=== PATIENT | female | born 1985 | race Caucasian/White ===

== ENCOUNTER 2020-03-15 07:11 | Outpatient (CLI) | payer BC, SELFPAY ==
--- NOTE | ~2020-03-15 | MM_ITS ---
EXAMINATION: MM screening camryn BI w ezio HISTORY: Screening TECHNIQUE: Craniocaudal and mediolateral oblique 3-D tomosynthesis images were obtained and synthetic 2-D images were generated. CAD analysis was submitted and interpreted. COMPARISON: No prior mammogram is available for comparison at this institution. BREAST PARENCHYMAL COMPOSITION: The breasts are heterogeneously dense, which may obscure small masses . FINDINGS: There is no evidence of suspicious mass, calcification, or architectural distortion to sugg est malignancy in either breast. There has been no suspicious interval change. IMPRESSION: 1. No mammographic evidence of malignancy. 2. Recommend routine screening mammography in one year. BI-RADS Category 1: Negative Reviewed, dictated and finalized at location A.
== END 2020-03-15 07:12 | disposition home or self-care (01) ==
PROVIDERS: PCP Family Medicine; Visit Provider Family Medicine
DX: Z12.31 Encounter for screening mammogram for malignant neoplasm of breast (principal)
CPT/HCPCS: 77063; 77067

== ENCOUNTER 2020-05-11 14:09 | Outpatient (CLI) | payer BC, SELFPAY ==
[2020-05-12 01:32] LABS: SARS-CoV-2 RNA PCR Positive
== END 2020-05-11 14:10 | disposition home or self-care (01) ==
LOC: CHSLAB 14:13
PROVIDERS: PCP Family Medicine; Visit Provider Family Medicine
DX: U07.1 COVID-19 (principal)
CPT/HCPCS: 87635; C9803; U0003

== ENCOUNTER 2021-10-19 07:12 | Outpatient (CLI) | payer BC, SELFPAY ==
[2021-10-19 07:43] LABS: Basophils Absolute Auto 0.02 K/mm3 (0.00-0.10); Basophils Percent Auto 0.4 % (0.0-1.0); Eosinophils Absolute Auto 0.08 K/mm3 (0.02-0.50); Eosinophils Percent Auto 1.5 % (1.0-6.0); Hematocrit 40.1 % (35.0-49.0); Hemoglobin 12.5 g/dL (12.0-15.0); Immature Granulocyte Absolute 0.01 K/mm3 (0.00-0.00); Immature Granulocyte Percent A 0.2 % (0.0-0.0); Lymphocytes Absolute Auto 1.97 K/mm3 (1.10-4.50); Lymphocytes Percent Auto 37.5 % (18.0-42.0); Mean Corpuscular HGB Conc 31.2 g/dL (32.0-36.0); Mean Corpuscular Hemoglobin 26.4 pg (27.0-31.0); Mean Corpuscular Volume 84.6 fL (78.0-102.0); Mean Platelet Volume 10.8 fl (9.2-11.8); Monocytes Absolute Auto 0.54 K/mm3 (0.10-0.90); Monocytes Percent Auto 10.3 % (2.0-11.0); Neutrophils Absolute Auto 2.6 K/mm3 (1.7-7.2); Neutrophils Percent Auto 50.1 % (50.0-70.0); Platelet Count Result 315 K/mm3 (150-420); Red Blood Count 4.74 M/mm3 (4.20-5.40); Red Cell Distribution Width 14.3 % (11.6-14.4); White Blood Count 5.3 K/mm3 (4.8-10.8)
[2021-10-19 07:56] LABS: Creatinine Urine 131.86 mg/dL (40-278); MALB Creatinine Ratio 9.8 mg/g (0-30); Microalbumin Urine Random < 13.0 mg/L
[2021-10-19 08:22] LABS: Alanine Aminotransferase 29 U/L (14-59); Albumin Level 3.8 g/dL (3.4-5.0); Alkaline Phosphatase 69 U/L (46-116); Anion Gap 7 mmol/L (8-16); Aspartate Amino Transferase 21 U/L (15-37); Bilirubin,Total 0.3 mg/dL (0.00-1.00); Blood Urea Nitrogen 18 mg/dL (7-18); Calcium 8.9 mg/dL (8.5-10.1); Carbon Dioxide 30 mmol/L (21-32); Chloride 106 mmol/L (98-108); Cholesterol 139 mg/dL (0-200); Estimated Glomerular Filt Rate > 60; Glucose 92 mg/dL (70-99); HDL Direct 67 mg/dL (40-60); LDL Cholesterol Calculated 66 mg/dL (<130); Osmolality Calculated 297 mOsm/kg (285-295); Potassium 3.9 mmol/L (3.5-5.1); Sodium 143 mmol/L (136-145); Thyroid Stimulating Hormone 2.14 uIU/mL (0.36-3.74); Total Protein 6.7 g/dL (6.4-8.2); Triglycerides 28 mg/dL (0-150)
== END 2021-10-19 07:13 | disposition home or self-care (01) ==
LOC: CHSLAB 07:15
PROVIDERS: PCP Family Medicine; Visit Provider Family Medicine
DX: E78.2 Mixed hyperlipidemia (principal); I10 Essential (primary) hypertension
CPT/HCPCS: 36415; 80053; 80061; 82043; 84443; 85025

== ENCOUNTER 2024-06-22 09:13 | Outpatient (CLI) | payer BC, SELFPAY ==
--- NOTE | ~2024-06-22 | XR_ITS ---
XR chest 2V Ordering provider: Joel Durán MD History: 39 years Female with . subacute cough X 3 months, Former smoker, 2020 - PFO . Comparison: None. FINDINGS: MEDIASTINUM: The cardiac silhouette is not enlarged. LUNGS: No infiltrates, effusions or pneumothorax. OTHER: No free air under the diaphragm. IMPRESSION: No acute cardiopulmonary pathology. Reviewed, dictated and finalized at location A. [employer]
--- OUTSIDE RECORDS SUMMARY | 2024-07-01 02:49 | XMS_ITS | Encounter Summary ---
Author Organization [facility] Address [address] [place] [address]. [place] [address] [place] [address] Care Team Providers Care Medical Lab Technician Name Role Phone Joel Durán MD Primary Care Provider [phone] Mary Bahena MD Unavailable Jaguar Castaneda MD Unavailable [phone] Reason for Visit * Reason Onset Date Comments Appointment Request 09/09/2021 Encounter Details Date Type Department Care Team (Late st Contact Info) Description 09/09/2021 Telephone [facility] ld [address] [place] [address] Billy Fernandez, NUT ROASTER HELPER [address] [facility] [address] [place] [address] Appointment Request Social History Tobacco Use Types Packs/Day Years Used Date Smoking Tobacco: Former Cigarettes 1 21 0 03/31/1999 - 03/31/2020 Smokeless Tobacco: Never Alcohol Use Standard Drinks/Week Comments Yes 0 (1 standard drink = 0.6 oz pur e alcohol) socially AUDIT-C Answer Date Recorded Q1: How often do you have a drink containing alc ohol? 2-4 times a month 04/30/2020 Average Number of Drinks Not on file 020 Frequency of Binge Drinking Not on file 04/06 Comments No Sex and Gender Information Value Date Recorded Sex Assigned at Not on file Legal Sex Female 5:28 PM CDT Gender Identity Female 11/19/2021 10:17 AM CDT Sexual Orientation Straight 11/19/2021 10 :17 AM CDT COVID-19 Exposure Response Date Recorded In the last 10 days, have yo u been in contact with someone who was confirmed or suspected to have Coronavirus/COVID-19? No / Unsure 09/09/2021 1:01 PM SADDLE CUTTER documented as of this encounter Functional Status * RETIRED Are you deaf or do you have serious difficulty hearing Answer Date of Assessment Author Status No 09/07/2020 11:09 AM SADDLE CUTTER Acti ve * RETIRED Are you blind or do you have serious difficulty seeing, even when wearing glasses? Answer Date of Assessment Author Status No 09/07/2020 11:09 AM SADDLE CUTTER Acti ve * Do you have serious difficulty walking or climbing stairs? Answer Date of Assessment Author Status No 09/07/2020 11:09 AM SADDLE CUTTER Sweetie Craven R N Active * Do you have difficulty dressing or bathing? Answer Date of Assessment Author Status No 09/07/2020 11:09 AM SADDLE CUTTER Sweetie Craven R N Active * Because of a physical, mental, or emotional condition, do you have difficulty doing errands alone such as visiting a doctor's office or shopping? Answer Date of Assessment Author Status No 09/07/2020 11:09 AM SADDLE CUTTER Sweetie Craven R N Active documented as of this encounter Mental Status * Because of a physical, mental, or emotional condition, do you have serious difficulty concentrating, remembering, or making decisions? Answer Entry Date Author Status No 09/07/2020 11:09 AM SADDLE CUTTER Sweetie Craven R N Active documented in this encounter Progress Notes * Carmencita Eubanks - 09/09/2021 2:36 PM CST FOLLOW UP APPT DATE/TIME: 09/10/22 @11am TESTING REQUESTED? Yes IF YES TESTING SCHEDULED: Echo LOCATION: [facility] DATE/TIME: 09/10/22 @10am TESTING LETTER WITH INSTRUCTIONS PROVIDED: Yes APPT CARD COMPLETED AND PROVIDED: Yes LE CUTTER documented in this encounter Plan of Treatment Upcoming Encounters Date Type Department Care Team (Late st Contact Info) Description 09/23/2024 9:00 AM CDT Appointment [facility] Non Invasive Cardiology - [facility] [address] [place] [address] Jaguar Castaneda MD [address] [place] [address] 09/23/2024 10:00 AM CDT [facility] [address] [place] [id number] Jaguar Castaneda MD [address] [place] [address] documented as of this encounter Goals Goal Patient Goal Type Associated Problems Recent Progress Patient-Stated? Author Safety - demonstrates understanding of home safety measures General Cassandra Graves RN documented as of this encounter Visit Diagnoses Not on filedocumented in this encounter Care Teams Medical Lab Technician Relationship Specialty Start Date End Date Joel Durán MD [address] [place] [address] PCP - General FAMILY PRACTICE 03/30/20 Mary Bahena MD [address] [place] [address] Vascular Neurology 04/18/20 09/09/22 Jaguar Castaneda MD [address] [place] [address] Consulting Physician INTERVENTIONAL CARDIOLOGY 04/18/20 documented as of this encounter
--- OUTSIDE RECORDS SUMMARY | 2024-07-01 02:49 | XMS_ITS | Encounter Summary ---
Author Organization [facility] Address [address] [place] [address]. [place] [address] [place] [address] Care Team Providers Care Station Engineer Main Line Name Role Phone Joel Durán MD Primary Care Provider [phone] Mary Bahena MD Unavailable Jaguar Castaneda MD Unavailable [phone] Billy Fernandez APRN Unavailable [phone] Encounter Details Date Type Department Care Team (Late st Contact Info) Description 03/06/2021 Zectert Message Enc [facility] [address] [place] [address] Jaguar Castaneda MD [address] [place] [address] RE: Question Social History Tobacco Use Types Packs/Day Years [...] Orientation Straight 11/19/2021 10 :17 AM CDT documented as of this encounter Functional Status * RETIRED Are you deaf or do you have serious difficulty hearing Answer Date of Assessment Author Status No 09/07/2020 11:09 AM PIPE LINE GAUGER Acti ve * RETIRED Are you blind or do you have serious difficulty seeing, even when wearing glasses? Answer Date of Assessment Author Status No 09/07/2020 11:09 AM PIPE LINE GAUGER Acti ve * Do you have serious difficulty walking or climbing stairs? Answer Date of Assessment Author Status No 09/07/2020 11:09 AM PIPE LINE GAUGER Sweetie Craven R N Active * Do you have difficulty dressing or bathing? Answer Date of Assessment Author Status No 09/07/2020 11:09 AM Sweetie Keating R N Active * Because of a physical, mental, or emotional condition, do you have difficulty doing errands alone such as visiting a doctor's office or shopping? Answer Date of Assessment Author Status No 09/07/2020 11:09 AM PIPE LINE GAUGER Sweetie Craven R N Active documented as of this encounter Mental Status * Because of a physical, mental, or emotional condition, do you have serious difficulty concentrating, remembering, or making decisions? Answer Entry Date Author Status No 09/07/2020 11:09 AM Sweetie Keating R N Active documented in this encounter Progress Notes * Tete Landis RN - 03/06/2021 10:16 AM CDT Stop Plavix and remain on ASA? Does she need 6 mo f/u with echo? documented in this encounter Plan of Treatment Upcoming Encounters Date Type Department Care Team (Late st Contact Info) Description 09/23/2024 9:00 AM CDT Appointment [facility] Non Invasive Cardiology [place] [address] [place] [address] Jaguar Castaneda MD [address] [place] [address] 09/23/2024 10:00 AM CDT Office Visit [facility] [address] [place] [address] Jaguar Castaneda MD [address] [place] [address] documented as of this encounter Goals Goal Patient Goal Type Associated Problems Recent Progress Patient-Stated? Author Safety - demonstrates understanding of home safety measures General Cassandra Graves, RN documented as of this encounter Visit Diagnoses Not on filedocumented in this encounter Care Teams Station Engineer Main Line Relationship Specialty Start Date End Date Joel Durán MD [address] [place], [place] [id number] PCP - General FAMILY PRACTICE 03/30/20 Mary Bahena MD [address] [place] [address] Vascular Neurology 04/18/20 09/09/22 Jaguar Castaneda MD [address] [place] [address] Consulting Physician INTERVENTIONAL CARDIOLOGY 04/18/20 Billy Fernandez APRN [address] [facility] [address] [address] Nurse Practitioner NURSE PRACTITIONER 09/10/22 documented as of this encounter
--- OUTSIDE RECORDS SUMMARY | 2024-07-01 02:49 | XMS_ITS | Encounter Summary ---
Author Organization [facility] Address [address] [place] [address]. [place], [place] [address] [place] [address] Care Team Providers Care Booster Operator Name Role Phone Joel Durán MD Primary Care Provider [phone] Jaguar Castaneda MD Unavailable [phone] Billy Fernandez APRN Unavailable [phone] Encounter Details Date Type Department Care Team (Latest Contact Info) Description 09/14/2023 Travel Social History Tobacco Use Types Packs/Day Years [...] Assessment Author Status No 09/07/2020 11:09 AM FRENCH TEACHER Acti ve * RETIRED Are you blind or do you have serious difficulty seeing, even when wearing glasses? Answer Date of Assessment Author Status No 09/07/2020 11:09 AM FRENCH TEACHER Acti ve * Do you have serious difficulty walking or climbing stairs? Answer Date of Assessment Author Status No 09/07/2020 11:09 AM Sweetie Keating R N Active * Do you have [...] AM Sweetie Keating R N Active documented as of this encounter Mental Status * Because of a physical, mental, or emotional condition, do you have serious difficulty concentrating, remembering, or making decisions? Answer Entry Date Author Status No 09/07/2020 11:09 AM Sweetie Keating R N Active documented in this encounter Plan of Treatment Upcoming Encounters Date Type Department Care Team (Late st Contact Info) Description 09/23/2024 9:00 AM CDT Appointment [facility] Non Invasive Cardiology - [facility] [address] [place] [address] Jaguar Castaneda MD [address] [place] [address] 09/23/2024 10:00 AM CDT [facility] [address] [place] [address] Jaguar Castaneda MD [address] [place] [address] documented as of this encounter Goals Goal Patient Goal Type Associated Problems Recent Progress Patient-Stated? Author Safety - demonstrates understanding of home safety measures General No Cassandra Montemayor RN documented as of this encounter Visit Diagnoses Not on filedocumented in this encounter Care Teams Booster Operator Relationship Specialty Start Date End Date Joel Durán MD [address] [place] [address] PCP - General FAMILY PRACTICE 03/30/20 Jaguar Castaneda MD [address] [place] [address] Consulting Physician INTERVENTIONAL CARDIOLOGY 04/18/20 Billy Fernandez APRN [address] [facility] [address] [address] Nurse Practitioner NURSE PRACTITIONER 09/10/22 documented as of this encounter
--- OUTSIDE RECORDS SUMMARY | 2024-07-01 02:49 | XMS_ITS | Encounter Summary ---
Author Organization [facility] Address [address] [place] [address]. [place], [place] [address] [place] [address] Care Team Providers Care Genetic Counsellor Name Role Phone Joel Colvin MD Primary Care Provider [phone] Jaguar Castaneda MD Unavailable [phone] Billy Fernandez APRN Unavailable [phone] Reason for Referral * Imaging (Routine) - Closed Specialty Diagnoses / Procedures Referred By Contac t Referred To Contact RADIOLOGY Diagnoses PFO (patent foramen ovale) ([facility]) Procedures USE ECHOCARDIOGRAM Billy Fernandez APRN [address] [facility] [address] [address] Phone: tel: fax: Referral ID Status Reason Start Date Expiration Date Visits Re quested Visits Authorized [id number] Closed 09/10/2022 10/11/2023 1 1 ECTION CARD CLERK Reason for Visit * Reason Comments Follow Up Cryptogenic TIA and PFO (s/p PFO Closure) Encounter Details Date Type Department Care Team (Late st Contact Info) Description 09/10/2022 11:00 AM COLLECTION CARD CLERK Office Visit [facility] [place] [id number] [place] [address] Billy Fernandez APRN [address] [facility] [address] [place] [address] Follow Up (Cryptogenic TIA and PFO (s/p PFO Closure)) Social History Tobacco Use Types Packs/Day Years [...] suspected to have Coronavirus/COVID-19? No / Unsure 09/10/2022 9:55 AM COLLECTION CARD CLERK documented as of this encounter Last Filed Vital Signs Vital Sign Reading Time Taken Comments Blood Pressure 120/82 09/10/2022 10:49 AM COLLECTION CARD CLERK Pulse 60 09/10/2022 10:49 AM COLLECTION CARD CLERK Temperature - - Respiratory Rate 18 09/10/2022 10:49 AM COLLECTION CARD CLERK Oxygen Saturation - - Inhaled Oxygen Concentration - - Weight 81.2 kg (179 lb) 09/10/2022 10:49 AM COLLECTION CARD CLERK Height 158.8 cm (5' 2.5 ) 09/10/2022 10:49 AM CS T Body Mass Index 32.22 09/10/2022 10:49 AM COLLECTION CARD CLERK documented in this encounter Functional Status * RETIRED Are you deaf or do you have serious difficulty hearing Answer Date of Assessment Author Status No 09/07/2020 11:09 AM COLLECTION CARD CLERK Acti ve * RETIRED Are you blind or do you have serious difficulty seeing, even when wearing glasses? Answer Date of Assessment Author Status No 09/07/2020 11:09 AM COLLECTION CARD CLERK Acti ve * Do you have serious difficulty walking or climbing stairs? Answer Date of Assessment Author Status No 09/07/2020 11:09 AM Sweetie Keating R N Active * Do you have difficulty dressing or bathing? Answer Date of Assessment Author Status No 09/07/2020 11:09 AM COLLECTION CARD CLERK Sweetie Craven R N Active * Because [...] documented in this encounter Progress Notes * Billy Fernandez APRN - 09/10/2022 11:00 AM CST From Billy Fernandez APRN, STUDENT SUPPORT ADVISOR-C, and collaborating physician Dr. Jaguar Castaneda MD, at [facility] Dear Dr. JOEL COLVIN MD: Your patient, Mateusz Hearn, was seen on 09/10/2022 at the [facility]. Reason for Visit: Follow Up (Cryptogenic TIA and PFO (s/p PFO Closure)) History of Present Illness: I saw Ms. Hearn in the outpatient cardiology clinic today for follow-up and reevaluation. As you know, she is a very pleasant 37-year-old year old woman with a history of cryptogenic TIA with a PFO (status post transcatheter PFO closure). She underwent an echocardiogram prior to her appointment today that was reviewed and appears to demonstrate normal left ventricular systolic function with a well seat PFO closure device noted. Ms. Hearn has been doing well since her last visit. She denies anginal type chest discomfort, palpitations, shortness of breath, dyspnea on exertion, orthopnea, paroxysmal nocturnal dyspnea, peripheral edema, claudication, pre- syncope, or syncope. She denies symptoms consistent with TIA or stroke. Recommendations and Plan: Patent Foramen Ovale s/p PFO Closure: The patient remains asymptomatic with stable echocardiogram findings from today. I recommend continuation of her baby aspirin for antiplatelet therapy indefinitely. She questioned whether or not she needed to remain on atorvastatin. I explained that as her PFO was felt to be the cause of her TIA, our office would be okay with her primary care provider decreasing her atorvastatin dose to 20mg and reevaluating her LDL about 3 months later. Her goal LDL is 100or less. I have arranged for Ms. Hearn to follow up in 1 year with an echocardiogram. If you or she feels that she needs to be seen sooner, we would be happy to do so. If you have any questions or concerns, please do not hesitate to call. Thank you for allowing us the privilege of participating in her care. Medications: Current Outpatient Medications: ??? aspirin 81 MG chewable tablet, Chew 81 mg by mouth daily., Disp: , Rfl: ??? atorvastatin 40 MG tablet, Take 1 tablet (40 mg total) by mouth nightly at bedtime., Disp: 90 tablet, Rfl: 2 ??? hydroCHLOROthiazide 25 MG tablet, Take 25 mg by mouth daily., Disp: , Rfl: No Known Allergies Past Medical History: Diagnosis Date ??? HTN (hypertension) Past Surgical History: Procedure Laterality Date ??? SECTION ??? XA ASD CLOSURE 09/06/2020 Social History Socioeconomic History ??? Marital status: Single Tobacco Use ??? Smoking status: Former Packs/day: 1.00 Years: 21.00 Pack years: 21.00 Types: Cigarettes Quit date: 03/31/2020 Years since quittin.4 ??? Smokeless tobacco: Never Vaping Use ??? Vaping Use: Never used Substance and Sexual Activity ??? Alcohol use: Yes Comment: socially ??? Drug use: Never ??? Sexual activity: Not Currently Family History Problem Relation Name Age of Onset ??? Hyperlipidemia Mother ??? Thyroid Disease Father ??? Hyperlipidemia Father ??? Diabetes Maternal Grandmother ??? Heart Disease Maternal Grandmother ??? Cancer Maternal Grandmother ??? Diabetes Paternal Grandmother ??? Heart Disease Paternal Grandmother ??? No Known Problems Sister ??? No Known Problems Brother ??? No Known Problems Maternal Aunt ??? No Known Problems Maternal Uncle ??? No Known Problems Paternal Aunt ??? No Known Problems Paternal Uncle ??? No Known Problems Maternal Grandfather ??? No Known Problems Paternal Grandfather Family Status Relation Name Status ??? Mother (Not Specified) ??? Father (Not Specified) ??? MGM (Not Specified) ??? PGM (Not Specified) ??? Sister (Not Specified) ??? Brother (Not Specified) ??? MAunt (Not Specified) ??? MUncle (Not Specified) ??? PAunt (Not Specified) ??? PUncle (Not Specified) ??? MGF (Not Specified) ??? PGF (Not Specified) Review of Systems Filed Vitals: 09/10/22 1049 BP: 120/82 Pulse: 60 Resp: 18 Weight: 81.2 kg (179 lb) Height: 5' 2.5 (1.588 m) Cardiac Physical Exam Diagnoses/Impression: 1. TIA (transient ischemic attack) 2. PFO (patent foramen ovale) USE ECHOCARDIOGRAM Referring Provider: No ref. provider found PCP: JOEL COLVIN MD ECTION CARD CLERK documented in this encounter Plan of Treatment Upcoming Encounters Date Type Department Care Team (Late st Contact Info) Description 09/23/2024 9:00 AM CDT Appointment [facility] Non Invasive Cardiology - [facility] [address] [place] [address] Jaguar Castaneda MD [address] [place] [address] 09/23/2024 10:00 AM CDT [facility] [address] [place] [phone] Jaguar Castaneda MD [address] [place] [address] documented as of this encounter Goals Goal Patient Goal Type Associated Problems Recent Progress Patient-Stated? Author Safety - demonstrates understanding of home safety measures General No Cassandra Montemayor RN documented as of this encounter Results * USE ECHOCARDIOGRAM (09/14/2023 1:41 PM CDT) Anatomical Region Laterality Modality Cardiac Echocardiogram 09/14/2023 12:5 3 PM CDT Narrative 09/14/2023 1:46 PM CDT ?Echocardiography Report Pat.Name: ??MATEUSZ HEARN ?? Pat.ID: ?[id number] ? St.Date: ?? 09/14/2023 ? Refer.MD: ??[id number], BILLY FERNANDEZ Exam Time: 12:53:00 PM ? Study Type:ECHO WITH CARDIAC DOPPLER COMP Height: ?160 cm ?Weight: ?90.7 kg ? BSA: ? 1.93 m2 ?Age: ??1985,38Y ? Sex: ? F ? HR: ?79 bpm ? Sonogrphr: Gary Lowe RDCS ?Pat. Stat.:Outpatient ? CPT - 4: ?07555 ? Reason for Study:Patent Foramen Ovale (PFO), s/p PFO closure Procedures: 2D, M-mode, Doppler, Color Flow ++++++++++++++++++++++++++++++++++++ SUMMARY: ++++++++++++++++++++++++++++++++++++ The left ventricular size is normal. The left ventricular systolic function is normal. The calculated ejection fraction is 61%. 25mm Amplatzer PFO occluder visualized in the interatrial septum and appears stable with no paraprosthetic flow by color. ++++++++++++++++++++++++++++++++++++ FINDINGS: ++++++++++++++++++++++++++++++++++++ LV: ? The left ventricular size is normal. The left ventricular ?systolic function is normal. The calculated ejection ?fraction is 61%. No concentric left ventricular hypertrophy. ?The septal E/e' is indeterminate at 8-15. The lateral E/e' ?is normal at <8. The average E/e' is normal at <8. Left ?ventricular diastolic function is normal. Left ventricular ?filling pressure is normal. WM: ? Wall motion appears normal in all segments. LVOT: ? The left ventricular outflow tract size is normal. RV: ? The right ventricular size is normal. Right ventricular ?systolic function is normal. Right ventricular systolic ?pressure is 20 mmHg. TAPSE = 22mm (<16 mm indicates systolic ?RV dysfunction). LA: ? The left atrial volume is mildly increased (34- 41ml/M2). RA: ? Right atrial size is normal. IAS: ?25mm Amplatzer PFO occluder visualized in the interatrial ?septum and appears stable with no paraprosthetic flow by ?color. JUDIT: ? Pericardial effusion is noted. Prominent pericardial fat pad ?visualized. AO: ? Aortic root is not dilated. PA: ? Estimated right atrial pressure of 3 mmHg. SVn: ?Inferior vena cava is normal. Inferior vena cava shows >50% ?collapse with respiration consistent with normal right ?atrial pressure. AV: ? The aortic valve is trileaflet. No evidence of aortic valve ?stenosis. No evidence of aortic valve regurgitation. ?Dimensionless index of 0.7. MV: ? Trace mitral regurgitation. No evidence of mitral stenosis. ?Mildly calcified anterior and posterior mitral annulus. The ?mean gradient across the mitral valve is 1mmHg at a heart ?rate of 56bpm. PV: ? The pulmonic valve is normal There is trace pulmonic ?regurgitation TV: ? The tricuspid valve appears structurally normal. There is ?trace tricuspid regurgitation. ++++++++++++++++++++++++++++++++++++ MEASUREMENTS: ++++++++++++++++++++++++++++++++++++ ?DOPPLER LVOT ?? LVOTpkPG ? 2 mmHg ?LVOTmnPG ? 1 mmHg LVOTpkVel ? 78.1 cm/s (70-110) LVOT SV ? 63 ml ?? LVOT TVI ?18.2 cm ?LVOT CO ? 66.7 ml/s AV Forward Flow AV TVI ?26.6 cm ?AV pkPG ?5 mmHg AV pkVel ? 111 cm/s (100-170) Area (TVI) ?2.37 cm2 ??(3-5)* AV mnVel ?78.9 cm/s ?Area (Roderick) ?2.43 cm2 ??(3-5)* AV mnPG ?3 mmHg ? MV Forward Flow MV DeTm ?225 msec ?MV pkPG ?3 mmHg MVA P1/2t ? 3.19 cm2 ??(4-6)* ?? MV E/A ? 1.5 ? MV P1/2t ?69 msec (30-60)+* MV pkE ?74 cm/s (60-130) MV mnPG ?1 mmHg ?MV pkA ?49.4 cm/s TV Regurg Flow TV pkPG ? 17 mmHg ?TV pkVel ? 206 cm/s (30- 70)* Lat E' ?? Lat e ? 12.3 cm/s ? Lat E/E' ?? Lat E/e ?6 ? Med E' ?? Med e ? 6.63 cm/s ? Med E/E' ?? Med E/e ? 11.2 ? AV DI ?? Value ?0.7 ? SANTIAGO (VTI) Index ?? Value ? 1.23 ? LV Mass 2D ?? Value ?153 g ? LV Mass Index 2D ?? Value ? 79.3 g/m2 ?2D Left Ventricle ?? LVIDd ?4.9 cm ?? (3.6-5.2) LV EF(Bi-Plane) ?61 % ?(55-75) LVIDs ?3.5 cm ?? (2.3-3.9) LVPW ?? LVPWd ?0.9 cm ? Ventricular Septum ?? IVSd ? 0.9 cm ? Aorta ?? Ao Rtd ? 3.5 cm ?? (zsc 2.1)* Ao Asc ? 3.5 cm ?? (zsc 3.6)* LVOT ?? LVOT ? 2.1 cm ? Ratios ?? IVS LA Biplane LAVol I BP ?35.8 ml/m2 ? <Electronic Signature> 09/14/2023 01:46 PM Jaguar Castaneda M.D. Procedure Note Jaguar Castaneda MD - 09/14/2023 Echocardiography Report Pat.Name: MATEUSZ HEARN Pat.ID: [id number] St.Date: 09/14/2023 Refer.: [id number], BILLY FERNANDEZ Exam Time: 12:53:00 PM Study Type:ECHO WITH CARDIAC DOPPLER COMP Height: 160 cm Weight: 90.7 kg BSA: 1.93 m2 Age: 10 1985,38Y Sex: F HR: 79 bpm Sonogrphr: Gary Lowe [facility] Pat. Stat.:Outpatient CPT - 4: 13337 Reason for Study:Patent Foramen Ovale (PFO), s/p PFO closure Procedures: 2D, M-mode, Doppler, Color Flow ++++++++++++++++++++++++++++++++++++ SUMMARY: ++++++++++++++++++++++++++++++++++++ The left ventricular size is normal. The left ventricular systolic function is normal. The calculated ejection fraction is 61%. 25mm Amplatzer PFO occluder visualized in the interatrial septum and appears stable with no paraprosthetic flow by color. ++++++++++++++++++++++++++++++++++++ FINDINGS: ++++++++++++++++++++++++++++++++++++ LV: The left ventricular size is normal. The left ventricular systolic function is normal. The calculated ejection fraction is 61%. No concentric left ventricular hypertrophy. The septal E/e' is indeterminate at 8-15. The lateral E/e' is normal at <8. The average E/e' is normal at <8. Left ventricular diastolic function is normal. Left ventricular filling pressure is normal. WM: Wall motion appears normal in all segments. LVOT: The left ventricular outflow tract size is normal. RV: The right ventricular size is normal. Right ventricular systolic function is normal. Right ventricular systolic pressure is 20 mmHg. TAPSE = 22mm (<16 mm indicates systolic RV dysfunction). LA: The left atrial volume is mildly increased (34- 41ml/M2). RA: Right atrial size is normal. IAS: 25mm Amplatzer PFO occluder visualized in the interatrial septum and appears stable with no paraprosthetic flow by color. JUDIT: Pericardial effusion is noted. Prominent pericardial fat pad visualized. AO: Aortic root is not dilated. PA: Estimated right atrial pressure of 3 mmHg. SVn: Inferior vena cava is normal. Inferior vena cava shows >50% collapse with respiration consistent with normal right atrial pressure. AV: The aortic valve is trileaflet. No evidence of aortic valve stenosis. No evidence of aortic valve regurgitation. Dimensionless index of 0.7. MV: Trace mitral regurgitation. No evidence of mitral stenosis. Mildly calcified anterior and posterior mitral annulus. The mean gradient across the mitral valve is 1mmHg at a heart rate of 56bpm. PV: The pulmonic valve is normal There is trace pulmonic regurgitation TV: The tricuspid valve appears structurally normal. There is trace tricuspid regurgitation. ++++++++++++++++++++++++++++++++++++ MEASUREMENTS: ++++++++++++++++++++++++++++++++++++ DOPPLER LVOT LVOTpkPG 2 mmHg LVOTmnPG 1 mmHg LVOTpkVel 78.1 cm/s (70-110) LVOT SV 63 ml LVOT TVI 18.2 cm LVOT CO 66.7 ml/s AV Forward Flow AV TVI 26.6 cm AV pkPG 5 mmHg AV pkVel 111 cm/s (100-170) Area (TVI) 2.37 cm2 (3-5)* AV mnVel 78.9 cm/s Area (Roderick) 2.43 cm2 (3-5)* AV mnPG 3 mmHg MV Forward Flow MV DeTm 225 msec MV pkPG 3 mmHg MVA P1/2t 3.19 cm2 (4-6)* MV E/A 1.5 MV P1/2t 69 msec (30-60)+* MV pkE 74 cm/s (60-130) MV mnPG 1 mmHg MV pkA 49.4 cm/s TV Regurg Flow TV pkPG 17 mmHg TV pkVel 206 cm/s (30-70)* Lat E' Lat e 12.3 cm/s Lat E/E' Lat E/e 6 Med E' Med e 6.63 cm/s Med E/E' Med E/e 11.2 AV DI Value 0.7 SANTIAGO (VTI) Index Value 1.23 LV Mass 2D Value 153 g LV Mass Index 2D Value 79.3 g/m2 2D Left Ventricle LVIDd 4.9 cm (3.6-5.2) LV EF(Bi-Plane) 61 % (55-75) LVIDs 3.5 cm (2.3-3.9) LVPW LVPWd 0.9 cm Ventricular Septum IVSd 0.9 cm Aorta Ao Rtd 3.5 cm (zsc 2.1)* Ao Asc 3.5 cm (zsc 3.6)* LVOT LVOT 2.1 cm Ratios IVS LA Biplane LAVol I BP 35.8 ml/m2 <Electronic Signature> 09/14/2023 01:46 PM Jaguar Castaneda M.D. Billy Fernandez INDUST[employer]AL [employer]EN SYSTEMS DESIGNER ECHO Final R esult documented in this encounter Visit Diagnoses Diagnosis TIA (transient ischemic attack)- Primary Unspecified transient cerebral ischemia PFO (patent foramen ovale) (HHS/HCC) Ostium secundum type atrial septal defect PFO (patent foramen ovale) (HHS/HCC) Ostium secundum type atrial septal defect documented in this encounter Care Teams Genetic Counsellor Relationship Specialty Start Date End Date Joel Colvin MD [address] [place] [address] PCP - General FAMILY PRACTICE 03/30/20 Jaguar Castaneda MD [address] [place] [id number] Consulting Physician INTERVENTIONAL CARDIOLOGY 04/18/20 Billy Fernandez APRN 9 [facility] [address] [address] Nurse Practitioner NURSE PRACTITIONER 09/10/22 documented as of this encounter
--- OUTSIDE RECORDS SUMMARY | 2024-07-01 02:49 | XMS_ITS | Encounter Summary ---
Author Organization [facility] Address [address] [place] [address]. [place] [address] [place] [address] Care Team Providers Care Salad Maker Name Role Phone Joel Durán MD Primary Care Provider [phone] Mary Bahena MD Unavailable Jaguar Castaneda MD Unavailable [phone] Reason for Visit * Reason Onset Date Comments [facility] Study 09/09/2021 Encounter Details Date Type Department Care Team (Late st Contact Info) Description 09/09/2021 [facility] Documentation [facility] el[facility] [address] [place] [address] Jaguar Castaneda MD [address] [place], [place] [id number] [facility] Study Social History Tobacco Use Types Packs/Day Years [...] Coronavirus/COVID-19? No / Unsure 09/09/2021 1:01 PM WAREHOUSE DISTRIBUTION SPECIALIST documented as of this encounter Functional Status * RETIRED Are you deaf or do you have serious difficulty hearing Answer Date of Assessment Author Status No 09/07/2020 11:09 AM WAREHOUSE DISTRIBUTION SPECIALIST Acti ve * RETIRED Are you blind or do you have serious difficulty seeing, even when wearing glasses? Answer Date of Assessment Author Status No 09/07/2020 11:09 AM WAREHOUSE DISTRIBUTION SPECIALIST Acti ve * Do you have serious difficulty walking or climbing stairs? Answer Date of Assessment Author Status No 09/07/2020 11:09 AM WAREHOUSE DISTRIBUTION SPECIALIST Sweetie Craven, R N Active * Do you have difficulty dressing or bathing? Answer Date of Assessment Author Status No 09/07/2020 11:09 AM WAREHOUSE DISTRIBUTION SPECIALIST Sweetie Craven, R N Active * Because of a physical, mental, or emotional condition, do you have difficulty doing errands alone such as visiting a doctor's office or shopping? Answer Date of Assessment Author Status No 09/07/2020 11:09 AM WAREHOUSE DISTRIBUTION SPECIALIST Sweetie Craven, R N Active documented as of this encounter Mental Status * Because of a physical, mental, or emotional condition, do you have serious difficulty concentrating, remembering, or making decisions? Answer Entry Date Author Status No 09/07/2020 11:09 AM WAREHOUSE DISTRIBUTION SPECIALIST Sweetie Craven, R N Active documented in this encounter Progress Notes * Qing Zia - 09/09/2021 1:48 PM CST The Inclusion and Exclusion were reviewed and this subject meets eligibility to enroll in the EKO Low EF Study. The Informed Consent was reviewed in its entirety, on (09.09.2021) and the subject was given ample time to consider participation in the trial. The subject agrees to participate in the EKO Low EF Study during device use and agrees to all study related tests and procedures. The Informed Consent was obtained, signed, and dated by the subject, prior to performing any study-related procedures. A copy of the Informed Consent was given to the patient for their records and the original Informed Consent will be kept in the subject???s research file. The study subject also agrees to call the coordinator if they have any further questions or decides to withdraw from the trial. At this time, all questions have been answered and contact information provided to the study subject. Thank you. HOUSE DISTRIBUTION SPECIALIST documented in this encounter Plan of Treatment Upcoming Encounters Date Type Department Care Team (Late st Contact Info) Description 09/23/2024 9:00 AM CDT Appointment [facility] Non Invasive Cardiology - [facility] [address] [place] [address] Jaguar Castaneda MD [address] [place] [address] 09/23/2024 10:00 AM CDT [facility] [address] [place] [address] Jaguar Castaneda MD [address] [place] [address] documented as of this encounter Goals Goal Patient Goal Type Associated Problems Recent Progress Patient-Stated? Author Safety - demonstrates understanding of home safety measures General Cassandra Graves RN documented as of this encounter Visit Diagnoses Not on filedocumented in this encounter Care Teams Salad Maker Relationship Specialty Start Date End Date Joel Durán MD [address] [place] [address] PCP - General FAMILY PRACTICE 03/30/20 Mary Bahena MD [address] [place] [address] Vascular Neurology 04/18/20 09/09/22 Jaguar Castaneda MD [address] [place] [address] Consulting Physician INTERVENTIONAL CARDIOLOGY 04/18/20 documented as of this encounter
--- OUTSIDE RECORDS SUMMARY | 2024-07-01 02:49 | XMS_ITS | Encounter Summary ---
Author Organization [facility] Address [address] [place] [address]. [place], [place] [address] [place] [address] Care Team Providers Care Bending Machine Operator Name Role Phone Joel Durán MD Primary Care Provider [phone] Jaguar Castaneda MD Unavailable [phone] Billy Fernandez JUNIOR AUTOMATION ENGINEER Unavailable [phone] Reason for Referral * Imaging (Routine) - Closed Specialty Diagnoses / Procedures Referred By Contac t Referred To Contact RADIOLOGY Diagnoses PFO (patent foramen ovale) ([facility]) Procedures USE ECHOCARDIOGRAM Billy Fernandez JUNIOR AUTOMATION ENGINEER [address] [facility] [address] [place] [address] Phone: tel: fax: Referral ID Status Reason Start Date Expiration Date Visits Re quested Visits Authorized [id number] Closed 09/10/2022 10/11/2023 1 1 Reason for Visit * Imaging (Routine) - Closed Specialty Diagnoses / Procedures Referred By Contac t Referred To Contact RADIOLOGY Diagnoses PFO (patent foramen ovale) ([facility]) Procedures USE ECHOCARDIOGRAM Billy Fernandez, JUNIOR AUTOMATION ENGINEER [address] [facility] [address] [place] [address] Phone: tel: fax: Referral ID Status Reason Start Date Expiration Date Visits Re quested Visits Authorized [id number] Closed 09/10/2022 10/11/2023 1 1 Encounter Details Date Type Department Care Team (Latest Contact Info) Description 09/14/2023 12:39 PM CDT - 09/14/2023 11:59 PM CDT Hospital Encounter [facility] Non Invasive Cardiology - [address] [address] Billy Fernandez, JUNIOR AUTOMATION ENGINEER [address] [facility] [address] [place] [address] Discharge Disposition: Home or Self Care (Routine Discharge) Social History Tobacco Use Types Packs/Day Years [...] Assessment Author Status No 09/07/2020 11:09 AM DINKEY SKINNER Acti ve * RETIRED Are you blind or do you have serious difficulty seeing, even when wearing glasses? Answer Date of Assessment Author Status No 09/07/2020 11:09 AM DINKEY SKINNER Acti ve * Do you have serious [...] R N Active documented in this encounter Medications at Time of Discharge aspirin 81 MG chewable tablet Chew 81 mg by mouth daily. atorvastatin 40 MG tablet Take 1 tablet (40 mg total) by mouth nightly at bedtime. 90 tablet 2 04/01/2020 hydroCHLOROthiazi de 25 MG tablet Take 25 mg by mouth daily. 03/07/2020 documented as of this encounter Plan of Treatment Upcoming Encounters Date Type Department Care Team (Late st Contact Info) Description 09/23/2024 9:00 AM CDT Appointment [facility] Non Invasive Cardiology [facility] [address] [place] [address] Jaguar Castaneda MD [address] [place] [address] 09/23/2024 10:00 AM CDT Office Visit [facility] [address] [place] [address] Jaguar Castaneda MD [address] [place] [address] documented as of this encounter Goals Goal Patient Goal Type Associated Problems Recent Progress Patient-Stated? Author Safety - demonstrates understanding of home safety measures General No Cassandra Montemayor RN documented as of this encounter Procedures Procedure Name Priority Date/Time Associated Diagnosis Comments USE ECHOCARDIOGRAM Routine 09/14/2023 1: 41 PM CDT PFO (patent foramen ovale) ([facility]) documented in this encounter Results * USE ECHOCARDIOGRAM (09/14/2023 1:41 PM CDT) Anatomical Region Laterality Modality Cardiac Echocardiogram 09/14/2023 12:5 3 PM CDT Narrative 09/14/2023 1:46 PM CDT ?Echocardiography Report Pat.Name: ??YANELY HEARN ?? Pat.ID: ?[id number] ? St.Date: ?? 09/14/2023 ? Refer.MD: ??[id number], BILLY FERNANDEZ Exam Time: 12:53:00 PM ? Study Type:ECHO WITH CARDIAC DOPPLER COMP Height: ?160 cm ?Weight: ?90.7 kg ? BSA: ? 1.93 m2 ?Age: ??1985,38Y ? Sex: ? F ? HR: ?79 bpm ? Sonogrphr: Gary Lowe RDCS ?Pat. Stat.:Outpatient ? CPT - 4: ?71151 ? Reason for Study:Patent Foramen Ovale (PFO), [...] Castaneda MD - 09/14/2023 Echocardiography Report Pat.Name: YANELY HEARN Pat.ID: [id number] St.Date: 09/14/2023 Refer.: [id number], BILLY FERNANDEZ Exam Time: 12:53:00 PM Study Type:ECHO WITH CARDIAC DOPPLER COMP Height: 160 cm Weight: 90.7 kg BSA: 1.93 m2 Age: 9 1985,38Y Sex: F HR: 79 bpm Sonogrphr: Gary Lowe [facility] Pat. Stat.:Outpatient CPT - 4: 05001 Reason for Study:Patent Foramen Ovale (PFO), s/p [...] 01:46 PM Jaguar Castaneda M.D. Billy Fernandez JUNIOR AUTOMATION ENGINEER ECHO Final R esult documented in this encounter Visit Diagnoses Diagnosis PFO (patent foramen ovale) ([facility]) Ostium secundum type atrial septal defect documented in this encounter Care Teams Bending Machine Operator Relationship Specialty Start Date End Date Joel Durán MD [address] [place] [address] PCP - General FAMILY PRACTICE 03/30/20 Jaguar Castaneda MD [address] [place] [address] Consulting Physician INTERVENTIONAL CARDIOLOGY 04/18/20 Billy Fernandez APRN [address] [id number] Nurse Practitioner NURSE PRACTITIONER 09/10/22 documented as of this encounter
--- OUTSIDE RECORDS SUMMARY | 2024-07-01 02:49 | XMS_ITS | Encounter Summary ---
Author Organization [facility] Address [address] [place] [address]. [place], [place] [address] [place] [address] Care Team Providers Care Edi Consultant Name Role Phone Joel Durán MD Primary Care Provider [phone] Mary Bahena MD Unavailable Jaguar Castaneda MD Unavailable [phone] Billy Fernandez APRN Unavailable [phone] Encounter Details Date Type Department Care Team (Late st Contact Info) Description 09/10/2020 Hospital Follow-up Call [facility] [address] [place] [address] Sanjuanita Barnes, RN Social History Tobacco Use Types Packs/Day Years [...] Exposure Response Date Recorded In the last month, have you been in contact with someone who was confirmed or suspected to have Coronavirus / COVID-19? No / Unsure 09/06/2020 8:12 AM HIGH SCALER documented as of this encounter Functional Status * RETIRED Are you deaf or do you have serious difficulty hearing Answer Date of Assessment Author Status No 09/07/2020 11:09 AM HIGH SCALER Acti ve * RETIRED Are you blind or do you have serious difficulty seeing, even when wearing glasses? Answer Date of Assessment Author Status No 09/07/2020 11:09 AM HIGH SCALER Acti ve * Do you have serious difficulty walking or climbing stairs? Answer Date of Assessment Author Status No 09/07/2020 11:09 AM HIGH SCALER Sweetie Craven R N Active * Do you have difficulty dressing or bathing? Answer Date of Assessment Author Status No 09/07/2020 11:09 AM HIGH SCALER Sweetie Craven R N Active * Because of a physical, mental, or emotional condition, do you have difficulty doing errands alone such as visiting a doctor's office or shopping? Answer Date of Assessment Author Status No 09/07/2020 11:09 AM HIGH SCALER Sweetie Craven R N Active documented as of this encounter Mental Status * Because of a physical, mental, or emotional condition, do you have serious difficulty concentrating, remembering, or making decisions? Answer Entry Date Author Status No 09/07/2020 11:09 AM HIGH SCALER Sweetie Craven R N Active documented in this encounter Plan of Treatment Upcoming Encounters Date Type Department Care Team (Late st Contact Info) Description 09/23/2024 9:00 AM CDT Appointment [facility] Non Invasive Cardiology - [facility] [address] [place] [address] Jaguar Castaneda MD [address] [place] [address] 09/23/2024 10:00 AM CDT Office Visit [facility] [address] [place] [id number] Jaguar Castaneda MD [address] [place] [address] documented as of this encounter Goals Goal Patient Goal Type Associated Problems Recent Progress Patient-Stated? Author Safety - demonstrates understanding of home safety measures General Cassandra Graves, RN documented as of this encounter Visit Diagnoses Not on filedocumented in this encounter Care Teams Edi Consultant Relationship Specialty Start Date End Date Joel Durán MD [address] [place] [address] PCP - General FAMILY PRACTICE 03/30/20 Mary Bahena MD [address] [place] [address] Vascular Neurology 04/18/20 09/09/22 Jaguar Castaneda MD [address] [place] [address] Consulting Physician INTERVENTIONAL CARDIOLOGY 04/18/20 Billy Fernandez APRN [address] [address] Nurse Practitioner NURSE PRACTITIONER 09/10/22 documented as of this encounter
--- OUTSIDE RECORDS SUMMARY | 2024-07-01 02:49 | XMS_ITS | Encounter Summary ---
Author Organization [facility] Address [address] [place] [address]. [place] [address] [place] [address] Care Team Providers Care Sheet Catcher Name Role Phone Joel Durán MD Primary Care Provider [phone] Jaguar Castaneda MD Unavailable [phone] Billy Fernandez APRN Unavailable [phone] Encounter Details Date Type Department Care Team (Late st Contact Info) Description 09/10/2022 Orders Only [facility] [address] [place] [address] Jaguar Castaneda MD [address] [place] [address] Social History Tobacco Use Types Packs/Day Years [...] Coronavirus/COVID-19? No / Unsure 09/10/2022 9:55 AM CONCRETE MIXING PLANT SUPERINTENDENT documented as of this encounter Functional Status * RETIRED Are you deaf or do you have serious difficulty hearing Answer Date of Assessment Author Status No 09/07/2020 11:09 AM CONCRETE MIXING PLANT SUPERINTENDENT Acti ve * RETIRED Are you blind or do you have serious difficulty seeing, even when wearing glasses? Answer Date of Assessment Author Status No 09/07/2020 11:09 AM CONCRETE MIXING PLANT SUPERINTENDENT Acti ve * Do you have serious difficulty walking or climbing stairs? Answer Date of Assessment Author Status No 09/07/2020 11:09 AM CONCRETE MIXING PLANT SUPERINTENDENT Sweetie Craven R N Active * Do you have difficulty dressing or bathing? Answer Date of Assessment Author Status No 09/07/2020 11:09 AM CONCRETE MIXING PLANT SUPERINTENDENT Sweetie Craven R N Active * Because of a physical, mental, or emotional condition, do you have difficulty doing errands alone such as visiting a doctor's office or shopping? Answer Date of Assessment Author Status No 09/07/2020 11:09 AM CONCRETE MIXING PLANT SUPERINTENDENT Sweetie Craven R N Active documented as [...] Info) Description 09/23/2024 9:00 AM CDT Appointment [facility] Non Invasive Cardiology - [facility] [address] [place], [place] [address] Jaguar Castaneda MD [address] [place], [place] [address] 09/23/2024 10:00 AM CDT Office Visit [facility] [address] [place] [address] Jaguar Castaneda MD [address] [place] [address] Scheduled Orders Name Type Priority Associated Diagnoses Orde r Schedule ELECTROCARDIOGRAM EKG-NonRad Routine Primary hypertension Expected: 09/11/2023 (Approximate), Expires: 03/13/2024 documented as of this encounter Goals Goal Patient Goal Type Associated Problems Recent Progress Patient-Stated? Author Safety - demonstrates understanding of home safety measures General Cassandra Graves, RN documented as of this encounter Visit Diagnoses Diagnosis Primary hypertension- Primary Unspecified essential hypertension documented in this encounter Care Teams Sheet Catcher Relationship Specialty Start Date End Date Joel Durán MD [address] [place] [address] PCP - General FAMILY PRACTICE 03/30/20 Jaguar Castaneda MD [address] [place] [address] Consulting Physician INTERVENTIONAL CARDIOLOGY 04/18/20 Billy Fernandez APRN [address] [address] Nurse Practitioner NURSE PRACTITIONER 09/10/22 documented as of this encounter
--- OUTSIDE RECORDS SUMMARY | 2024-07-01 02:49 | XMS_ITS | Encounter Summary ---
Author Organization [facility] Address [address] [place] [address]. [place], [place] [address] [place] [address] Care Team Providers Care Research Food Technologist Name Role Phone Joel Durán MD Primary Care Provider [phone] Mary Bahena MD Unavailable Jaguar Castaneda MD Unavailable [phone] Encounter Details Date Type Department Care Team (Late st Contact Info) Description 09/08/2020 Patient Self-Triage [facility] [address] [place] [address] [facility] Social History Tobacco Use Types Packs/Day Years [...] COVID-19? No / Unsure 09/06/2020 8:12 AM RECYCLE WORKER documented as of this encounter Functional Status * RETIRED Are you deaf or do you have serious difficulty hearing Answer Date of Assessment Author Status No 09/07/2020 11:09 AM RECYCLE WORKER Acti ve * RETIRED Are you blind or do you have serious difficulty seeing, even when wearing glasses? Answer Date of Assessment Author Status No 09/07/2020 11:09 AM RECYCLE WORKER Acti ve * Do you have serious difficulty walking or climbing stairs? Answer Date of Assessment Author Status No 09/07/2020 11:09 AM RECYCLE WORKER Sweetie Craven R N Active * Do you have difficulty dressing or bathing? Answer Date of Assessment Author Status No 09/07/2020 11:09 AM RECYCLE WORKER Sweetie Craven R N Active * Because of a physical, mental, or emotional condition, do you have difficulty doing errands alone such as visiting a doctor's office or shopping? Answer Date of Assessment Author Status No 09/07/2020 11:09 AM RECYCLE WORKER Sweetie Craven R N Active documented as [...] Info) Description 09/23/2024 9:00 AM CDT Appointment [facility] Non Invasive Cardiology - [facility] [address] [place] [address] Jaguar Castaneda MD [address] [place], [place] [address] 09/23/2024 10:00 AM CDT Office Visit [facility] [address] [place] [address] Jaguar Castaneda MD [address] [place] [address] documented as of this encounter Goals Goal Patient Goal Type Associated Problems Recent Progress Patient-Stated? Author Safety - demonstrates understanding of home safety measures General Cassandra Graves RN documented as of this encounter Visit Diagnoses Not on filedocumented in this encounter Care Teams Research Food Technologist Relationship Specialty Start Date End Date Joel Durán MD [address] [place], [place] [address] PCP - General FAMILY PRACTICE 03/30/20 Mary Bahena MD [address] [place] [address] Vascular Neurology 04/18/20 09/09/22 Jaguar Castaneda MD [address] [place] [address] Consulting Physician INTERVENTIONAL CARDIOLOGY 04/18/20 documented as of this encounter
--- OUTSIDE RECORDS SUMMARY | 2024-07-01 02:49 | XMS_ITS | Encounter Summary ---
Author Organization [facility] Address [address] [place] [address]. [place] [address] [place] [address] Care Team Providers Care Cleaning Specialist Name Role Phone Joel Durán MD Primary Care Provider [phone] Mary Bahena MD Unavailable Jaguar Castaneda MD Unavailable [phone] Billy Fernandez APRN Unavailable [phone] Encounter Details Date Type Department Care Team (Late st Contact Info) Description 05/13/2021 MemSQLt Message Enc [facility] eld [address] [place] [address] Jaguar Castaneda MD [address] [place] [address] RE: Other Social History Tobacco Use Types Packs/Day Years [...] Assessment Author Status No 09/07/2020 11:09 AM LEGAL INSTRUCTOR Acti ve * RETIRED Are you blind or do you have serious difficulty seeing, even when wearing glasses? Answer Date of Assessment Author Status No 09/07/2020 11:09 AM LEGAL INSTRUCTOR Acti ve * Do you have serious difficulty walking or climbing stairs? Answer Date of Assessment Author Status No 09/07/2020 11:09 AM LEGAL INSTRUCTOR Sweetie Craven R N Active * Do you have difficulty dressing or bathing? Answer Date of Assessment Author Status No 09/07/2020 11:09 AM Sweetie Keating R N Active * Because of a physical, mental, or emotional condition, do you have difficulty doing errands alone such as visiting a doctor's office or shopping? Answer Date of Assessment Author Status No 09/07/2020 11:09 AM LEGAL INSTRUCTOR Sweetie Craven R N Active documented as [...] Info) Description 09/23/2024 9:00 AM CDT Appointment [facility] Non Invasive Cardiology - [facility] [address] [place] [address] Jaguar Castaneda MD [address] [place] [address] 09/23/2024 10:00 AM CDT [facility] [address] [place] [address] Jaguar Castaneda MD [address] [place] [address] documented as of this encounter Goals Goal Patient Goal Type Associated Problems Recent Progress Patient-Stated? Author Safety - demonstrates understanding of home safety measures General Cassandra Graves RN documented as of this encounter Visit Diagnoses Not on filedocumented in this encounter Care Teams Cleaning Specialist Relationship Specialty Start Date End Date Joel Durán MD [address] [place] [address] PCP - General FAMILY PRACTICE 03/30/20 Mary Bahena MD [address] [place] [address] Vascular Neurology 04/18/20 09/09/22 Jaguar Castaneda MD [address] [place] [address] Consulting Physician INTERVENTIONAL CARDIOLOGY 04/18/20 Billy Fernandez APRN [address] [place] [address] Nurse Practitioner NURSE PRACTITIONER 09/10/22 documented as of this encounter
--- OUTSIDE RECORDS SUMMARY | 2024-07-01 02:49 | XMS_ITS | Encounter Summary ---
Author Organization [facility] Address [address] [place] [address]. [place] [address] [place] [address] Care Team Providers Care Vegetable Cutter Name Role Phone Joel Durán MD Primary Care Provider [phone] Mary Bahena MD Unavailable Jaguar Castaneda MD Unavailable [phone] Reason for Referral * (Routine) - Closed Specialty Diagnoses / Procedures Referred By Contac t Referred To Contact Diagnoses PFO (patent foramen ovale) ([facility]) Palpitation Procedures CLINIC - OUTPATIENT EVENT RECORDER (ECG) UP TO 30 DAYS COMPLETE (Holter) Jaguar Castaneda MD [address] [place] [address] Phone: tel: fax: Referral ID Status Reason Start Date Expiration Date Visits Re quested Visits Authorized [id number] Closed 09/27/2020 10/28/2021 1 1 Reason for Visit * Reason Onset Date Comments Concerns 09/26/2020 Other 10/02/2020 30 Day BG Shippe d to Patient Encounter Details Date Type Department Care Team ([facility] Contact Info) Description 09/26/2020 Telephone [facility] [place] [address] [place] [address] Jaguar Castaneda MD [address] [place] [address] Concerns; Other (30 Day BG Shipped to Patient) Social History Tobacco Use Types Packs/Day Years [...] COVID-19? No / Unsure 09/06/2020 8:12 AM BUSINESS SERVICES ADMINISTRATOR documented as of this encounter Functional Status * RETIRED Are you deaf or do you have serious difficulty hearing Answer Date of Assessment Author Status No 09/07/2020 11:09 AM BUSINESS SERVICES ADMINISTRATOR Acti ve * RETIRED Are you blind or do you have serious difficulty seeing, even when wearing glasses? Answer Date of Assessment Author Status No 09/07/2020 11:09 AM BUSINESS SERVICES ADMINISTRATOR Acti ve * Do you have serious difficulty walking or climbing stairs? Answer Date of Assessment Author Status No 09/07/2020 11:09 AM BUSINESS SERVICES ADMINISTRATOR Sweetie Craven R N Active * Do you have difficulty dressing or bathing? Answer Date of Assessment Author Status No 09/07/2020 11:09 AM BUSINESS SERVICES ADMINISTRATOR Sweetie Craven R N Active * Because of a physical, mental, or emotional condition, do you have difficulty doing errands alone such as visiting a doctor's office or shopping? Answer Date of Assessment Author Status No 09/07/2020 11:09 AM BUSINESS SERVICES ADMINISTRATOR Sweetie Craven R N Active documented as of this encounter Mental Status * Because of a physical, mental, or emotional condition, do you have serious difficulty concentrating, remembering, or making decisions? Answer Entry Date Author Status No 09/07/2020 11:09 AM Sweetie Keating R N Active documented in this encounter Progress Notes * Josie Ponce - 10/02/2020 8:36 AM CDT 30 Day BG Shipped to Patient [id number] Shipping [id number] Return * Glenn Sheikh RN - 09/27/2020 2:49 PM CDT We will get 30 day event recorder and have it mailed, order in Please Call pt to set it up at work number listed below not the mobile phone between 8-3pm daily SALRN Anahi aware * Glenn Sheikh RN - 09/27/2020 2:49 PM CDTAddended by: GLENN SHEIKH on: 09/27/2020 02:49 PM Modules accepted: Orders * Jaguar Castaneda MD - 09/27/2020 1:45 PM CDT Body guardian * Glenn Sheikh RN - 09/27/2020 9:48 AM CDT Called pt, for the past week she has noticed in the evenings after work she can feel a weird feeling in chest, kind of like thudding or like and electrical/static feeling in middle of chest/palpitations that does up into throat, last Thursday night was the worst and then again on , she lives down by [facility] if we need a monitor or whatever she is willing to go get it here, I told Ronaldo wiould discuss with JAG and call her back later JMRMerissa * Glenn Sheikh RN - 09/26/2020 4:01 PM CDT Called pt at work number no answer, called pt back at cell number no answer, left VM that I was calling to find out her concerns, were here till 430 if she wants to call back, or all in am after 0800or if concerning symptoms and unable to reach us she should go to ER if she needs evaluated since we dont have what is going on with her. Left our phone number and information on her message CANELO * Sonam Crabtree - 09/26/2020 3:55 PM CDT VM DATE/TIME: 09/26/2020 CALLER: Patient PT NAME/: Yanely Helm - 1985 #: [phone] PROVIDER/NEW PT: Leonel REASON FOR CALL: Needs to talk to nurse re: concern she would like to discuss with them. ENCOUNTER NOTE SENT TO: Leonel Nurse documented in this encounter Plan of Treatment Upcoming Encounters Date Type Department Care Team (Late st Contact Info) Description 09/23/2024 9:00 AM CDT Appointment [facility] Non Invasive [facility]iology - [facility] [address] [place] [address] Jaguar Castaneda MD [address] [place] [address] 09/23/2024 10:00 AM CDT Office Visit [facility] [address] [place] [id number] Jaguar Castaneda MD [address] [place] [address] documented as of this encounter Goals Goal Patient Goal Type Associated Problems Recent Progress Patient-Stated? Author Safety - demonstrates understanding of home safety measures General No Cassandra Montemayor RN documented as of this encounter Procedures Procedure Name Priority Date/Time Associated Diagnosis Comments EVENT RECORDER (ECG) UP TO 30 DAYS COMPLETE Routine 11/20/2020 10:58 AM CDT PFO (patent foramen ovale) (HHS/HCC) Palpitation documented in this encounter Results * CLINIC - OUTPATIENT EVENT RECORDER (ECG) UP TO 30 DAYS COMPLETE (Holter) (11/20/2020 10:58 AM CDT) 11/20/2020 10:5 8 AM CDT Narrative ESCRIPTION - 11/20/2020 12:58 PM CDT DATES OF TESTING: ??10/04/20 through 11/06/20 INDICATION: ??Palpitations. ?? FINDINGS: ?? 1. The baseline rhythm was sinus rhythm, rate range 44-148 beats per minute with an average heart rate of 69 beats per minute. ?? 2. Patient had 15 episodes of patient request associated with normal sinus rhythm. ??The patient had other symptoms labeled as other with normal sinus rhythm. ??There was infrequent PAC and PVC, less than 1 percent atrial arrhythmia load and ventricular arrhythmia load. Dictated by: ??Brant Del Valle M.D. D: ??11/20/2020 10:58 AM #[id number] T: ??11/20/2020 12:43 PM /MM Jaguar Castaneda MD CV VASCULAR ORDERABLES Fi nal Result ESCRIPTION documented in this encounter Visit Diagnoses Diagnosis PFO (patent foramen ovale) (HHS/HCC)- Primary Ostium secundum type atrial septal defect Palpitation Palpitations documented in this encounter Care Teams Vegetable Cutter Relationship Specialty Start Date End Date Joel Durán MD [address] [place] [address] PCP - General FAMILY PRACTICE 03/30/20 Mary Bahena MD [address] [place] [address] Vascular Neurology 04/18/20 09/09/22 Jaguar Castaneda MD [address] [place] [address] Consulting Physician INTERVENTIONAL CARDIOLOGY 04/18/20 documented as of this encounter
--- OUTSIDE RECORDS SUMMARY | 2024-07-01 02:49 | XMS_ITS | Encounter Summary ---
Author Organization [facility] Address [address] [place] [address]. [place], [place] [address] [place] [address] Care Team Providers Care Review Specialist Name Role Phone Joel Durán MD Primary Care Provider [phone] Jaguar Castaneda MD Unavailable [phone] Billy Fernandez APRN Unavailable [phone] Encounter Details Date Type Department Care Team (Latest Contact Info) Description 09/10/2022 Travel Social History Tobacco Use Types Packs/Day [...] Coronavirus/COVID-19? No / Unsure 09/10/2022 9:55 AM DYE RANGE OPERATOR documented as of this encounter Functional Status * RETIRED Are you deaf or do you have serious difficulty hearing Answer Date of Assessment Author Status No 09/07/2020 11:09 AM DYE RANGE OPERATOR Acti ve * RETIRED Are you blind or do you have serious difficulty seeing, even when wearing glasses? Answer Date of Assessment Author Status No 09/07/2020 11:09 AM DYE RANGE OPERATOR Acti ve * Do you have serious difficulty walking or climbing stairs? Answer Date of Assessment Author Status No 09/07/2020 11:09 AM DYE RANGE OPERATOR Sweetie Craven R N Active * Do you have difficulty dressing or bathing? Answer Date of Assessment Author Status No 09/07/2020 11:09 AM DYE RANGE OPERATOR Sweetie Craven R N Active * Because of a physical, mental, or emotional condition, do you have difficulty doing errands alone such as visiting a doctor's office or shopping? Answer Date of Assessment Author Status No 09/07/2020 11:09 AM DYE RANGE OPERATOR Sweetie Craven R N Active documented as [...] Info) Description 09/23/2024 9:00 AM CDT Appointment [facility] Non Invasive Cardiology - [facility] [address] [place] [address] Jaguar Castaneda MD [address] [place] [address] 09/23/2024 10:00 AM CDT [facility] [address] [place] [address] Jaguar Castaneda MD [address] [place] [address] documented as of this encounter Goals Goal Patient Goal Type Associated Problems Recent Progress Patient-Stated? Author Safety - demonstrates understanding of home safety measures General No Cassandra Montemayor, RN documented as of this encounter Visit Diagnoses Not on filedocumented in this encounter Care Teams Review Specialist Relationship Specialty Start Date End Date Joel Durán MD [address] [place], [place] [id number] PCP - General FAMILY PRACTICE 03/30/20 Jaguar Castaneda MD [address] [place], [place] [address] Consulting Physician INTERVENTIONAL CARDIOLOGY 04/18/20 Billy Fernandez APRN [facility] [address] [address] Nurse Practitioner NURSE PRACTITIONER 09/10/22 documented as of this encounter
--- OUTSIDE RECORDS SUMMARY | 2024-07-01 02:49 | XMS_ITS | Encounter Summary ---
Author Organization [facility] Address [address] [place] [address]. [place] [address] [place] [address] Care Team Providers Care Instructional Technology Director Name Role Phone Joel Durán MD Primary Care Provider [phone] Mary Bahena MD Unavailable Jaguar Castaneda MD Unavailable [phone] Reason for Visit * Reason Comments Follow Up Encounter Details Date Type Department Care Team (Late st Contact Info) Description 08/27/2021 1:00 PM FINANCE MGR Office Visit [address] [place] [address] Haven Coburn MD [address] [place] [phone] Follow Up Social History Tobacco Use Types Packs/Day Years [...] Recorded In the last 10 days, have opal eduardo been in contact with someone who was confirmed or suspected to have Coronavirus/COVID-19? No / Unsure 09/09/2021 1:01 PM FINANCE MGR documented as of this encounter Last Filed Vital Signs Vital Sign Reading Time Taken Comments Blood Pressure 137/68 08/27/2021 1:04 PM FINANCE MGR Pulse 93 08/27/2021 1:04 PM FINANCE MGR Temperature 36.2 ??C (97.2 ??F) 08/27/2021 1:04 PM CS T Respiratory Rate 18 08/27/2021 1:04 PM FINANCE MGR Oxygen Saturation 100% 08/27/2021 1:04 PM FINANCE MGR Inhaled Oxygen Concentration - - Weight 74.5 kg (164 lb 3.9 oz) 08/27/2021 1:04 P M FINANCE MGR Height - - Body Mass Index 29.1 09/06/2020 8:13 AM FINANCE MGR documented in this encounter Functional Status * RETIRED Are you deaf or do you have serious difficulty hearing Answer Date of Assessment Author Status No 09/07/2020 11:09 AM FINANCE MGR Acti ve * RETIRED Are you blind or do you have serious difficulty seeing, even when wearing glasses? Answer Date of Assessment Author Status No 09/07/2020 11:09 AM FINANCE MGR Acti ve * Do you have serious difficulty walking or climbing stairs? Answer Date of Assessment Author Status No 09/07/2020 11:09 AM FINANCE MGR Sweetie Craven R N Active * Do you have difficulty dressing or bathing? Answer Date of Assessment Author Status No 09/07/2020 11:09 AM FINANCE MGR Sweetie Craven R N Active * Because of a physical, mental, or emotional condition, do you have difficulty doing errands alone such as visiting a doctor's office or shopping? Answer Date of Assessment Author Status No 09/07/2020 11:09 AM FINANCE MGR Sweetie Craven R N Active documented as of this encounter Mental Status * Because of a physical, mental, or emotional condition, do you have serious difficulty concentrating, remembering, or making decisions? Answer Entry Date Author Status No 09/07/2020 11:09 AM FINANCE MGR Sweetie Craven R N Active documented in this encounter Progress Notes * Haven Coburn MD - 08/27/2021 1:00 PM CST Hematology/Oncology Note Identifying Data Yanely Helm is a 36-year-old female Reason for Visit: Follow Up History of Present Illness: Ms Helm is a 36-year-old female with history of HTN [on HCTZ for 7 years], was diagnosed with cryptogenic TIA in 04/2020. She was referred to hematology clinic to discuss mildly elevated homocystine levels at 35 to see if this was contributing to her increased hypercoagulability. MRI brain with no acute infarcts. ECHO showed moderate PFO. Hypercoagulable work-up was negative includingfactor V Leiden, prothrombin gene mutation. Normal levels of protein C activity, protein S activity, AT III activity. Lupus anticoagulant, ACLA antibody IgG/IgM, beta-2 glycoprotein IgG/IgM negative.Neurology had recommended dual antiplatelet therapy with Plavix for lifetime given her young age. Today she returns for an annual visit. She underwent PFO closure in September 2020. She had discontinued Plavix 6 months later and has remained on aspirin 81 mg. 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 Denied any headaches, vision changes. No new lumps or masses. She has lost about 20 pounds but has made changes in her lifestyle and eating habits. Denied any blood in stool or blood in urine. Menstrual cycles regular. Denied any chest pain, shortness of breath or abdominal discomfort. ROS General: No symptoms Respiratory: No symptoms Cardiac: No Symptoms Gastrointestinal: No symptoms Urinary: : No Symptoms Musculoskeletal: No symptoms Neurologic: No symptoms Hematologic/Lymphatic: No symptoms Psych: No symptoms Pertinent History: Past Medical History: Diagnosis Date ??? HTN (hypertension) Pertinent family history includes Cancer in her maternal grandmother. Social History Socioeconomic History ??? Marital status: Single Spouse name: Not on file ??? Number of children: Not on file ??? Years of education: Not on file ??? Highest education level: Not on file Occupational History ??? Not on file Tobacco Use ??? Smoking status: Former Smoker Packs/day: 1.00 Years: 21.00 Pack years: 21.00 Quit date: 03/31/2020 Years since quittin.4 ??? Smokeless tobacco: Never Used Vaping Use ??? Vaping Use: Never used Substance and Sexual Activity ??? Alcohol use: Yes Comment: socially ??? Drug use: Never ??? Sexual activity: Not Currently Other Topics Concern ??? Not on file Social History Narrative ??? Not on file Social Determinants of Health Financial Resource Strain: Not on file Food Insecurity: Not on file Transportation Needs: Not on file Physical Activity: Not on file Stress: Not on file Social Connections: Not on file Intimate Partner Violence: Not on file Past Surgical History: Procedure Laterality Date ??? SECTION ??? XA ASD CLOSURE 09/06/2020 Current Outpatient Medications Medication Sig Dispense Refill ??? aspirin 81 MG chewable tablet Chew 81 mg by mouth daily. ??? atorvastatin 40 MG tablet Take 1 tablet (40 mg total) by mouth nightly at bedtime. 90 tablet 2 ??? hydroCHLOROthiazide 25 MG tablet Take 25 mg by mouth daily. No current facility-administered medications for this visit. No Known Allergies Patient Active Problem List Diagnosis ??? TIA (transient ischemic attack) ??? HTN (hypertension) ??? PFO (patent foramen ovale) ??? Pituitary adenoma (CMS/HCC) Vitals Height: 5' 2.5 (1.588 m) , Weight: 74.4 kg (164 lb) , BSA (Calculated - sq m): 1.81 sq meters , BP: 120/80 , Temp: 97.2 ??F (36.2 ??C) , Pulse: 65 , Resp: 20 Physical Exam Constitutional General appearance: No acute distress, well appearing and well nourished. Head and Face Head and face: Normal. Eyes Conjunctiva and lids: No erythema, swelling or discharge. Ears, Nose, Mouth, and Throat Oropharynx: Normal with no erythema, edema, exudate or lesions. Neck Neck:Supple, No enlarged lymph nodes or masses felt Pulmonary Respiratory effort: No increased work of breathing or signs of respiratory distress. Auscultation of lungs: Clear to auscultation. Cardiovascular Auscultation of heart: Normal rate and rhythm, normal S1 and S2, no murmurs. Abdomen Abdomen: Non-tender, no masses. Lymphatic Palpation of lymph nodes in neck: No lymphadenopathy. Musculoskeletal Gait and station: Normal. Neurological Orientation to person, place and time: Normal. Psychiatric Mood and affect: Normal. ?? Laboratory CBC: WBC Date Value Ref Range Status 09/07/2020 5.9 4.0 - 10.8 x10'3/uL Final HGB Date Value Ref Range Status 09/07/2020 9.8 (L) 12.0 - 16.0 G/DL Final HCT Date Value Ref Range Status 09/07/2020 30.3 (L) 36.0 - 47.0 % Final PLT Date Value Ref Range Status 09/07/2020 285 150 - 350 x10'3/uL Final CMP: CREATININE S/P/B Date Value Ref Range Status 09/07/2020 0.64 0.55 - 1.02 MG/DL Final BILIRUBIN TOTAL S/P/B Date Value Ref Range Status 03/31/2020 0.3 0.2 - 1.0 MG/DL Final Assessment and Plan 1. Cryptogenic TIA: Likely secondary to moderate PFO s/p closure in 09/2020. Currently only on aspirin 81 mg daily. 2. Mildly elevated homocystine levels. No further work-up needed. Continue with lifestyle modifications, quit smoking. 3. History of prominent pituitary gland hyperplasia on last MRI brain. Patient was informed about it. She has not yet followed with the MRI pituitary protocol. She remains clinically asymptomatic. I requested her to kindly follow-up with PCP. Since she has remained clinically stable with no other major symptoms, I will see her on an as-needed basis. Thank you for the kind consultation. We will be available for questions or concerns. Patient comfortable with the plan. No follow-up appointment was made today. ?? Time Spent: Approximately 15 minutes was spent in direct patient consultation and the majority of that time (>50%) was spent on counseling and coordination of care. Haven Coburn MD CC: PCP: Brant Durán MD NCE MGR documented in this encounter Plan of Treatment Upcoming Encounters Date Type Department Care Team (Late st Contact Info) Description 09/23/2024 9:00 AM CDT Appointment [facility] Non Invasive Cardiology [place] [address] [place] [address] Jaguar Castaneda MD [address] [place], [place] [address] 09/23/2024 10:00 AM CDT Office Visit [facility] [address] [place] [phone] Jgauar Castaneda MD [address] [place] [address] documented as of this encounter Goals Goal Patient Goal Type Associated Problems Recent Progress Patient-Stated? Author Safety - demonstrates understanding of home safety measures General Cassandra Graves RN documented as of this encounter Visit Diagnoses Diagnosis High plasma homocystine- Primary documented in this encounter Care Teams Instructional Technology Director Relationship Specialty Start Date End Date Joel Durán MD [address] [place] [address] PCP - General FAMILY PRACTICE 03/30/20 Mary Bahena MD [address] [place] [address] Vascular Neurology 04/18/20 09/09/22 Jaguar Castaneda MD [address] [place] [address] Consulting Physician INTERVENTIONAL CARDIOLOGY 04/18/20 documented as of this encounter
--- OUTSIDE RECORDS SUMMARY | 2024-07-01 02:49 | XMS_ITS | Encounter Summary ---
Author Organization [facility] Address [address] [place] [address]. [place], [place] [id number] [place] [address] Care Team Providers Care Poultry Hatchery Laborer Name Role Phone Joel Durán MD Primary Care Provider [phone] Jaguar Castaneda MD Unavailable [phone] Billy Fernandez APRN Unavailable [phone] Encounter Details Date Type Department Care Team (Late st Contact Info) Description 09/19/2022 [employer] [facility] Patient Accounts [address] [place] [address] [facility] Provider Monthly Payment Plan Social History Tobacco Use Types Packs/Day Years [...] Coronavirus/COVID-19? No / Unsure 09/10/2022 9:55 AM PHYSICAL TESTING SUPERVISOR documented as of this encounter Functional Status * RETIRED Are you deaf or do you have serious difficulty hearing Answer Date of Assessment Author Status No 09/07/2020 11:09 AM PHYSICAL TESTING SUPERVISOR Acti ve * RETIRED Are you blind or do you have serious difficulty seeing, even when wearing glasses? Answer Date of Assessment Author Status No 09/07/2020 11:09 AM PHYSICAL TESTING SUPERVISOR Acti ve * Do you have serious difficulty walking or climbing stairs? Answer Date of Assessment Author Status No 09/07/2020 11:09 AM PHYSICAL TESTING SUPERVISOR Sweetie Craven R N Active * Do you have difficulty dressing or bathing? Answer Date of Assessment Author Status No 09/07/2020 11:09 AM PHYSICAL TESTING SUPERVISOR Sweetie Craven R N Active * Because of a physical, mental, or emotional condition, do you have difficulty doing errands alone such as visiting a doctor's office or shopping? Answer Date of Assessment Author Status No 09/07/2020 11:09 AM PHYSICAL TESTING SUPERVISOR Sweetie Craven R N Active documented as of this encounter Mental Status * Because of a physical, mental, or emotional condition, do you have serious difficulty concentrating, remembering, or making decisions? Answer Entry Date Author Status No 09/07/2020 11:09 AM PHYSICAL TESTING SUPERVISOR Sweetie Craven R N Active documented in this encounter Plan of Treatment Upcoming Encounters Date Type Department Care Team (Late st Contact Info) Description 09/23/2024 9:00 AM CDT Appointment [facility] Non Invasive [facility]iology [facility] [address] [place] [address] Jaguar Csataneda MD [address] [place] [address] 09/23/2024 10:00 AM CDT [facility] [address] [place] [address] Jaguar Castaneda MD [address] [place] [address] documented as of this encounter Goals Goal Patient Goal Type Associated Problems Recent Progress Patient-Stated? Author Safety - demonstrates understanding of home safety measures Cassandra Swift RN documented as of this encounter Visit Diagnoses Not on filedocumented in this encounter Care Teams Poultry Hatchery Laborer Relationship Specialty Start Date End Date Joel Durán MD [address] [place], [place] [id number] PCP - General FAMILY PRACTICE 03/30/20 Jaguar Castaneda MD [address] [place] [address] Consulting Physician INTERVENTIONAL CARDIOLOGY 04/18/20 Billy Fernandez APRN [address] [place] [address] [address] Nurse Practitioner NURSE PRACTITIONER 09/10/22 documented as of this encounter
--- OUTSIDE RECORDS SUMMARY | 2024-07-01 02:49 | XMS_ITS | Encounter Summary ---
Author Organization [facility] Address [address] [place] [address]. [place], [place] [id number] [place] [address] Care Team Providers Care Field Liability Generalist Name Role Phone Joel Colvin MD Primary Care Provider [phone] Mary Bahena MD Unavailable Jaguar Castaneda MD Unavailable [phone] Reason for Referral * Imaging (Routine) - Closed Specialty Diagnoses / Procedures Referred By Alexi t Referred To Contact RADIOLOGY Diagnoses Benign neoplasm of pituitary gland ([facility]/HCC [facility]/HCC) Procedures MRI BRAIN WWO CON Joel Colvin MD [address] [place] [address] Phone: tel: fax: Referral ID Status Reason Start Date Expiration Date Visits Re quested Visits Authorized [id number] Closed 11/06/2021 12/07/2022 1 1 * Imaging (Routine) - Closed Specialty Diagnoses / Procedures Referred By Contmary t Referred To Contact RADIOLOGY Diagnoses Pain in right leg Procedures US LOW EXT NONVASC LTD RT Joel Colvin MD [address] [place] [address] Phone: tel: fax: Referral ID Status Reason Start Date Expiration Date Visits Re quested Visits Authorized [id number] Closed 11/06/2021 12/07/2022 1 1 Reason for Visit * Imaging (Routine) - Closed Specialty Diagnoses / Procedures Referred By Contac t Referred To Contact RADIOLOGY Diagnoses Pain in right leg Procedures US LOW EXT NONVASC LTD RT Joel Colvin MD [address] [place] [address] Phone: tel: fax: Referral ID Status Reason Start Date Expiration Date Visits Re quested Visits Authorized [id number] Closed 11/06/2021 12/07/2022 1 1 Encounter Details Date Type Department Care Team (Late st Contact Info) Description 11/20/2021 8:49 AM CDT - 11/20/2021 11:59 PM CDT Hospital Encounter [facility] Ultrasound [address] [place] [address] Joel Colvin MD [address] [place] [address] Discharge Disposition: Home or Self Care (Routine [...] suspected to have Coronavirus/COVID-19? 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 Author Safety - demonstrates understanding of home safety measures General No Cassandra Montemayor RN documented as of this encounter Procedures Procedure Name Priority Date/Time Associated Diagnosis Comments MRI BRAIN WWO CON Routine 12/10/2021 9:1 5 AM CDT Benign neoplasm of pituitary gland ([facility]/H[facility]/HCC) US LOW EXT NONVASC LTD RT Routine 11/20/2021 9:18 AM CDT Pain in right leg documented in this encounter Results * MRI BRAIN WWO CON (12/10/2021 9:15 AM CDT) Anatomical Region Laterality Modality Head Magnetic Resonan ce 12/16/2021 10:2 5 AM CDT Impressions 12/16/2021 10:55 AM CDT IMPRESSION: 1. ??No acute process. No evidence of intracranial mass or pathologic contrast enhancement. No acute major vessel infarct.. Specifically no pituitary adenoma identified. Finding on prior MRI was most likely due to benign hyperplasia. Pituitary stalk is midline. No suprasellar lesions. Optic chiasm is within normal limits. If indicated, follow-up with laboratory values. 2. ??Ventricular system is symmetric without evidence of midline shift or mass effect. Grossly normal flow voids within the intracranial portions of the vertebrobasilar system and internal carotid arteries in their proximal portions. 3. ??No gross abnormality within the brainstem or posterior fossa.Slightly low- lying cerebellar tonsils without ectopia.. 4. ??Similar punctate subcortical areas of increased signal on IR images within the region of both subinsular cortices.. May be an unusual perivascular spaces versus sequela of prior trauma. Other possibility would be unusual vasculitis. Small vessel ischemic change and demyelinating process are less likely considerations.. 5. ??.. Midline structures are within normal limits. Normal thickness to the corpus callosum. Ordered By: JOEL COLVIN Interpreted By: Ze Woodruff, 12/16/2021 10:25 AM Narrative 12/16/2021 10:55 AM CDT IMAGING STUDIES: MRI BRAIN WWO CON. MRI OF THE PITUITARY GLAND WITH AND WITHOUT CONTRAST... DATE: December 10, 2021 CLINICAL HISTORY: Benign neoplasm of pituitary gland (CMS/HCC) ?? . Prominent pituitary gland on outside MRI brain. COMPARISON: MRI of the brain of 03/31/2020. CONTRAST ??IV administration Procedure Note Ventura Woodruff MD - 12/16/2021 IMAGING STUDIES: MRI BRAIN WWO CON. MRI OF THE PITUITARY GLAND WITH ANDWITHOUT CONTRAST... DATE: December 10, 2021 CLINICAL HISTORY: Benign neoplasm of pituitary gland (CMS/HCC) .Prominent pituitary gland on outside MRI brain. COMPARISON: MRI of the brain of 03/31/2020. CONTRAST IV administration IMPRESSION: 1. No acute process. No evidence of intracranial mass or pathologiccontrast enhancement. No acute major vessel infarct.. Specifically nopituitary adenoma identified. Finding on prior MRI was most likely due tobenign hyperplasia. Pituitary stalk is midline. No suprasellar lesions.Optic chiasm is within normal limits. If indicated, follow-up withlaboratory values. 2. Ventricular system is symmetric without evidence of midline shift ormass effect. Grossly normal flow voids within the intracranial portions ofthe vertebrobasilar system and internal carotid arteries in their proximalportions. 3. No gross abnormality within the brainstem or posterior fossa.Slightlylow- lying cerebellar tonsils without ectopia.. 4. Similar punctate subcortical areas of increased signal on IR imageswithin the region of both subinsular cortices.. May be an unusualperivascular spaces versus sequela of prior trauma. Other possibilitywould be unusual vasculitis. Small vessel ischemic change anddemyelinating process are less likely considerations.. 5. .. Midline structures are within normal limits. Normal thickness tothe corpus callosum. Ordered By: JOEL COLVIN Interpreted By: Ze Woodruff, 12/16/2021 10:25 AM us Joel Colvin MD MRI Final Result * US LOW EXT NONVASC LTD RT (11/20/2021 9:18 AM CDT) Anatomical Region Laterality Modality Extremity Ultrasound 11/20/2021 10:5 3 AM CDT Impressions 11/20/2021 11:04 AM CDT IMPRESSION: 1. ??Directed ultrasound evaluation of the proximal medial right thigh performed site of patient's palpable lump. 2. ??No discrete corresponding sonographic abnormality illustrated. The visualized soft tissues have normal echotexture. No apparent mass lesion or fluid collection. 3. ??If further evaluation is clinically indicated, then MRI could be performed. Ordered By: JOEL COLVIN Interpreted By: Graciela Karimi, 11/20/2021 10:53 AM Narrative 11/20/2021 11:04 AM CDT EXAMINATION: US LOW EXT NONVASC LTD RT EXAM DATE/TIME: 11/20/2021 9:04 AM CLINICAL HISTORY: Small palpable lump proximal medial right thigh for many years. Tenderness with palpation. COMPARISON: No comparison. Procedure Note Severo Karimi MD - 11/20/2021 EXAMINATION: US LOW EXT NONVASC LTD RT EXAM DATE/TIME: 11/20/2021 9:04 AM CLINICAL HISTORY: Small palpable lump proximal medial right thigh for manyyears. Tenderness with palpation. COMPARISON: No comparison. IMPRESSION: 1. Directed ultrasound evaluation of the proximal medial right thighperformed site of patient's palpable lump. 2. No discrete corresponding sonographic abnormality illustrated. Thevisualized soft tissues have normal echotexture. No apparent mass lesionor fluid collection. 3. If further evaluation is clinically indicated, then MRI could beperformed. Ordered By: JOEL COLVIN Interpreted By: Graciela Karimi, 11/20/2021 10:53 AM us Joel Colvin MD ULTRASOUND Final Result documented in this encounter Visit Diagnoses Diagnosis Pain in right leg Benign neoplasm of pituitary gland (CMS/HCC [facility]/HCC) Benign neoplasm of pituitary gland and craniopharyngeal duct (pouch) documented in this encounter Care Teams Field Liability Generalist Relationship Specialty Start Date End Date Joel Colvin MD [address] [place] [address] PCP - General FAMILY PRACTICE 03/30/20 Mary Bahena MD [address] [place] [address] Vascular Neurology 04/18/20 09/09/22 Jaguar Castaneda MD [address] [place] [address] Consulting Physician INTERVENTIONAL CARDIOLOGY 04/18/20 documented as of this encounter
--- OUTSIDE RECORDS SUMMARY | 2024-07-01 02:49 | XMS_ITS | Encounter Summary ---
Author Organization [facility] Address [address] [place] [address]. [place], [place] [id number] [place] [address] Care Team Providers Care Sleeve Wheel Maker Name Role Phone Joel Durán MD Primary Care Provider [phone] Mary Bahena MD Unavailable Jaguar Castaneda MD Unavailable [phone] Encounter Details Date Type Department Care Team (Late st Contact Info) Description 10/03/2020 Patient Self-Triage [facility] DEPART[facility] [address] [place] [address] [facility] Provider Social History Tobacco Use Types Packs/Day [...] COVID-19? 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 Answer Date of Assessment Author Status No 09/07/2020 11:09 AM SUPERVISOR DEHYDROGENATION Acti ve * Do you have serious difficulty walking or climbing stairs? Answer Date of Assessment Author Status No 09/07/2020 11:09 AM SUPERVISOR DEHYDROGENATION Sweetie Craven R N Active * Do you have difficulty dressing or bathing? Answer Date of Assessment Author Status No 09/07/2020 11:09 AM SUPERVISOR DEHYDROGENATION Sweetie Craven R N Active * Because of a physical, mental, or emotional condition, do you have difficulty doing errands alone such as visiting a doctor's office or shopping? Answer Date of Assessment Author Status No 09/07/2020 11:09 AM SUPERVISOR DEHYDROGENATION Sweetie Craven R N Active documented as [...] Info) Description 09/23/2024 9:00 AM CDT Appointment [facility] Non Invasive Cardiology - [facility] [address] [place] [address] Jaguar Castaneda MD [address] [place], [place] [address] 09/23/2024 10:00 AM CDT Office Visit [facility] [address] [place] [address] Jaguar Castaneda MD [address] [place] [address] documented as of this encounter Goals Goal Patient Goal Type Associated Problems Recent Progress Patient-Stated? Author Safety - demonstrates understanding of home safety measures General Cassandra Graves RN documented as of this encounter Visit Diagnoses Not on filedocumented in this encounter Care Teams Sleeve Wheel Maker Relationship Specialty Start Date End Date Joel Durán MD [address] [place], [place] [id number] PCP - General FAMILY PRACTICE 03/30/20 Mary Bahena MD [address] [place] [address] Vascular Neurology 04/18/20 09/09/22 Jaguar Castaneda MD [address] [place] [address] Consulting Physician INTERVENTIONAL CARDIOLOGY 04/18/20 documented as of this encounter
--- OUTSIDE RECORDS SUMMARY | 2024-07-01 02:49 | XMS_ITS | Clinical Summary ---
Author Organization [facility] Address [address] [place] [address]. [place], [place] [address] [place] [address] Care Team Providers Care Eye Physician Name Role Phone Joel Durán MD Primary Care Provider [phone] Jaguar Castaneda MD Unavailable [phone] Billy Fernandez APRN Unavailable [phone] Allergies No known active allergies Medications hydroCHLOROthia zide 25 MG tablet Take 25 mg by mouth daily. 03/07/2020 Active atorvastatin 40 MG tablet Take 1 tablet (40 mg total) by mouth nightly at bedtime. 90 tablet 2 04/01/2020 Active aspirin 81 MG chewable tablet Chew 81 mg by mouth daily. Active Active Problems Problem Noted Date Diagnosed Date S/P patent foramen ovale closure 09/03/2023 Pituitary adenoma ([facility]HCC [facility]) 04/30/2020 PFO (patent foramen ovale) ([facility]) 04/17/2020 TIA (transient ischemic attack) 03/31/2020 History of TIA (transient ischemic attack) 03/30 HTN (hypertension) Family History Medical History Relation Comments No Known Problems Brother Hyperlipidemia Father Thyroid Disease Father No Known Problems Maternal Aunt No Known Problems Maternal Grandfather Cancer Maternal Grandmother Diabetes Maternal Grandmother Heart Disease Maternal Grandmother No Known Problems Maternal Uncle Hyperlipidemia Mother No Known Problems Paternal Aunt No Known Problems Paternal Grandfather Diabetes Paternal Grandmother Heart Disease Paternal Grandmother No Known Problems Paternal Uncle No Known Problems Sister Relation Status Comments Brother Father Maternal Aunt Maternal Grandfather Maternal Grandmother Maternal Uncle Mother Paternal Aunt Paternal Grandfather Paternal Grandmother Paternal Uncle Sister Social History Tobacco Use Types Packs/Day Years [...] Orientation Straight 11/19/2021 10 :17 AM CDT Last Filed Vital Signs Vital Sign Reading Time Taken Comments Blood Pressure 130/80 09/14/2023 1:33 PM CDT Pulse 68 09/14/2023 1:33 PM CDT Temperature 36.2 ??C (97.2 ??F) 08/27/2021 1:04 PM CS T Respiratory Rate 16 09/14/2023 1:33 PM CDT Oxygen Saturation 99% 09/14/2023 1:33 PM CDT Inhaled Oxygen Concentration - - Weight 91.3 kg (201 lb 3.2 oz) 09/14/2023 1:33 P M CDT Height 157.5 cm (5' 2 ) 09/14/2023 1:33 PM CDT Body Mass Index 36.8 09/14/2023 1:33 PM CDT Plan of Treatment Upcoming Encounters Date Type Department Care Team (Late st Contact Info) Description 09/23/2024 9:00 AM CDT Appointment [facility] Non Invasive Cardiology - [facility] [address] [place] [address] Jaguar Castaneda MD [address] [place] [address] 09/23/2024 10:00 AM CDT [facility] [address] [place] [address] Jaguar Castaneda MD [address] [place] [address] Health Maintenance Due Date Last Done Comments ASCVD Statin 1984 Cervical Cancer Screening Pa p Smear (Age 30 to 64) Every 3 Years 1984 Annual Physical 1987 Hepatitis C 2002 DTaP, Tdap and Td Vaccines ( 1 - Tdap) 2003 Hepatitis B Vaccines (1 of 3 - 19+ 3-dose series) 2003 Cervical Cancer Screening Pa p with HPV Testing (Age 30 to 64) Every 5 Years 2014 Cervical Cancer Screening with HPV 2014 ASCVD LDL 03/31/2021 03/31/2020 COVID-19 Vaccine (2 - 2023-2 5 season) 2024 11/23/2020 Influenza Adult (#1) 2024 Mammogram Screening 2024 HPV Vaccines Aged Out No longer eligi ble based on patient's age to complete this topic Meningococcal Vaccine Aged Out No tra john eligible based on patient's age to complete this topic Pneumococcal Vaccine: Pediat rics (0 to 5 Years) and At-Risk Patients (6 to 64 Years) Aged Out No longer eligi ble based on patient's age to complete this topic RSV Immunizations Under 20 Months Aged Out No longer eligible based on patient's age to complete this topic Goals Goal Patient Goal Type Associated Problems Recent Progress Patient-Stated? Author Safety - demonstrates understanding of home safety measures General No Cassandra Montemayor RN Medical Devices Implanted Type Area Executive Director Device Identifier Shelf Expiration Date Model / Serial / Lot [employer] Amplatzer Pfo Closure Device- Implanted:Qty: 1 on 09/06/2020 by Jaguar Castaneda MD Closure Device Heart [employer] 04/04/2025 [id number] / / [id number] Procedures Procedure Name Priority Date/Time Associated Diagnosis Comments LIPOPROTEIN, LDL CHOL, DIRECT Routine 03/31/2020 8:58 AM CDT from Last 3 Months or Most Recently Relevant to Health Maintenance Results * LIPOPROTEIN, LDL CHOL, DIRECT (03/31/2020 8:58 AM CDT) DIRECT LDL 124 MG/DL 03/31/2020 1:41 PM CDT [facility] Comment:[phone] NEAR OR ABOV E OPTIMAL 03/31/2020 8:58 AM CDT us Mary Bahena MD LABORATORY Final Result [facility] [address] [place] [address], [id number] from Last 3 Months or Most Recently Relevant to Health Maintenance Insurance [facility] Advance Directives * Full Code (Latest Code Status on File) Date Activated Date Inactivated Comments 09/06/2020 12:17 PM 09/07/2020 1:50 PM * Full Code Date Activated Date Inactivated Comments 03/31/2020 3:58 AM 04/01/2020 5:40 PM Care Teams Eye Physician Relationship Specialty Start Date End Date Joel Durán MD [address] [place] [address] PCP - General FAMILY PRACTICE 03/30/20 Jaguar Castaneda MD [address] [place] [address] Consulting Physician INTERVENTIONAL CARDIOLOGY 04/18/20 Billy Fernandez APRN [address] [place] [address] Nurse Practitioner NURSE PRACTITIONER 09/10/22
--- OUTSIDE RECORDS SUMMARY | 2024-07-01 02:49 | XMS_ITS | Encounter Summary ---
Author Organization [facility] Address [address] [place] [address]. [place] [address] [place] [address] Care Team Providers Care Leak Inspector Name Role Phone Joel Colvin MD Primary Care Provider [phone] Jaguar Castaneda MD Unavailable Billy Fernandez APRN Unavailable [phone] Reason for Referral * Imaging (Routine) - Pending Review Specialty Diagnoses / Procedures Referred By Contac t Referred To Contact RADIOLOGY Diagnoses PFO (patent foramen ovale) ([facility]) Primary hypertension History of TIA (transient ischemic attack) S/P patent foramen ovale closure Procedures USE ECHOCARDIOGRAM Jaguar Castaneda MD [address] [place] [address] Phone: tel: fax: Referral ID Status Reason Start Date Expiration Date V isits Requested Visits Authorized [id number] Pending Review 09/14/2023 09/13/2024 1 1 Reason for Visit * Reason Comments Follow Up Encounter Details Date Type Department Care Team ([facility] Contact Info) Description 09/14/2023 2:00 PM CDT Office Visit [facility] [address] [place] [address] Jaguar Castaneda MD [address] [place] [address] Follow Up Social History Tobacco Use Types [...] AM CDT documented as of this encounter Last Filed Vital Signs Vital Sign Reading Time Taken Comments Blood Pressure 130/80 09/14/2023 1:33 PM CDT Pulse 68 09/14/2023 1:33 PM CDT Temperature - - Respiratory Rate 16 09/14/2023 1:33 PM CDT Oxygen Saturation 99% 09/14/2023 1:33 PM CDT Inhaled Oxygen Concentration - - Weight 91.3 kg (201 lb 3.2 oz) 09/14/2023 1:33 P M CDT Height 157.5 cm (5' 2 ) 09/14/2023 1:33 PM CDT Body Mass Index 36.8 09/14/2023 1:33 PM CDT documented in this encounter Functional Status * RETIRED Are you deaf or do you have serious difficulty hearing Answer Date of Assessment Author Status No 09/07/2020 11:09 AM MARINE INSURANCE CLAIM EXAMINER Acti ve * RETIRED Are you blind or do you have serious difficulty seeing, even when wearing glasses? Answer Date of Assessment Author Status No 09/07/2020 11:09 AM MARINE INSURANCE CLAIM EXAMINER Acti ve * Do you have serious difficulty walking or climbing stairs? Answer Date of Assessment Author Status No 09/07/2020 11:09 AM MARINE INSURANCE CLAIM EXAMINER Sweetie Craven R N Active * Do you have difficulty dressing or bathing? Answer Date of Assessment Author Status No 09/07/2020 11:09 AM LANEY CravenSweetie R N Active * Because of a physical, mental, or emotional condition, do you have difficulty doing errands alone such as visiting a doctor's office or shopping? Answer Date of Assessment Author Status No 09/07/2020 11:09 AM LANEY CravenSweetie R N Active documented as of this encounter Mental Status * Because of a physical, mental, or emotional condition, do you have serious difficulty concentrating, remembering, or making decisions? Answer Entry Date Author Status No 09/07/2020 11:09 AM LANEY CravenSweetie R N Active documented in this encounter Patient Instructions * Patient Instructions* Lien Novoa RN - 09/14/2023 2:[address] Castaneda recommends a follow up in: 1 year with an echocardiogram You may see Billy Fernandez NP for your next appointment For any questions or concerns please call [phone] Thank you for allowing us to provide your care today. documented in this encounter Progress Notes * Jaguar Castaneda MD - 09/14/2023 2:00 PM CDT Reason for Visit: Follow Up History of Present Illness: 38-year-old female with a history of cryptogenic TIA and PFO (status post transcatheter closure) who presents follow-up reevaluation. Her echocardiogram today demonstrates closure of her PFO. The patient denies angina, dyspnea, orthopnea, PND, palpitation, near syncope, or syncope. Her EKG performed today demonstrates normal sinus rhythm. Recommendations and Plan: 1. Cryptogenic TIA and PFO. She is status post transcatheter closure. Her echocardiogram looks good. She is doing well. I recommend she continue aspirin 81 mg daily. I will repeat an echocardiogram within 1 years time. Follow-up in 1 year with an echocardiogram. Medications: Current Outpatient Medications: aspirin 81 MG chewable tablet, Chew 81 mg by mouth daily., Disp: , Rfl: atorvastatin 40 MG tablet, Take 1 tablet (40 mg total) by mouth nightly at bedtime., Disp: 90 tablet, Rfl: 2 hydroCHLOROthiazide 25 MG tablet, Take 25 mg by mouth daily., Disp: , Rfl: Review of patient's allergies indicates: No Known Allergies Past Medical History: Diagnosis Date HTN (hypertension) Past Surgical History: Procedure Laterality Date SECTION XA ASD CLOSURE 09/06/2020 Social History Tobacco Use Smoking status: Former Packs/day: 1.00 Years: 21.00 Additional pack years: 0.00 Total pack years: 21.00 Types: Cigarettes Quit date: 03/31/2020 Years since quittin.4 Smokeless tobacco: Never Vaping Use Vaping Use: Never used Substance Use Topics Alcohol use: Yes Comment: socially Drug use: Never Family History Problem Relation Name Age of Onset Hyperlipidemia Mother Thyroid Disease Father Hyperlipidemia Father Diabetes Maternal Grandmother Heart Disease Maternal Grandmother Cancer Maternal Grandmother Diabetes Paternal Grandmother Heart Disease Paternal Grandmother No Known Problems Sister No Known Problems Brother No Known Problems Maternal Aunt No Known Problems Maternal Uncle No Known Problems Paternal Aunt No Known Problems Paternal Uncle No Known Problems Maternal Grandfather No Known Problems Paternal Grandfather Family Status Relation Name Status Mother (Not Specified) Father (Not Specified) MGM (Not Specified) PGM (Not Specified) Sister (Not Specified) Brother (Not Specified) MAunt (Not Specified) MUncle (Not Specified) PAunt (Not Specified) PUncle (Not Specified) MGF (Not Specified) PGF (Not Specified) Review of Systems Constitutional: Negative for recent unintentional weight gain, recent unintentional weight loss andnew or significant fatigue. HENT: Negative for new or significant hearing loss. Eyes: Negative for blurred vision and double vision. Respiratory: Negative for cough, new or significant shortness of breath and snoring. Cardiovascular: See HPI. Gastrointestinal: Negative for blood in stool and melena. Genitourinary: Negative for dysuria. Musculoskeletal: Negative for myalgias and new or worsening joint stiffness/pain. Skin: Positive for rash. Neurological: Negative for tingling/numbness and focal weakness. Endo/Heme/Allergies: Negative for new or significant bruising/bleeding and polydipsia. Psychiatric/Behavioral: Negative for depression and new or significant memory loss. All other systems reviewed and are negative. Vitals: 09/14/23 1333 BP: 130/80 Patient Position: Sitting BP Location: Left arm Pulse: 68 Weight: 91.3 kg (201 lb 3.2 oz) Height: 1.575 m (5' 2 ) Body mass index is 36.8 kg/m??. Cardiac Exam Rate/Rhythm: Normal rate and regular rhythm. PMI: PMI is not displaced. Pulses: Normal pulses. Femoral pulses are 2+ on the right side and 2+ on the left side. Heart Sounds: Normal heart sounds. Normal S1 sounds. Normal S2 sounds. No gallop present. No S3. NoS4. Murmurs: Physical Exam Constitutional: No distress. Healthy Appearance. HENT: Oropharynx clear. Eyes: Pupils equal, round, and reactive to light. Conjunctivae normal. Neck: Neck supple. No JVD. Abdomen: Abdomen soft. Bowel sounds normal. No tenderness. No mass. No hepatomegaly. No splenomegaly. Abdominal aorta not palpably enlarged. No abdominal bruit present. Pulmonary: Effort normal. Breath sounds normal. Skin: No rash. No cyanosis. No clubbing. No xanthoma. Musculoskeletal: No kyphosis. Normal ROM. Neurological: Alert. Oriented x 3. Appropriate mood and affect. Normal motor skills. Normal gait. Comments: The documentation for the above exam was created using a template entered by ancillary staff however the physical exam was completed entirely by the provider responsible for this visit. Thephysical exam documentation was reviewed and modified by the provider to reflect his/her findings. Diagnoses/Impression: 1. PFO (patent foramen ovale) ([facility]) USE ECHOCARDIOGRAM 2. S/P patent foramen ovale closure USE ECHOCARDIOGRAM 3. Primary hypertension USE ECHOCARDIOGRAM 4. History of TIA (transient ischemic attack) USE ECHOCARDIOGRAM Referring Provider: No ref. provider found PCP: JOEL COLVIN MD documented in this encounter Plan of Treatment Upcoming Encounters Date Type Department Care Team (Late st Contact Info) Description 09/23/2024 9:00 AM CDT Appointment [facility] Non Invasive Cardiology - [facility] [address], [place] [address] Jaguar Castaneda MD [address], [place] [address] 09/23/2024 10:00 AM CDT Office Visit [facility] el [address] [place] [address] Jaguar Castaneda MD [address] [place] [address] Scheduled Orders Name Type Priority Associated Diagnoses Orde r Schedule USE ECHOCARDIOGRAM ECHO Routine PFO (patent foramen ovale) ([facility]/HCC) Primary hypertension History of TIA (transient ischemic attack) S/P patent foramen ovale closure Expected: 09/13/2024, Expires: 03/16/2025 documented as of this encounter Goals Goal Patient Goal Type Associated Problems Recent Progress Patient-Stated? Author Safety - demonstrates understanding of home safety measures Cassandra Swift RN documented as of this encounter Visit Diagnoses Diagnosis PFO (patent foramen ovale) ([facility])- Primary Ostium secundum type atrial septal defect S/P patent foramen ovale closure Other postprocedural status Primary hypertension Unspecified essential hypertension History of TIA (transient ischemic attack) Transient ischemic attack (TIA), and cerebral infarction without residual deficits documented in this encounter Care Teams Leak Inspector Relationship Specialty Start Date End Date Joel Colvin MD [address] [place] [address] PCP - General FAMILY PRACTICE 03/30/20 Jaguar Castaneda MD [address] [place] [address] Consulting Physician INTERVENTIONAL CARDIOLOGY 04/18/20 Billy Fernandez APRN [address] [facility] [address] [address] Nurse Practitioner NURSE PRACTITIONER 09/10/22 documented as of this encounter
--- OUTSIDE RECORDS SUMMARY | 2024-07-01 02:49 | XMS_ITS | Encounter Summary ---
Author Organization [facility] Address [address] [place] [address]. [place], [place] [address] [place] [address] Care Team Providers Care Patient Transporter Name Role Phone Joel Durán MD Primary Care Provider [phone] Mary Bahena MD Unavailable Jaguar Castaneda MD Unavailable [phone] Encounter Details Date Type Department Care Team (Latest Contact Info) Description 12/10/2021 Travel Social History Tobacco Use Types Packs/Day [...] suspected to have Coronavirus/COVID-19? No / Unsure 12/10/2021 8:01 AM CDT documented as of this encounter Functional Status * RETIRED Are you deaf or do you have serious difficulty hearing Answer Date of Assessment Author Status No 09/07/2020 11:09 AM INSTRUCTOR CREELER Acti ve * RETIRED Are you blind or do you have serious difficulty seeing, even when wearing glasses? Answer Date of Assessment Author Status No 09/07/2020 11:09 AM INSTRUCTOR CREELER Acti ve * Do you have serious difficulty walking or climbing stairs? Answer Date of Assessment Author Status No 09/07/2020 11:09 AM Sewetie Keating R N Active * Do you [...] Info) Description 09/23/2024 9:00 AM CDT Appointment [facility] Non Invasive Cardiology - [facility] [address] [place] [address] Jaguar Castaneda MD [address] [place] [address] 09/23/2024 10:00 AM CDT Office Visit [facility] [address] [place] [address] Jaguar Castaneda MD [address] [place] [address] documented as of this encounter Goals Goal Patient Goal Type Associated Problems Recent Progress Patient-Stated? Author Safety - demonstrates understanding of home safety measures General No Cassandra Montemayor RN documented as of this encounter Visit Diagnoses Not on filedocumented in this encounter Care Teams Patient Transporter Relationship Specialty Start Date End Date Joel Durán MD [address] [place] [address] PCP - General FAMILY PRACTICE 03/30/20 Mary Bahena MD [address] [place] [address] Vascular Neurology 04/18/20 09/09/22 Jaguar aCstaneda MD [address] [place] [address] Consulting Physician INTERVENTIONAL CARDIOLOGY 04/18/20 documented as of this encounter
--- OUTSIDE RECORDS SUMMARY | 2024-07-01 02:49 | XMS_ITS | Encounter Summary ---
Author Organization [facility] Address [address] [place] [address]. [place] [address] [place] [address] Care Team Providers Care Military Communications Specialist Name Role Phone Joel Durán MD Primary Care Provider [phone] Mary Bahena MD Unavailable Sara Ly MD Unavailable [phone] Reason for Referral * Imaging (Routine) - Closed Specialty Diagnoses / Procedures Referred By Contac t Referred To Contact RADIOLOGY Diagnoses PFO (patent foramen ovale) ([facility]) Procedures USE ECHOCARDIOGRAM Sara Ly MD [address] [place] [address] Phone: tel: fax: Referral ID Status Reason Start Date Expiration Date Visits Re quested Visits Authorized [id number] Closed 03/07/2021 04/08/2022 1 1 Encounter Details Date Type Department Care Team (Late st Contact Info) Description 03/07/2021 Orders Only [facility] [address] [place] [address] Sara Ly MD [address] [place] [address] Social History Tobacco Use Types [...] Assessment Author Status No 09/07/2020 11:09 AM MELTER OPERATOR Acti ve * RETIRED Are you blind or do you have serious difficulty seeing, even when wearing glasses? Answer Date of Assessment Author Status No 09/07/2020 11:09 AM MELTER OPERATOR Acti ve * Do you have serious difficulty walking or climbing stairs? Answer Date of Assessment Author Status No 09/07/2020 11:09 AM MELTER OPERATOR Sweetie Craven R N Active * [...] documented in this encounter Progress Notes * Ivan Landis RN - 03/07/2021 8:38 AM CDTAddended by: IVAN LANDIS on: 03/07/2021 08:38 AM Modules accepted: Orders documented in this encounter Plan of Treatment Upcoming Encounters Date Type Department Care Team (Late st Contact Info) Description 09/23/2024 9:[address] [facility] Non Invasive Cardiology - [facility] [address] [place] [address] Sara Ly MD [address] [place] [address] 09/23/2024 10:00 AM CDT Office Visit [facility] [address] [place] [id number] Sara Ly MD [address] [place], [place] [address] documented as of this encounter Goals Goal Patient Goal Type Associated Problems Recent Progress Patient-Stated? Author Safety - demonstrates understanding of home safety measures General No Cassandra Montemayor RN documented as of this encounter Results * USE ECHOCARDIOGRAM (09/09/2021 1:59 PM MELTER OPERATOR) Anatomical Region Laterality Modality Cardiac Echocardiogram 09/09/2021 1:09 PM MELTER OPERATOR Narrative 09/09/2021 2:17 PM MELTER OPERATOR ?Echocardiography Report Pat.Name: ??ROMRENETTA MATEUSZ N ?Pat.ID: ?[id number] ? St.Date: ?? 09/09/2021 ? Refer.MD: ??[id number], SARA LY Exam Time: 1:09:00 PM ? Study Type:ECHO WITH CARDIAC DOPPLER COMP Height: ?672in ? Weight: ?163.66lb ? BSA: ? 9.89 m2 ?Age: ??1985,36Y ? Sex: ? FEMALE ?BP: ?138/70 ? HR: ?74 bpm ? Sonogrphr: Brant Kingsley RDCS, RVT Pat. Stat.:Outpatient ?CPT - 4: ?[id number] ? Reason for Study:Patent Foramen Ovale (PFO) Procedures: 2D, M-mode, Doppler, Color Flow, The study quality is technically adequate. ++++++++++++++++++++++++++++++++++++ SUMMARY: ++++++++++++++++++++++++++++++++++++ The left ventricular size is normal. The left ventricular systolic function is normal. The calculated ejection fraction is 65%. Status post ASD closure device, which appears to be well seated. No evidence of pericardial effusion. The peak pulmonary artery systolic pressure is estimated to be approximately 27 mmHg. ++++++++++++++++++++++++++++++++++++ FINDINGS: ++++++++++++++++++++++++++++++++++++ LV: ? The left ventricular size is normal. The left ventricular ?systolic function is normal. The calculated ejection ?fraction is 65%. Left ventricular diastolic function is ?normal. RV: ? The right ventricular size is normal. Right ventricular ?systolic function is normal. LA: ? The left atrial volume is normal ( less than 34 ml/M2). RA: ? Right atrial size is normal. IAS: ?Status post ASD closure device, which appears to be well ?seated. JUDIT: ? No evidence of pericardial effusion. AO: ? Normal aortic root. PA: ? The peak pulmonary artery systolic pressure is estimated to ?be approximately 27 mmHg. Estimated right atrial pressure of ?3 mmHg. PVn: ?Pulmonary vein velocity is consistent with normal left ?atrial pressures. SVn: ?Inferior vena cava is normal. Inferior vena cava shows >50% ?collapse with respiration consistent with normal right ?atrial pressure. AV: ? The aortic valve is trileaflet. No evidence of aortic valve ?stenosis. No evidence of aortic valve regurgitation. MV: ? Structurally normal mitral valve. Trace mitral ?regurgitation. No evidence of mitral stenosis. PV: ? Structurally normal pulmonic valve. Trace pulmonic ?regurgitation. No evidence of pulmonic valve stenosis. TV: ? Structurally normal tricuspid valve. A trace of tricuspid ?regurgitation. No evidence of tricuspid valve stenosis. ++++++++++++++++++++++++++++++++++++ MEASUREMENTS: ++++++++++++++++++++++++++++++++++++ ?DOPPLER LVOT ?? LVOTpkPG ? 4 mmHg ?LVOTmnPG ? 2 mmHg LVOTpkVel ?103 cm/s (70-110) LVOT SV ? 89 ml ?? LVOT TVI ?23.3 cm ?LVOT CO ?112 ml/s AV Forward Flow AV TVI ?23 cm ?AV pkPG ?4 mmHg AV pkVel ? 101 cm/s (100-170) Area (TVI) ?3.85 cm2 ??(3-5) AV mnVel ?75.2 cm/s ?Area (Roderick) ?3.88 cm2 ??(3-5) AV mnPG ?3 mmHg ? MV Forward Flow MV DeTm ?106 ms ?MV E/A ? 0.9 ? MV mnPG ?3 mmHg ?MV pkE ?76.8 cm/s (60-130) MV pkPG ?6 mmHg ?MV pkA ?82.6 cm/s PV Forward Flow PV pkVel ?96.7 cm/s (60-90)* PV pkPG ?4 mmHg TV Regurg Flow TV pkPG ? 24 mmHg ?TV pkVel ? 247 cm/s (30- 70)* Lat E' ?? Lat e ? 14.7 cm/s ? Lat E/E' ?? Lat E/e ?5.2 ? Med E' ?? Med e ? 9.36 cm/s ? Med E/E' ?? Med E/e ?8.2 ? AV DI ?? Value ?1 ? LV Mass 2D ?? Value ?127 g ?2D Left Ventricle ?? LVIDd ? 4.71 cm ?? (3.6-5.2) LV EF(Bi-Plane) ?65 % ?(55-75) LVIDs ? 2.71 cm ?? (2.3-3.9) LVPW ?? LVPWd ? 0.82 cm ? Right Ventricle ?? RVIDd ? 2.28 cm ?? (2.6-4.3)* Ventricular Septum ?? IVSd ? 0.824 cm ? Left Atrium ?? LA a-p ? 3 cm ?? (2.8-3.4) Aorta ?? Ao Rtd ? 3.3 cm ? Ao Asc ? 3 cm ?? (2.1-3.4) LVOT ?? LVOT ? 2.2 cm ? Ratios ?? IVS Signed 09/09/2021 02:17 PM Sraa Ly M.D. Procedure Note Sara Ly MD - 09/09/2021 Echocardiography Report Pat.Name: MATEUSZ HEARN Pat.ID: [id number] .Date: 09/09/2021 Refer.: [id number], SARA LY Exam Time: 1:09:00 PM Study Type:ECHO WITH CARDIAC DOPPLER COMP Height: 672in Weight: 163.66lb BSA: 9.89 m2 Age: 10 1985,36Y Sex: FEMALE BP: 138/70 HR: 74 bpm Sonogrphr: Brant Kingsley RDCS, RVT Pat. Stat.:Outpatient CPT - 4: [id number] Reason for Study:Patent Foramen Ovale (PFO) Procedures: 2D, M-mode, Doppler, Color Flow, The study quality is technically adequate. ++++++++++++++++++++++++++++++++++++ SUMMARY: ++++++++++++++++++++++++++++++++++++ The left ventricular size is normal. The left ventricular systolic function is normal. The calculated ejection fraction is 65%. Status post ASD closure device, which appears to be well seated. No evidence of pericardial effusion. The peak pulmonary artery systolic pressure is estimated to be approximately 27 mmHg. ++++++++++++++++++++++++++++++++++++ FINDINGS: ++++++++++++++++++++++++++++++++++++ LV: The left ventricular size is normal. The left ventricular systolic function is normal. The calculated ejection fraction is 65%. Left ventricular diastolic function is normal. RV: The right ventricular size is normal. Right ventricular systolic function is normal. LA: The left atrial volume is normal ( less than 34 ml/M2). RA: Right atrial size is normal. IAS: Status post ASD closure device, which appears to be well seated. JUDIT: No evidence of pericardial effusion. AO: Normal aortic root. PA: The peak pulmonary artery systolic pressure is estimated to be approximately 27 mmHg. Estimated right atrial pressure of 3 mmHg. PVn: Pulmonary vein velocity is consistent with normal left atrial pressures. SVn: Inferior vena cava is normal. Inferior vena cava shows >50% collapse with respiration consistent with normal right atrial pressure. AV: The aortic valve is trileaflet. No evidence of aortic valve stenosis. No evidence of aortic valve regurgitation. MV: Structurally normal mitral valve. Trace mitral regurgitation. No evidence of mitral stenosis. PV: Structurally normal pulmonic valve. Trace pulmonic regurgitation. No evidence of pulmonic valve stenosis. TV: Structurally normal tricuspid valve. A trace of tricuspid regurgitation. No evidence of tricuspid valve stenosis. ++++++++++++++++++++++++++++++++++++ MEASUREMENTS: ++++++++++++++++++++++++++++++++++++ DOPPLER LVOT LVOTpkPG 4 mmHg LVOTmnPG 2 mmHg LVOTpkVel 103 cm/s (70-110) LVOT SV 89 ml LVOT TVI 23.3 cm LVOT CO 112 ml/s AV Forward Flow AV TVI 23 cm AV pkPG 4 mmHg AV pkVel 101 cm/s (100-170) Area (TVI) 3.85 cm2 (3-5) AV mnVel 75.2 cm/s Area (Roderick) 3.88 cm2 (3-5) AV mnPG 3 mmHg MV Forward Flow MV DeTm 106 ms MV E/A 0.9 MV mnPG 3 mmHg MV pkE 76.8 cm/s (60-130) MV pkPG 6 mmHg MV pkA 82.6 cm/s PV Forward Flow PV pkVel 96.7 cm/s (60-90)* PV pkPG 4 mmHg TV Regurg Flow TV pkPG 24 mmHg TV pkVel 247 cm/s (30-70)* Lat E' Lat e 14.7 cm/s Lat E/E' Lat E/e 5.2 Med E' Med e 9.36 cm/s Med E/E' Med E/e 8.2 AV DI Value 1 LV Mass 2D Value 127 g 2D Left Ventricle LVIDd 4.71 cm (3.6-5.2) LV EF(Bi-Plane) 65 % (55-75) LVIDs 2.71 cm (2.3-3.9) LVPW LVPWd 0.82 cm Right Ventricle RVIDd 2.28 cm (2.6-4.3)* Ventricular Septum IVSd 0.824 cm Left Atrium LA a-p 3 cm (2.8-3.4) Aorta Ao Rtd 3.3 cm Ao Asc 3 cm (2.1-3.4) LVOT LVOT 2.2 cm Ratios IVS Signed 09/09/2021 02:17 PM Sara Ly M.D. Sara Ly MD ECHO Final Res ult documented in this encounter Visit Diagnoses Diagnosis PFO (patent foramen ovale) ([facility])- Primary Ostium secundum type atrial septal defect PFO (patent foramen ovale) ([facility]) Ostium secundum type atrial septal defect documented in this encounter Care Teams Military Communications Specialist Relationship Specialty Start Date End Date Joel Durán MD [address] [place] [address] PCP - General FAMILY PRACTICE 03/30/20 Mary Bahena MD [address] [place] [address] Vascular Neurology 04/18/20 09/09/22 Sara Ly MD [address] [place] [address] Consulting Physician INTERVENTIONAL CARDIOLOGY 04/18/20 documented as of this encounter
--- OUTSIDE RECORDS SUMMARY | 2024-07-01 02:49 | XMS_ITS | Encounter Summary ---
Author Organization [facility] Address [address] [place] [address]. [place], [place] [address] [place] [address] Care Team Providers Care Software Engineer Web Services Name Role Phone Joel Durán MD Primary Care Provider [phone] Mary Bahena MD Unavailable Jaguar Castaneda MD Unavailable [phone] Reason for Visit * Imaging (Routine) - Closed Specialty Diagnoses / Procedures Referred By Contac t Referred To Contact RADIOLOGY Diagnoses Benign neoplasm of pituitary gland ([facility]) Procedures MRI BRAIN WWO CON Joel Durán MD [address] [place] [address] Phone: tel: fax: Referral ID Status Reason Start Date Expiration Date Visits Re quested Visits Authorized [id number] Closed 11/06/2021 12/07/2022 1 1 Encounter Details Date Type Department Care Team (Late st Contact Info) Description 12/10/2021 8:00 AM CDT - 12/10/2021 11:59 PM T [facility] En[facility] [address] [place] [address] Joel Durán MD [address] [place] [address] Discharge Disposition: Home or Self Care (Routine [...] Assessment Author Status No 09/07/2020 11:09 AM NETWORK CABLE INSTALLER Acti ve * RETIRED Are you blind or do you have serious difficulty seeing, even when wearing glasses? Answer Date of Assessment Author Status No 09/07/2020 11:09 AM NETWORK CABLE INSTALLER Acti ve * Do you have serious difficulty walking or climbing stairs? Answer Date of Assessment Author Status No 09/07/2020 11:09 AM NETWORK CABLE INSTALLER Sweetie Craven R N Active * Do [...] Appointment [facility] - [facility] [address] [place] [address] Jaguar Castaneda MD [address] [place] [address] 09/23/2024 10:00 AM CDT Office Visit [facility] [address] [place] [address] Jaguar Castaneda MD [address], [place] [address] documented as of this encounter Goals Goal Patient Goal Type Associated Problems Recent Progress Patient-Stated? Author Safety - demonstrates understanding of home safety measures General No Cassandra Montemayor RN documented as of this encounter Procedures Procedure Name Priority Date/Time Associated Diagnosis Comments MRI BRAIN WWO CON Routine 12/10/2021 9:1 5 AM CDT Benign neoplasm of pituitary gland ([facility]) documented in this encounter Visit Diagnoses Not on filedocumented in this encounter Administered Medications Inactive Administered Medications - up to 3 most recent administrations Medication Order MAR Action Action Date Dose Rate Site gadobenate dimeglumine (MULTIHANCE) 529 MG/ML injection 17 mL 17 mL, Intravenous, IMG once as needed, Contrast, 1 dose, Starting on Thu12/10/21 at 0835, Until Thu12/10/21 at 0915 Given 12/10/2021 9:15 AM CDT 17 mLs documented in this encounter Care Teams Software Engineer Web Services Relationship Specialty Start Date End Date Joel Durán MD [address] [place] [address] PCP - General FAMILY PRACTICE 03/30/20 Mary Bahena MD [address] [place] [address] Vascular Neurology 04/18/20 09/09/22 Jaguar Castaneda MD [address] [place] [address] Consulting Physician INTERVENTIONAL CARDIOLOGY 04/18/20 documented as of this encounter
--- OUTSIDE RECORDS SUMMARY | 2024-07-01 02:49 | XMS_ITS | Encounter Summary ---
Author Organization [facility] Address [address] [place] [address]. [place], [place] [address] [place] [address] Care Team Providers Care Pit Shovel Operator Name Role Phone Joel Durán MD Primary Care Provider [phone] Jaguar Castaneda MD Unavailable [phone] Billy Fernandez APRN Unavailable [phone] Reason for Referral * Imaging (Routine) - Closed Specialty Diagnoses / Procedures Referred By Contac faiza Referred To Contact RADIOLOGY Diagnoses PFO (patent foramen ovale) ([facility]HS/HCC) TIA (transient ischemic attack) Primary hypertension Essential hypertension Palpitation Procedures USE ECHOCARDIOGRAM Jaguar Castaneda MD [address] [place] [address] Phone: tel: fax: Referral ID Status Reason Start Date Expiration Date Visits Re quested Visits Authorized [id number] Closed 09/09/2021 10/10/2022 1 1 ROBBER Reason for Visit * Imaging (Routine) - Closed Specialty Diagnoses / Procedures Referred By Contmary kendall Referred To Contact RADIOLOGY Diagnoses PFO (patent foramen ovale) (HHS/HCC) TIA (transient ischemic attack) Primary hypertension Essential hypertension Palpitation Procedures USE ECHOCARDIOGRAM Jaguar Castaneda MD [address] [place] [address] Phone: tel: fax: Referral ID Status Reason Start Date Expiration Date Visits Re quested Visits Authorized [id number] Closed 09/09/2021 10/10/2022 1 1 Encounter Details Date Type Department Care Team (Latest Contact Info) Description 09/10/2022 9:55 AM BEE ROBBER - 09/10/2022 11:59 PM BEE ROBBER Hospital Encounter [facility] Non Invasive Cardiology - [facility] [address] [place] [address] Jaguar Castaneda MD [address] [place] [address] Discharge Disposition: Home or Self Care (Routine [...] Coronavirus/COVID-19? No / Unsure 09/10/2022 9:55 AM BEE ROBBER documented as of this encounter Functional Status * RETIRED Are you deaf or do you have serious difficulty hearing Answer Date of Assessment Author Status No 09/07/2020 11:09 AM BEE ROBBER Acti ve * RETIRED Are you blind or do you have serious difficulty seeing, even when wearing glasses? Answer Date of Assessment Author Status No 09/07/2020 11:09 AM BEE ROBBER Acti ve * Do you have serious [...] Description 09/23/2024 9:[address] [facility] Non Invasive Cardiology - [facility] [address] [place] [address] Jaguar Castaneda MD [address] [place] [address] 09/23/2024 10:00 AM CDT [facility] [address] [place] [address] Jaguar Castaneda MD [address] [place] [address] documented as of this encounter Goals Goal Patient Goal Type Associated Problems Recent Progress Patient-Stated? Author Safety - demonstrates understanding of home safety measures General Cassandra Graves, RN documented as of this encounter Procedures Procedure Name Priority Date/Time Associated Diagnosis Comments USE ECHOCARDIOGRAM Routine 09/10/2022 10 :42 AM BEE ROBBER PFO (patent foramen ovale) (HHS/HCC) TIA (transient ischemic attack) Primary hypertension Essential hypertension Palpitation documented in this encounter Results * USE ECHOCARDIOGRAM (09/10/2022 10:42 AM BEE ROBBER) Anatomical Region Laterality Modality Cardiac Echocardiogram 09/10/2022 10:2 0 AM BEE ROBBER Narrative 09/11/2022 4:33 PM BEE ROBBER ?Echocardiography Report Pat.Name: ??MATEUSZ HEARN ?? Pat.ID: ?[id number] ? St.Date: ?? 09/10/2022 ? Refer.MD: ??[id number] ALIYAH Solis ? EWDPROV ?EWDPROV Exam Time: 10:20:00 AM ? Study Type:ECHO WITH CARDIAC DOPPLER COMP Height: ?158 cm ?Weight: ?74 kg ? BSA: ? 1.76 m2 ?Age: ??1985,37Y ? Sex: ? F ? BP: ?113/67 ? HR: ?80 bpm ?Sonogrphr: More Guajardo, REKHA ? Pat. Stat.:Outpatient ?Room: ?CVD ? CPT - 4: ?11402 ? Reason for Study:S/P PFO closure ?? Procedures: 2D, M-mode, Doppler, Color Flow, Intraveneous saline contrast was used to help determine presence of intracardiac shunting. The study quality is technically adequate. ++++++++++++++++++++++++++++++++++++ SUMMARY: ++++++++++++++++++++++++++++++++++++ The left ventricular size is normal. The left ventricular systolic function is normal. The calculated ejection fraction is 55%. ++++++++++++++++++++++++++++++++++++ FINDINGS: ++++++++++++++++++++++++++++++++++++ LV: ? The left ventricular size is normal. The left ventricular ?systolic function is normal. The calculated ejection ?fraction is 55%. The septal E/e' is normal at < 8. The ?lateral E/e' is normal at <8. Left ventricular diastolic ?function is normal. WM: ? Wall motion appears normal in all segments. RV: ? The right ventricle size is normal. The right ventricular ?function is normal. IVS: ?Intraventricular septum is normal. LA: ? The left atrial volume is normal ( less than 34 ml/M2). RA: ? Right atrial size is normal. IAS: ?Status post ASD closure device, which appears to be well ?seated. No evidence of residual shunt. JUDIT: ? No evidence of pericardial effusion. AO: ? The proximal ascending aorta measures 3cm. PA: ? Unable to reliably quantitate pulmonary systolic pressure. PVn: ?Pulmonary veins are not assessable. SVn: ?Inferior vena cava shows >50% collapse with respiration ?consistent with normal right atrial pressure. AV: ? The aortic valve is trileaflet. No evidence of aortic valve ?stenosis. No evidence of aortic valve regurgitation. MV: ? Structurally normal mitral valve. No evidence of mitral ?regurgitation. No evidence of mitral stenosis. PV: ? The pulmonic valve is normal There is trace pulmonic ?regurgitation TV: ? The tricuspid valve appears structurally normal. There is ?trace tricuspid regurgitation. ++++++++++++++++++++++++++++++++++++ MEASUREMENTS: ++++++++++++++++++++++++++++++++++++ ?DOPPLER LVOT ?? LVOTpkPG ? 2 mmHg ?LVOTmnPG ? 2 mmHg LVOTpkVel ? 75.7 cm/s (70-110) LVOT SV ? 74 ml ?? LVOT TVI ?18.3 cm ? AV Forward Flow AV TVI ?24.5 cm ?AV pkPG ?5 mmHg AV pkVel ? 110 cm/s (100-170) Area (TVI) ?3.03 cm2 ??(3-5) AV mnVel ?86.8 cm/s ?Area (Roderick) ?2.79 cm2 ??(3-5)* AV mnPG ?3 mmHg ? MV Forward Flow MV DeTm ?214 msec ?MV E/A ? 1.3 ? MVA P1/2t ? 3.49 cm2 ??(4-6)* ?? MV pkE ?66 cm/s (60-130) MV P1/2t ?63 msec (30-60)+* MV pkA ?50.1 cm/s Lat E' ?? Lat e ? 11.7 cm/s ? Lat E/E' ?? Lat E/e ?5.6 ? Med E' ?? Med e ? 8.16 cm/s ? Med E/E' ?? Med E/e ?8.1 ? Aortic Valve ?? Aortic Valve Ar ??1.72 ?Aortic Valve Ve ??0.69 ? AV DI ?? Value ?0.7 ? SANTIAGO (VTI) Index ?? Value ? 1.72 ? LV Mass 2D ?? Value ?166 g ? LV Mass [id number] ?? Value ? 94.3 g/m2 ? Right Ventricle ?? Right Ventricle ??9.25 cm/s ?2D Left Ventricle ?? LVIDd ? 4.97 cm ?? (3.6-5.2) LV EF(Bi-Plane) ??55.4 % ?(55-75) LVIDs ? 3.56 cm ?? (2.3-3.9) LVPW ?? LVPWd ?0.889 cm ? Ventricular Septum ?? IVSd ? 0.988 cm ? Aorta ?? Ao Rtd ?3.35 cm ?? (zsc 2.2)* Ao Asc ? 3 cm ?? (zsc 2.4)* LVOT ?? LVOT ?2.27 cm ? Ratios ?? IVS LA Biplane LAVol I BP ?26.7 ml/m2 ? Right Ventricle ?? Right Ventricle ??2.51 cm ? Major Wixom ?4.65 cm ?MMODE TA ?? Tricuspid Annul ??2.44 cm ? <Electronic Signature> 09/11/2022 04:33 PM Jaguar Castaneda M.D. Procedure Note Jaguar Castaneda MD - 09/11/2022 Echocardiography Report Pat.Name: MATEUSZ HEARN Pat.ID: [id number] .Date: 09/10/2022 Refer.: [id number] ALIYAH Solis EWDPROV EWDPROV Exam Time: 10:20:00 AM Study Type:ECHO WITH CARDIAC DOPPLER COMP Height: 158 cm Weight: 74 kg BSA: 1.76 m2 Age: 10 1985,37Y Sex: F BP: 113/67 HR: 80 bpm Sonogrphr: More Guajardo RDCS Pat. Stat.:Outpatient Room: [facility] CPT - 4: 54268 Reason for Study:S/P PFO closure Procedures: 2D, M-mode, Doppler, Color Flow, Intraveneous saline contrast was used to help determine presence of intracardiac shunting. The study quality is technically adequate. ++++++++++++++++++++++++++++++++++++ SUMMARY: ++++++++++++++++++++++++++++++++++++ The left ventricular size is normal. The left ventricular systolic function is normal. The calculated ejection fraction is 55%. ++++++++++++++++++++++++++++++++++++ FINDINGS: ++++++++++++++++++++++++++++++++++++ LV: The left ventricular size is normal. The left ventricular systolic function is normal. The calculated ejection fraction is 55%. The septal E/e' is normal at < 8. The lateral E/e' is normal at <8. Left ventricular diastolic function is normal. WM: Wall motion appears normal in all segments. RV: The right ventricle size is normal. The right ventricular function is normal. IVS: Intraventricular septum is normal. LA: The left atrial volume is normal ( less than 34 ml/M2). RA: Right atrial size is normal. IAS: Status post ASD closure device, which appears to be well seated. No evidence of residual shunt. JUDIT: No evidence of pericardial effusion. AO: The proximal ascending aorta measures 3cm. PA: Unable to reliably quantitate pulmonary systolic pressure. PVn: Pulmonary veins are not assessable. SVn: Inferior vena cava shows >50% collapse with respiration consistent with normal right atrial pressure. AV: The aortic valve is trileaflet. No evidence of aortic valve stenosis. No evidence of aortic valve regurgitation. MV: Structurally normal mitral valve. No evidence of mitral regurgitation. No evidence of mitral stenosis. PV: The pulmonic valve is normal There is trace pulmonic regurgitation TV: The tricuspid valve appears structurally normal. There is trace tricuspid regurgitation. ++++++++++++++++++++++++++++++++++++ MEASUREMENTS: ++++++++++++++++++++++++++++++++++++ DOPPLER LVOT LVOTpkPG 2 mmHg LVOTmnPG 2 mmHg LVOTpkVel 75.7 cm/s (70-110) LVOT SV 74 ml LVOT TVI 18.3 cm AV Forward Flow AV TVI 24.5 cm AV pkPG 5 mmHg AV pkVel 110 cm/s (100-170) Area (TVI) 3.03 cm2 (3-5) AV mnVel 86.8 cm/s Area (Roderick) 2.79 cm2 (3-5)* AV mnPG 3 mmHg MV Forward Flow MV DeTm 214 msec MV E/A 1.3 MVA P1/2t 3.49 cm2 (4-6)* MV pkE 66 cm/s (60-130) MV P1/2t 63 msec (30-60)+* MV pkA 50.1 cm/s Lat E' Lat e 11.7 cm/s Lat E/E' Lat E/e 5.6 Med E' Med e 8.16 cm/s Med E/E' Med E/e 8.1 Aortic Valve Aortic Valve Ar 1.72 Aortic Valve Ve 0.69 AV DI Value 0.7 SANTIAGO (VTI) Index Value 1.72 LV Mass 2D Value 166 g LV Mass Owtoh9O Value 94.3 g/m2 Right Ventricle Right Ventricle 9.25 cm/s 2D Left Ventricle LVIDd 4.97 cm (3.6-5.2) LV EF(Bi-Plane) 55.4 % (55-75) LVIDs 3.56 cm (2.3-3.9) LVPW LVPWd 0.889 cm Ventricular Septum IVSd 0.988 cm Aorta Ao Rtd 3.35 cm (zsc 2.2)* Ao Asc 3 cm (zsc 2.4)* LVOT LVOT 2.27 cm Ratios IVS LA Biplane LAVol I BP 26.7 ml/m2 Right Ventricle Right Ventricle 2.51 cm Major Wixom 4.65 cm MMODE TA Tricuspid Annul 2.44 cm <Electronic Signature> 09/11/2022 04:33 PM Jaguar Castaneda M.D. Jaguar Castaneda MD ECHO Final Res ult documented in this encounter Visit Diagnoses Diagnosis PFO (patent foramen ovale) ([facility]) Ostium secundum type atrial septal defect TIA (transient ischemic attack) Unspecified transient cerebral ischemia Primary hypertension Unspecified essential hypertension Essential hypertension Unspecified essential hypertension Palpitation Palpitations documented in this encounter Care Teams Pit Shovel Operator Relationship Specialty Start Date End Date Joel Durán MD [address] [place] [address] PCP - General FAMILY PRACTICE 03/30/20 Jaguar Castaneda MD [address] [place] [address] Consulting Physician INTERVENTIONAL CARDIOLOGY 04/18/20 Billy Fernandez APRN [address] [place] [address] Nurse Practitioner NURSE PRACTITIONER 09/10/22 documented as of this encounter
--- OUTSIDE RECORDS SUMMARY | 2024-07-01 02:49 | XMS_ITS | Encounter Summary ---
Author Organization [facility] Address [address] [place] [address]. [place] [address] [place] [address] Care Team Providers Care Human Resources Mgr Name Role Phone Joel Durán MD Primary Care Provider [phone] Mary Bahena MD Unavailable Jaguar Castaneda MD Unavailable [phone] Reason for Visit * Reason Onset Date Comments Results 11/22/2020 Encounter Details Date Type Department Care Team ([facility] st Contact Info) Description 11/22/2020 Telephone [facility] [address] [place] [address] Jaguar Castaneda MD [address] [place] [address] Results Social History Tobacco Use Types Packs/Day Years [...] Assessment Author Status No 09/07/2020 11:09 AM SPACE STUDIES FACULTY MEMBER Acti ve * RETIRED Are you blind or do you have serious difficulty seeing, even when wearing glasses? Answer Date of Assessment Author Status No 09/07/2020 11:09 AM SPACE STUDIES FACULTY MEMBER Acti ve * Do you have serious difficulty walking or climbing stairs? Answer Date of Assessment Author Status No 09/07/2020 11:09 AM SPACE STUDIES FACULTY MEMBER Sweetie Craven R N Active * Do you have difficulty dressing or bathing? Answer Date of Assessment Author Status No 09/07/2020 11:09 AM Sweetie Keating R N Active * Because of a physical, mental, or emotional condition, do you have difficulty doing errands alone such as visiting a doctor's office or shopping? Answer Date of Assessment Author Status No 09/07/2020 11:09 AM SPACE STUDIES FACULTY MEMBER Sweetie Craven R N Active documented as of this encounter Mental Status * Because of a physical, mental, or emotional condition, do you have serious difficulty concentrating, remembering, or making decisions? Answer Entry Date Author Status No 09/07/2020 11:09 AM Sweetie Keating R N Active documented in this encounter Progress Notes * Yolanda Quinones RN - 11/22/2020 8:42 AM CDT LM on pt machine that her Monitor looks ok no dangerous arrhythmias note, pt to call back if any questions, copy to PCP SALRMerissa ----- Message from Jaguar Castaneda MD sent at 11/21/2020 5:40 PM CDT ----- Lhk event monitor ok documented in this encounter Plan of Treatment Upcoming Encounters Date Type Department Care Team (Late st Contact Info) Description 09/23/2024 9:00 AM CDT Appointment [facility] Non Invasive Cardiology - [facility] [address] [place] [address] Jaguar Castaneda MD [address] [place] [address] 09/23/2024 10:00 AM CDT [facility] [address] [place] [id number] Jaguar Castaneda MD [address] [place] [address] documented as of this encounter Goals Goal Patient Goal Type Associated Problems Recent Progress Patient-Stated? Author Safety - demonstrates understanding of home safety measures General Cassandra Graves RN documented as of this encounter Visit Diagnoses Not on filedocumented in this encounter Care Teams Human Resources Mgr Relationship Specialty Start Date End Date Joel Durán MD [address] [place], [place] [id number] PCP - General FAMILY PRACTICE 03/30/20 Mary Bahena MD [address] [place] [address] Vascular Neurology 04/18/20 09/09/22 Jaguar Castaneda MD [address] [place] [address] Consulting Physician INTERVENTIONAL CARDIOLOGY 04/18/20 documented as of this encounter
--- OUTSIDE RECORDS SUMMARY | 2024-07-01 02:49 | XMS_ITS | Encounter Summary ---
Author Organization [facility] Address [address] [place] [address]. [place] [address] [place] [address] Care Team Providers Care Financial Controller Name Role Phone Joel Durán MD Primary Care Provider [phone] Mary Bahena MD Unavailable Sara Ly MD Unavailable [phone] Encounter Details Date Type Department Care Team (Late st Contact Info) Description 08/26/2021 Orders Only [facility] [address] [place] [address] Sara Ly MD [address] [place] [address] Social History Tobacco Use Types [...] Assessment Author Status No 09/07/2020 11:09 AM ABLE BODIED SEAMAN Acti ve * RETIRED Are you blind or do you have serious difficulty seeing, even when wearing glasses? Answer Date of Assessment Author Status No 09/07/2020 11:09 AM ABLE BODIED SEAMAN Acti ve * Do you have serious [...] [facility] Non Invasive Cardiology - [facility] [address] [place] [address] Sara Ly MD [address] [place] [address] 09/23/2024 10:00 AM CDT Office Visit [facility] [address] [place] [address] Sara Ly MD [address] [place] [address] documented as of this encounter Goals Goal Patient Goal Type Associated Problems Recent Progress Patient-Stated? Author Safety - demonstrates understanding of home safety measures General No Cassandra Montemayor RN documented as of this encounter Results * ELECTROCARDIOGRAM (09/09/2021 1:54 PM ABLE BODIED SEAMAN) 09/09/2021 1:54 PM ABLE BODIED SEAMAN Narrative [facility] - 09/13/2021 4:58 PM ABLE BODIED SEAMAN ? [facility] ?[address], [place] ??[address] ? Test Date: ?2021-09-09 Pat Name: ? YANELY HEARN ?Department: ? Room: ? Gender: ? Female ? Manager Legal: ?? SS : ?1985 ? Requested By: SARA LY Order Number: [id number] ?Reading MD: ?? Sara Ly ? Measurements Intervals ?[place] ? Rate: ? 65 ? P: ?53 TN: ? 161 ?QRS: ?45 QRSD: ? 99 ? T: ?52 QT: ? 427 ? QTc: ?444 ? Interpretive Statements SINUS RHYTHM MINIMAL ST DEPRESSION BODIED SEAMAN Procedure Note Sara Ly MD - 09/13/2021 [facility], [address] [address] Test Date: 2021-09-09 Pat Name: YANELY HEARN Department: Room: Gender: Female Manager Legal: SS : 1985 Requested By: SARA LY Order Number: [id number] Ruth HILL: Sara Ly Measurements Intervals [place] Rate: 65 P: 53 TN: 161 QRS: 45 QRSD: 99 T: 52 QT: 427 QTc: 444 Interpretive Statements SINUS RHYTHM MINIMAL ST DEPRESSION BODIED SEAMAN us Sara Ly MD PROCEDURES-ORDERABLE NO C RENU Final Result [facility] documented in this encounter Visit Diagnoses Diagnosis PFO (patent foramen ovale) ([facility])- Primary Ostium secundum type atrial septal defect Essential hypertension Unspecified essential hypertension Palpitation Palpitations TIA (transient ischemic attack) Unspecified transient cerebral ischemia PFO (patent foramen ovale) ([facility])- Primary Ostium secundum type atrial septal defect TIA (transient ischemic attack) Unspecified transient cerebral ischemia Primary hypertension Unspecified essential hypertension Essential hypertension Unspecified essential hypertension Palpitation Palpitations documented in this encounter Care Teams Financial Controller Relationship Specialty Start Date End Date Joel Durán MD [address] [place] [address] PCP - General FAMILY PRACTICE 03/30/20 Mary Bahena MD [address] [place] [address] Vascular Neurology 04/18/20 09/09/22 Sara Ly MD [address] [place] [address] Consulting Physician INTERVENTIONAL CARDIOLOGY 04/18/20 documented as of this encounter
--- OUTSIDE RECORDS SUMMARY | 2024-07-01 02:49 | XMS_ITS | Encounter Summary ---
Author Organization [facility] Address [address] [place] [address]. [place], [place] [address] [place] [address] Care Team Providers Care Soot Blower Name Role Phone Joel Durán MD Primary Care Provider [phone] Mary Bahena MD Unavailable Sara Ly MD Unavailable [phone] Reason for Referral * Imaging (Routine) - Closed Specialty Diagnoses / Procedures Referred By Contac t Referred To Contact RADIOLOGY Diagnoses PFO (patent foramen ovale) ([facility]/HCC) Procedures USE ECHOCARDIOGRAM Sara Ly MD [address] [place] [address] Phone: tel: fax: Referral ID Status Reason Start Date Expiration Date Visits Re quested Visits Authorized [id number] Closed 03/07/2021 04/08/2022 1 1 ERVATION WORKER Reason for Visit * Imaging (Routine) - Closed Specialty Diagnoses / Procedures Referred By Contac t Referred To Contact RADIOLOGY Diagnoses PFO (patent foramen ovale) ([facility]/HCC) Procedures USE ECHOCARDIOGRAM Sara Ly MD [address] [place] [address] Phone: tel: fax: Referral ID Status Reason Start Date Expiration Date Visits Re quested Visits Authorized [id number] Closed 03/07/2021 04/08/2022 1 1 Encounter Details Date Type Department Care Team (Latest Contact Info) Description 09/09/2021 1:00 PM CONSERVATION WORKER - 09/09/2021 11:59 PM CONSERVATION WORKER Hospital Encounter [facility] Non Invasive Cardiology - [facility] [address] [place] [address] Sara Ly MD [address] [place] [address] Discharge Disposition: Home or Self Care (Routine [...] Coronavirus/COVID-19? No / Unsure 09/09/2021 1:01 PM CONSERVATION WORKER documented as of this encounter Functional Status * RETIRED Are you deaf or do you have serious difficulty hearing Answer Date of Assessment Author Status No 09/07/2020 11:09 AM CONSERVATION WORKER Acti ve * RETIRED Are you blind or do you have serious difficulty seeing, even when wearing glasses? Answer Date of Assessment Author Status No 09/07/2020 11:09 AM CONSERVATION WORKER Acti ve * Do you have serious difficulty walking or climbing stairs? Answer Date of Assessment Author Status No 09/07/2020 11:09 AM CONSERVATION WORKER Sweetie Craven R N Active * [...] Info) Description 09/23/2024 9:00 AM CDT Appointment [facility] Non Invasive Cardiology - [facility] [address] [place] [address] Sara Ly MD [address] [place] [address] 09/23/2024 10:00 AM CDT [facility] [address] [place] [address] Sara Ly MD [address] [place] [address] documented as of this encounter Goals Goal Patient Goal Type Associated Problems Recent Progress Patient-Stated? Author Safety - demonstrates understanding of home safety measures General No Cassandra Montemayor RN documented as of this encounter Procedures Procedure Name Priority Date/Time Associated Diagnosis Comments USE ECHOCARDIOGRAM Routine 09/09/2021 1: 59 PM CONSERVATION WORKER PFO (patent foramen ovale) ([facility]) documented in this encounter Results * USE ECHOCARDIOGRAM (09/09/2021 1:59 PM CONSERVATION WORKER) Anatomical Region Laterality Modality Cardiac Echocardiogram 09/09/2021 1:09 PM CONSERVATION WORKER Narrative 09/09/2021 2:17 PM CONSERVATION WORKER ?Echocardiography Report Pat.Name: ??YANELY HEARN ?Pat.ID: ?[id number] ? St.Date: ?? 09/09/2021 ? Refer.MD: ??[id number], SARA LY Exam Time: 1:09:00 PM ? Study Type:ECHO WITH CARDIAC DOPPLER COMP Height: ?672in ? Weight: ?163.66lb ? BSA: ? 9.89 m2 ?Age: ??1985,36Y ? Sex: ? FEMALE ?BP: ?138/70 ? HR: ?74 bpm ? Sonogrphr: Brant Kingsley RDCS, RVT Pat. Stat.:Outpatient ?CPT - 4: ?82063 ? Reason for Study:Patent Foramen Ovale (PFO) [...] Ratios ?? IVS Signed 09/09/2021 02:17 PM Sara Ly M.D. Procedure Note Sara Ly MD - 09/09/2021 Echocardiography Report Pat.Name: YANELY HEARN Pat.ID: [id number] .Date: 09/09/2021 Refer.MD: [id number], SARA LY Exam Time: 1:09:00 PM Study Type:ECHO WITH CARDIAC DOPPLER COMP Height: 672in Weight: 163.66lb BSA: 9.89 m2 Age: 10 1985,36Y Sex: FEMALE BP: 138/70 HR: 74 bpm Sonogrphr: Brant Kingsley RDCS, RVT Pat. Stat.:Outpatient CPT - 4: 57660 Reason for Study:Patent Foramen Ovale (PFO) Procedures: [...] Visit Diagnoses Diagnosis PFO (patent foramen ovale) ([facility]) Ostium secundum type atrial septal defect documented in this encounter Care Teams Soot Blower Relationship Specialty Start Date End Date Joel Durán MD [address] [place] [address] PCP - General FAMILY PRACTICE 03/30/20 Mary Bahena MD [address] [place] [address] Vascular Neurology 04/18/20 09/09/22 Sara Ly MD [address] [place] [address] Consulting Physician INTERVENTIONAL CARDIOLOGY 04/18/20 documented as of this encounter
--- OUTSIDE RECORDS SUMMARY | 2024-07-01 02:49 | XMS_ITS | Encounter Summary ---
Author Organization [facility] Address [address] [place] [address]. [place], [place] [address] [place] [address] Care Team Providers Care Handkerchief Maker Name Role Phone Joel Durán MD Primary Care Provider [phone] Mary Bahena MD Unavailable Jaguar Castaneda MD Unavailable [phone] Encounter Details Date Type Department Care Team (Latest Contact Info) Description 08/27/2021 Travel Social History Tobacco Use Types Packs/Day [...] suspected to have Coronavirus/COVID-19? No / Unsure 08/27/2021 12:54 PM WOOD PATTERNMAKER documented as of this encounter Functional Status * RETIRED Are you deaf or do you have serious difficulty hearing Answer Date of Assessment Author Status No 09/07/2020 11:09 AM WOOD PATTERNMAKER Acti ve * RETIRED Are you blind or do you have serious difficulty seeing, even when wearing glasses? Answer Date of Assessment Author Status No 09/07/2020 11:09 AM WOOD PATTERNMAKER Acti ve * Do you have serious difficulty walking or climbing stairs? Answer Date of Assessment Author Status No 09/07/2020 11:09 AM WOOD PATTERNMAKER Sweetie Craven R N Active * Do you have difficulty dressing or bathing? Answer Date of Assessment Author Status No 09/07/2020 11:09 AM WOOD PATTERNMAKER Sweetie Craven R N Active * Because of a physical, mental, or emotional condition, do you have difficulty doing errands alone such as visiting a doctor's office or shopping? Answer Date of Assessment Author Status No 09/07/2020 11:09 AM WOOD PATTERNMAKER Sweetie Craven R N Active documented as [...] Appointment [facility] Non Invasive Cardiology - [facility] [address] [place] [address] Jaguar Castaneda MD [address] [place] [address] 09/23/2024 10:00 AM CDT Office Visit [facility] [address] [place] [address] Jaguar Castaneda MD [address] [place] [address] documented as of this encounter Goals Goal Patient Goal Type Associated Problems Recent Progress Patient-Stated? Author Safety - demonstrates understanding of home safety measures General No Cassandra Montemayor RN documented as of this encounter Visit Diagnoses Not on filedocumented in this encounter Care Teams Handkerchief Maker Relationship Specialty Start Date End Date Joel Durán MD [address] [place] [address] PCP - General FAMILY PRACTICE 03/30/20 Mary Bahena MD [address] [place] [address] Vascular Neurology 04/18/20 09/09/22 Jaguar Castaneda MD [address] [place] [address] Consulting Physician INTERVENTIONAL CARDIOLOGY 04/18/20 documented as of this encounter
--- OUTSIDE RECORDS SUMMARY | 2024-07-01 02:49 | XMS_ITS | Encounter Summary ---
Author Organization [facility] Address [address] [place] [address]. [place] [address] [place] [address] Care Team Providers Care Teller Supervisor Name Role Phone Joel Colvin MD Primary Care Provider Mary Bahena MD Unavailable Sara Ly MD Unavailable [phone] Reason for Referral * Imaging (Routine) - Closed Specialty Diagnoses / Procedures Referred By Contac t Referred To Contact RADIOLOGY Diagnoses PFO (patent foramen ovale) ([facility]/HCC) TIA (transient ischemic attack) Primary hypertension Essential hypertension Palpitation Procedures USE ECHOCARDIOGRAM Sara Ly MD [address] [place] [address] Phone: tel: fax: Referral ID Status Reason Start Date Expiration Date Visits Re quested Visits Authorized [id number] Closed 09/09/2021 10/10/2022 1 1 HERMAL OPERATIONS ENGINEER Reason for Visit * Reason Comments Follow Up PFO and TIA Encounter Details Date Type Department Care Team (Late st Contact Info) Description 09/09/2021 2:00 PM GEOTHERMAL OPERATIONS ENGINEER Office Visit [facility] [address] [place] [address] Sara Ly MD [address] [place] [address] Follow Up (PFO and TIA ) Social History Tobacco Use Types Packs/Day Years [...] Coronavirus/COVID-19? No / Unsure 09/09/2021 1:01 PM GEOTHERMAL OPERATIONS ENGINEER documented as of this encounter Last Filed Vital Signs Vital Sign Reading Time Taken Comments Blood Pressure 120/80 09/09/2021 1:49 PM GEOTHERMAL OPERATIONS ENGINEER Pulse 65 09/09/2021 1:49 PM GEOTHERMAL OPERATIONS ENGINEER Temperature - - Respiratory Rate 20 09/09/2021 1:49 PM GEOTHERMAL OPERATIONS ENGINEER Oxygen Saturation - - Inhaled Oxygen Concentration - - Weight 74.4 kg (164 lb) 09/09/2021 1:49 PM GEOTHERMAL OPERATIONS ENGINEER Height 158.8 cm (5' 2.5 ) 09/09/2021 1:49 PM GEOTHERMAL OPERATIONS ENGINEER Body Mass Index 29.52 09/09/2021 1:49 PM GEOTHERMAL OPERATIONS ENGINEER documented in this encounter Functional Status * RETIRED Are you deaf or do you have serious difficulty hearing Answer Date of Assessment Author Status No 09/07/2020 11:09 AM GEOTHERMAL OPERATIONS ENGINEER Acti ve * RETIRED Are you blind or do you have serious difficulty seeing, even when wearing glasses? Answer Date of Assessment Author Status No 09/07/2020 11:09 AM GEOTHERMAL OPERATIONS ENGINEER Acti ve * Do you have serious [...] documented in this encounter Progress Notes * Sara Ly MD - 09/09/2021 2:00 PM CST Reason for Visit: Follow Up (PFO and TIA ) History of Present Illness: 36-year-old female with a history of cryptogenic TIA [...] with an echocardiogram. Medications: Current Outpatient Medications: ??? aspirin 81 [...] ??? XA ASD CLOSURE 09/06/2020 Social History Tobacco Use ??? Smoking status: Former Smoker Packs/day: 1.00 Years: 21.00 Pack years: 21.00 Quit date: 03/31/2020 Years since quittin.4 ??? Smokeless tobacco: Never Used Vaping Use ??? Vaping Use: Never used Substance Use Topics ??? Alcohol use: Yes Comment: socially ??? Drug use: Never Family History Problem Relation [...] ??? PGF (Not Specified) Review of Systems Constitutional: [...] and new or worsening joint stiffness/pain. Skin: Negative for rash. Neurological: Negative for tingling/numbness and focal weakness. Endo/Heme/Allergies: Negative for new or significant bruising/bleeding and polydipsia. Psychiatric/Behavioral: Negative for depression and new or significant memory loss. Vitals: 09/09/21 1349 BP: 120/80 Patient Position: Sitting BP Location: Left arm Pulse: 65 Weight: 74.4 kg (164 lb) Height: 5' 2.5 (1.588 m) Body mass index is 29.52 kg/m??. Cardiac Exam Rate/Rhythm: Normal rate and [...] findings. Diagnoses/Impression: 1. PFO (patent foramen ovale) 2. TIA (transient ischemic attack) 3. Primary hypertension 4. Essential hypertension 5. Palpitation Referring Provider: No ref. provider found PCP: JOEL COLVIN MD HERMAL OPERATIONS ENGINEER documented in this encounter Plan of Treatment Upcoming Encounters Date Type Department Care Team (Late st Contact Info) Description 09/23/2024 9:00 AM CDT Appointment [facility] Non Invasive Cardiology - [facility] [address] [place] [address] Sara Ly MD [address] [place] [address] 09/23/2024 10:00 AM CDT [facility] [address] [place] [address] Sara Ly MD [address] [place] [address] documented as of this encounter Goals Goal Patient Goal Type Associated Problems Recent Progress Patient-Stated? Author Safety - demonstrates understanding of home safety measures General No Cassandra Montemayor RN documented as of this encounter Procedures Procedure Name Priority Date/Time Associated Diagnosis Comments ELECTROCARDIOGRAM (NON MIDMARK ACQUIRED) Routine 09/09/2021 1:54 PM GEOTHERMAL OPERATIONS ENGINEER PFO (patent foramen ovale) ([facility]/HCC) Essential hypertension Palpitation TIA (transient ischemic attack) documented in this encounter Results * USE ECHOCARDIOGRAM (09/10/2022 10:42 AM GEOTHERMAL OPERATIONS ENGINEER) Anatomical Region Laterality Modality Cardiac Echocardiogram 09/10/2022 10:2 0 AM GEOTHERMAL OPERATIONS ENGINEER Narrative 09/11/2022 4:33 PM GEOTHERMAL OPERATIONS ENGINEER ?Echocardiography Report Pat.Name: ??MATEUSZ HEARN ?? Pat.ID: ?[id number] ? St.Date: ?? 09/10/2022 ? Refer.: ??[id number] LY SARA A ? EWDPROV ?EWDPROV Exam Time: 10:20:00 AM ? Study Type:ECHO WITH CARDIAC DOPPLER COMP Height: ?158 cm ?Weight: ?74 kg ? BSA: ? 1.76 m2 ?Age: ??1985,37Y ? Sex: ? F ? BP: ?113/67 ? HR: ?80 bpm ?Sonogrphr: More Guajardo RDCS ? Pat. Stat.:Outpatient ?Room: ?CVD ? CPT - 4: ?30305 ? Reason for Study:S/P PFO closure ?? [...] ?? Value ?166 g ? LV Mass [id number] ?? Value ? 94.3 g/m2 ? Right [...] ?? Right Ventricle ??2.51 cm ? Major [place] ?4.65 cm ?MMODE TA ?? Tricuspid Annul ??2.44 cm ? <Electronic Signature> 09/11/2022 04:33 PM Sara Ly M.D. Procedure Note Sara Ly MD - 09/11/2022 Echocardiography Report Pat.Name: NADIYA MATEUSZ HERNANDEZ Pat.ID: [id number] .Date: 09/10/2022 Refer.: [id number] ALIYAH Solis EWDPROV EWDPROV Exam Time: 10:20:00 AM Study Type:ECHO WITH CARDIAC DOPPLER COMP Height: 158 cm Weight: 74 kg BSA: 1.76 m2 Age: 10 1985,37Y Sex: F BP: 113/67 HR: 80 bpm Sonogrphr: More Guajardo RDCS Pat. Stat.:Outpatient Room: [facility] CPT - 4: 71484 Reason for Study:S/P PFO closure Procedures: 2D, [...] Mass 2D Value 166 g LV Mass [id number] Value 94.3 g/m2 Right Ventricle Right Ventricle [...] Right Ventricle Right Ventricle 2.51 cm Major [place] 4.65 cm MMODE TA Tricuspid Annul 2.44 cm <Electronic Signature> 09/11/2022 04:33 PM Sara Ly M.D. us Sara Ly MD ECHO Final Res ult * ELECTROCARDIOGRAM (09/09/2021 1:54 PM GEOTHERMAL OPERATIONS ENGINEER) 09/09/2021 1:54 PM GEOTHERMAL OPERATIONS ENGINEER Narrative [facility] - 09/13/2021 4:58 PM GEOTHERMAL OPERATIONS ENGINEER ? [facility] ?[address] [place], [place] ??[address] ? Test Date: ?2021-09-09 Pat Name: ? MATEUSZ HEARN ?Department: ? Room: ? Gender: ? Female ? 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 Requested By: SARA LY Order Number: [id number] ?Reading MD: ?? Sara Ly ? Measurements Intervals ?[place] ? Rate: ? 65 ? P: ?53 TN: ? 161 ?QRS: ?45 QRSD: ? 99 ? T: ?52 QT: ? 427 ? QTc: ?444 ? 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1985 Requested By: SARA LY Order Number: [id number] Reading MD: Sara Ly Measurements Intervals [place] Rate: 65 P: 53 TN: 161 QRS: 45 QRSD: 99 T: 52 QT: 427 QTc: 444 Interpretive Statements SINUS RHYTHM MINIMAL ST DEPRESSION HERMAL OPERATIONS ENGINEER us Sara Ly MD PROCEDURES-ORDERABLE NO C H[place] Final Result [facility] documented in this encounter Visit Diagnoses Diagnosis PFO (patent foramen ovale) ([facility])- Primary Ostium secundum type atrial septal defect TIA (transient ischemic attack) Unspecified transient cerebral ischemia Primary hypertension Unspecified essential hypertension Essential hypertension Unspecified essential hypertension Palpitation Palpitations PFO (patent foramen ovale) ([facility]) Ostium secundum type atrial septal defect TIA (transient ischemic attack) Unspecified transient cerebral ischemia Primary hypertension Unspecified essential hypertension Essential hypertension Unspecified essential hypertension Palpitation Palpitations documented in this encounter Care Teams Teller Supervisor Relationship Specialty Start Date End Date Joel Colvin MD [address] [place] [address] PCP - General FAMILY PRACTICE 03/30/20 Mary Bahena MD [address] [place] [address] Vascular Neurology 04/18/20 09/09/22 Sara Ly MD [address] [place] [address] Consulting Physician INTERVENTIONAL CARDIOLOGY 04/18/20 documented as of this encounter
--- OUTSIDE RECORDS SUMMARY | 2024-07-01 02:49 | XMS_ITS | Encounter Summary ---
Author Organization [facility] Address [address] [place] [address]. [place], [place] [address] [place] [address] Care Team Providers Care Inbound Sales Representative Name Role Phone Joel Durán MD Primary Care Provider [phone] Mary Bahena MD Unavailable Jaguar Castaneda MD Unavailable [phone] Encounter Details Date Type Department Care Team (Latest Contact Info) Description 11/19/2021 Travel Social History Tobacco Use Types Packs/Day [...] Assessment Author Status No 09/07/2020 11:09 AM TICKET WRITER Acti ve * RETIRED Are you blind or do you have serious difficulty seeing, even when wearing glasses? Answer Date of Assessment Author Status No 09/07/2020 11:09 AM TICKET WRITER Acti ve * Do you have serious [...] Info) Description 09/23/2024 9:00 AM CDT Appointment [facility] Non Invasive Cardiology - [facility] [address] [place] [address] Jaguar Castaneda MD [address] [place] [address] 09/23/2024 10:00 AM CDT [facility] [address] [place] [address] Jaguar Castaneda MD [address] [place] [address] documented as of this encounter Goals Goal Patient Goal Type Associated Problems Recent Progress Patient-Stated? Author Safety - demonstrates understanding of home safety measures General No Cassandra Montemayor RN documented as of this encounter Visit Diagnoses Not on filedocumented in this encounter Care Teams Inbound Sales Representative Relationship Specialty Start Date End Date Joel Durán MD [address] [place] [address] PCP - General FAMILY PRACTICE 03/30/20 Mary Bahena MD [address] [place] [address] Vascular Neurology 04/18/20 09/09/22 Jaguar Castaneda MD [address] [place] [address] Consulting Physician INTERVENTIONAL CARDIOLOGY 04/18/20 documented as of this encounter
--- OUTSIDE RECORDS SUMMARY | 2024-07-01 02:49 | XMS_ITS | Encounter Summary ---
Author Organization [facility] Address [address] [place] [address]. [place] [address] [place] [address] Care Team Providers Care Platform Operations Director Name Role Phone Joel Durán MD Primary Care Provider Mary Bahena MD Unavailable Jaguar Castaneda MD Unavailable [phone] Encounter Details Date Type Department Care Team (Late st Contact Info) Description 09/03/2022 Orders Only [facility] [address] [place] [address] Jaguar Castaneda MD [address] [place] [address] Social History Tobacco Use Types [...] Assessment Author Status No 09/07/2020 11:09 AM HEALTHCARE ADMINISTRATION INTERN Acti ve * RETIRED Are you blind or do you have serious difficulty seeing, even when wearing glasses? Answer Date of Assessment Author Status No 09/07/2020 11:09 AM HEALTHCARE ADMINISTRATION INTERN Acti ve * Do you have serious [...] Info) Description 09/23/2024 9:00 AM CDT Appointment [facility] Non Invasive Cardiology - [facility] [address] [place] [address] Jaguar Castaneda MD [address] [place] [address] 09/23/2024 10:00 AM CDT Office Visit [facility] [address] [place] [address] Jaguar Castaneda MD [address] [place] [address] Scheduled Orders Name Type Priority Associated Diagnoses Orde r Schedule ELECTROCARDIOGRAM (NON MIDMARK ACQUIRED) EKG-NonRad Routine PFO (patent foramen ovale) ([facility]) Expected: 09/10/2022, Expires: 10/06/2022 documented as of this encounter Goals Goal Patient Goal Type Associated Problems Recent Progress Patient-Stated? Author Safety - demonstrates understanding of home safety measures General Cassandra Graves RN documented as of this encounter Visit Diagnoses Diagnosis Essential hypertension- Primary Unspecified essential hypertension PFO (patent foramen ovale) ([facility]) Ostium secundum type atrial septal defect documented in this encounter Care Teams Platform Operations Director Relationship Specialty Start Date End Date Joel Durán MD [address] [place] [address] PCP - General FAMILY PRACTICE 03/30/20 Mary Bahena MD [address] [place] [address] Vascular Neurology 04/18/20 09/09/22 Jaguar Castaneda MD [address] [place] [address] Consulting Physician INTERVENTIONAL CARDIOLOGY 04/18/20 documented as of this encounter
--- OUTSIDE RECORDS SUMMARY | 2024-07-01 02:49 | XMS_ITS | Encounter Summary ---
Author Organization [facility] Address [address] [place] [address]. [place], [place] [address] [place] [address] Care Team Providers Care Guitar Repairer Name Role Phone Joel Durán MD Primary Care Provider [phone] Mary Bahena MD Unavailable Jaguar Castaneda MD Unavailable [phone] Encounter Details Date Type Department Care Team (Latest Contact Info) Description 09/09/2021 Travel Social History Tobacco Use Types Packs/Day [...] Coronavirus/COVID-19? No / Unsure 09/09/2021 1:01 PM APPLIQUE SEWER documented as of this encounter Functional Status * RETIRED Are you deaf or do you have serious difficulty hearing Answer Date of Assessment Author Status No 09/07/2020 11:09 AM APPLIQUE SEWER Acti ve * RETIRED Are you blind or do you have serious difficulty seeing, even when wearing glasses? Answer Date of Assessment Author Status No 09/07/2020 11:09 AM APPLIQUE SEWER Acti ve * Do you have serious difficulty walking or climbing stairs? Answer Date of Assessment Author Status No 09/07/2020 11:09 AM APPLIQUE SEWER Sweetie Craven R N Active * Do you have difficulty dressing or bathing? Answer Date of Assessment Author Status No 09/07/2020 11:09 AM APPLIQUE SEWER Sweetie Craven R N Active * Because of a physical, mental, or emotional condition, do you have difficulty doing errands alone such as visiting a doctor's office or shopping? Answer Date of Assessment Author Status No 09/07/2020 11:09 AM APPLIQUE SEWER Sweetie Craven R N Active documented as [...] Info) Description 09/23/2024 9:00 AM CDT Appointment [facility] Non Invasive Cardiology - [facility] [address] [place] [address] Jaguar Castaneda MD [address] [place] [address] 09/23/2024 10:00 AM CDT Office Visit [facility] [address] [place] [address] Jaguar Castaneda MD [address] [place] [address] documented as of this encounter Goals Goal Patient Goal Type Associated Problems Recent Progress Patient-Stated? Author Safety - demonstrates understanding of home safety measures General No Cassandra Montemayor RN documented as of this encounter Visit Diagnoses Not on filedocumented in this encounter Care Teams Guitar Repairer Relationship Specialty Start Date End Date Joel Durán MD [address] [place] [address] PCP - General FAMILY PRACTICE 03/30/20 Mary Bahena MD [address] [place] [address] Vascular Neurology 04/18/20 09/09/22 Jaguar Castaneda MD [address] [place] [address] Consulting Physician INTERVENTIONAL CARDIOLOGY 04/18/20 documented as of this encounter
--- OUTSIDE RECORDS SUMMARY | 2024-07-01 02:50 | XMS_ITS | Encounter Summary ---
Author Organization [facility] Address [address] [place] [address]. [place] [address] [place] [address] Care Team Providers Care Material Manager Name Role Phone Joel Durán MD Primary Care Provider [phone] Mary Bahena MD Unavailable Jaguar Castaneda MD Unavailable [phone] Encounter Details Date Type Department Care Team (Latest Contact Info) Description 08/07/2020 7:06 PM CERTIFIED WELLNESS PROGRAM COORDINATOR - 08/07/2020 11:59 PM [facility] Hospital Encounter [facility] [address] [place], [place] [address] Jaguar Castaneda MD [address], [place] [address] Discharge Disposition: Home or Self Care (Routine [...] have Coronavirus / COVID-19? No / Unsure 07/31/2020 10:19 AM CERTIFIED WELLNESS PROGRAM COORDINATOR documented as of this encounter Functional Status * RETIRED Are you deaf or do you have serious difficulty hearing Answer Date of Assessment Author Status No 03/31/2020 3:54 AM CDT Activ e * RETIRED Are you blind or do you have serious difficulty seeing, even when wearing glasses? Answer Date of Assessment Author Status No 03/31/2020 3:54 AM CDT Activ e * Do you have serious difficulty walking or climbing stairs? Answer Date of Assessment Author Status No 03/31/2020 3:54 AM VALENCIAT Marizol Waters RN Active * Do you have difficulty dressing or bathing? Answer Date of Assessment Author Status No 03/31/2020 3:54 AM CDT Marizol Waters RN Active * Because of a physical, mental, or emotional condition, do you have difficulty doing errands alone such as visiting a doctor's office or shopping? Answer Date of Assessment Author Status No 03/31/2020 3:54 AM VALENCIAT Marizol Waters RN Active documented as of this encounter Mental Status * Because of a physical, mental, or emotional condition, do you have serious difficulty concentrating, remembering, or making decisions? Answer Entry Date Author Status No 03/31/2020 3:54 AM Marizol Winslow RN Active documented in this encounter Medications at Time of Discharge atorvastatin 40 MG tablet Take 1 tablet (40 mg total) by mouth nightly at bedtime. 90 tablet 2 04/01/2020 hydroCHLOROthiazi de 25 MG tablet Take 25 mg by mouth daily. 03/07/2020 clopidogrel 75 MG tablet Take 1 tablet (75 mg total) by mouth daily. 90 tablet 2 04/02/2020 03/07/2021 documented as of this encounter Plan of Treatment Upcoming Encounters Date Type Department Care Team (Late st Contact Info) Description 09/23/2024 9:00 AM CDT Appointment [facility] Non Invasive Cardiology - [facility] [address] [place] [address] Jaguar Castaneda MD [address] [place] [address] 09/23/2024 10:00 AM CDT Office [facility] [address] [place] [id number] Jaguar Castaneda MD [address], [place] [address] documented as of this encounter Procedures Procedure Name Priority Date/Time Associated Diagnosis Comments CORONAVIRUS (COVID 19) RT PCR Routine 08/07/2020 4:36 PM CERTIFIED WELLNESS PROGRAM COORDINATOR documented in this encounter Results * CORONAVIRUS (COVID 19) JORDAN BED PLACEMENT (08/07/2020 4:36 PM CERTIFIED WELLNESS PROGRAM COORDINATOR) SPECIMEN SOURCE NASAL 7:07 PM CERTIFIED WELLNESS PROGRAM COORDINATOR [facility] CORONAVIRUS SARS COV 2 PCR (RESP) NEGATIVE NEGATIVE 08/07/2020 9:24 PM CERTIFIED WELLNESS PROGRAM COORDINATOR [facility] Comment: THE SARS-CoV-2 TEST HAS BEEN AUTHORIZED BY THE FDA UNDER AN EUA FOR USE BY AUTHORIZED LABORATORIES. FIRST TEST UNKNOWN 08/07/2020 7:07 PM CERTIFIED WELLNESS PROGRAM COORDINATOR [facility] EMPLOYED IN HEALTHCARE YES 08/07/2020 7:07 PM CERTIFIED WELLNESS PROGRAM COORDINATOR [facility] SYMPTOMATIC DEFINED BY CDC UNKNOWN 08/07/2020 7:07 PM CERTIFIED WELLNESS PROGRAM COORDINATOR [facility] HOSPITALIZATION STATUS NO 08/07/2020 7:07 PM CERTIFIED WELLNESS PROGRAM COORDINATOR [facility] PATIENT IN ICU UNKNOWN 08/07/2020 7:10 PM CERTIFIED WELLNESS PROGRAM COORDINATOR [facility] RESIDENT OF [facility] NO 08/07/2020 7:07 PM CERTIFIED WELLNESS PROGRAM COORDINATOR [facility] UNKNOWN 08/07/2020 7:07 PM CERTIFIED WELLNESS PROGRAM COORDINATOR [facility] NASAL STRUCTURE / Unknown 08/07/2020 4:36 PM CERTIFIED WELLNESS PROGRAM COORDINATOR Jaguar Castaneda MD MICROBIOLOGY - GENERAL OR DERABLES Final Result [facility] [address] [place] [address], documented in this encounter Visit Diagnoses Not on filedocumented in this encounter Additional Health Concerns Infection Onset Date Last Indicated Resolved Time COVID-19 Rule Out 08/07/2020 08/07/2020 08/07/2020 9:24 PM CERTIFIED WELLNESS PROGRAM COORDINATOR documented as of this encounter Care Teams Material Manager Relationship Specialty Start Date End Date Joel Durán MD [address] [place] [address] PCP - General FAMILY PRACTICE 03/30/20 Mary Bahena MD [address] [place] [address] Vascular Neurology 04/18/20 09/09/22 Jaguar Castaneda MD [address] [place] [address] Consulting Physician INTERVENTIONAL CARDIOLOGY 04/18/20 documented as of this encounter
--- OUTSIDE RECORDS SUMMARY | 2024-07-01 02:50 | XMS_ITS | Encounter Summary ---
Author Organization [facility] Address [address] [place] [address]. [place], [place] [id number] [place] [address] Care Team Providers Care Brass Burnisher Name Role Phone Joel Durán MD Primary Care Provider [phone] Mary Bahena MD Unavailable Jaguar Castaneda MD Unavailable [phone] Encounter Details Date Type Department Care Team (Latest Contact Info) Description 09/06/2020 Travel Social History Tobacco Use Types Packs/Day [...] COVID-19? No / Unsure 09/06/2020 8:12 AM SWITCHBOARD CLERK documented as of this encounter Functional Status [...] AM CDT Marizol Waters RN Active * Do you [...] 3:54 AM CDT Marizol Waters RN Active documented as of this encounter Mental Status * Because of a physical, mental, or emotional condition, do you have serious difficulty concentrating, remembering, or making decisions? Answer Entry Date Author Status No 03/31/2020 3:54 AM CDT Marizol Waters RN Active documented in this encounter Plan of Treatment Upcoming Encounters Date Type Department Care Team (Late st Contact Info) Description 09/23/2024 9:00 AM CDT Appointment [facility] Non Invasive Cardiology - [facility] [address] [place] [address] Jaguar Castaneda MD [address] [place] [address] 09/23/2024 10:00 AM CDT [facility] [address] [place] [phone] Jaguar Castaneda MD [address] [place] [address] documented as of this encounter Goals Goal Patient Goal Type Associated Problems Recent Progress Patient-Stated? Author Safety - demonstrates understanding of home safety measures General No Cassandra Montemayor, RN documented as of this encounter Visit Diagnoses Not on filedocumented in this encounter Care Teams Brass Burnisher Relationship Specialty Start Date End Date Joel Durán MD [address] [place] [address] PCP - General FAMILY PRACTICE 03/30/20 Mary Bahena MD [address] [place] [address] Vascular Neurology 04/18/20 09/09/22 Jaguar Casatneda MD [address] [place] [address] Consulting Physician INTERVENTIONAL CARDIOLOGY 04/18/20 documented as of this encounter
--- OUTSIDE RECORDS SUMMARY | 2024-07-01 02:50 | XMS_ITS | Encounter Summary ---
Author Organization [facility] Address [address] [place] [address]. [place], [place] [id number] [place] [address] Care Team Providers Care Assembler Metal Furniture Name Role Phone Joel Durán MD Primary Care Provider [phone] Mary Bahena MD Unavailable Jaguar Castaenda MD Unavailable [phone] Reason for Visit * Reason Onset Date Comments Appointment Reminder 08/08/2020 Encounter Details Date Type Department Care Team (Late st Contact Info) Description 08/08/2020 Telephone [facility] [address] [place] [address] Laurel Baez, RN Appointment Reminder Social History Tobacco Use Types Packs/Day Years [...] COVID-19? No / Unsure 07/31/2020 10:19 AM PRACTICAL NURSING TEACHER documented as of this encounter Functional Status [...] Waters RN Active documented in this encounter Progress Notes * Laurel Baez RN - 08/08/2020 11:31 AM CST Left voice message confirming [address] 08/09/20 5th floor PHI with 0830 arrival. Left call back number for any questions or concerns. TICAL NURSING TEACHER documented in this encounter Plan of Treatment Upcoming Encounters Date Type Department Care Team (Late st Contact Info) Description 09/23/2024 9:00 AM CDT Appointment [facility] Non Invasive Cardiology - [facility] [address] [place] [address] Jaguar Castaneda MD [address] [place] [address] 09/23/2024 10:00 AM CDT Office Visit [facility] [address] [place] [address] Jaguar Castaneda MD [address] [place], [place] [phone] documented as of this encounter Visit Diagnoses Not on filedocumented in this encounter Care Teams Assembler Metal Furniture Relationship Specialty Start Date End Date Joel Durán MD [address] [place] [address] PCP - General FAMILY PRACTICE 03/30/20 Mary Bahena MD [address] [place] [address] Vascular Neurology 04/18/20 09/09/22 Jaguar Castaneda MD [address] [place] [address] Consulting Physician INTERVENTIONAL CARDIOLOGY 04/18/20 documented as of this encounter
--- OUTSIDE RECORDS SUMMARY | 2024-07-01 02:50 | XMS_ITS | Encounter Summary ---
Author Organization [facility] Address [address] [place] [address]. [place] [address] [place] [address] Care Team Providers Care Logistics Administrator Name Role Phone Joel Durán MD Primary Care Provider Mary Bahena MD Unavailable Jaguar Castaneda MD Unavailable [phone] Encounter Details Date Type Department Care Team (Latest Contact Info) Description 09/03/2020 12:10 AM WATER ATTENDANT - 09/03/2020 11:23 AM [facility] Hospital Encounter [facility] [address] [place] [address] Jaguar Castaneda MD [address] [place], [place] [address] Discharge Disposition: Home or Self Care (Routine [...] have Coronavirus / COVID-19? No / Unsure 08/09/2020 8:19 AM WATER ATTENDANT documented as of this encounter Functional Status [...] Assessment Author Status No 03/31/2020 3:54 AM Marizol Winslow RN Active documented as of this encounter [...] Info) Description 09/23/2024 9:00 AM CDT Appointment [facility] Non Invasive Cardiology - [facility] [address] [place] [address] Jaguar Castaneda MD [address] [place] [address] 09/23/2024 10:00 AM CDT Office Visit [facility] [address] [place] [address] Jaguar Castaneda MD [address] [place] [address] documented as of this encounter Procedures Procedure Name Priority Date/Time Associated Diagnosis Comments CORONAVIRUS (COVID 19) Routine 09/03/2020 9:00 AM WATER ATTENDANT Pre-operative laboratory examination documented in this encounter Results * PRE-SURGICAL/PRE-PROCEDURE CORONAVIRUS (COVID 19) (09/03/2020 9:00 AM WATER ATTENDANT) CORONAVIRUS SARS COV 2 PCR (RESP) NOT DETECTED NOT DETECTED 09/04/2020 8:15 PM WATER ATTENDANT [facility] Comment: A Not Detected (negative) test result for this test means that SARS- CoV-2 RNA was not present in the specimen above the limit of detection. A negative result does not rule out the possibility of COVID-19 and should not be used as the sole basis for treatment or patient management decisions. ??If COVID-19 is still suspected, based on exposure history together with other clinical findings, re-testing should be considered in consultation with public health authorities. Laboratory test results should always be considered in the context of clinical observations and epidemiological data in making a final diagnosis and patient management decisions. Please review the Fact Sheets and FDA authorized labeling available for health care providers and patients using the following websites: https://www.[employer].com/home/Covid-19/HCP/QuestIVD/fact- sheet.html https://www.[employer].Howbuy/home/Covid-19/Patients/ Quest[employer]/fact-sheet.html This test has been authorized by the FDA under an Emergency Use Authorization (EUA) for use by authorized laboratories. Due to the current public health emergency, [facility] is receiving a high volume of samples from a wide variety of swabs and media for COVID-19 testing. In order to serve patients during this public health crisis, samples from appropriate clinical sources are being tested. Negative test results derived from specimens received in non-commercially manufactured viral collection and transport media, or in media and sample collection kits not yet authorized by FDA for COVID-19 testing should be cautiously evaluated and the patient potentially subjected to extra precautions such as additional clinical monitoring, including collection of an additional specimen. Methodology: ??Nucleic Acid Amplification Test (NAAT) includes RT-PCR or TMA Additional information about COVID-19 can be found at the [facility] website: www.[employer].Howbuy/Covid19. Test performed at [facility] [address] [place], [place] ??[address] Director: KIMBERLY FRANCES DO,MPH FIRST TEST UNKNOWN 09/03/2020 10:39 AM [facility] EMPLOYED IN HEALTHCARE YES 09/03/2020 10:39 AM [facility] SYMPTOMATIC DEFINED BY CDC UNKNOWN 09/03/2020 10:39 AM [facility] DATE OF SYMPTOM ONSET NOT GIVEN 09/03/2020 11:47 AM [facility] HOSPITALIZATION STATUS NO 09/03/2020 10:39 AM WATER ATTENDANT [facility] PATIENT IN ICU NO 09/03/2020 10:39 AM [facility] RESIDENT OF [facility] NO 09/03/2020 10:39 AM [facility] UNKNOWN 09/03/2020 10:39 AM [facility] PATIENT'S RACE WHITE OR 09/03/2020 10:39 AM [facility] ETHNICITY NONHISPANIC 09/03/2020 10:39 AM [facility] SOURCE (QST) NASOPHARYNGEAL SWAB 09/03/2020 10:39 AM WATER ATTENDANT [facility] NASOPHARYNGEAL SWAB / Unknown 09/03/2020 9:00 AM WATER ATTENDANT Jaguar Castaneda MD MICROBIOLOGY - GENERAL OR DERABLES Final Result [facility] [address] [place] [address], [id number] [facility] [id number] [place] [id number] [place] [address] documented in this encounter Visit Diagnoses Diagnosis Pre-operative laboratory examination Pre-procedural laboratory examination documented in this encounter Additional Health Concerns Infection Onset Date Last Indicated Resolved Time COVID-19 Rule Out 09/03/2020 09/03/2020 09/04/2020 8:15 PM WATER ATTENDANT documented as of this encounter Care Teams Logistics Administrator Relationship Specialty Start Date End Date Joel Durán MD [address] [place] [address] PCP - General FAMILY PRACTICE 03/30/20 Mary Bahena MD [address] [place] [address] Vascular Neurology 04/18/20 09/09/22 Jaguar Castaneda MD [address] [place] [address] Consulting Physician INTERVENTIONAL CARDIOLOGY 04/18/20 documented as of this encounter
--- OUTSIDE RECORDS SUMMARY | 2024-07-01 02:50 | XMS_ITS | Encounter Summary ---
Author Organization [facility] Address [address] [place] [address]. [place] [address] [place] [address] Care Team Providers Care Special Service Officer Name Role Phone Joel Durán MD Primary Care Provider [phone] Mary Bahena MD Unavailable Jaguar Castaneda MD Unavailable [phone] Encounter Details Date Type Department Care Team (Latest Contact Info) Description 09/03/2020 11:24 AM JUKEBOX COIN COLLECTOR - 09/03/2020 11:59 PM [facility] Hospital Encounter [facility] [address] [place] [address] Jaguar Castaneda MD [address] [place], [place] [address] Discharge Disposition: Home or Self Care (Routine [...] have Coronavirus / COVID-19? No / Unsure 09/03/2020 11:24 AM JUKEBOX COIN COLLECTOR documented as of this encounter Functional Status [...] Appointment [facility] Non Invasive Cardiology - [facility] [address] [place] [address] Jaguar Castaneda MD [address] [place] [address] 09/23/2024 10:00 AM CDT [facility] [address] [place] [phone] Jaguar Castaneda MD [address] [place], [place] [address] documented as of this encounter Procedures Procedure Name Priority Date/Time Associated Diagnosis Comments BASIC METABOLIC PANEL Routine 09/03/2020 11:39 AM JUKEBOX COIN COLLECTOR PFO (patent foramen ovale) (HHS/HCC) TIA (transient ischemic attack) Essential hypertension Pituitary adenoma (CMS/HCC HHS/HCC) CBC W/DIFF AUTOMATED Routine 09/03/2020 11:39 AM JUKEBOX COIN COLLECTOR PFO (patent foramen ovale) (HHS/HCC) TIA (transient ischemic attack) Essential hypertension Pituitary adenoma (CMS/HCC HHS/HCC) documented in this encounter Results * (ABNORMAL) BASIC METABOLIC PANEL (09/03/2020 11:39 AM JUKEBOX COIN COLLECTOR) SODIUM S/P/B 138 136 - 145 MMOL/L 09/03/2020 12:26 PM JUKEBOX COIN COLLECTOR [facility] POTASSIUM S/P/B 3.3(L) 3.5 - 5.1 MMOL/L 09/03/2020 12:26 PM JUKEBOX COIN COLLECTOR [facility] CHLORIDE S/P/B 106 98 - 107 MMOL/L 09/03/2020 12:26 PM [facility] CO2 25.6 21.0 - 32.0 MMOL/L 09/03/2020 12:26 PM [facility] GLUCOSE 85 74 - 106 MG/DL 09/03/2020 12:26 PM [facility] BUN 14 7 - 18 MG/DL 09/03/2020 12:26 PM [facility] CREATININE S/P/B 0.70 0.55 - 1.02 MG/DL 09/03/2020 12:26 PM [facility] CALCIUM S/P/B 9.0 8.5 - 10.1 MG/DL 09/03/2020 12:26 PM [facility] ANION GAP 6.4 5.0 - 15.0 MMOL/L 09/03/2020 12:26 PM [facility] Comment:REFERENCE RANGE NOT ESTABLISHED OSMOLALITY (CALC) 286 MOSM/KG 021 12:26 PM [facility] Comment:REFERENCE RANGE NOT ESTABLISHED EGFR NON-AFR. AMER. >90 >90 ML/MIN/1. 73 M2 09/03/2020 12:26 PM [facility] EGFR AFR. AMER. >90 >90 ML/MIN/1. 73 M2 09/03/2020 12:26 PM [facility] GFR NOTES GFR REFERENCE S: 09/03/2020 12:26 PM [facility] Comment: THE ESTIMATED GFR IS CALCULATED USING THE 2009 CKD-EPI EQUATION. THE FOLLOWING CATEGORIES FOR GRADING RENAL FUNCTION ARE RECOMMENDED BY THE INTERNATIONAL SOCIETY OF NEPHROLOGY (KDIGO 2012 CLINICAL PRACTICE GUIDELINE). G1,NORMAL OR HIGH: >89 ml/min/1.73 m2 G2,MILDLY DECREASED: 60-89 ml/min/1.73 m2 G3A,MILDLY TO MODERATELY DECREASED: 45-59 ml/min/1.73 m2 G3B,MODERATELY TO SEVERELY DECREASED: 30-44 ml/min/1.73 m2 G4,SEVERELY DECREASED: 15-29 ml/min/1.73 m2 G5,KIDNEY FAILURE: <15 ml/min/1.73 m2 09/03/2020 11:3 9 AM JUKEBOX COIN COLLECTOR us Jaguar Castaneda MD LABORATORY Final Res ult [facility] [address] [place] [address], [id number] * (ABNORMAL) CBC W/DIFF AUTOMATED (09/03/2020 11:39 AM JUKEBOX COIN COLLECTOR) WBC 5.1 4.0 - 10.8 x10'3/uL 09/03/2020 12:03 PM [facility] RBC 4.73 4.10 - 5.40 x10'6/uL 09/03/2020 12:03 PM [facility] HGB 11.9(L) 12.0 - 16.0 G/DL 09/03/2020 12:03 PM [facility] HCT 37.8 36.0 - 47.0 % 09/03/2020 12:03 PM [facility] MCV 79.9 78.0 - 100.0 FL 09/03/2020 12:03 PM [facility] MCH 25.2(L) 27.0 - 31.0 PG 09/03/2020 12:03 PM [facility] MCHC 31.5(L) 33.0 - 36.0 G/DL 09/03/2020 12:03 PM [facility] RDW 14.2 11.5 - 14.5 % 09/03/2020 12:03 PM [facility] PLT 372(H) 150 - 350 x10'3/uL 09/03/2020 12:03 PM [facility] MPV 10.5(H) 7.4 - 10.4 FL 09/03/2020 12:03 PM [facility] ABS. NEUTROPHILS TOTAL 2.74 1.60 - 8.30 x10'3/uL 09/03/2020 12:03 PM [facility] ABS. LYMPHOCYTES 1.71 0.80 - 4.70 x10'3/uL 09/03/2020 12:03 PM JUKEBOX COIN COLLECTOR [facility] ABS. MONOCYTES 0.59 0.00 - 1.50 x10'3/uL 09/03/2020 12:03 PM JUKEBOX COIN COLLECTOR [facility] ABS. EOSINOPHILS 0.02 0.00 - 0.40 x10'3/uL 09/03/2020 12:03 PM JUKEBOX COIN COLLECTOR [facility] ABS. BASOPHILS 0.02 0.00 - 0.20 x10'3/uL 09/03/2020 12:03 PM JUKEBOX COIN COLLECTOR [facility] ABS. IMMATURE GRANULOCYTES 0.01 0.00 - 0.03 x10'3/uL 09/03/2020 12:03 PM JUKEBOX COIN COLLECTOR [facility] ABS. NUCLEATED RBC'S 0.00 0.0 x10'3/uL 09/03/2020 12:03 PM JUKEBOX COIN COLLECTOR [facility] 09/03/2020 11:3 9 AM JUKEBOX COIN COLLECTOR us Jaguar Castaneda MD LABORATORY Final Res ult [facility] [address] [place] [address], [id number] documented in this encounter Visit Diagnoses Diagnosis PFO (patent foramen ovale) (HHS/HCC) Ostium secundum type atrial septal defect TIA (transient ischemic attack) Unspecified transient cerebral ischemia Essential hypertension Unspecified essential hypertension Pituitary adenoma (CMS/HCC HHS/HCC) Benign neoplasm of pituitary gland and craniopharyngeal duct (pouch) documented in this encounter Additional Health Concerns Infection Onset Date Last Indicated Resolved Time COVID-19 Rule Out 09/03/2020 09/03/2020 09/04/2020 8:15 PM JUKEBOX COIN COLLECTOR documented as of this encounter Care Teams Special Service Officer Relationship Specialty Start Date End Date Joel Durán MD [address] [place] [address] PCP - General FAMILY PRACTICE 03/30/20 Mary Bahena MD [address] [place] [address] Vascular Neurology 04/18/20 09/09/22 Jaguar Castaneda MD [address] [place] [address] Consulting Physician INTERVENTIONAL CARDIOLOGY 04/18/20 documented as of this encounter
--- OUTSIDE RECORDS SUMMARY | 2024-07-01 02:50 | XMS_ITS | Encounter Summary ---
Author Organization [facility] Address [address] [place] [address]. [place] [address] [place] [address] Care Team Providers Care Head Men'S Golf Coach Name Role Phone Joel Durán MD Primary Care Provider Mary Bahena MD Unavailable Jaguar Castaneda MD Unavailable Reason for Visit * Reason Onset Date Comments Results 08/13/2020 Encounter Details Date Type Department Care Team ([facility] st Contact Info) Description 08/13/2020 Telephone [facility] [address] [place] [address] Jagaur Castaneda MD [address] [place] [address] Results Social History Tobacco Use [...] COVID-19? No / Unsure 08/09/2020 8:19 AM HEATING AND VENTILATION ENGINEER documented as of this encounter Functional Status [...] Winslow RN Active documented in this encounter Progress Notes * Tete Landis RN - 08/21/2020 11:40 AM CST Orders changed to outpatient/ observation per [employer]. ING AND VENTILATION ENGINEER * Billy Fernandez APRN - 08/20/2020 11:35 AM CST Spoke with Dr. Montemayor. She says given patient's insurance ([employer]), the procedure must be submittedas an outpatient status (covering the first 48 hours of care). If, though, the patient ends up being in the hospital patient 48 hours, contact case planner to change status from outpatient to inpatient. ING AND VENTILATION ENGINEER * Yolanda Quinones RN - 08/17/2020 4:20 PM CST Tried to calll Dr Montemayor back, LM to call back today before 430 or we need to reschedule for next week john Cervantes since JAG Is OUT RN ING AND VENTILATION ENGINEER * Queenie Hernandes - 08/17/2020 1:[address] Zuniga calling Dr. Castaneda or Billy Fernandez NP for Peer to Peer. Please call Dr. Zuniga at [phone]. She will be available until 4:30 today 08/17/2020 ING AND VENTILATION ENGINEER * Chi Wilson LPN - 08/14/2020 12:41 PM CST Spoke with Yolanda Henry RN. Will continue as an inpatient request. Clinicals have been faxed to Clinical Services. 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 Kailey informed chart writer that since this is a transcatheter procedure, she recommends scheduling/billingthis as an outpatient procedure. She reports that if the procedure is billed as an inpatient, it has to bypass her and go to the clinical physician team. They will likely deny an overnight stay and then a peer to peer would need done. If it is billed for outpatient, no prior auth would be needed. Patient can still stay overnight forpost op monitoring. Will need to review this with Dr. Castaneda. Kailey sent a fax detailing what she told chart writer. She states she will need a response faxed back to [phone] by 08/16/2020. If the decision is made to pursue it as outpatient, she just needs a faxed cover sheet stating so. If inpatient coverage is pursued, she will need a fax stating this as well as clinical documentation faxed to the above number. ING AND VENTILATION ENGINEER * Yolanda Quinones RN - 08/14/2020 11:27 AM CST Called pt back, set for 09/06 She wants appt on 09/03 for labs and COVID and appt w JAG to further discuss set for 1200 09/03 letters to pt Getting authorization at [id number] for ASD closure JMRN ING AND VENTILATION ENGINEER * Stanislaw Blanco RN - 08/14/2020 8:33 AM CST Pt called back, would like Radha to call her at work today [phone] ING AND VENTILATION ENGINEER * Marianela Franz RN - 08/13/2020 3:31 PM CST Patient returned office call and below information given to patient. Patient would like to speak with office regarding PFO closure Please call her back at [phone]. ING AND VENTILATION ENGINEER * Tete Landis RN - 08/13/2020 11:37 AM CST LM for patient to call office to discuss MIKA results. I will let her know Dr. Castaneda recommends continuing with PFO closure, tentatively scheduled for Melinda 09/06/20 10:00, check in 8:00. ING AND VENTILATION ENGINEER documented in this encounter Plan of Treatment Upcoming Encounters Date Type Department Care Team (Late st Contact Info) Description 09/23/2024 9:00 AM CDT Appointment [facility] Non Invasive Cardiology - [facility] [address] [place] [address] Jaguar Castaneda MD [address] [place] [address] 09/23/2024 10:00 AM CDT [facility] [address] [place] [phone] Jaguar Castaneda MD [address], [place] [address] documented as of this encounter Visit Diagnoses Not on filedocumented in this encounter Care Teams Head Men'S Golf Coach Relationship Specialty Start Date End Date Joel Durán MD [address] [place] [address] PCP - General FAMILY PRACTICE 03/30/20 Mary Bahena MD [address] [place] [address] Vascular Neurology 04/18/20 09/09/22 Jaguar Castaneda MD [address] [place], [place] [address] Consulting Physician INTERVENTIONAL CARDIOLOGY 04/18/20 documented as of this encounter
--- OUTSIDE RECORDS SUMMARY | 2024-07-01 02:50 | XMS_ITS | Encounter Summary ---
Author Organization [facility] Address [address] [place] [address]. [place], [place] [id number] [place] [address] Care Team Providers Care Aluminum Boats Assembler Name Role Phone Joel Durán MD Primary Care Provider [phone] Mary Bahena MD Unavailable Jaguar Castaneda MD Unavailable [phone] Encounter Details Date Type Department Care Team (Latest Contact Info) Description 09/03/2020 Travel Social History Tobacco Use Types Packs/Day [...] COVID-19? No / Unsure 09/03/2020 11:24 AM AWNINGS MECHANIC documented as of this encounter Functional Status [...] Info) Description 09/23/2024 9:00 AM CDT Appointment [facility] Non Invasive Cardiology - [facility] [address] [place] [address] Jaguar Castaneda MD [address] [place] [address] 09/23/2024 10:00 AM CDT [facility] [address] [place] [id number] Jaguar Castaneda MD [address] [place] [address] documented as of this encounter Visit Diagnoses Not on filedocumented in this encounter Additional Health Concerns Infection Onset Date Last Indicated Resolved Time COVID-19 Rule Out 09/03/2020 09/03/2020 09/04/2020 8:15 PM AWNINGS MECHANIC documented as of this encounter Care Teams Aluminum Boats Assembler Relationship Specialty Start Date End Date Joel Durán MD [address] [place] [address] PCP - General FAMILY PRACTICE 03/30/20 Mary Bahena MD [address] [place] [address] Vascular Neurology 04/18/20 09/09/22 Jaguar Castaneda MD [address] [place] [address] Consulting Physician INTERVENTIONAL CARDIOLOGY 04/18/20 documented as of this encounter
--- OUTSIDE RECORDS SUMMARY | 2024-07-01 02:50 | XMS_ITS | Encounter Summary ---
Author Organization [facility] Address [address] [place] [address]. [place] [address] [place] [address] Care Team Providers Care Strategy Analyst Name Role Phone Joel Durán MD Primary Care Provider [phone] Mary Bahena MD Unavailable Jaguar Castaneda MD Unavailable [phone] Reason for Visit * Reason Comments Lab (SCAN) Encounter Details Date Type Department Care Team (Late st Contact Info) Description 08/07/2020 [facility] [address] [place] [address] Scanned, Documents Lab (SCAN) Social History Tobacco Use Types Packs/Day Years [...] COVID-19? No / Unsure 08/09/2020 8:19 AM METAL PAINTER documented as of this encounter Functional Status [...] Date Author Status No 03/31/2020 3:54 AM VALENCIAT Marizol Waters RN Active documented in this encounter Plan of Treatment Upcoming Encounters Date Type Department Care Team (Late st Contact Info) Description 09/23/2024 9:00 AM CDT Appointment [facility] Non Invasive Cardiology - [facility] [address] [place] [address] Jaguar Castaneda MD [address] [place] [address] 09/23/2024 10:00 AM CDT [facility] [address] [place] [address] Jaguar Castaneda MD [address] [place] [address] documented as of this encounter Procedures Procedure Name Priority Date/Time Associated Diagnosis Comments OUTSIDE LAB COVID-19 (SCAN ORDER) Routine 08/07/2020 documented in this encounter Results * OUTSIDE LAB COVID-19 (SCAN) (08/07/2020) 08/07/2020 us Documents Scanned SCANNING Final Result [facility] documented in this encounter Visit Diagnoses Not on filedocumented in this encounter Additional Health Concerns Infection Onset Date Last Indicated Resolved Time COVID-19 Rule Out 08/07/2020 08/07/2020 08/07/2020 9:24 PM METAL PAINTER documented as of this encounter Care Teams Strategy Analyst Relationship Specialty Start Date End Date Joel Durán MD [address] [place] [address] PCP - General FAMILY PRACTICE 03/30/20 Mary Bahena MD [address] [place] [address] Vascular Neurology 04/18/20 09/09/22 Jaguar Castaneda MD [address] [place] [address] Consulting Physician INTERVENTIONAL CARDIOLOGY 04/18/20 documented as of this encounter
--- OUTSIDE RECORDS SUMMARY | 2024-07-01 02:50 | XMS_ITS | Encounter Summary ---
Author Organization [facility] Address [address] [place] [address]. [place] [address] [place] [address] Care Team Providers Care Store Stock Help Name Role Phone Joel Durán MD Primary Care Provider [phone] Mary Bahena MD Unavailable Jaguar Castaneda MD Unavailable [phone] Encounter Details Date Type Department Care Team (Late st Contact Info) Description 08/14/2020 Prep for Procedure [facility] [employer] Technology Instructor [address] [place], [place] [address] Jaguar Castaneda MD [address] [place], [place] [address] Social History Tobacco Use Types Packs/Day Years [...] COVID-19? No / Unsure 08/09/2020 8:[address] AND BUILDING documented as of this encounter Functional Status [...] Info) Description 09/23/2024 9:00 AM CDT Appointment [facility] Non Invasive Cardiology - [facility] [address] [place], [place] [address] Jaguar Castaneda MD [address] [place], [place] [address] 09/23/2024 10:00 AM CDT Office Visit [facility] [address] [place] [address] Jaguar Castaneda MD [address] [place] [address] documented as of this encounter Visit Diagnoses Not on filedocumented in this encounter Care Teams Store Stock Help Relationship Specialty Start Date End Date Joel Durán MD [address] [place] [address] PCP - General FAMILY PRACTICE 03/30/20 Mary Bahena MD [address] [place] [address] Vascular Neurology 04/18/20 09/09/22 Jaguar Castaneda MD [address] [place] [address] Consulting Physician INTERVENTIONAL CARDIOLOGY 04/18/20 documented as of this encounter
--- OUTSIDE RECORDS SUMMARY | 2024-07-01 02:50 | XMS_ITS | Encounter Summary ---
Author Organization [facility] Address [address] [place] [address]. [place], [place] [address] [place] [id number] Care Team Providers Care Parcel Post Carrier Name Role Phone Joel Colvin MD Primary Care Provider [phone] Mary Bahena MD Unavailable Sara Castaneda MD Unavailable [phone] Reason for Referral * Imaging (Routine) - Closed Specialty Diagnoses / Procedures Referred By Alexi kendall Referred To Contact RADIOLOGY Procedures USE ECHO Limited ECHO Duran Kent MD [address] [place] [address] Phone: tel: fax: Referral ID Status Reason Start Date Expiration Date Visits Re quested Visits Authorized [id number] Closed 09/06/2020 10/07/2021 1 1 ID NATURAL GAS PLANT OPERATOR * Imaging (Routine) - Closed Specialty Diagnoses / Procedures Referred By Alexi kendall Referred To Contact RADIOLOGY Diagnoses PFO (patent foramen ovale) (HHS/HCC) TIA (transient ischemic attack) Essential hypertension Pituitary adenoma (CMS/HCC HHS/HCC) Procedures XA ASD CLOSURE Sara Castaneda MD [facility] [place] [address] Phone: tel: fax: Referral ID Status Reason Start Date Expiration Date Visits Re quested Visits Authorized [id number] Closed 08/14/2020 09/14/2021 1 1 ID NATURAL GAS PLANT OPERATOR Reason for Visit * Auth/Cert Specialty Diagnoses / Procedures Referred By Contac t Referred To Contact Diagnoses PFO (patent foramen ovale) (HHS/HCC) TIA (transient ischemic attack) Essential hypertension Pituitary adenoma (CMS/HCC HHS/HCC) PFO (patent foramen ovale) Procedures XA ASD CLOSURE Referral ID Status Reason Start Date Expiration Date Visits Re quested Visits Authorized [id number] 1 1 Encounter Details Date Type Department Care Team (Latest Contact Info) Description 09/06/2020 8:06 AM LIQUID NATURAL GAS PLANT OPERATOR - 09/07/2020 11:50 AM LIQUID NATURAL GAS PLANT OPERATOR Hospital Encounter [facility] [address] [place] [address] Sara Castaneda MD [address] [place], [place] [address] Discharge Disposition: Home or Self Care (Routine [...] COVID-19? No / Unsure 09/06/2020 8:12 AM LIQUID NATURAL GAS PLANT OPERATOR documented as of this encounter Last Filed Vital Signs Vital Sign Reading Time Taken Comments Blood Pressure 113/55 09/07/2020 3:44 AM LIQUID NATURAL GAS PLANT OPERATOR Pulse 77 09/07/2020 3:44 AM LIQUID NATURAL GAS PLANT OPERATOR Temperature 37 ??C (98.6 ??F) 09/07/2020 3:44 AM LIQUID NATURAL GAS PLANT OPERATOR Respiratory Rate 18 09/07/2020 3:44 AM LIQUID NATURAL GAS PLANT OPERATOR Oxygen Saturation 99% 09/07/2020 3:44 AM LIQUID NATURAL GAS PLANT OPERATOR Inhaled Oxygen Concentration - - Weight 76.6 kg (168 lb 14 oz) 09/07/2020 3:44 AM LIQUID NATURAL GAS PLANT OPERATOR Height 160 cm (5' 2.99 ) 09/06/2020 8:13 AM LIQUID NATURAL GAS PLANT OPERATOR Body Mass Index 29.92 09/06/2020 8:13 AM LIQUID NATURAL GAS PLANT OPERATOR documented in this encounter Functional Status * Question Answer Date of Assessment Author Status Do you have serious difficulty walking or climbing stairs? No 09/07/2020 11:09 AM Sweetie Keating RN Acti ve Do you have difficulty dressing or bathing? No 09/07/2020 11:09 AM Sweetie Keating RN Active Because of a physical, mental, or emotional condition, do you have difficulty doing errands alone such as visiting a doctor's office or shopping? No 09/07/2020 11:09 AM Uzma Keating RN Active * RETIRED Are you deaf or do you have serious difficulty hearing Answer Date of Assessment Author Status No 09/07/2020 11:09 AM LIQUID NATURAL GAS PLANT OPERATOR Acti ve * RETIRED Are you blind or do you have serious difficulty seeing, even when wearing glasses? Answer Date of Assessment Author Status No 09/07/2020 11:09 AM LIQUID NATURAL GAS PLANT OPERATOR Acti ve * Do you have [...] as of this encounter Mental Status * Question Answer Entry Date Author Status Because of a physical, mental, or emotional condition, do you have serious difficulty concentrating, remembering, or making decisions? No 09/07/2020 11:09 AM Sweetie Keating RN Active * Because of a physical, mental, or emotional condition, do you have serious difficulty concentrating, remembering, or making decisions? Answer Entry Date Author Status No 09/07/2020 11:09 AM Sweetie Keating R N Active documented in this encounter Discharge Summaries * Duran Kent MD - 09/07/2020 8:36 AM CSTSummary: discharge Images from the original note were not included. Discharge Summary PATIENT NAME: Mateusz Hearn : 1985 REFERRING PROVIDER: Sara Castaneda MD PCP: JOEL COLVIN MD Admit Date: 09/06/2020 8:06 AM Discharge Date: 09/07/2020 Discharge Physician: Duran Kent MD Discharge Diagnosis S/p successful PFO closure with 25 mm Amplatzer PFO Occluder Hospital Course I am writing to chronicle for the records the recent admission of Mateusz Hearn. 35-year-old female with a history of cryptogenic TIA and PFO who presents for follow-up evaluation.??Her transesophageal echocardiogram demonstrated a large patent foramen ovale. ??The patient denies angina, dyspnea, orthopnea, PND, palpitation, near syncope, or syncope.?? Intracardiac echo guided transcatheter PFO closure with 25??mm Amplatzer PFO occluder on 09/06/20. TTE: pending Review of Systems Constitutional: Negative for fever. HENT: Negative for hearing loss. Eyes: Negative for blurred vision. Respiratory: Negative for cough. Cardiovascular: Negative for chest pain. Gastrointestinal: Negative for heartburn. Genitourinary: Negative for dysuria. Musculoskeletal: Negative for myalgias. Skin: Negative for rash. Neurological: Negative for dizziness. Endo/Heme/Allergies: Does not bruise/bleed easily. Psychiatric/Behavioral: Negative for depression. Physical Exam Constitutional: She is oriented to person, place, and time and well-developed, well-nourished, and in no distress. No distress. HENT: Head: Atraumatic. Neck: No JVD present. Cardiovascular: Normal rate, regular rhythm and normal heart sounds. Pulmonary/Chest: Effort normal and breath sounds normal. Abdominal: Soft. Bowel sounds are normal. Musculoskeletal: Normal range of motion. Comments: Bilateral groin Sutures removed. No hematoma. Mild bruising bilaterally Neurological: She is alert and oriented to person, place, and time. Skin: Skin is warm. DC packet and instructions will be mailed to the patient. Continue DAPT and follow up with Dr. Castaneda. Thank you for allowing me to participate in this patient's care. Please do not hesitate to contact me with any questions or concerns. Discharge Medications Medication List CONTINUE taking these medications aspirin 81 MG chewable tablet atorvastatin 40 MG tablet Commonly known as: LIPITOR Take 1 tablet (40 mg total) by mouth nightly at bedtime. clopidogrel 75 MG tablet Commonly known as: PLAVIX Take 1 tablet (75 mg total) by mouth daily. hydroCHLOROthiazide 25 MG tablet Commonly known as: HYDRODIURIL Signed Duran Kent MD Cosigned by Sara Castaneda MD at 09/07/2020 10:30 AM LIQUID NATURAL GAS PLANT OPERATOR ID NATURAL GAS PLANT OPERATOR ID NATURAL GAS PLANT OPERATOR ID NATURAL GAS PLANT OPERATOR Associated attestation - Sara Castaneda MD - 09/07/2020 10:30 AM LIQUID NATURAL GAS PLANT OPERATOR I saw the patient on the day of discharge and agree with the discharge plans and disposition as recorded by the resident. I personally spent over 30 minutes in the discharge planning process. documented in this encounter Discharge Instructions * Discharge Instructions* Marialuisa Altamirano RN - 09/07/2020 10:32 AM LIQUID NATURAL GAS PLANT OPERATOR POST CARDIAC CATHETERIZATION DISCHARGE INSTRUCTIONS ACTIVITY: 1. DO NOT drive after the procedure. You may resume driving the following day. 2. Rest and relax the rest of the day or evening. Lie either on a couch or in a reclining chair. For at least 24 hours after the procedure, if you have to cough, sneeze or strain, hold pressure on your groin. 3. For three days after your procedure, do not perform strenuous activities such as: a. Extensive climbing of stairs b. Heavy pushing, pulling or lifting over five pounds c. Going shopping d. Straining with bowel movement 4. If the procedure was performed through the arm, limit your activities with that arm for three days. 5. After 72 hours, resume normal activity if nocomplications. SITE CARE: Bleeding from the insertion site can be visible under the surface of your skin. This may appear as swelling or a lump at the insertion site and is usually accompanied by pain in the groin area. 1. If either of the above occurs, lie down flat. Have someone apply pressure with both hands to thebleeding site as instructed by the nurse and/or mri technician. Call 911. 2. If you are discharged with a bruised or raised area at the catheterization site, watch for change in size. 3. Report yellow drainage or redness of insertion site to your primary care physician. Report any fever over 100 degrees F/37.6 degrees C to your local physician. 4. You may shower the next day. Pat puncture site dry, DO NOT RUB. Vigorous rubbing may cause bleeding. No tub baths and do not get into a pool until the wound is completely healed. Change dressing to the site daily for three days. Resume medications as instructed by your physician. ID NATURAL GAS PLANT OPERATOR documented in this encounter Medications at Time [...] 04/02/2020 03/07/2021 documented as of this encounter Progress Notes * Cassandra Montemayor RN - 09/06/2020 2:15 PM CST CMRN met with patient to discuss discharge planning. Lives with siginificant other and their children in their home in [place], [place]. Independent for ADLs. No DME needs. No prior home health. Use [facility] in [place], [place]. PCP with Dr Joel Colvin. No needs at this time. CM will follow for discharge plans. 09/06/20 1411 Referral Data Referral Reason Discharge Planning Source of Information Patient Patient Information Primary Caregiver Self Support System Immediate family Baseline ADL's Functional Status Independent Living Arrangements Spouse/significant other;Children Type of Residence Private residence Ambulation Assistance No Bathing/Grooming Assistance No Dressing Assistance No Behavior Oriented;Cooperative Communication Talks;Understands speaking;Understands Greenlandic Socioeconomic Needs Caregiver Needed No At Risk of Abuse or Neglect No Adequate Resources Yes Recent Hospitalization Recent Hospitalization within 30 days Yes Anticipated Discharge Needs Change in Living Arrangements No In-Home Care or Equipment No Vocational and/or Role Loss No Inability to Complete ADL's No Anticipated DC Plan Living Arrangements Spouse/significant other;Children Support Systems Spouse/significant other;Family members Type of Residence Private residence Assistance Needed No Patient expects to be discharged to: Home ID NATURAL GAS PLANT OPERATOR documented in this encounter H&P Notes * Duran Kent MD - 09/06/2020 9:29 AM CSTSummary: admission Images from the original note were not included. Cardiology History and Physical Note ID: Mateusz Hearn is a 35-year-old female : 1985 JOEL COLVIN MD History 35-year-old female with a history of cryptogenic TIA and PFO who presents for follow-up evaluation.Her transesophageal echocardiogram demonstrated a large patent foramen ovale. The patient denies angina, dyspnea, orthopnea, PND, palpitation, near syncope, or syncope. ?? 1. Cryptogenic TIA and PFO. PFO closure today. Past Medical History Past Medical History: Diagnosis Date ??? HTN (hypertension) Past Surgical History: Procedure Laterality Date ??? SECTION Social History Tobacco Use ??? Smoking status: Former Smoker Packs/day: 1.00 Years: 21.00 Pack years: 21.00 Quit date: 03/31/2020 Years since quittin.4 ??? Smokeless tobacco: Never Used Substance Use Topics ??? Alcohol use: Yes Frequency: 2-4 times a month Comment: socially Family History Problem Relation Name Age of [...] Grandfather ??? No Known Problems Paternal Grandfather No Known Allergies Medications: Prior to Admission medications Medication Sig Start Date End Date Taking? Authorizing Provider aspirin 81 MG chewable tablet Chew 81 mg by mouth daily. Yes Doc Abstract atorvastatin 40 MG tablet Take 1 tablet (40 mg total) by mouth nightly at bedtime. 04/01/20 Yes Sujit Ward MD clopidogrel 75 MG tablet Take 1 tablet (75 mg total) by mouth daily. 04/02/20 Yes Sujit Ward MD hydroCHLOROthiazide 25 MG tablet Take 25 mg by mouth daily. 03/07/20 Yes Doc Abstract ??? aspirin 325 mg Oral Once acetaminophen, nitroglycerin, ondansetron ROS Unchanged since september 03 Physical Exam / Lab / Imaging OBJECTIVE: Today's Weight: Last Recorded Weight 09/06/20 0813 Weight: 76.9 kg (169 lb 8.5 oz) Weight change in the last 24 hours: an appropriate measurement is not found Vital signs in the last 24 hours: Temp: [97.9 ??F (36.6 ??C)] 97.9 ??F (36.6 ??C) Pulse: [76] 76 Resp: [16] 16 BP: (129)/(73) 129/73 Physical Exam Unchanged 09/03 Labs and Cultures: Lab Results Component Value Date NA 138 09/03/2020 K 3.3 (L) 09/03/2020 CL 106 09/03/2020 CO2 25.6 09/03/2020 AGAP 6.4 09/03/2020 BUN 14 09/03/2020 CR 0.70 09/03/2020 GFRNON >90 09/03/2020 GFR >90 09/03/2020 GLU 85 09/03/2020 CA 9.0 09/03/2020 Lab Results Component Value Date WBC 5.1 09/03/2020 HGB 11.9 (L) 09/03/2020 PLT 372 (H) 09/03/2020 Imaging: Use Transesophageal Echo Result Date: 08/09/2020 Transesophageal Echocardiography Report Pat.Name: MATEUSZ HEARN Pat.ID: [id number] .Date: 08/09/2020 Refer.MD: SARA CASTANEDA Exam Time: 9:25:00 AM Study Type:TRANSESOPHAGEAL ECHO (MIKA) Height: 63in Weight: 171.64lb BSA: 1.81 m2 Age: 10 1985,35Y Sex: FEMALE HR: 139 bpm Sonogrphr: Nita Fung RDCS, RVT Pat. Stat.:Outpatient CPT - 4: [id number] Reason for Study: PFO, TIA Procedures: 2D, 3 Dimensional imaging with full Doppler and color interigation, Doppler, Color Flow, Transesophageal, Intraveneous saline contrast was used to help determine presence of intracardiac shunting. Race: ++++++++++++++++++++++++++++++++++++ SUMMARY: ++++++++++++++++++++++++++++++++++++ Large PFO with spontaneous right to left shunting. Measures 0.6 cm gap x 1.5 cm. wide. PFO is suitable for a closure device. Pulmonary veins are normal. The left ventricular systolic function is normal. Estimated left ventricular ejection fraction is 60-65%. Structurally normal valves with normal function. Normal thoracic aorta. ++++++++++++++++++++++++++++++++++++ FINDINGS: ++++++++++++++++++++++++ ++++++++++++ MIKA: The patient was counseled and an informed consent was obtained. The posterior pharynx was anesthetized. The patient was placed in a left lateral recumbent position and a plastic bite was inserted into the mouth. The transesophageal echo probe was inserted into the posterior pharynx and the esophagus was then intubated without difficulty. The patient tolerated the procedure well without any apparent complications. LV: The left ventricular size is normal. The left ventricular systolic function is normal. Estimated left ventricular ejection fraction is 60-65%. WM: Wall motion appears normal in all segments. LVOT: The left ventricular outflow tract size is normal. RV: The right ventricular size is normal. Right ventricular systolic function is normal. LA: The left atrial size is normal. RA: Right atrial size is normal. IAS: Large PFO with spontaneous right to left shunting. Measures 0.6 cm x 1.5 cm. JUDIT: No evidence of pericardial effusion. AO: Normal aortic root. PVn:All four pulmonary veins are identified. Pulmonary veins are normal. AV: The aortic valve is trileaflet. No evidence of aortic valve stenosis. No evidence of aortic valve regurgitation. MV: Structurally normal mitral valve. No evidence of mitral regurgitation. No evidence of mitral stenosis. PV: The pulmonic valve is normal There is trace pulmonic regurgitation TV: The tricuspid valve appears stru cturally normal. There is trace tricuspid regurgitation. ++++++++++++++++++++++++++++++++++++ MIKA: ++++++++++++++++++++++++++++++++++++ Pre MIKA BP HR Post MIKA BP HR 130/105 86 126/67 109 Meds: Benzocaine spray was used with 2 sprays. Complications: None Condition: Good Comments: 50 Signed 08/09/2020 02:40 PM Bebo Nguyen M.D. Results for orders placed or performed during the hospital encounter of 09/06/20 ECG 12 lead Narrative [place] [address] [place] [address] Test Date: 2020-09-06 Pat Name: MATEUSZ HEARN Department: Room: [facility] Gender: Female Pv Design Engineer: : 1985 Requested By: SARA CASTANEDA Order Number: [id number] Ruth MD: Measurements Intervals [place] Rate: 78 P: 49 CT: 170 QRS: 9 QRSD: 92 T: 46 QT: 392 QTc: 447 Interpretive Statements SINUS RHYTHM MINIMAL ST DEPRESSION ASSESSMENT/PLAN: Problem List Items Addressed This Visit Nervous Pituitary adenoma (CMS/HCC) Relevant Orders XA ASD CLOSURE ECG 12 lead (Completed) POCT urine (Completed) Circulatory TIA (transient ischemic attack) Relevant Orders XA ASD CLOSURE ECG 12 lead (Completed) POCT urine (Completed) HTN (hypertension) - Primary Relevant Orders XA ASD CLOSURE ECG 12 lead (Completed) POCT urine (Completed) ECG 12 lead (Completed) POCT urine (Completed) PFO (patent foramen ovale) Relevant Orders XA ASD CLOSURE ECG 12 lead (Completed) POCT urine (Completed) PFO closure today Signed Duran Kent MD 09/06/2020 Cosigned by Sara Castaneda MD at 09/06/2020 12:10 PM LIQUID NATURAL GAS PLANT OPERATOR ID NATURAL GAS PLANT OPERATOR ID NATURAL GAS PLANT OPERATOR Associated attestation - Sara Castaneda MD - 09/06/2020 12:10 PM LIQUID NATURAL GAS PLANT OPERATOR Teaching Physician - I, SARA CASTANEDA MD, performed a History and Physical examination of the patient and discussed the management with the resident. I reviewed the Resident's note and agree with the findings and plan of care, except as I have documented. Teaching physician supervised by in person. documented in this encounter Procedure Notes * Duran Kent MD - 09/06/2020 10:32 AM CSTAssociated Order(s): XA PFO CLOSURE Procedure(s): XA PFO CLOSURE Pre-Procedure Diagnose(s): PFO (patent foramen ovale) (HHS/HCC) Post-Procedure Diagnose(s): PFO (patent foramen ovale) (HHS/HCC) Summary: PFO closure Transcatheter PFO closure rock crushing 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 Bilateral femoral venous access 2. Intracardiac echo guided transcatheter PFO closure with 25 mm Amplatzer PFO occluder Indication for the procedure TIA Procedural details After risks, benefits, alternatives were discussed, patient was brought to the cardiac catheterization laboratory in fasting condition. Conscious sedation was used. Local anesthesia with lidocaine was administered in bilateral groin. 6F common femoral venous sheath was placed with usual technique in right common femoral vein. 14 Frx 30 cm sheath was placed in L femoral vein. ICE (Acunave 12.5 Fr) was advanced via the left common femoral vein through the 14 Fr sheath. Presence of PFO was confirmed using intracardiac echocardiography with color Doppler. The PFO was crossedusing a 6 [place]ib[place]ian multipurpose catheter and a J-wire via the right common femoral vein. The multipurpose catheter 2 was advanced into the left superior pulmonary vein and its position was confirmed using ICE. Heparin was administered to keep ACT greater than 250. J wire was exchanged for Amplatz stiff wire and MPA was removed. 6 Fr sheath from right CFV was removed and Amplatz 8Fr delivery sheath was advanced past the PFO. A 25 mm Amplatzer PFO occluder was selected. Delivery sheath was inserted into the PFO over the Amplatz wire. Wire was removed. After usual preparation and de- airing outside the body, the Amplatzer PFO occluder device was advanced through the delivery device system into the left atrium. Under intracardiac echo guidance, the left atrial disc was released in the left atrium by unsheathing the sheath to expose the left atrial disc; the whole system was pulled back and then the right-sided disc wasreleased in the right atrium. The cable was advanced slightly to sandwich the PFO occluder against the IAS. The position of the device was confirmed with intracardiac echocardiography. A tug test was performed to confirm position. The device was finally released with counterclock rotations. There were no complications. Hemostasis was achieved in bilateral groins using [id number] stitch. Plan Continue DAPT Infective endocarditis prophylaxis for 1 year Disposition Patient will be admitted overnight for observation, chest x-ray and echocardiography will be performed tomorrow. Cosigned by Sara Castaneda MD at 09/06/2020 12:10 PM LIQUID NATURAL GAS PLANT OPERATOR ID NATURAL GAS PLANT OPERATOR ID NATURAL GAS PLANT OPERATOR Associated attestation - Sara Castaneda MD - 09/06/2020 12:10 PM LIQUID NATURAL GAS PLANT OPERATOR I was present for the entirety of the procedure(s). documented in this encounter Plan of Treatment Upcoming Encounters Date Type Department Care Team (Late st Contact Info) Description 09/23/2024 9:00 AM CDT Appointment [facility] Non Invasive Cardiology - [facility] [address] [place] [address] Sara Castaneda MD [address] [place] [address] 09/23/2024 10:00 AM CDT [facility] [address] [place] [id number] Sara Castaneda MD [address] [place], [place] [address] documented as of this encounter Goals Goal Patient Goal Type Associated Problems Recent Progress Patient-Stated? Author Safety - demonstrates understanding of home safety measures General Cassandra Graves RN documented as of this encounter Procedures Procedure Name Priority Date/Time Associated Diagnosis Comments USE ECHO 2D FU LTD Routine 09/07/2020 9: 28 AM LIQUID NATURAL GAS PLANT OPERATOR XR CHEST PORTABLE Routine 09/07/2020 6:3 6 AM LIQUID NATURAL GAS PLANT OPERATOR BASIC METABOLIC PANEL Routine 09/07/2020 3:42 AM LIQUID NATURAL GAS PLANT OPERATOR CBC W/DIFF AUTOMATED Routine 09/07/2020 3:42 AM LIQUID NATURAL GAS PLANT OPERATOR MAGNESIUM Routine 09/07/2020 3:42 AM LIQUID NATURAL GAS PLANT OPERATOR XR CHEST PORTABLE STAT 09/06/2020 12: 55 PM LIQUID NATURAL GAS PLANT OPERATOR BASIC METABOLIC PANEL STAT 09/06/2020 12:25 PM LIQUID NATURAL GAS PLANT OPERATOR CBC W/DIFF AUTOMATED STAT 09/06/2020 12:25 PM LIQUID NATURAL GAS PLANT OPERATOR MAGNESIUM STAT 09/06/2020 12:25 PM LIQUID NATURAL GAS PLANT OPERATOR ECG 12-LEAD Routine 09/06/2020 11:07 AM LIQUID NATURAL GAS PLANT OPERATOR XA ASD CLOSURE Routine 09/06/2020 10:39 AM LIQUID NATURAL GAS PLANT OPERATOR PFO (patent foramen ovale) (HHS/HCC) TIA (transient ischemic attack) Essential hypertension Pituitary adenoma (CMS/HCC HHS/HCC) XA PFO CLOSURE Today 09/06/2020 10:32 AM LIQUID NATURAL GAS PLANT OPERATOR HC ACTIVATED CLOTTING TIME Routine 09/06/2020 10:17 AM LIQUID NATURAL GAS PLANT OPERATOR ECG 12-LEAD STAT 09/06/2020 8:50 AM LIQUID NATURAL GAS PLANT OPERATOR PFO (patent foramen ovale) (HHS/HCC) TIA (transient ischemic attack) Essential hypertension Pituitary adenoma (CMS/HCC HHS/HCC) HTN (hypertension) POCT URINE (BACK OFFICE) Routine 09/06/2020 PFO (patent foramen ovale) (HHS/HCC) TIA (transient ischemic attack) Essential hypertension Pituitary adenoma (CMS/HCC HHS/HCC) HTN (hypertension) documented in this encounter Results * USE ECHO Limited ECHO (09/07/2020 9:28 AM LIQUID NATURAL GAS PLANT OPERATOR) Anatomical Region Laterality Modality Cardiac Echocardiogram 09/07/2020 9:09 AM LIQUID NATURAL GAS PLANT OPERATOR Narrative 09/07/2020 12:11 PM LIQUID NATURAL GAS PLANT OPERATOR ?Echocardiography Report ? Pat.Name: ??MATEUSZ HEARN ?Pat.ID: ?[id number] ? St.Date: ?? 09/07/2020 ? Refer.MD: ??[id number] ALIYAH Solis ? EWDPROV ?EWDPROV Exam Time: 9:09:00 AM ? Study Type:ECHO WITH DOPPLER LIMITED Height: ?62in ?Weight: ?167.65lb ? BSA: ? 1.77 m2 ?Age: ??1985,35Y ? Sex: ? FEMALE ?BP: ?128/74 ? HR: ?93 bpm ? Sonogrphr: Brant Kingsley RDCS, RVT Pat. Stat.:Inpatient ? CPT - 4: ?[id number] ? Reason for Study:PFO/TIA ? Procedures: 2D, M-mode, Doppler, Color Flow, Intraveneous saline contrast was used to help determine presence of intracardiac shunting. ++++++++++++++++++++++++++++++++++++ SUMMARY: ++++++++++++++++++++++++++++++++++++ The left ventricular size is normal. The left ventricular systolic function is normal. Estimated left ventricular ejection fraction is 55-60%. Status post ASD closure device, which appears to be well seated. ++++++++++++++++++++++++++++++++++++ FINDINGS: ++++++++++++++++++++++++++++++++++++ LV: ? The left ventricular size is normal. The left ventricular ?systolic function is normal. Estimated left ventricular ?ejection fraction is 55-60%. RV: ? The right ventricular size is normal. Right ventricular ?systolic function is normal. LA: ? The left atrial size is normal. RA: ? Right atrial size is normal. IAS: ?The agitated saline injection showed evidence of shunting ?into the left atrium, consistent with a small patent foramen ?ovale. Status post ASD closure device, which appears to be ?well seated. JUDIT: ? No evidence of pericardial effusion. ++++++++++++++++++++++++++++++++++++ MEASUREMENTS: ++++++++++++++++++++++++++++++++++++ ?2D Left Ventricle ?? LVIDd ? 4.26 cm ?? (3.6-5.2) LVIDs ? 3.05 cm ?? (2.3-3.9) LVPW ?? LVPWd ? 1.02 cm ?LVPWth ?49 % ?? LVPWs ? 1.52 cm ? Ventricular Septum ?? IVSd ? 0.963 cm ?IVSs ?1.39 cm ?? LVOT ?? LVOT ? 2.1 cm ? Ratios ?? IVS ?DOPPLER TV Regurg Flow TV pkPG ? 21 mmHg ? TV pkVel ? 230 cm/s (30-70)+* LV Mass 2D ?? Value ?139 g ? LV Mass Asqwm5D ?? Value ? 78.5 g/m2 ? Signed 09/07/2020 12:11 PM Sara Castaneda M.D. Procedure Note Sara Castaneda MD - 09/07/2020 Echocardiography Report Pat.Name: MATEUSZ HEARN Linda.ID: [id number] .Date: 09/07/2020 Refer.MD: [id number] ALIYAH Solis EWDPROV EWDPROV Exam Time: 9:09:00 AM Study Type:ECHO WITH DOPPLER LIMITED Height: 62in Weight: 167.65lb BSA: 1.77 m2 Age: 10 1985,35Y Sex: FEMALE BP: 128/74 HR: 93 bpm Sonogrphr: Brant Kingsley RDCS, RVT Pat. Stat.:Inpatient CPT - 4: [id number] Reason for Study:PFO/TIA Procedures: 2D, M-mode, Doppler, Color Flow, Intraveneous saline contrast was used to help determine presence of intracardiac shunting. ++++++++++++++++++++++++++++++++++++ SUMMARY: ++++++++++++++++++++++++++++++++++++ The left ventricular size is normal. The left ventricular systolic function is normal. Estimated left ventricular ejection fraction is 55-60%. Status post ASD closure device, which appears to be well seated. ++++++++++++++++++++++++++++++++++++ FINDINGS: ++++++++++++++++++++++++++++++++++++ LV: The left ventricular size is normal. The left ventricular systolic function is normal. Estimated left ventricular ejection fraction is 55-60%. RV: The right ventricular size is normal. Right ventricular systolic function is normal. LA: The left atrial size is normal. RA: Right atrial size is normal. IAS: The agitated saline injection showed evidence of shunting into the left atrium, consistent with a small patent foramen ovale. Status post ASD closure device, which appears to be well seated. JUDIT: No evidence of pericardial effusion. ++++++++++++++++++++++++++++++++++++ MEASUREMENTS: ++++++++++++++++++++++++++++++++++++ 2D Left Ventricle LVIDd 4.26 cm (3.6-5.2) LVIDs 3.05 cm (2.3-3.9) LVPW LVPWd 1.02 cm LVPWth 49 % LVPWs 1.52 cm Ventricular Septum IVSd 0.963 cm IVSs 1.39 cm LVOT LVOT 2.1 cm Ratios IVS DOPPLER TV Regurg Flow TV pkPG 21 mmHg TV pkVel 230 cm/s (30-70)+* LV Mass 2D Value 139 g LV Mass [id number] Value 78.5 g/m2 Signed 09/07/2020 12:11 PM Sara Castaneda M.D. us Duran Kent MD ECHO Final Result * XR CHEST PORTABLE (09/07/2020 6:36 AM [employer] OPERATOR) Anatomical Region Laterality Modality Chest Radiographic Oriana ging 09/07/2020 8:34 AM [employer] OPERATOR Impressions 09/07/2020 8:37 AM [employer] OPERATOR IMPRESSION: 1. ??No acute cardiopulmonary process is identified. 2. ??Status post transcatheter PFO closure using a Amplatzer PFO closure device. Referred By: SARA CASTANEDA Interpreted By: Sharon Brown MD, 09/07/2020 8:34 AM Narrative 09/07/2020 8:37 AM [employer] OPERATOR PROCEDURE: ??XR CHEST PORTABLE. ??09/07/2020 6:34 AM. TECHNIQUE: AP view of the chest was performed. HISTORY: ??Status post PFO closure. COMPARISON: ??AP chest radiograph, 09/06/2020. FINDINGS: ?? Support Devices: ??Amplatzer PFO closure is present. Cardiac Silhouette/Mediastinum/Lissette: ??The cardiac, mediastinal, and hilar contours are within normal limits for age. Lungs/Pleural Spaces: ??The lungs and pleural spaces are clear. Chest Wall/Diaphragm/Upper Abdomen: ??The thoracic musculoskeletal structures and the upper abdomen are unchanged in appearance per Procedure Note Sharon Brown MD - 09/07/2020 PROCEDURE: XR CHEST PORTABLE. 09/07/2020 6:34 AM. TECHNIQUE: AP view of the chest was performed. HISTORY: Status post PFO closure. COMPARISON: AP chest radiograph, 09/06/2020. FINDINGS: Support Devices: Amplatzer PFO closure is present. Cardiac Silhouette/Mediastinum/Lissette: The cardiac, mediastinal, andhilar contours are within normal limits for age. Lungs/Pleural Spaces: The lungs and pleural spaces are clear. Chest Wall/Diaphragm/Upper Abdomen: The thoracic musculoskeletal structures and the upper abdomen are unchanged in appearance per IMPRESSION: 1. No acute cardiopulmonary process is identified. 2. Status post transcatheter PFO closure using a Amplatzer PFO closure device. Referred By: SARA CASTANEDA Interpreted By: Sharon Brown MD, 09/07/2020 8:34 AM us Duran Kent MD GENERAL IMAGING Final Result * MAGNESIUM (09/07/2020 3:42 AM [employer] OPERATOR) Pathologist [facility] MAGNESIUM 2.0 1.6 - 2.6 MG/DL 09/07/2020 5:08 AM [employer] OPERATOR [facility] 09/07/2020 3:42 AM [employer] OPERATOR us Duran Kent MD LABORATORY Final Result [facility] [address] [place] [address], [phone] * (ABNORMAL) BASIC METABOLIC PANEL (09/07/2020 3:42 AM [employer] OPERATOR) SODIUM S/P/B 142 136 - 145 MMOL/L 09/07/2020 5:08 AM [employer] OPERATOR [facility] POTASSIUM S/P/B 3.2(L) 3.5 - 5.1 MMOL/L 09/07/2020 5:08 AM [facility] CHLORIDE S/P/B 109(H) 98 - 107 MMOL/L 09/07/2020 5:08 AM [facility] CO2 27.3 21.0 - 32.0 MMOL/L 09/07/2020 5:08 AM [facility] GLUCOSE 114(H) 74 - 106 MG/DL 09/07/2020 5:08 AM [facility] BUN 15 7 - 18 MG/DL 09/07/2020 5:08 AM [facility] CREATININE S/P/B 0.64 0.55 - 1.02 MG/DL 09/07/2020 5:08 AM [facility] CALCIUM S/P/B 8.0(L) 8.5 - 10.1 MG/DL 09/07/2020 5:08 AM [facility] ANION GAP 5.7 5.0 - 15.0 MMOL/L 09/07/2020 5:08 AM [facility] Comment:REFERENCE RANGE NOT ESTABLISHED OSMOLALITY (CALC) 296 MOSM/KG 021 5:08 AM [facility] Comment:REFERENCE RANGE NOT ESTABLISHED EGFR NON-AFR. AMER. >90 >90 ML/MIN/1. 73 M2 09/07/2020 5:08 AM [facility] EGFR AFR. AMER. >90 >90 ML/MIN/1. 73 M2 09/07/2020 5:08 AM [facility] GFR NOTES GFR REFERENCE S: 09/07/2020 5:08 AM [facility] Comment: THE ESTIMATED GFR IS CALCULATED [...] ml/min/1.73 m2 G5,KIDNEY FAILURE: <15 ml/min/1.73 m2 09/07/2020 3:42 AM [employer] OPERATOR Duran Kent MD LABORATORY Final Result [facility] [address] [place] [address], [phone] * (ABNORMAL) CBC W/DIFF AUTOMATED (09/07/2020 3:42 AM [employer] OPERATOR) WBC 5.9 4.0 - 10.8 x10'3/uL 09/07/2020 4:39 AM [facility] RBC 3.78(L) 4.10 - 5.40 x10'6/uL 09/07/2020 4:39 AM [facility] HGB 9.8(L) 12.0 - 16.0 G/DL 09/07/2020 4:39 AM [facility] HCT 30.3(L) 36.0 - 47.0 % 09/07/2020 4:39 AM [facility] MCV 80.2 78.0 - 100.0 FL 09/07/2020 4:39 AM [facility] MCH 25.9(L) 27.0 - 31.0 PG 09/07/2020 4:39 AM [facility] MCHC 32.3(L) 33.0 - 36.0 G/DL 09/07/2020 4:39 AM [facility] RDW 14.7(H) 11.5 - 14.5 % 09/07/2020 4:39 AM [facility] PLT 285 150 - 350 x10'3/uL 09/07/2020 4:39 AM [facility] MPV 11.0(H) 7.4 - 10.4 FL 09/07/2020 4:39 AM [facility] ABS. NEUTROPHILS TOTAL 3.85 1.60 - 8.30 x10'3/uL 09/07/2020 4:39 AM [facility] ABS. LYMPHOCYTES 1.43 0.80 - 4.70 x10'3/uL 09/07/2020 4:39 AM [employer] OPERATOR [facility] ABS. MONOCYTES 0.57 0.00 - 1.50 x10'3/uL 09/07/2020 4:39 AM [employer] OPERATOR [facility] ABS. EOSINOPHILS 0.05 0.00 - 0.40 x10'3/uL 09/07/2020 4:39 AM [employer] OPERATOR [facility] ABS. BASOPHILS 0.01 0.00 - 0.20 x10'3/uL 09/07/2020 4:39 AM [employer] OPERATOR [facility] ABS. IMMATURE GRANULOCYTES 0.02 0.00 - 0.03 x10'3/uL 09/07/2020 4:39 AM [employer] OPERATOR [facility] ABS. NUCLEATED RBC'S 0.00 0.0 x10'3/uL 09/07/2020 4:39 AM [employer] OPERATOR [facility] 09/07/2020 3:42 AM [employer] OPERATOR Duran Kent MD LABORATORY Final Result Performing Organization Address City/State/[facility] Co de Phone Number [facility] [address] [phone], [phone] * XR CHEST PORTABLE (09/06/2020 12:55 PM [employer] OPERATOR) Anatomical Region Laterality Modality Chest Radiographic Oriana ging 09/06/2020 12:5 9 PM [employer] OPERATOR Impressions 09/06/2020 1:00 PM [employer] OPERATOR IMPRESSION: No active cardiopulmonary disease. Referred By: SARA CASTANEDA Interpreted By: Rodrigo King MD, 09/06/2020 12:59 PM Narrative 09/06/2020 1:00 PM [employer] OPERATOR 09/06/2020, 1248 hours. HISTORY: Post valve replacement. EXAM: Supine portable AP chest. No comparison. FINDINGS: There appears to be a small device projected over the right lateral mid to upper heart. The lungs are clear of active infiltrates. The heart size and pulmonary vascularity are within normal limits. No pleural effusion. No pneumothorax. Procedure Note Rodrigo King MD - 09/06/2020 09/06/2020, 1248 hours. HISTORY: Post valve replacement. EXAM: Supine portable AP chest. No comparison. FINDINGS: There appears to be a small device projected over the right lateral mid to upper heart. The lungs are clear of active infiltrates. The heart size and pulmonary vascularity are within normal limits. No pleural effusion. Nopneumothorax. IMPRESSION: No active cardiopulmonary disease. Referred By: SARA CASTANEDA Interpreted By: Rodrigo King MD, 09/06/2020 12:59 PM us Duran Kent MD GENERAL IMAGING Final Result * MAGNESIUM (09/06/2020 12:25 PM [employer] OPERATOR) Pathologist [facility] MAGNESIUM 1.9 1.6 - 2.6 MG/DL 09/06/2020 1:00 PM [employer] OPERATOR [facility] 09/06/2020 12:2 5 PM [employer] OPERATOR us Duran Kent MD LABORATORY Final Result [facility] [address] [place] [address], [phone] * (ABNORMAL) BASIC METABOLIC PANEL (09/06/2020 12:25 PM [employer] OPERATOR) SODIUM S/P/B 141 136 - 145 MMOL/L 09/06/2020 1:00 PM [employer] OPERATOR [facility] POTASSIUM S/P/B 3.2(L) 3.5 - 5.1 MMOL/L 09/06/2020 1:00 PM [employer] OPERATOR [facility] CHLORIDE S/P/B 109(H) 98 - 107 MMOL/L 09/06/2020 1:00 PM [employer] OPERATOR [facility] CO2 24.4 21.0 - 32.0 MMOL/L 09/06/2020 1:00 PM [facility] GLUCOSE 95 74 - 106 MG/DL 09/06/2020 1:00 PM [facility] BUN 14 7 - 18 MG/DL 09/06/2020 1:00 PM [facility] CREATININE S/P/B 0.62 0.55 - 1.02 MG/DL 09/06/2020 1:00 PM [facility] CALCIUM S/P/B 8.1(L) 8.5 - 10.1 MG/DL 09/06/2020 1:00 PM [facility] ANION GAP 7.6 5.0 - 15.0 MMOL/L 09/06/2020 1:00 PM [facility] Comment:REFERENCE RANGE NOT ESTABLISHED OSMOLALITY (CALC) 292 MOSM/KG 021 1:00 PM [facility] Comment:REFERENCE RANGE NOT ESTABLISHED EGFR NON-AFR. AMER. >90 >90 ML/MIN/1. 73 M2 09/06/2020 1:00 PM [facility] EGFR AFR. AMER. >90 >90 ML/MIN/1. 73 M2 09/06/2020 1:00 PM [facility] GFR NOTES GFR REFERENCE S: 09/06/2020 1:00 PM [facility] Comment: THE ESTIMATED GFR IS CALCULATED [...] ml/min/1.73 m2 G5,KIDNEY FAILURE: <15 ml/min/1.73 m2 09/06/2020 12:2 5 PM [employer] OPERATOR Duran Kent MD LABORATORY Final Result [facility] [address] [place] [address], [place] [phone] * (ABNORMAL) CBC W/DIFF AUTOMATED (09/06/2020 12:25 PM [employer] OPERATOR) WBC 8.6 4.0 - 10.8 x10'3/uL 09/06/2020 12:38 PM [employer] OPERATOR [facility] RBC 4.30 4.10 - 5.40 x10'6/uL 09/06/2020 12:38 PM [employer] OPERATOR [facility] HGB 10.8(L) 12.0 - 16.0 G/DL 09/06/2020 12:38 PM [employer] OPERATOR [facility] HCT 33.7(L) 36.0 - 47.0 % 09/06/2020 12:38 PM LI[employer] OPERATOR [facility] MCV 78.4 78.0 - 100.0 FL 09/06/2020 12:38 PM [employer] OPERATOR [facility] MCH 25.1(L) 27.0 - 31.0 PG 09/06/2020 12:38 PM [employer] OPERATOR [facility] MCHC 32.0(L) 33.0 - 36.0 G/DL 09/06/2020 12:38 PM [employer] OPERATOR [facility] RDW 14.6(H) 11.5 - 14.5 % 09/06/2020 12:38 PM [employer] OPERATOR [facility] PLT 344 150 - 350 x10'3/uL 09/06/2020 12:38 PM [employer] OPERATOR [facility] MPV 10.4 7.4 - 10.4 FL 09/06/2020 12:38 PM LI[employer] OPERATOR [facility] ABS. NEUTROPHILS TOTAL 6.97 1.60 - 8.30 x10'3/uL 09/06/2020 12:38 PM [employer] OPERATOR [facility] ABS. LYMPHOCYTES 1.11 0.80 - 4.70 x10'3/uL 09/06/2020 12:38 PM [employer] OPERATOR [facility] ABS. MONOCYTES 0.48 0.00 - 1.50 x10'3/uL 09/06/2020 12:38 PM LI[employer] OPERATOR [facility] ABS. EOSINOPHILS 0.01 0.00 - 0.40 x10'3/uL 09/06/2020 12:38 PM LI[employer] OPERATOR [facility] ABS. BASOPHILS 0.01 0.00 - 0.20 x10'3/uL 09/06/2020 12:38 PM LI[employer] OPERATOR [facility] ABS. IMMATURE GRANULOCYTES 0.03 0.00 - 0.03 x10'3/uL 09/06/2020 12:38 PM LI[employer] OPERATOR [facility] ABS. NUCLEATED RBC'S 0.00 0.0 x10'3/uL 09/06/2020 12:38 PM [employer] OPERATOR [facility] 09/06/2020 12:2 5 PM [employer] OPERATOR Duran Kent MD LABORATORY Final Result Performing Organization Address City/State/[facility] Co de Phone Number [facility] [address] [place] [address], [phone] * ECG 12 lead (09/06/2020 11:07 AM [employer] OPERATOR) 09/06/2020 11:0 7 AM [employer] OPERATOR Narrative [facility] - 09/06/2020 6:41 PM LIQUID [employer] OPERATOR ? [facility] ?[address], [place] ??[address] ? Test Date: ?2020-09-06 Pat Name: ? MATEUSZ HEARN ?Department: ? Room: ? 520 Gender: ? Female ? Pv Design Engineer: ?? BH : ?1985 ? Requested By: DURAN KENT Order Number: [id number] ? Reading MD: ?? Nastoñito Nallamothu ? Measurements Intervals ?[place] ? Rate: ? 79 ? P: ?41 CT: ? 160 ?QRS: ?36 QRSD: ? 104 ?T: ?53 QT: ? 408 ? QTc: ?470 ? Interpretive Statements SINUS RHYTHM ID [employer] OPERATOR Procedure Note Elizabeth Escoto MD - 09/06/2020 [facility] [address] [place] [address] Test Date: 2020-09-06 Pat Name: MATEUSZ HEARN Department: Room: [facility] Gender: Female Pv Design Engineer: : 1985 Requested By: DURAN KENT Order Number: [id number] Reading MD: Danny Measurements Intervals [place] Rate: 79 P: 41 CT: 160 QRS: 36 QRSD: 104 T: 53 QT: 408 QTc: 470 Interpretive Statements SINUS RHYTHM ID NATURAL [employer] OPERATOR us Duran Kent MD ECG ORDERABLES Final Result [facility] * XA ASD CLOSURE (09/06/2020 10:39 AM LI[employer]ID [employer] OPERATOR) Anatomical Region Laterality Modality Cardiac Circulation Worker 09/06/2020 10:0 0 AM [employer] OPERATOR us Sara Castaneda MD INHALATION THERAPIST Final Res ult * XA PFO CLOSURE (09/06/2020 10:32 AM LI[employer] OPERATOR) Anatomical Region Laterality Modality Cardiac Circulation Worker Narrative Procedure Note Duran Kent MD - 09/06/2020 10:32 AM CST Transcatheter PFO closure rock crushing 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 Bilateral femoral venous access 2. Intracardiac echo guided transcatheter PFO closure with 25 mmAmplatzer PFO occluder Indication for the procedure TIA Procedural details After risks, benefits, alternatives were discussed, patient was brought tothe cardiac catheterization laboratory in fasting condition. Conscioussedation was used. Local anesthesia with lidocaine was administered inbilateral groin. 6F common femoral venous sheath was placed with usual technique in rightcommon femoral vein. 14 Fr x 30 cm sheath was placed in L femoral vein. ICE (Acunave 12.5 Fr) was advanced via the left common femoral veinthrough the 14 Fr sheath. Presence of PFO was confirmed using intracardiacechocardiography with color Doppler. The PFO was crossed using a 6 Frenchmultipurpose catheter and a J-wire via the right common femoral vein. Themultipurpose catheter 2 was advanced into the left superior pulmonary veinand its position was confirmed using ICE. Heparin was administered to keepACT greater than 250. J wire was exchanged for Amplatz stiff wire and MPAwas removed. 6 Fr sheath from right CFV was removed and Amplatz 8Frdelivery sheath was advanced past the PFO. A 25 mm Amplatzer PFO occluder was selected. Delivery sheath was insertedinto the PFO over the Amplatz wire. Wire was removed. After usualpreparation and de-airing outside the body, the Amplatzer PFO occluderdevice was advanced through the delivery device system into the leftatrium. Under intracardiac echo guidance, the left atrial disc wasreleased in the left atrium by unsheathing the sheath to expose the leftatrial disc; the whole system was pulled back and then the right-sideddisc was released in the right atrium. The cable was advanced slightly to sandwich the PFO occluder against the IAS. The position of the devicewas confirmed with intracardiac echocardiography. A tug test wasperformed to confirm position. The device was finally released withcounterclock rotations. There were no complications. Hemostasis was achieved in bilateral groinsusing [id number] stitch. Plan Continue DAPT Infective endocarditis prophylaxis for 1 year Disposition Patient will be admitted overnight for observation, chest x-ray andechocardiography will be performed tomorrow. Duran Kent MD INHALATION THERAPIST Final Result * (ABNORMAL) ACT (HMT OR LHMT) (09/06/2020 10:17 AM LI[employer]ID [employer] OPERATOR) [facility] ACTIVATED CLOTTING TIME (ACT HMT OR LMT) 191(H) 74 - 137 SEC 09/06/2020 10:20 AM LIQUID [employer] OPERATOR [facility] 09/06/2020 10:1 7 AM LI[employer]ID [employer] OPERATOR us Sara Castaneda MD LAB BLOOD ORDERABLES Berenice l Result [facility] [address] [place] [address], [phone] * ECG 12 lead (09/06/2020 8:50 AM LI[employer]ID [employer] OPERATOR) 09/06/2020 8:50 AM LIQUID NAT[employer] OPERATOR Narrative [facility] - 09/06/2020 6:41 PM LIQUID NAT[employer] PL[employer] OPERATOR ? [facility] ?[address], [place] ??[address] ? Test Date: ?2020-09-06 Pat Name: ? MATEUSZ HEARN ?Department: ? Room: ? 520 Gender: ? Female ? Pv Design Engineer: ?? : ?1985 ? Requested By: SARA CASTANEDA Order Number: [id number] ? Reading : ?? Elizabeth Escoto ? Measurements Intervals ?[place] ? Rate: ? 78 ? P: ?49 CT: ? 170 ?QRS: ?9 QRSD: ? 92 ? T: ?46 QT: ? 392 ? QTc: ?447 ? Interpretive Statements SINUS RHYTHM MINIMAL ST DEPRESSION ID NAT[employer] OPERATOR Procedure Note Elizabeth Escoto MD - 09/06/2020 [facility] [address] [place] [address] Test Date: 2020-09-06 Pat Name: MATEUSZ HEARN Department: Room: 520 Gender: Female Pv Design Engineer: : 1985 Requested By: SARA CASTANEDA Order Number: [id number] Ruth MD: Danny Measurements Intervals [place] Rate: 78 P: 49 CT: 170 QRS: 9 QRSD: 92 T: 46 QT: 392 QTc: 447 Interpretive Statements SINUS RHYTHM MINIMAL ST DEPRESSION ID NATURAL [employer] OPERATOR Sara Castaneda MD ECG ORDERABLES Final Res ult [facility] * POCT urine (09/06/2020) URINE HCG TEST NEGATIVE NEGATIVE [facility] Internal Control: VALID VALID [facility] 09/06/2020 Sara Castaneda MD POINT OF CARE TEST ORDERA BLES Final Result Performing Organization Address [facility]/ZIP Co de Phone Number [facility] [address] [place] [address], [place] [phone] documented in this encounter Visit Diagnoses Diagnosis HTN (hypertension)- Primary Unspecified essential hypertension PFO (patent foramen ovale) (HHS/HCC) Ostium secundum type atrial septal defect TIA (transient ischemic attack) Unspecified transient cerebral ischemia Essential hypertension Unspecified essential hypertension Pituitary adenoma (CMS/HCC HHS/HCC) Benign neoplasm of pituitary gland and craniopharyngeal duct (pouch) PFO (patent foramen ovale) (HHS/HCC) Ostium secundum type atrial septal defect documented in this encounter Administered Medications Inactive Administered Medications - up to 3 most recent administrations Medication Order MAR Action Action Date Dose Rate Site aspirin chewable tablet 81 mg 81 mg, Oral, Daily, First dose on Thu09/07/20 at 0900, Until Discontinued Given 09/07/2020 10:49 AM [employer] OPERATOR 81 mg atorvastatin (LIPITOR) tablet 40 mg 40 mg, Oral, Nightly at bedtime, First dose on Thu09/06/20 at 2100, Until Discontinued Given 09/06/2020 8:57 PM LI[employer]ID [employer] OPERATOR 40 mg ceFAZolin (ANCEF) 2 g in SW 20 mL IV syringe 2 g, Intravenous, at 240 mL/hr, Every 8 hours, 2 doses, First dose on Thu09/06/20 at 1800, Last dose on Thu09/07/20 at 0200, Give 2 gram dose for patients less than 120 kg. PHARMACY TO ADJUST administration times based on pre-op/intra-op dose. Do NOT continue greater than 24 hours after anesthesia end time., Post-Op Given 09/07/2020 1:56 AM LIQUID [employer] OPERATOR 2 g 240 mL/hr Given 09/06/2020 6:06 PM LIQUID NAT[employer] OPERATOR 2 g 240 mL/hr clopidogrel (PLAVIX) tablet 75 mg 75 mg, Oral, Daily, First dose on Thu09/07/20 at 0900, Until Discontinued Given 09/07/2020 10:49 AM LIQUID NAT[employer] OPERATOR 75 mg hydroCHLOROthiazide (HYDRODIURIL) tablet 25 mg 25 mg, Oral, Daily, First dose on Thu09/07/20 at 0900, Until Discontinued Given 09/07/2020 10:50 AM LIQUID NAT[employer] OPERATOR 25 mg sodium chloride 0.9% infusion at 100 mL/hr, Intravenous, Once, 1 dose, On Thu09/06/20 at 0830, Pre-Op New Bag 09/06/2020 8:39 AM LI[employer]ID [employer] OPERATOR 100 mLs 100 mL/hr sodium chloride 0.9% infusion at 75 mL/hr, Intravenous, Continuous, Starting on Thu09/06/20 at 1245, Until Melinda 09/06/20 at 1544, Infuse at 1 mL/kg/hr for 6 hours., Post-Op New Bag 09/06/2020 12:50 PM LIQUID NAT[employer] OPERATOR 75 mL/hr documented in this encounter Active and Recently Administered Medications Times are shown in LIQUID NATURAL [employer] OPERATOR. Scheduled Medication Order 09/05/2020 09/06/2020 09/07/2020 aspirin chewable tablet 81 mg 81 mg, Oral, Daily, First dose on Thu09/07/20 at 0900, Until Discontinued 1048 (Given - Provid er: Sweetie Craven RN) atorvastatin (LIPITOR) tablet 40 mg 40 mg, Oral, Nightly at bedtime, First dose on Thu09/06/20 at 2100, Until Discontinued 2056 (Given - Provider: Jeff Gomez RN) ceFAZolin (ANCEF) 2 g in SW 20 mL IV syringe (COMPLETED)(Linked Group 1) 2 g, Intravenous, at 240 mL/hr, Every 8 hours, 2 doses, First dose on Thu09/06/20 at 1800, Last dose on Thu09/07/20 at 0200, Give 2 gram dose for patients less than 120 kg. PHARMACY TO ADJUST administration times based on pre-op/intra-op dose. Do NOT continue greater than 24 hours after anesthesia end time., Post-Op 1806 (Given - Provider: Nory Comer RN) 0156 (Given - Provider: Jeff Gomez RN) clopidogrel (PLAVIX) tablet 75 mg 75 mg, Oral, Daily, First dose on Thu09/07/20 at 0900, Until Discontinued 1049 (Given - Provid er: Sweetie Craven RN) hydroCHLOROthiazide (HYDRODIURIL) tablet 25 mg 25 mg, Oral, Daily, First dose on Thu09/07/20 at 0900, Until Discontinued 1050 (Given - Provid er: Sweetie Craven RN) sodium chloride 0.9% infusion (COMPLETED) at 100 mL/hr, Intravenous, Once, 1 dose, On Melinda 09/06/20 at 0830, Pre-Op 0839 (New Bag - Provider: Makenna Avitia RN) Continuous Medication Order 09/05/2020 09/06/2020 09/07/2020 sodium chloride 0.9% infusion () at 75 mL/hr, Intravenous, Continuous, Starting on Melinda 09/06/20 at 1245, Until Melinda 09/06/20 at 1544, Infuse at 1 mL/kg/hr for 6 hours., Post-Op 1250 (New Bag - Provider: Claudia Comer RN) PRN Medication Order 09/05/2020 09/06/2020 09/07/2020 atropine injection 0.5 mg 0.5 mg, Intravenous, Every 5 min PRN, Other, For MAP less than 60 or HR less than 50bpm or SBP less than 90mmHg or symptomatic bradycardia/hypotension/vagal response, 3 doses, Starting on Melinda 09/06/20 at 1217, Until Thu09/07/20 at 1350, May repeat every 5 minutes as needed for three doses. (Max 3 mg total), Post-Op bisacodyl (DULCOLAX) suppository 10 mg 10 mg, Rectal, Daily as needed, Constipation, If Milk of Magnesia (MOM) ineffective, Starting on Melinda 09/06/20 at 1217, Until Thu09/07/20 at 1350, Post-Op magnesium hydroxide (MILK OF MAGNESIA) 400 MG/5ML suspension 30 mL 30 mL, Oral, Daily as needed, Constipation, Starting on Melinda 09/06/20 at 1217, Until Thu09/07/20 at 1350, Shake Well, Post-Op ondansetron (ZOFRAN) injection 4 mg 4 mg, Intravenous, Every 8 hours PRN, Nausea, Vomiting, Starting on Melinda 09/06/20 at 1217, Until Thu09/07/20 at 1350, IV push over 2-5 minutes., Post-Op sodium chloride 0.9% bolus infusion SOLN 500 mL 500 mL, Intravenous, Administer over 1 Hours, PRN, for SBP less than 90 mmHg, Starting on Melinda 09/06/20 at 1217, Until Thu09/07/20 at 1350, May repeat x 1 if needed, Post-Op Linked Groups Order Group 1: ceFAZolin (ANCEF) 2 g in SW 20 mL IV syringe (COMPLETED)Jump to med 2 g, Intravenous, at 240 mL/hr, Every 8 hours, 2 doses, First dose on Melinda 09/06/20 at 1800, Last dose on Thu09/07/20 at 0200, Give 2 gram dose for patients less than 120 kg. PHARMACY TO ADJUST administration times based on pre-op/intra-op dose. Do NOT continue greater than 24 hours after anesthesia end time., Post-Op Or ceFAZolin (ANCEF) 3 g in NS 100 mL IVPB (CANCELED) 3 g, Intravenous, at 200 mL/hr, Every 8 hours, 2 doses, First dose on Melinda 09/06/20 at 1800, Last dose on Thu09/07/20 at 0200, Give 3 gram dose for patients 120 kg and greater. PHARMACY TO ADJUST administration times based on pre-op/intra-op dose. Do NOT continue greater than 24 hours after anesthesia end time., Post-Op documented in this encounter Care Teams Parcel Post Carrier Relationship Specialty Start Date End Date Joel Colvin MD [address] [place] [address] PCP - General FAMILY PRACTICE 03/30/20 Mary Bahena MD [address] [place] [address] Vascular Neurology 04/18/20 09/09/22 Sara Castaneda MD [address] [place] [address] Consulting Physician INTERVENTIONAL CARDIOLOGY 04/18/20 documented as of this encounter
--- OUTSIDE RECORDS SUMMARY | 2024-07-01 02:50 | XMS_ITS | Encounter Summary ---
Author Organization [facility] Address [address] [place] [address]. [place] [address] [place] [address] Care Team Providers Care Appeals Rn Name Role Phone Joel Durán MD Primary Care Provider [phone] Mary Bahena MD Unavailable Jaguar Castaneda MD Unavailable [phone] Encounter Details Date Type Department Care Team (Late st Contact Info) Description 08/31/2020 Orders Only [facility] Telescope Operator [address] [place], [place] [id number] Jaguar Castaneda MD [address], [place] [address] Social History Tobacco Use Types Packs/Day Years [...] COVID-19? No / Unsure 08/09/2020 8:19 AM RESPITE CARE PROVIDER documented as of this encounter Functional Status [...] Info) Description 09/23/2024 9:00 AM CDT Appointment [facility] Non Invasive Cardiology - [facility] [address] [place] [address] Jaguar Castaneda MD [address] [place] [address] 09/23/2024 10:00 AM CDT [facility] [address] [place] [address] Jaguar Castaneda MD [address] [place] [address] documented as of this encounter Results * PRE-SURGICAL/PRE-PROCEDURE CORONAVIRUS (COVID 19) (09/03/2020 9:00 AM RESPITE CARE PROVIDER) CORONAVIRUS SARS COV 2 PCR (RESP) NOT DETECTED NOT DETECTED 09/04/2020 8:15 PM RESPITE CARE PROVIDER [facility] Comment: A Not Detected (negative) test result [...] providers and patients using the following websites: https://www.[employer].com/home/Covid-19/HCP/[facility]/fact- sheet.html https://www.[employer].com/home/Covid-19/Patients/ [employer]/fact-sheet.html This test has been authorized by the FDA under an Emergency Use Authorization (EUA) for use by authorized laboratories. Due to the current public health emergency, [facility] is receiving a high volume of samples [...] about COVID-19 can be found at the [employer] website: www.[employer].Dada Room/Covid19. Test performed at [facility] [address] ??[id number] Director: KIMBERLY FRANCES DO,MPH FIRST TEST UNKNOWN 09/03/2020 10:39 AM RESPITE CARE PROVIDER [facility] EMPLOYED IN HEALTHCARE YES 09/03/2020 10:39 AM RESPITE CARE PROVIDER [facility] SYMPTOMATIC DEFINED BY CDC UNKNOWN 09/03/2020 10:39 AM RESPITE CARE PROVIDER [facility] DATE OF SYMPTOM ONSET NOT GIVEN 09/03/2020 11:47 AM RESPITE CARE PROVIDER [facility] HOSPITALIZATION STATUS NO 09/03/2020 10:39 AM RESPITE CARE PROVIDER [facility] PATIENT IN ICU NO 09/03/2020 10:39 AM RESPITE CARE PROVIDER [facility] NO 09/03/2020 10:39 AM RESPITE CARE PROVIDER [facility] UNKNOWN 09/03/2020 10:39 AM RESPITE CARE PROVIDER [facility] PATIENT'S RACE WHITE OR 09/03/2020 10:39 AM RESPITE CARE PROVIDER [facility] ETHNICITY NONHISPANIC 09/03/2020 10:39 AM RESPITE CARE PROVIDER [facility] SOURCE (QST) NASOPHARYNGEAL SWAB 09/03/2020 10:39 AM RESPITE CARE PROVIDER [facility] NASOPHARYNGEAL SWAB / Unknown 09/03/2020 9:00 AM RESPITE CARE PROVIDER us Jaguar Castaneda MD MICROBIOLOGY - GENERAL OR DERABLES Final Result [facility] [address] [place] [address], [id number] [facility] [id number] [place] [address] documented in this encounter Visit Diagnoses Diagnosis Pre-operative laboratory examination- Primary Pre-procedural laboratory examination documented in this encounter Care Teams Appeals Rn Relationship Specialty Start Date End Date Joel Durán MD [address] [place] [address] PCP - General FAMILY PRACTICE 03/30/20 Mary Bahena MD [address] [place] [address] Vascular Neurology 04/18/20 09/09/22 Jaguar Castaneda MD [address] [place] [address] Consulting Physician INTERVENTIONAL CARDIOLOGY 04/18/20 documented as of this encounter
--- OUTSIDE RECORDS SUMMARY | 2024-07-01 02:50 | XMS_ITS | Encounter Summary ---
Author Organization [facility] Address [address] [place] [address]. [place], [place] [id number] [place] [address] Care Team Providers Care Area Operations Manager Name Role Phone Joel Durán MD Primary Care Provider [phone] Mary Bahena MD Unavailable Jaguar Castaneda MD Unavailable [phone] Reason for Referral * Imaging (Routine) - Closed Specialty Diagnoses / Procedures Referred By Contac faiza Referred To Contact RADIOLOGY Diagnoses PFO (patent foramen ovale) (HHS/HCC) TIA (transient ischemic attack) Essential hypertension Pituitary adenoma (CMS/HCC HHS/HCC) Procedures USE INTRACARDIAC ECHO Bebo Nguyen MD Referral ID Status Reason Start Date Expiration Date Visits Re quested Visits Authorized [id number] Closed 08/14/2020 09/11/2021 1 1 DRIVER Reason for Visit * Auth/Cert Specialty Diagnoses / Procedures Referred By Contac t Referred To Contact Diagnoses PFO (patent foramen ovale) (HHS/HCC) TIA (transient ischemic attack) Essential hypertension Pituitary adenoma (CMS/HCC HHS/HCC) PFO (patent foramen ovale) Procedures XA ASD CLOSURE Referral ID Status Reason Start Date Expiration Date Visits Re quested Visits Authorized [id number] 1 1 Encounter Details Date Type Department Care Team (Latest Contact Info) Description 09/06/2020 9:32 AM BOAT DRIVER - 09/06/2020 11:59 PM BOAT DRIVER Hospital Encounter [facility] Non Invasive Cardiology - [place] [id number] [place] [address] Bebo Nguyen MD Discharge Disposition: Home or Self Care (Routine [...] COVID-19? No / Unsure 09/06/2020 8:12 AM BOAT DRIVER documented as of this encounter Functional Status [...] 03/31/2020 3:54 AM Marizol Winslow RN Active * Because of a physical, [...] Waters RN Active documented in this encounter Medications [...] [facility] Non [facility] Cardiology - [facility] [address] [place] [address] Jaguar Castaneda MD [address] [place] [address] 09/23/2024 10:00 AM CDT Office Visit [facility] [address] [place] [address] Jaguar Castaneda MD [address] [place] [address] documented as of this encounter Goals Goal Patient Goal Type Associated Problems Recent Progress Patient-Stated? Author Safety - demonstrates understanding of home safety measures General No Cassandra Montemayor RN documented as of this encounter Procedures Procedure Name Priority Date/Time Associated Diagnosis Comments USE INTRACARDIAC ECHO Routine 09/06/2020 9:44 AM BOAT DRIVER PFO (patent foramen ovale) (HHS/HCC) TIA (transient ischemic attack) Essential hypertension Pituitary adenoma (CMS/HCC HHS/HCC) documented in this encounter Results * USE INTRACARDIAC ECHO (09/06/2020 9:44 AM BOAT DRIVER) Anatomical Region Laterality Modality Cardiac Echocardiogram 09/06/2020 9:44 AM BOAT DRIVER Narrative 09/06/2020 1:12 PM BOAT DRIVER ? Intracardiac Echocardiography Report Pat.Name: ??MATEUSZ HEARN ?Pat.ID: ?[id number] ? St.Date: ?? 09/06/2020 ? Refer.MD: ??BEBO NGUYEN GOLDSTEIN, JEFFREY M.D. Exam Time: 9:44:00 AM ?Study Type:INTRACARDIAC ECHO ?Age: ??1985,35Y ?Sex: ? FEMALE ? HR: ?100 bpm ? Sonogrphr: More Guajardo RDCS Jimmy Kusha RDCS Pat. Stat.:Inpatient ? Room: ?CCL 1 ? CPT - 4: ?88733 ? Reason for Study:PFO closure ? Procedures: 2D, 3 Dimensional imaging with full Doppler and color interigation, Doppler, Color Flow, Intraveneous saline contrast was used to help determine presence of intracardiac shunting., Intracardiac, The study quality is technically adequate. ++++++++++++++++++++++++++++++++++++ SUMMARY: ++++++++++++++++++++++++++++++++++++ Procedures: 2D and 4D (real-time 3D) Intracardiac echocardiography (Siemens AcuNav 4D Volumetric I.C.E. catheter) was used to facilitate the deployment of the PFO occluder device, including sizing of the PFO, positioning of the PFO occluder device, assessment of device deployment and residual shunt, and monitoring for procedural complications. ?? Pre-Deployment Imaging (2D and 4D I.C.E.) -Moderate ??size patent foramen ovale with left to right shunting by color Doppler (prior MIKA demonstrated R-to-L shunting with saline bubble study). -The left atrial size is normal. Right atrial size is normal. -Left atrial appendage shows no evidence of thrombus. -Trivial tricuspid regurgitation. -Normal size RV with normal contractility. -Normal mitral valve, trivial MR. Deployment/Post-Deployment -An #25mm Amplatzer PFO occluder device was successfully deployed into the PFO, and in proper position. There did not appear to be any significant residual ??shunting. -No pericardial effusion. ++++++++++++++++++++++++++++++++++++ FINDINGS: ++++++++++++++++++++++++++++++++++++ IAS: ?One catheter(s) was succesfully passed across the ?interatrial septum. 25mm Amplatzer successfully deployed ?with no residual shunt. JUDIT: ? No evidence of pericardial effusion. Signed 09/06/2020 01:12 PM Bebo Nguyen M.D. Procedure Note Bebo Nguyen MD - 09/06/2020 Intracardiac Echocardiography Report Pat.Name: MATEUSZ HEARN Pat.ID: [id number] .Date: 09/06/2020 Refer.MD: BEBO NGUYEN GOLDSTEIN, JEFFREY M.D. Exam Time: 9:44:00 AM Study Type:INTRACARDIAC ECHO Age: 9 1985,35Y Sex: FEMALE HR: 100 bpm Sonogrphr: oMre Guajardo [facility]ELA Vee [facility] Pat. Stat.:Inpatient Room: [facility] CPT - 4: 17766 Reason for Study:PFO closure Procedures: 2D, 3 Dimensional imaging with full Doppler and color interigation, Doppler, Color Flow, Intraveneous saline contrast was used to help determine presence of intracardiac shunting., Intracardiac, The study quality is technically adequate. ++++++++++++++++++++++++++++++++++++ SUMMARY: ++++++++++++++++++++++++++++++++++++ Procedures: 2D and 4D (real-time 3D) Intracardiac echocardiography (Siemens AcuNav 4D Volumetric I.C.E. catheter) was used to facilitate the deployment of the PFO occluder device, including sizing of the PFO, positioning of the PFO occluder device, assessment of device deployment and residual shunt, and monitoring for procedural complications. Pre-Deployment Imaging (2D and 4D I.C.E.) -Moderate size patent foramen ovale with left to right shunting by color Doppler (prior MIKA demonstrated R-to-L shunting with saline bubble study). -The left atrial size is normal. Right atrial size is normal. -Left atrial appendage shows no evidence of thrombus. -Trivial tricuspid regurgitation. -Normal size RV with normal contractility. -Normal mitral valve, trivial MR. Deployment/Post-Deployment -An #25mm Amplatzer PFO occluder device was successfully deployed into the PFO, and in proper position. There did not appear to be any significant residual shunting. -No pericardial effusion. ++++++++++++++++++++++++++++++++++++ FINDINGS: ++++++++++++++++++++++++++++++++++++ IAS: One catheter(s) was succesfully passed across the interatrial septum. 25mm Amplatzer successfully deployed with no residual shunt. JUDIT: No evidence of pericardial effusion. Signed 09/06/2020 01:12 PM Bebo Nguyen M.D. Bebo Nguyen MD ECHO Final Result documented in this encounter Visit Diagnoses Diagnosis PFO (patent foramen ovale) ([facility]) Ostium secundum type atrial septal defect TIA (transient ischemic attack) Unspecified transient cerebral ischemia Essential hypertension Unspecified essential hypertension Pituitary adenoma ([facility]/HCC HHS/HCC) Benign neoplasm of pituitary gland and craniopharyngeal duct (pouch) documented in this encounter Care Teams Area Operations Manager Relationship Specialty Start Date End Date Joel Durán MD [address] [place] [address] PCP - General FAMILY PRACTICE 03/30/20 Mary Bahena MD [address] [place] [address] Vascular Neurology 04/18/20 09/09/22 Jaguar Castaneda MD [address] [place] [address] Consulting Physician INTERVENTIONAL CARDIOLOGY 04/18/20 documented as of this encounter
--- OUTSIDE RECORDS SUMMARY | 2024-07-01 02:50 | XMS_ITS | Encounter Summary ---
Author Organization [facility] Address [address] [place] [address]. [place] [address] [place] [address] Care Team Providers Care Math And Sciences Department Chair Name Role Phone Joel Durán MD Primary Care Provider [phone] Mary Bahena MD Unavailable Jaguar Castaneda MD Unavailable Reason for Visit * Reason Onset Date Comments Advise 08/07/2020 Encounter Details Date Type Department Care Team ([facility] st Contact Info) Description 08/07/2020 Telephone [facility] [address] [place] [address] Jaguar Castaneda MD [address] [place] [address] Advise Social History Tobacco Use Types Packs/Day Years [...] COVID-19? No / Unsure 07/31/2020 10:19 AM MUSIC VIDEO DIRECTOR documented as of this encounter Functional Status [...] Progress Notes * Yolanda Quinones RN - 08/07/2020 3:35 PM CST Negative COVID Pt aware JMRN C VIDEO DIRECTOR * Janna Fatima RN - 08/07/2020 3:24 PM CST Pt called to double check the fax number for Dr Castaneda office. States having trouble getting thefax to go thru. Number verified as correct. Yanely state she will try again. Also gave alternate fax number as [phone]- 4th floor email campaign specialist main fax. She will try that if any more trouble with the 833 line. C VIDEO DIRECTOR * Tete Landis RN - 08/07/2020 1:02 PM CST Spoke to Yanely, she will have rapid test today at work and fax over letter with results. Patient verbalized understanding and has no further questions. C VIDEO DIRECTOR * Natacha Callaway RN - 08/07/2020 12:43 PM CST Yanely called and stated she went to [place] yesterday but missed their cutoff time for the Covid test. She had it this morning but it goes to [facility] and she is not convinced the results will be back before her scheduled MIKA. [place] where they test all the time and states they can do a quick test. She would like a callback at work at [phone] and will be there til 1500 today. C VIDEO DIRECTOR documented in this encounter Plan of Treatment Upcoming Encounters Date Type Department Care Team (Late st Contact Info) Description 09/23/2024 9:00 AM CDT Appointment [facility] Non Invasive Cardiology - [facility] [address] [place] [address] Jaguar Castaneda MD [address] [place] [address] 09/23/2024 10:00 AM CDT [facility] [address] [place] [address] Jaguar Castaneda MD [address] [place], [place] [address] documented as of this encounter Visit Diagnoses Not on filedocumented in this encounter Care Teams Math And Sciences Department Chair Relationship Specialty Start Date End Date Joel Durán MD [address] [place] [address] PCP - General FAMILY PRACTICE 03/30/20 Mary Bahena MD [address] [place] [address] Vascular Neurology 04/18/20 09/09/22 Jaguar Castaneda MD [address] [place] [address] Consulting Physician INTERVENTIONAL CARDIOLOGY 04/18/20 documented as of this encounter
--- OUTSIDE RECORDS SUMMARY | 2024-07-01 02:50 | XMS_ITS | Encounter Summary ---
Author Organization [facility] Address [address] [place] [address]. [place], [place] [address] [place] [address] Care Team Providers Care Yard Labor Supervisor Name Role Phone Joel Durán MD Primary Care Provider [phone] Mary Bahena MD Unavailable Sara Ly MD Unavailable [phone] Reason for Referral * Imaging (Routine) - Closed Specialty Diagnoses / Procedures Referred By Contac t Referred To Contact RADIOLOGY Diagnoses PFO (patent foramen ovale) ([facility]/HCC) Procedures USE TRANSESOPHAGEAL ECHO Sara Ly MD [address] [place] [address] Phone: tel: fax: Referral ID Status Reason Start Date Expiration Date Visits Re quested Visits Authorized [id number] Closed 05/02/2020 06/02/2021 1 1 GEMENT LIAISON Reason for Visit * Imaging (Routine) - Closed Specialty Diagnoses / Procedures Referred By Contac t Referred To Contact RADIOLOGY Diagnoses PFO (patent foramen ovale) ([facility]/HCC) Procedures USE TRANSESOPHAGEAL ECHO Sara Ly MD [address] [place] [address] Phone: tel: fax: Referral ID Status Reason Start Date Expiration Date Visits Re quested Visits Authorized [id number] Closed 05/02/2020 06/02/2021 1 1 Encounter Details Date Type Department Care Team (Latest Contact Info) Description 08/09/2020 8:21 AM ENGAGEMENT LIAISON - 08/09/2020 11:59 PM ENGAGEMENT LIAISON Hospital Encounter [facility] Non Invasive Cardiology - [facility] [address] [place] [address] Sara Ly MD [address] [place] [address] Discharge Disposition: Home or Self Care (Routine [...] COVID-19? No / Unsure 08/09/2020 8:19 AM ENGAGEMENT LIAISON documented as of this encounter Last Filed Vital Signs Vital Sign Reading Time Taken Comments Blood Pressure 116/79 08/09/2020 10:46 AM ENGAGEMENT LIAISON Pulse 107 08/09/2020 10:46 AM ENGAGEMENT LIAISON Temperature 36.5 ??C (97.7 ??F) 08/09/2020 9:00 AM CS T Respiratory Rate 12 08/09/2020 10:46 AM ENGAGEMENT LIAISON Oxygen Saturation 98% 08/09/2020 10:46 AM ENGAGEMENT LIAISON Inhaled Oxygen Concentration - - Weight 78.1 kg (172 lb 2.9 oz) 08/09/2020 9:00 A M ENGAGEMENT LIAISON Height 160 cm (5' 3 ) 08/09/2020 9:00 AM ENGAGEMENT LIAISON Body Mass Index 30.5 08/09/2020 9:00 AM ENGAGEMENT LIAISON documented in this encounter Functional Status * [...] 3:54 AM Marizol Winslow RN Active * Do you have difficulty [...] Winslow RN Active documented in this encounter Discharge Instructions * Attachments The following attachments cannot be sent through Care Everywhere. * Transesophageal Echocardiogram (French) * Moderate Sedation in Adults Discharge Instructions (French) documented in this encounter Medications at Time [...] as of this encounter Progress Notes * Yolanda Quinones RN - 08/09/2020 10:00 AM CST SEE MIKA By Dr Nguyen today GEMENT LIAISON documented in this encounter H&P Notes * Bebo Nguyen MD - 08/09/2020 10:00 AM CST HISTORY AND PHYSICAL INTERVAL NOTE: I have reviewed Mateusz Hearn History & Physical which was performed within the past 30 days. After examining Mateusz Hearn, no change has occurred in the patient's condition since the H&P was completed. Informed Consent Discussion: Potential benefits, risks, and side effects of the patient's procedure/surgery; the likelihood of the patient achieving his or her goals; and any potential problems that might occur during recuperation were discussed with the patient/family/personal correspondence representative. Reasonable alternatives to the patient's proposed procedure/surgery including benefits, risks, and side effects related to the alternatives and the risks related to not receiving the proposed care were also discussed with the patient/family/personal correspondence representative. Questions were answered and the patient/family/personal correspondence representative verbalized understanding and desires to proceed. GEMENT LIAISON Source Note - Haven Coburn MD - 07/31/2020 10:40 AM ENGAGEMENT LIAISON Hematology/Oncology Note Identifying Data Mateusz Hearn is a 35-year-old female Reason for Visit: Follow Up History of Present Illness: Ms Hearn is a 35-year-old female with history of HTN [on HCTZ for 7 years], was diagnosed with cryptogenic TIA in 04/2020. MRI brain with no acute infarcts. ECHO showed moderate PFO. Hypercoagulable work-up was negative including factor V Leiden, prothrombin gene mutation. Normal levels of protein C activity, protein S activity, AT III activity. Lupus anticoagulant, ACLA antibody IgG/IgM, beta-2 glycoprotein IgG/IgM negative. Neurology had recommended dual antiplatelet therapy with Plavix for lifetime given her young age. She was noted to have mildly elevated homocystine levels at 35. Today she returns for follow-up. She was tested positive for COVID-19 in 05/2020. MIKA is still pending. She had a wisdom tooth extraction in 07/2020 which has delaying the MIKA procedure. She denied any new headaches, vision changes, focal defects or seizure-like activities. No mucosal bleeding. She did notice slightly heavier menstrual cycles but not bothersome. ROS General: No symptoms Skin: No rash Head: No symptoms Nose/ Sinuses: No Symptoms Mouth and Throat: No Symptoms Neck: No Symptoms Respiratory: No symptoms Cardiac: No Symptoms Gastrointestinal: No symptoms Urinary: : No Symptoms Musculoskeletal: No symptoms Neurologic: No symptoms Hematologic/Lymphatic: No symptoms Psych: No symptoms Endocrine: No symptoms Pertinent History: Past Medical History: Diagnosis Date ??? HTN (hypertension) Pertinent family history includes Cancer in her maternal grandmother. Social History Socioeconomic History ??? Marital status: Single Spouse name: Not on file ??? Number of children: Not on file ??? Years of education: Not on file ??? Highest education level: Not on file Occupational History ??? Not on file Social Needs ??? Financial resource strain: Not on file ??? Food insecurity Worry: Not on file Inability: Not on file ??? Transportation needs Medical: Not on file Non-medical: Not on file Tobacco Use ??? Smoking status: Former Smoker Packs/day: 1.00 Years: 21.00 Pack years: 21.00 Quit date: 03/31/2020 Years since quittin.3 ??? Smokeless tobacco: Never Used Substance and Sexual Activity ??? Alcohol use: Yes Frequency: 2-4 times a month Comment: socially ??? Drug use: Never ??? Sexual activity: Not Currently Lifestyle ??? Physical activity Days per week: Not on file Minutes per session: Not on file ??? Stress: Not on file Relationships ??? Social connections Talks on phone: Not on file Gets together: Not on file Attends scientologist service: Not on file Active member of club or organization: Not on file Attends meetings of clubs or organizations: Not on file Relationship status: Not on file ??? Intimate partner violence Fear of current or ex partner: Not on file Emotionally abused: Not on file Physically abused: Not on file Forced sexual activity: Not on file Other Topics Concern ??? Not on file Social History Narrative ??? Not on file Past Surgical History: Procedure Laterality Date ??? SECTION Current Outpatient Medications Medication Sig Dispense Refill ??? atorvastatin 40 MG tablet Take 1 tablet (40 mg total) by mouth nightly at bedtime. 90 tablet 2 ??? clopidogrel 75 MG tablet Take 1 tablet (75 mg total) by mouth daily. 90 tablet 2 ??? hydroCHLOROthiazide 25 MG tablet Take 25 mg by mouth daily. No current facility-administered medications for this visit. No Known Allergies Patient Active Problem List Diagnosis ??? TIA (transient ischemic attack) ??? HTN (hypertension) ??? PFO (patent foramen ovale) ??? Pituitary adenoma (CMS/HCC) Vitals and ECOG Performance Status Height: 5' 3 (1.6 m) , Weight: 78.1 kg (172 lb 2.9 oz) , BSA (Calculated - sq m): 1.86 sq meters , BP: 133/86 , Temp: 97.2 ??F (36.2 ??C) , Pulse: 99 , Resp: 24 Physical Exam Constitutional General appearance: No acute [...] CBC: WBC Date Value Ref Range Status 03/31/2020 4.7 4.0 - 10.8 x10'3/uL Final HGB Date Value Ref Range Status 03/31/2020 12.2 12.0 - 16.0 G/DL Final HCT Date Value Ref Range Status 03/31/2020 37.7 36.0 - 47.0 % Final PLT Date Value Ref Range Status 03/31/2020 293 150 - 350 x10'3/uL Final CMP: CREATININE S/P/B Date Value Ref Range Status 03/31/2020 0.58 0.55 - 1.02 MG/DL Final BILIRUBIN TOTAL S/P/B Date Value Ref Range Status 03/31/2020 0.3 0.2 - 1.0 MG/DL Final Assessment and Plan 1. Cryptogenic TIA: No personal or family history of blood disorders. Echo with moderate PFO. [id number] history of smoking, quit in 03/2020]. Hypercoagulable panel was negative. -Agree with dual antiplatelet therapy in this young patient. -Again discussed about lifestyle modifications including dietary changes, physical activity. She quit smoking. -She is currently on vitamin B supplements which has folic acid. -Follow-up with cardiology for PFO closure. 2. Prominent pituitary gland hyperplasia: Recommended dynamic MRI pituitary protocol to rule out pituitary microadenoma. Clinically she is stable with no symptoms concerning for it. I will update herwith results. RTC in 1 year or sooner if needed. Advised of red flags. Counseling:The patient was counseled regarding risks and benefits of anticoagulation, lifestyle modification,,instructions for management,??prognosis ?? Time Spent: Approximately 20 minutes was spent in direct patient consultation and the majority of that time (>50%) was spent on counseling and coordination of care. Haven Coburn MD CC: PCP: Brant Durán MD GEMENT LIAISON documented in this encounter OR Notes * Pre-Sedation Assessment - Bebo Nguyen MD - 08/09/2020 10:00 AM ENGAGEMENT LIAISON Sedation Pre-Evaluation Reviewed the following in the patient's chart: Patient summary ECG Medications Labs Images/Studies Patient has no history sedation complication Past sedation history was obtained from patient. Written consent was given by the patient for today's procedure. Discussed the following risks for today's procedure: allergic reaction, dysrhythmia, inadequate sedation, nausea, prolonged hypoxia resulting in organ damage, prolonged sedation necessitating reversal, respiratory compromise necessitating ventilatory assistance and intubation and vomiting. Pre-Sedation Assessment The last time the patient had anything to eat or drink was 2400. Patient has an ASA score of: 2. The plan is to use moderate (conscious sedation) sedation for today's procedure. Physical Exam: Airway Status: Mallampati: II TM distance: >3 FB Neck ROM: normal Cardiovascular: Rhythm: regular Rate: normalNo murmur present Friction rub is absent Systolic click is absent Carotid bruit is not present JVD is absent Peripheral edema is absent Weak pulses are absent Pulmonary: normal Breath sounds clear to auscultation GEMENT LIAISON * Op Note - Bebo Nguyen MD - 08/09/2020 10:00 AM CST I performed a complete 2D/3D MIKA on Mateusz simental, with moderate conscious sedation for 26 min ([id number]). I personally supervised Laurel Baez R.N. and Sarita Lal R.N. who helped monitor the patient's level of consciousness, and physiologic status throughout the entire procedure. The procedure was well tolerated by the patient. No complications. Preliminary Results: See full report in [employer] Large PFO, with spontaneous right to left shunting. Normal pulmonary venous drainage into the left atrium. All of the cardiac chambers are normal in size. No thrombus in the left atrial appendage or elsewhere in the heart. All of the valves are structurally normal with normal function. Normal aortic root and thoracic aorta. No pericardial effusion. EBL: None Samples removed: None The procedure required significant intravenous sedation as the patient was anxious, difficult to sedate, and moving. In the future, recommend MAC anesthesia for MIKA's. No complications. Comments: large PFO, suitable for closure device. Bebo Nguyen MD, FACC, FRCPC [facility] GEMENT LIAISON GEMENT LIAISON documented in this encounter Plan of Treatment Upcoming Encounters Date Type Department Care Team (Late st Contact Info) Description 09/23/2024 9:00 AM CDT Appointment [facility] Non Invasive Cardiology - [facility] [address], [place] [id number] Sara Ly MD [address] [place] [address] 09/23/2024 10:00 AM CDT [facility] [address] [place] [address] Sara Ly MD [address] [place] [address] documented as of this encounter Procedures Procedure Name Priority Date/Time Associated Diagnosis Comments USE TRANSESOPHAGEAL ECHO Routine 08/09/2020 10:39 AM ENGAGEMENT LIAISON PFO (patent foramen ovale) ([facility]) TEST URINE Routine 08/09/2020 8:40 AM ENGAGEMENT LIAISON TIA (transient ischemic attack) documented in this encounter Results * USE TRANSESOPHAGEAL ECHO (08/09/2020 10:39 AM ENGAGEMENT LIAISON) Anatomical Region Laterality Modality Cardiac Echocardiogram, Cardiac Electrophysiology, Cardiac Electrophysiology 08/09/2020 9:25 AM ENGAGEMENT LIAISON Narrative 08/09/2020 2:40 PM ENGAGEMENT LIAISON ?Transesophageal Echocardiography Report Pat.Name: ??MATEUSZ HEARN ?Pat.ID: ?[id number] ? St.Date: ?? 08/09/2020 ?Refer.: ??SARA LY ? Exam Time: 9:25:00 AM ? Study Type:TRANSESOPHAGEAL ECHO (MIKA) Height: ?63in ?Weight: ?171.64lb ? BSA: ? 1.81 m2 ?Age: ??1985,35Y ? Sex: ? FEMALE ?HR: ?139 bpm ? Sonogrphr: Nita Fung RDCS, RVT Pat. Stat.:Outpatient ? CPT - 4: ?[id number] ? Reason for Study: PFO, TIA ? Procedures: ??2D, 3 Dimensional imaging with full Doppler and color interigation, Doppler, Color Flow, Transesophageal, Intraveneous saline contrast was used to help determine presence of intracardiac shunting. Race: ? ++++++++++++++++++++++++++++++++++++ SUMMARY: ++++++++++++++++++++++++++++++++++++ Large PFO with spontaneous right to left shunting. Measures 0.6 cm gap x 1.5 cm. wide. PFO is suitable for a closure device. Pulmonary veins are normal. The left ventricular systolic function is normal. Estimated left ventricular ejection fraction is 60-65%. Structurally normal valves with normal function. Normal thoracic aorta. ++++++++++++++++++++++++++++++++++++ FINDINGS: ++++++++++++++++++++++++++++++++++++ MIKA: ?The patient was counseled and an informed consent was ?obtained. ??The posterior pharynx was anesthetized. The ?patient ??was placed in a left lateral recumbent position and ?a ??plastic bite was inserted into the mouth. The ?transesophageal ??echo probe was inserted into the posterior ?pharynx ??and the esophagus was then intubated without ?difficulty. ??The patient tolerated the procedure well ?without ??any apparent complications. LV: ? The left ventricular size is normal. The left ventricular ?systolic ??function is normal. Estimated left ventricular ?ejection ??fraction is 60-65%. WM: ? Wall motion appears normal in all segments. LVOT: ? The left ventricular outflow tract size is normal. RV: ? The right ventricular size is normal. Right ventricular ?systolic ??function is normal. LA: ? The left atrial size is normal. RA: ? Right atrial size is normal. IAS: ?Large PFO with spontaneous right to left shunting. Measures ?0.6 ??cm x 1.5 cm. JUDIT: ? No evidence of pericardial effusion. AO: ? Normal aortic root. PVn: ?All four pulmonary veins are identified. Pulmonary veins are ?normal. AV: ? The aortic valve is trileaflet. No evidence of aortic valve ?stenosis. ??No evidence of aortic valve regurgitation. MV: ? Structurally normal mitral valve. No evidence of mitral ?regurgitation. ??No evidence of mitral stenosis. PV: ? The pulmonic valve is normal There is trace pulmonic ?regurgitation TV: ? The tricuspid valve appears structurally normal. There is ?trace ??tricuspid regurgitation. ++++++++++++++++++++++++++++++++++++ MIKA: ++++++++++++++++++++++++++++++++++++ Pre MIKA ?BP ?? HR ? Post MIKA ? BP ?? HR ?130/105 86 ? 126/67 109 Meds: ?Benzocaine spray was used with 2 sprays. Complications: None ? Condition: Good ? Comments: ??50 ? Signed 08/09/2020 02:40 PM Bebo Nguyen M.D. Procedure Note Bebo Nguyen MD - 08/09/2020 Transesophageal Echocardiography Report Pat.Name: MATEUSZ HEARN.ID: [id number] St.Date: 08/09/2020 Refer.MD: SARA LY Exam Time: 9:25:00 AM Study Type:TRANSESOPHAGEAL ECHO (MIKA) Height: 63in Weight: 171.64lb BSA: 1.81 m2 Age: 10 1985,35Y Sex: FEMALE HR: 139 bpm Sonogrphr: Nita Fung RDCS, RVT Pat. Stat.:Outpatient CPT - 4: [id number] Reason for Study: PFO, TIA Procedures: 2D, [...] normal function. Normal thoracic aorta. ++++++++++++++++++++++++++++++++++++ FINDINGS: ++++++++++++++++++++++++++++++++++++ MIKA: The patient was counseled and an [...] of pericardial effusion. AO: Normal aortic root. PVn: All four pulmonary veins are identified. Pulmonary veins [...] Signed 08/09/2020 02:40 PM Bebo Nguyen M.D. Sara Ly MD ECHO Final Res ult * TEST URINE (08/09/2020 8:40 AM ENGAGEMENT LIAISON) PREG TEST NEGATIVE 08/09/2020 9:16 AM ENGAGEMENT LIAISON [facility] URINE SPECIMEN FROM URETHRA / Unknown 08/09/2020 8:40 AM ENGAGEMENT LIAISON Sara Ly MD URINE ORDERABLES Final Re sult [facility] [address] [place] [address], [id number] documented in this encounter Visit Diagnoses Diagnosis TIA (transient ischemic attack)- Primary Unspecified transient cerebral ischemia PFO (patent foramen ovale) ([facility]) Ostium secundum type atrial septal defect documented in this encounter Administered Medications Inactive Administered Medications - up to 3 most recent administrations Medication Order MAR Action Action Date Dose Rate Site benzocaine 20 % (HURRICAINE) mouth solution Code/trauma/sedation medication, Starting on Melinda 08/09/20 at 0949, Until Melinda 08/09/20 at 0949 Given 08/09/2020 9:49 AM ENGAGEMENT LIAISON 2 sprays diphenhydrAMINE (BENADRYL) injection Code/trauma/sedation medication, Starting on Melinda 08/09/20 at 0950, Until Melinda 08/09/20 at 1008 Given 08/09/2020 10:08 AM ENGAGEMENT LIAISON 25 mg Given 08/09/2020 9:54 AM ENGAGEMENT LIAISON 25 mg Given 08/09/2020 9:50 AM ENGAGEMENT LIAISON 25 mg fentaNYL (SUBLIMAZE) injection Code/trauma/sedation medication, Starting on Melinda 08/09/20 at 0949, Until Melinda 08/09/20 at 1006 Given 08/09/2020 10:0 6 AM ENGAGEMENT LIAISON 25 mcg Given 08/09/2020 10:00 AM ENGAGEMENT LIAISON 25 mcg Given 08/09/2020 9:52 AM ENGAGEMENT LIAISON 25 mcg midazolam (VERSED) injection Code/trauma/sedation medication, Starting on Melinda 08/09/20 at 0949, Until Melinda 08/09/20 at 1016 Given 08/09/2020 10:16 AM ENGAGEMENT LIAISON 1 mg Given 08/09/2020 10:11 AM ENGAGEMENT LIAISON 1 mg Given 08/09/2020 10:05 AM ENGAGEMENT LIAISON 2 mg ondansetron (ZOFRAN) injection Code/trauma/sedation medication, Starting on Melinda 08/09/20 at 1000, Until Melinda 08/09/20 at 1000 Given 08/09/2020 10:00 AM ENGAGEMENT LIAISON 4 mg documented in this encounter Care Teams Yard Labor Supervisor Relationship Specialty Start Date End Date Joel Durán MD [address] [place] [address] PCP - General FAMILY PRACTICE 03/30/20 Mary Bahena MD [address] [place] [address] Vascular Neurology 04/18/20 09/09/22 Sara Ly MD [address] [place] [address] Consulting Physician INTERVENTIONAL CARDIOLOGY 04/18/20 documented as of this encounter
--- OUTSIDE RECORDS SUMMARY | 2024-07-01 02:50 | XMS_ITS | Encounter Summary ---
Author Organization [facility] Address [address] [place] [address]. [place] [address] [place] [address] Care Team Providers Care Senior Principal Software Engineer Name Role Phone Joel Durán MD Primary Care Provider [phone] Mary Bahena MD Unavailable Jaguar Castaneda MD Unavailable [phone] Billy Fernandez APRN Unavailable [phone] Encounter Details Date Type Department Care Team (Late st Contact Info) Description 08/30/2020 [employer] Message Enc [facility] [address] [place] [address] Jaguar Castaneda MD [address] [place] [address] RE: Medication Questions Social History Tobacco Use Types Packs/Day Years [...] COVID-19? No / Unsure 08/09/2020 8:19 AM MATTRESS AND BOXSPRINGS SUPERVISOR documented as of this encounter Functional [...] Info) Description 09/23/2024 9:00 AM CDT Appointment [facility] Non Invasive Cardiology - [facility] [address] [place] [address] Jaguar Castaneda MD [address] [place] [address] 09/23/2024 10:00 AM CDT Office Visit [facility] [address] [place] [address] Jaguar Castaneda MD [address] [place] [address] documented as of this encounter Visit Diagnoses Not on filedocumented in this encounter Additional Health Concerns Infection Onset Date Last Indicated Resolved Time COVID-19 Rule Out 09/03/2020 09/03/2020 09/04/2020 8:15 PM MATTRESS AND BOXSPRINGS SUPERVISOR documented as of this encounter Care Teams Senior Principal Software Engineer Relationship Specialty Start Date End Date Joel Durán MD [address] [place] [address] PCP - General FAMILY PRACTICE 03/30/20 Mary Bahena MD [address] [place] [address] Vascular Neurology 04/18/20 09/09/22 Jaguar Castaneda MD [address] [place] [address] Consulting Physician INTERVENTIONAL CARDIOLOGY 04/18/20 Billy Fernandez APRN [address] [address] Nurse Practitioner NURSE PRACTITIONER 09/10/22 documented as of this encounter
--- OUTSIDE RECORDS SUMMARY | 2024-07-01 02:50 | XMS_ITS | Encounter Summary ---
Author Organization [facility] Address [address] [place] [address]. [place] [address] [place] [address] Care Team Providers Care Nailing Machine Operator Name Role Phone Nathen Colvin MD Primary Care Provider [phone] Mary Bahena MD Unavailable Sara Ly MD Unavailable [phone] Reason for Visit * Reason Comments Follow Up Discuss PFO Closure Encounter Details Date Type Department Care Team (Late st Contact Info) Description 09/03/2020 12:00 PM HELMET HAT BRIM CUTTER Office Visit [facility] [address] [place] [address] Sara Ly MD [address], [place] [address] Follow Up (Discuss PFO Closure ) Social History Tobacco Use Types Packs/Day [...] COVID-19? No / Unsure 09/03/2020 11:24 AM HELMET HAT BRIM CUTTER documented as of this encounter Last Filed Vital Signs Vital Sign Reading Time Taken Comments Blood Pressure 135/87 09/03/2020 12:12 PM HELMET HAT BRIM CUTTER Pulse 91 09/03/2020 12:12 PM HELMET HAT BRIM CUTTER Temperature - - Respiratory Rate - - Oxygen Saturation 100% 09/03/2020 12:12 PM HELMET HAT BRIM CUTTER Inhaled Oxygen Concentration - - Weight 76.7 kg (169 lb) 09/03/2020 12:12 PM HELMET HAT BRIM CUTTER Height - - Body Mass Index 29.94 08/09/2020 9:00 AM HELMET HAT BRIM CUTTER documented in this encounter Functional Status * [...] AM VALENCIAT Marizol Waters RN Active * Because of [...] Progress Notes * Sara Ly MD - 09/03/2020 12:00 PM CST Reason for Visit: Follow Up (Discuss PFO Closure ) History of Present Illness: 35-year-old female with a history of cryptogenic TIA and PFO who presents for follow-up evaluation.Her transesophageal echocardiogram demonstrated a large patent foramen ovale. The patient denies angina, dyspnea, orthopnea, PND, palpitation, near syncope, or syncope. Recommendations and Plan: 1. Cryptogenic TIA and PFO. The risk and benefits of transcatheter PFO closure were discussed in detail with the patient. The risks, benefits, and alternatives were discussed in detail including, butnot limited to, heart attack, stroke, bleeding, infection, emergent operation, device failure, paralysis, permanent disability, and . Patient understands accepts the risks. The patient wishes toproceed. Follow-up after her procedure. Medications: Current Outpatient Medications: ??? aspirin 81 MG chewable tablet, Chew 81 mg by mouth daily., Disp: , Rfl: ??? atorvastatin 40 MG tablet, Take 1 tablet (40 mg total) by mouth nightly at bedtime., Disp: 90 tablet, Rfl: 2 ??? clopidogrel 75 MG tablet, Take 1 tablet (75 mg total) by mouth daily., Disp: 90 tablet, Rfl: 2 ??? hydroCHLOROthiazide [...] month Comment: socially ??? Drug use: Never Family [...] other systems reviewed and are negative. Vitals: 09/03/20 1212 BP: 135/87 Patient Position: Sitting BP Location: Left arm Pulse: 91 Weight: 76.7 kg (169 lb) Body mass index is 29.94 kg/m??. Cardiac Exam Rate/Rhythm: Normal rate and [...] findings. Diagnoses/Impression: 1. PFO (patent foramen ovale) ELECTROCARDIOGRAM 2. Essential hypertension Referring Provider: No ref. provider found PCP: NATHEN COLVIN MD ET HAT BRIM CUTTER documented in this encounter Plan of Treatment Upcoming Encounters Date Type Department Care Team (Late st Contact Info) Description 09/23/2024 9:00 AM CDT Appointment [facility] Non Invasive Cardiology - [facility] [address] [place] [address] Sara Ly MD [address] [place] [address] 09/23/2024 10:00 AM CDT Office Visit [facility] [address] [place] [address] Sara Ly MD [address] [place] [address] documented as of this encounter Procedures Procedure Name Priority Date/Time Associated Diagnosis Comments ELECTROCARDIOGRAM (NON MIDMARK ACQUIRED) Routine 09/03/2020 12:14 PM HELMET HAT BRIM CUTTER PFO (patent foramen ovale) (HHS/HCC) documented in this encounter Results * ELECTROCARDIOGRAM (09/03/2020 12:14 PM HELMET HAT BRIM CUTTER) 09/03/2020 12:1 4 PM HELMET HAT BRIM CUTTER Narrative [facility] - 09/04/2020 12:51 PM HELMET HAT BRIM CUTTER ? [facility] ?[address], [place] ??[address] ? Test Date: ?2020-09-03 Pat Name: ? YANELY HEARN ?Department: ? Room: ? Gender: ? Female ? Industrial Photographer: ?? pbac : ?1985 ? Requested By: SARA LY Order Number: [id number] ?Reading MD: ?? Sara Ly ? Measurements Intervals ?[place] ? Rate: ? 78 ? P: ?51 MN: ? 159 ?QRS: ?28 QRSD: ? 92 ? T: ?22 QT: ? 376 ? QTc: ?428 ? Interpretive Statements SINUS RHYTHM WITH SINUS ARRHYTHMIA MINIMAL ST DEPRESSION ET HAT BRIM CUTTER Procedure Note Sara Ly MD - 09/04/2020 [facility], [place] [address] [place] [address] Test Date: 2020-09-03 Pat Name: YANELY HEARN Department: Room: Gender: Female Industrial Photographer: pbac : 1985 Requested By: SARA LY Order Number: [id number] Reading MD: Sara Ly Measurements Intervals [place] Rate: 78 P: 51 MN: 159 QRS: 28 QRSD: 92 T: 22 QT: 376 QTc: 428 Interpretive Statements SINUS RHYTHM WITH SINUS ARRHYTHMIA MINIMAL ST DEPRESSION ET HAT BRIM CUTTER us Sara Ly MD PROCEDURES-ORDERABLE NO C RENU Final Result [facility] documented in this encounter Visit Diagnoses Diagnosis PFO (patent foramen ovale) ([facility])- Primary Ostium secundum type atrial septal defect Essential hypertension Unspecified essential hypertension documented in this encounter Additional Health Concerns Infection Onset Date Last Indicated Resolved Time COVID-19 Rule Out 09/03/2020 09/03/2020 09/04/2020 8:15 PM HELMET HAT BRIM CUTTER documented as of this encounter Care Teams Nailing Machine Operator Relationship Specialty Start Date End Date Nathen Colvin MD [address] [place] [address] PCP - General FAMILY PRACTICE 03/30/20 Mary Bahena MD [address] [place] [address] Vascular Neurology 04/18/20 09/09/22 Sara Ly MD [address] [place] [address] Consulting Physician INTERVENTIONAL CARDIOLOGY 04/18/20 documented as of this encounter
--- OUTSIDE RECORDS SUMMARY | 2024-07-01 02:50 | XMS_ITS | Encounter Summary ---
Author Organization [facility] Address [address] [place] [address]. [place] [address] [place] [address] Care Team Providers Care Tableau Administrator Name Role Phone Joel Durán MD Primary Care Provider Mary Bahena MD Unavailable Jaguar Castaneda MD Unavailable [phone] Reason for Referral * Imaging (Routine) - Closed Specialty Diagnoses / Procedures Referred By Contac t Referred To Contact RADIOLOGY Diagnoses PFO (patent foramen ovale) ([facility]) TIA (transient ischemic attack) Essential hypertension Pituitary adenoma ([facility]/HCC [facility]/HCC) Procedures XA ASD CLOSURE Jaguar Castaneda MD [address] [place] [address] Phone: tel: fax: Referral ID Status Reason Start Date Expiration Date Visits Re quested Visits Authorized [id number] Closed 08/14/2020 09/14/2021 1 1 SORTING SUPERVISOR Encounter Details Date Type Department Care Team (Late st Contact Info) Description 08/14/2020 Orders Only [facility] [address] [place] [address] Jaguar Castaneda MD [address] [place] [address] Social History Tobacco Use Types [...] COVID-19? No / Unsure 08/09/2020 8:19 AM MAIL SORTING SUPERVISOR documented as of this encounter Functional [...] Info) Description 09/23/2024 9:00 AM CDT Appointment [facility] Non Invasive Cardiology - [facility] [address] [place] [address] Jaguar Castaneda MD [address] [place], [place] [address] 09/23/2024 10:00 AM CDT Office Visit [facility] [address] [place] [address] Jaguar Castaneda MD [address] [place], [place] [address] documented as of this encounter Results * XA ASD CLOSURE (09/06/2020 10:39 AM MAIL SORTING SUPERVISOR) Anatomical Region Laterality Modality Cardiac Nursing Assistant 09/06/2020 10:0 0 AM MAIL SORTING SUPERVISOR us Jaguar Castaneda MD PRECISION FILER HAND Final Res ult * (ABNORMAL) CBC W/DIFF AUTOMATED (09/03/2020 11:39 AM MAIL SORTING SUPERVISOR) WBC 5.1 4.0 - 10.8 x10'3/uL 09/03/2020 12:03 PM MAIL SORTING SUPERVISOR [facility] RBC 4.73 4.10 - 5.40 x10'6/uL 09/03/2020 12:03 PM MAIL SORTING SUPERVISOR [facility] HGB 11.9(L) 12.0 - 16.0 G/DL 09/03/2020 12:03 PM [facility] HCT 37.8 36.0 - 47.0 % 09/03/2020 12:03 PM [facility] MCV 79.9 78.0 - 100.0 FL 09/03/2020 12:03 PM [facility] MCH 25.2(L) 27.0 - 31.0 PG 09/03/2020 12:03 PM [facility] MCHC 31.5(L) 33.0 - 36.0 G/DL 09/03/2020 12:03 PM [facility] RDW 14.2 11.5 - 14.5 % 09/03/2020 12:03 PM [facility] PLT 372(H) 150 - 350 x10'3/uL 09/03/2020 12:03 PM [facility] MPV 10.5(H) 7.4 - 10.4 FL 09/03/2020 12:03 PM [facility] ABS. NEUTROPHILS TOTAL 2.74 1.60 - 8.30 x10'3/uL 09/03/2020 12:03 PM [facility] ABS. LYMPHOCYTES 1.71 0.80 - 4.70 x10'3/uL 09/03/2020 12:03 PM [facility] ABS. MONOCYTES 0.59 0.00 - 1.50 x10'3/uL 09/03/2020 12:03 PM [facility] ABS. EOSINOPHILS 0.02 0.00 - 0.40 x10'3/uL 09/03/2020 12:03 PM [facility] ABS. BASOPHILS 0.02 0.00 - 0.20 x10'3/uL 09/03/2020 12:03 PM [facility] ABS. IMMATURE GRANULOCYTES 0.01 0.00 - 0.03 x10'3/uL 09/03/2020 12:03 PM [facility] ABS. NUCLEATED RBC'S 0.00 0.0 x10'3/uL 09/03/2020 12:03 PM [facility] 09/03/2020 11:3 9 AM MAIL SORTING SUPERVISOR us Jaguar Castaneda MD LABORATORY Final Res ult [facility] [address] [place] [address], [id number] * (ABNORMAL) BASIC METABOLIC PANEL (09/03/2020 11:39 AM MAIL SORTING SUPERVISOR) SODIUM S/P/B 138 136 - 145 MMOL/L 09/03/2020 12:26 PM [facility] POTASSIUM S/P/B 3.3(L) 3.5 - 5.1 MMOL/L 09/03/2020 12:26 PM [facility] CHLORIDE S/P/B 106 98 - 107 MMOL/L 09/03/2020 12:26 PM [facility] CO2 25.6 21.0 - 32.0 MMOL/L 09/03/2020 12:26 PM [facility] GLUCOSE 85 74 - 106 MG/DL 09/03/2020 12:26 PM [facility] BUN 14 7 - 18 MG/DL 09/03/2020 12:26 PM [facility] CREATININE S/P/B 0.70 0.55 - 1.02 MG/DL 09/03/2020 12:26 PM [facility] CALCIUM S/P/B 9.0 8.5 - 10.1 MG/DL 09/03/2020 12:26 PM [facility] ANION GAP 6.4 5.0 - 15.0 MMOL/L 09/03/2020 12:26 PM [facility] Comment:REFERENCE RANGE NOT ESTABLISHED OSMOLALITY (CALC) 286 MOSM/KG 021 12:26 PM [facility] Comment:REFERENCE RANGE NOT ESTABLISHED EGFR NON-AFR. AMER. >90 >90 ML/MIN/1. 73 M2 09/03/2020 12:26 PM [facility] EGFR AFR. AMER. >90 >90 ML/MIN/1. 73 M2 09/03/2020 12:26 PM MAIL SORTING SUPERVISOR [facility] GFR NOTES GFR REFERENCE S: 09/03/2020 12:26 PM MAIL SORTING SUPERVISOR [facility] Comment: THE ESTIMATED GFR IS CALCULATED [...] <15 ml/min/1.73 m2 09/03/2020 11:3 9 AM MAIL SORTING SUPERVISOR Jaguar Castaneda MD LABORATORY Final Res ult [facility] [address] [place] [address], [phone] documented in this encounter Visit Diagnoses Diagnosis PFO (patent foramen ovale) (HHS/HCC)- Primary Ostium secundum type atrial septal defect TIA (transient ischemic attack) Unspecified transient cerebral ischemia Essential hypertension Unspecified essential hypertension Pituitary adenoma (CMS/HCC HHS/HCC) Benign neoplasm of pituitary gland and craniopharyngeal duct (pouch) documented in this encounter Care Teams Tableau Administrator Relationship Specialty Start Date End Date Joel Durán MD [address] [place] [address] PCP - General FAMILY PRACTICE 03/30/20 Mary Bahena MD [address] [place] [address] Vascular Neurology 04/18/20 09/09/22 Jaguar Castaneda MD [address] [place] [address] Consulting Physician INTERVENTIONAL CARDIOLOGY 04/18/20 documented as of this encounter
--- OUTSIDE RECORDS SUMMARY | 2024-07-01 02:50 | XMS_ITS | Encounter Summary ---
Author Organization [facility] Address [address] [place] [address]. [place] [address] [place] [address] Care Team Providers Care Geospatial Developer Name Role Phone Joel Durán MD Primary Care Provider [phone] Mary Bahena MD Unavailable Jaguar Castaneda MD Unavailable [phone] Encounter Details Date Type Department Care Team (Late st Contact Info) Description 08/23/2020 Scan [facility] [address] [place] [address] Scanned, Documents Social History Tobacco Use Types Packs/Day Years [...] COVID-19? No / Unsure 08/09/2020 8:19 AM BRIQUETTING MACHINE OPERATOR documented as of this encounter Functional [...] Description 09/23/2024 9:[address] [facility] Non Invasive Cardiology - [facility] [address] [place] [address] Jaguar Castaneda MD [address] [place], [place] [address] 09/23/2024 10:00 AM CDT Office Visit [facility] [address] [place] [address] Jaguar Castaneda MD [address] [place], [place] [address] documented as of this encounter Visit Diagnoses Not on filedocumented in this encounter Care Teams Geospatial Developer Relationship Specialty Start Date End Date Joel Durán MD [address] [place] [address] PCP - General FAMILY PRACTICE 03/30/20 Mary Bahena MD [address] [place] [address] Vascular Neurology 04/18/20 09/09/22 Jaguar Castaneda MD [address] [place] [address] Consulting Physician INTERVENTIONAL CARDIOLOGY 04/18/20 documented as of this encounter
--- OUTSIDE RECORDS SUMMARY | 2024-07-01 02:50 | XMS_ITS | Encounter Summary ---
Author Organization [facility] Address [address] [place] [address]. [place], [place] [address] [place] [address] Care Team Providers Care Event Marketing Manager Name Role Phone Joel Durán MD Primary Care Provider [phone] Mary Bahena MD Unavailable Jaguar Castaneda MD Unavailable [phone] Encounter Details Date Type Department Care Team (Latest Contact Info) Description 08/09/2020 Travel Social History Tobacco Use Types Packs/Day [...] COVID-19? No / Unsure 08/09/2020 8:19 AM ULTRASOUND APPLICATIONS SPECIALIST documented as of this encounter Functional [...] Appointment [facility] Non Invasive Cardiology - [facility] [address] [place] [address] Jaguar Castaneda MD [address] [place] [address] 09/23/2024 10:00 AM CDT [facility] [address] [place] [address] Jaguar Castaneda MD [address] [place] [address] documented as of this encounter Visit Diagnoses Not on filedocumented in this encounter Care Teams Event Marketing Manager Relationship Specialty Start Date End Date Joel Durán MD [address] [place] [address] PCP - General FAMILY PRACTICE 03/30/20 Mary Bahena MD [address] [place] [address] Vascular Neurology 04/18/20 09/09/22 Jaguar Castaneda MD [address] [place] [address] Consulting Physician INTERVENTIONAL CARDIOLOGY 04/18/20 documented as of this encounter
--- OUTSIDE RECORDS SUMMARY | 2024-07-01 02:50 | XMS_ITS | Encounter Summary ---
Author Organization [facility] Address [address] [place] [address]. [place], [place] [address] [place] [address] Care Team Providers Care Crop Farmers Name Role Phone Joel Durán MD Primary Care Provider [phone] Mary Bahena MD Unavailable Jaguar Castaneda MD Unavailable [phone] Reason for Visit * Reason Onset Date Comments Abnormal Echocardiogram 08/09/2020 MIKA resu lts: please see attached report Encounter Details Date Type Department Care Team (Late st Contact Info) Description 08/09/[address] [facility] [address] [place] [address] Bebo Nguyen MD Abnormal Echocardiogram (MIKA results: please see attached report) Social History Tobacco Use Types Packs/Day Years [...] COVID-19? No / Unsure 08/09/2020 8:19 AM MACHINE PRECISION ENGRAVER documented as of this encounter Functional Status * RETIRED Are you deaf or do you have serious difficulty hearing Answer Date of Assessment Author Status No 03/31/2020 3:54 AM CDT Activ e * RETIRED Are you blind or do you have serious difficulty seeing, even when wearing glasses? Answer Date of Assessment Author Status No 03/31/2020 3:54 AM CDT Acti ve * Do you have serious [...] Progress Notes * Jaguar Castaneda MD - 08/11/2020 7:32 AM CST yep INE PRECISION ENGRAVER * Tete Ladnis RN - 08/09/2020 3:39 PM CST Schedule PFO closure? INE PRECISION ENGRAVER * Lubna Leary RN - 08/09/2020 3:30 PM CST EFRAIN INE PRECISION ENGRAVER * Bebo Nguyen MD - 08/09/2020 3:11 PM CST Yanely Ivy's MIKA revealed a large PFO, which spontaneously shunts bidirectionally. It is suitable for aclosure device. Samuel INE PRECISION ENGRAVER documented in this encounter Plan of Treatment Upcoming Encounters Date Type Department Care Team (Late st Contact Info) Description 09/23/2024 9:[address] [facility] Non Invasive Cardiology [facility] [address] [place] [address] Jaguar Castaneda MD [address] [place] [address] 09/23/2024 10:00 AM CDT [facility] [address] [place] [address] Jaguar Castaneda MD [address] [place] [address] documented as of this encounter Visit Diagnoses Not on filedocumented in this encounter Care Teams Crop Farmers Relationship Specialty Start Date End Date Joel Durán MD [address] [place] [address] PCP - General FAMILY PRACTICE 03/30/20 Mayr Bahena MD [address] [place] [address] Vascular Neurology 04/18/20 09/09/22 Jaguar Castaneda MD [address] [place] [address] Consulting Physician INTERVENTIONAL CARDIOLOGY 04/18/20 documented as of this encounter
--- OUTSIDE RECORDS SUMMARY | 2024-07-01 02:51 | XMS_ITS | Encounter Summary ---
Author Organization [facility] Address [address] [place] [address]. [place] [address] [place] [address] Care Team Providers Care Engraver Block Name Role Phone Joel Durán MD Primary Care Provider [phone] Mary Bahena MD Unavailable Jaguar Castaneda MD Unavailable [phone] Encounter Details Date Type Department Care Team (Late st Contact Info) Description 08/02/2020 Orders Only [facility] [address] [place], [place] [address] Jaguar Castaneda MD [address] [place], [place] [address] Social History Tobacco Use Types Packs/Day Years [...] COVID-19? No / Unsure 07/31/2020 10:19 AM DIRECTOR MARKET INTELLIGENCE documented as of this encounter Functional Status [...] Info) Description 09/23/2024 9:00 AM CDT Appointment [facility] Non Invasive Cardiology - [facility] [address] [place] [address] Jaguar Castaneda MD [address] [place] [address] 09/23/2024 10:00 AM CDT Office Visit [facility] [address] [place] [address] Jaguar Castaneda MD [address] [place] [address] documented as of this encounter Visit Diagnoses Diagnosis Pre-operative laboratory examination- Primary Pre-procedural laboratory examination documented in this encounter Care Teams Engraver Block Relationship Specialty Start Date End Date Joel Durán MD [address] [place] [address] PCP - General FAMILY PRACTICE 03/30/20 Mary Bahena MD [address] [place] [address] Vascular Neurology 04/18/20 09/09/22 Jaguar Castaneda MD [address] [place] [address] Consulting Physician INTERVENTIONAL CARDIOLOGY 04/18/20 documented as of this encounter
--- OUTSIDE RECORDS SUMMARY | 2024-07-01 02:51 | XMS_ITS | Encounter Summary ---
Author Organization [facility] Address [address] [place] [address]. [place] [address] [place] [address] Care Team Providers Care Bi Architect Name Role Phone Joel Durán MD Primary Care Provider [phone] Mary Bahena MD Unavailable Jaguar Castaneda MD Unavailable [phone] Reason for Visit * Reason Onset Date Comments Surgery Questions 05/03/2020 Encounter Details Date Type Department Care Team ([facility] st Contact Info) Description 05/03/2020 [facility]phone [facility] [address] [place] [address] Jaguar Castaneda MD [address] [place] [address] Surgery Questions Social History Tobacco Use Types Packs/Day [...] have Coronavirus / COVID-19? No / Unsure 04/30/2020 11:03 AM CDT documented as of this encounter [...] Progress Notes * Yolanda Quinones RN - 05/03/2020 9:18 AM CDT PT will get COVID at [facility] documented in this encounter Plan of Treatment Upcoming Encounters Date Type Department Care Team (Late st Contact Info) Description 09/23/2024 9:00 AM CDT Appointment [facility] Non Invasive Cardiology [facility] [address] [place] [address] Jaguar Castaneda MD [address] [place] [address] 09/23/2024 10:00 AM CDT [facility] [address] [place] [address] Jaguar Castaneda MD [address] [place] [address] documented as of this encounter Visit Diagnoses Not on filedocumented in this encounter Care Teams Bi Architect Relationship Specialty Start Date End Date Joel Durán MD [address] [place] [address] PCP - General FAMILY PRACTICE 03/30/20 Mary Bahena MD [address] [place] [address] Vascular Neurology 04/18/20 09/09/22 Jaguar Castaneda MD [address] [place] [address] Consulting Physician INTERVENTIONAL CARDIOLOGY 04/18/20 documented as of this encounter
--- OUTSIDE RECORDS SUMMARY | 2024-07-01 02:51 | XMS_ITS | Encounter Summary ---
Author Organization [facility] Address [address] [place] [address]. [place], [place] [address] [place] [address] Care Team Providers Care Resource Development Manager Name Role Phone Joel Durán MD Primary Care Provider [phone] Mary Bahena MD Unavailable Jaguar Castaneda MD Unavailable [phone] Encounter Details Date Type Department Care Team (Latest Contact Info) Description 04/17/2020 Scan [facility] Scanned, Documents Social History Tobacco Use Types Packs/Day Years Used Date Smoking Tobacco: Every Day Cigarettes Smokeless Tobacco: Never Alcohol Use Standard Drinks/Week Comments Not Currently 0 (1 standard drink = 0.6 oz pur e alcohol) AUDIT-C Answer Date Recorded Q1: How often [...] Author Status No 03/31/2020 3:54 AM CDT Mraizol Waters RN Active documented in this encounter Plan of Treatment Upcoming Encounters Date Type Department Care Team (Late st Contact Info) Description 09/23/2024 9:00 AM CDT Appointment [facility] Non Invasive Cardiology - [facility] [address] [place] [address] Jaguar Castaneda MD [address] [place] [address] 09/23/2024 10:00 AM CDT [facility] [address] [place] [address] Jaguar Castaneda MD [address] [place] [address] documented as of this encounter Visit Diagnoses Not on filedocumented in this encounter Care Teams Resource Development Manager Relationship Specialty Start Date End Date Joel Durán MD [address] [place] [address] PCP - General FAMILY PRACTICE 03/30/20 Mray Bahena MD [address] [place] [address] Vascular Neurology 04/18/20 09/09/22 Jaguar Castaneda MD [address] [place] [address] Consulting Physician INTERVENTIONAL CARDIOLOGY 04/18/20 documented as of this encounter
--- OUTSIDE RECORDS SUMMARY | 2024-07-01 02:51 | XMS_ITS | Encounter Summary ---
Author Organization [facility] Address [address] [place] [address]. [place] [address] [place] [address] Care Team Providers Care Administration Assistant Name Role Phone Joel Durán MD Primary Care Provider [phone] Mary Bahena MD Unavailable Jaguar Castaneda MD Unavailable [phone] Encounter Details Date Type Department Care Team (Late st Contact Info) Description 05/11/2020 Orders Only [facility] [address] [place], [place] [address] Jaguar Castaneda MD [address] [place], [place] [address] Social History Tobacco Use Types Packs/Day Years [...] Info) Description 09/23/2024 9:00 AM CDT Appointment [facility] Non Invasive Cardiology - [facility] [address] [place] [address] Jaguar Castaneda MD [address] [place], [place] [address] 09/23/2024 10:00 AM CDT [facility] [address] [place] [address] Jaguar Castaneda MD [address] [place] [address] documented as of this encounter Visit Diagnoses Diagnosis Pre-operative laboratory examination- Primary Pre-procedural laboratory examination documented in this encounter Care Teams Administration Assistant Relationship Specialty Start Date End Date Joel Durán MD [address] [place] [address] PCP - General FAMILY PRACTICE 03/30/20 Mary Bahena MD [address] [place] [address] Vascular Neurology 04/18/20 09/09/22 Jaguar Castaneda MD [address] [place] [address] Consulting Physician INTERVENTIONAL CARDIOLOGY 04/18/20 documented as of this encounter
--- OUTSIDE RECORDS SUMMARY | 2024-07-01 02:51 | XMS_ITS | Encounter Summary ---
Author Organization [facility] Address [address] [place] [address]. [place] [address] [place] [address] Care Team Providers Care Transmitter Supervisor Name Role Phone Joel Durán MD Primary Care Provider [phone] Mary Bahena MD Unavailable Jaguar Castaneda MD Unavailable [phone] Reason for Referral * Consultation (Routine) - Closed Specialty Diagnoses / Procedures Referred By Contac t Referred To Contact HEMATOLOGY/ONCOLOGY Diagnoses TIA (transient ischemic attack) Elevated Homocysteine Mary Bahena MD [address] [place] [address] Phone: tel: fax: Haven Coburn MD Phone: tel: fax: Referral ID Status Reason Start Date Expiration Date V isits Requested Visits Authorized [id number] Closed Specialty Services 2020 05/19/2021 100 100 Scheduling Instructions Patient had an elevated homocysteine Reason for Visit * Reason Onset Date Comments Results 2020 Encounter Details Date Type Department Care Team (Late st Contact Info) Description 2020 Telephone [facility] [place] [address] [address] Mary Bahena MD [address] [place] [id number] Results Social History Tobacco Use Types Packs/Day Years Used Date Smoking Tobacco: Every Day Cigarettes Smokeless Tobacco: Never Alcohol Use Standard Drinks/Week Comments Not Currently 0 (1 standard drink = 0.6 oz pur e alcohol) Comments No Sex and Gender Information Value [...] have Coronavirus / COVID-19? No / Unsure 04/17/2020 2:11 PM CDT documented as of this encounter Functional [...] documented in this encounter Progress Notes * Daisy Avila MA - 2020 2:26 PM CDT LM for the patient and stated that we are placing a referral for hematology. * Daisy Avila MA - 2020 2:24 PM CDT ----- Message from Mary Bahena MD sent at 2020 2:14 PM CDT ----- Please refer the patient to hematology. 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 documented in this encounter Plan of Treatment Upcoming Encounters Date Type Department Care Team (Late st Contact Info) Description 09/23/2024 9:00 AM CDT Appointment [facility] Non Invasive Cardiology - [facility] [address] [place] [address] Jaguar Castaneda MD [address] [place] [address] 09/23/2024 10:00 AM CDT Office Visit [facility] [address] [place] [address] Jaguar Castaneda MD [address] [place] [address] Scheduled Referrals Name Type Priority Associated Diagnoses Orde r Schedule Ambulatory referral to Hematology Referral Routine TIA (transient ischemic attack) Ordered: 2020 documented as of this encounter Visit Diagnoses Diagnosis TIA (transient ischemic attack)- Primary Unspecified transient cerebral ischemia documented in this encounter Care Teams Transmitter Supervisor Relationship Specialty Start Date End Date Joel Durán MD [address] [place] [address] PCP - General FAMILY PRACTICE 03/30/20 Mary Bahena MD [address] [place] [address] Vascular Neurology 04/18/20 09/09/22 Jaguar Castaneda MD [address] [place] [address] Consulting Physician INTERVENTIONAL CARDIOLOGY 04/18/20 documented as of this encounter
--- OUTSIDE RECORDS SUMMARY | 2024-07-01 02:51 | XMS_ITS | Encounter Summary ---
Author Organization [facility] Address [address] [place] [address]. [place] [address] [place] [address] Care Team Providers Care Welt Edge Rounder Name Role Phone Unavailable Primary Care Provider Unavailabl e Encounter Details Date Type Department Care Team (Late Contact Info) Description 12/11/2006 Abstract [facility] Emergency Room [address] [place] [address] Social History Tobacco Use Types Packs/Day Years Used Date Smoking Tobacco: Never Assessed Comments Unknown Sex and Gender Information Value Date Recorded Sex Assigned at Not on file Legal Sex Female 5:28 PM CDT Gender Identity Female 11/19/2021 10:17 AM CDT Sexual Orientation Straight 11/19/2021 10 :17 AM CDT documented as of this encounter Plan of Treatment Upcoming Encounters Date Type Department Care Team (Late Contact Info) Description 09/23/2024 9:[address] [facility] Non Invasive Cardiology - [facility] [address] [place] [address] Jaguar Castaneda MD [address] [place] [address] 09/23/2024 10:00 AM CDT [facility] [address] [place] [address] Jaguar Castaneda MD [address] [place] [address] documented as of this encounter Visit Diagnoses Not on filedocumented in this encounter
--- OUTSIDE RECORDS SUMMARY | 2024-07-01 02:51 | XMS_ITS | Encounter Summary ---
Author Organization [facility] Address [address] [place] [address]. [place] [address] [place] [address] Care Team Providers Care Food And Beverage Analyst Name Role Phone Joel Durán MD Primary Care Provider Mary Bahena MD Unavailable Jaguar Castaneda MD Unavailable [phone] Reason for Visit * Reason Onset Date Comments Other 04/19/2020 Event Monitor Encounter Details Date Type Department Care Team (Late st Contact Info) Description 04/19/2020 Telephone [facility] Neuroscience [place] [address], [place] [address] Aj Bahena, DO [facility] [address] [place] [address] Other (Event Monitor) Social History Tobacco Use Types Packs/Day Years [...] documented in this encounter Progress Notes * Carol Barnes MA - 04/19/2020 1:29 PM CDT LVM requesting patient return call to [facility] Dept - inquiring if pt received a monitor upon discharge from [facility] - If not we will send patient a Body Guardian. documented in this encounter Plan of Treatment Upcoming Encounters Date Type Department Care Team (Late st Contact Info) Description 09/23/2024 9:00 AM CDT Appointment [facility] - [facility] [address] [place] [address] Jaguar Castaneda MD [address] [place] [address] 09/23/2024 10:00 AM CDT Office Visit [facility] [address] [place] [address] Jaguar Castaneda MD [address] [place] [address] documented as of this encounter Visit Diagnoses Not on filedocumented in this encounter Care Teams Food And Beverage Analyst Relationship Specialty Start Date End Date Joel Durán MD [address] [place] [address] PCP - General FAMILY PRACTICE 03/30/20 Mary Bahena MD [address] [place] [address] Vascular Neurology 04/18/20 09/09/22 Jaguar Castaneda MD [address] [place] [address] Consulting Physician INTERVENTIONAL CARDIOLOGY 04/18/20 documented as of this encounter
--- OUTSIDE RECORDS SUMMARY | 2024-07-01 02:51 | XMS_ITS | Encounter Summary ---
Author Organization [facility] Address [address] [place] [address]. [place] [address] [place] [address] Care Team Providers Care Marketing Programs Manager Name Role Phone Joel Durán MD Primary Care Provider [phone] Mary Bahena MD Unavailable Jaguar Castaneda MD Unavailable [phone] Billy Fernandez APRN Unavailable [phone] Encounter Details Date Type Department Care Team (Late st Contact Info) Description 06/19/2020 [employer] Message Enc [facility] [address] [place] [address] Jaguar Castaneda MD [address] [place] [address] RE: Question Social History Tobacco [...] Appointment [facility] Non Invasive Cardiology - [facility] [address] [place] [address] Jaguar Castaneda MD [address] [place] [address] 09/23/2024 10:00 AM CDT Office Visit [facility] [address] [place] [address] Jaguar Castaneda MD [address] [place] [address] documented as of this encounter Visit Diagnoses Not on filedocumented in this encounter Additional Health Concerns Infection Onset Date Last Indicated Resolved Time COVID-19 Rule Out 08/07/2020 08/07/2020 08/07/2020 9:24 PM TOP WADDY COVID-19 Rule Out 09/03/2020 09/03/2020 09/04/2020 8:15 PM TOP WADDY documented as of this encounter Care Teams Marketing Programs Manager Relationship Specialty Start Date End Date Joel Durán MD [address] [place] [address] PCP - General FAMILY PRACTICE 03/30/20 Mary Bahena MD [address] [place] [address] Vascular Neurology 04/18/20 09/09/22 Jaguar Castaneda MD [address] [place] [address] Consulting Physician INTERVENTIONAL CARDIOLOGY 04/18/20 Billy Fernandez APRN [address] [address] Nurse Practitioner NURSE PRACTITIONER 09/10/22 documented as of this encounter
--- OUTSIDE RECORDS SUMMARY | 2024-07-01 02:51 | XMS_ITS | Encounter Summary ---
Author Organization [facility] Address [address] [place] [address]. [place] [address] [place] [address] Care Team Providers Care Audio Visual Secretary Name Role Phone Joel Durán MD Primary Care Provider [phone] Mary Bahena MD Unavailable Jaguar Castaneda MD Unavailable [phone] Reason for Visit * Reason Comments Follow Up Encounter Details Date Type Department Care Team (Late st Contact Info) Description 07/31/2020 10:40 AM CELL TUBER MACHINE Office Visit [facility] [place] [address] Haven Coburn MD [address] [place] [phone] Follow Up Social History Tobacco Use [...] COVID-19? No / Unsure 07/31/2020 10:19 AM CELL TUBER MACHINE documented as of this encounter Last Filed Vital Signs Vital Sign Reading Time Taken Comments Blood Pressure 133/86 07/31/2020 10:32 AM CELL TUBER MACHINE Pulse 99 07/31/2020 10:32 AM CELL TUBER MACHINE Temperature 36.2 ??C (97.2 ??F) 07/31/2020 10:[address] Respiratory Rate 24 07/31/2020 10:32 AM CELL TUBER MACHINE Oxygen Saturation - - Inhaled Oxygen Concentration - - Weight 78.1 kg (172 lb 2.9 oz) 07/31/2020 10:32 AM CELL TUBER MACHINE Height 160 cm (5' 3 ) 07/31/2020 10:32 AM CELL TUBER MACHINE Body Mass Index 30.5 07/31/2020 10:32 AM CELL TUBER MACHINE documented in this encounter Functional Status * [...] Progress Notes * Haven Coburn MD - 07/31/2020 10:40 AM CST Hematology/Oncology Note Identifying Data Yanely Helm is a 35-year-old female Reason for Visit: Follow Up History of Present Illness: Ms Helm is a 35-year-old female with history of [...] file Gets together: Not on file Attends cheondoism service: Not on file Active member of [...] of blood disorders. Echo with moderate PFO. [id number] history of smoking, quit in 03/2020]. Hypercoagulable [...] Coburn MD CC: PCP: Brant Durán MD TUBER MACHINE documented in this encounter Plan of Treatment Upcoming Encounters Date Type Department Care Team (Late st Contact Info) Description 09/23/2024 9:00 AM CDT Appointment [facility] Non Invasive Cardiology - [facility] [address] [place] [address] Jaguar Castaneda MD [address] [place] [address] 09/23/2024 10:00 AM CDT [facility] [address] [place] [address] Jaguar Castaneda MD [address] [place] [address] documented as of this encounter Visit Diagnoses Diagnosis TIA (transient ischemic attack)- Primary Unspecified transient cerebral ischemia 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
--- OUTSIDE RECORDS SUMMARY | 2024-07-01 02:51 | XMS_ITS | Encounter Summary ---
Author Organization [facility] Address [address] [place] [address]. [place], [place] [address] [place] [address] Care Team Providers Care Supervisor Sign Shop Name Role Phone Joel Colvin MD Primary Care Provider [phone] Mary Bahena MD Unavailable Sara Ly MD Unavailable [phone] Reason for Visit * Reason Comments Consult PFO * Consultation (Routine) - Closed Specialty Diagnoses / Procedures Referred By Contact Referred To Contact CARDIOLOGY / Cardiology Diagnoses TIA (transient ischemic attack) PFO (patent foramen ovale) ([facility]) Mary Bahena MD [address] [place] [address] Phone: tel: fax: Sara Ly MD [address] [place] [address] Phone: tel: fax: Referral ID Status Reason Start Date Expiration Date V isits Requested Visits Authorized [id number] Closed Specialty Services 04/17/2020 05/19/2021 99 99 Encounter Details Date Type Department Care Team ([facility] st Contact Info) Description 04/30/2020 1:30 PM CDT Office Visit [facility] [address] [place] [address] Sara Ly MD [address] [place] [address] Consult (PFO) Social History Tobacco Use Types Packs/Day Years [...] Sign Reading Time Taken Comments Blood Pressure 136/76 04/30/2020 1:22 PM CDT Pulse 98 04/30/2020 1:22 PM CDT Temperature - - Respiratory Rate 16 04/30/2020 1:22 PM CDT Oxygen Saturation 99% 04/30/2020 1:22 PM CDT Inhaled Oxygen Concentration - - Weight 81.9 kg (180 lb 9.6 oz) 04/30/2020 1:22 P M CDT Height 160 cm (5' 3 ) 04/30/2020 1:22 PM CDT Body Mass Index 31.99 04/30/2020 1:22 PM CDT documented in this encounter Functional [...] Progress Notes * Sara Ly MD - 04/30/2020 1:30 PM CDT Reason for Visit: Consult (PFO) History of Present Illness: 35-year-old female presents consultation for cryptogenic TIA and PFO. She recently suffered a TIA. Her echocardiogram demonstrated a patent foramen ovale. She had no recurrent events. The patient denies angina, dyspnea, orthopnea, PND, palpitation, near syncope, or syncope. Her EKG performed today demonstrates normal sinus rhythm inferior and anterior lateral repolarization abnormality. Recommendations and Plan: 1. Cryptogenic TIA and PFO. The natural history and therapeutic options were discussed the patient.We discussed the data supporting transcatheter PFO closure. The risks, benefits, and alternatives were discussed in detail including, but not limited to, heart attack, stroke, bleeding, infection, kaci rgent operation, device failure, paralysis, permanent disability, and . Patient understands accepts the risks. She remains undecided. We will proceed with a transesophageal echocardiogram to evaluate her atrial anatomy. Follow-up as determined by her MIKA and her decision. Medications: Current Outpatient Medications: ??? aspirin 81 MG chewable tablet, Chew 1 tablet (81 mg total) by mouth daily for 30 days., Disp: 30 tablet, Rfl: 0 ??? atorvastatin 40 MG tablet, Take 1 tablet (40 mg total) by mouth nightly at bedtime., Disp: 90 tablet, Rfl: 2 ??? clopidogrel 75 MG tablet, Take 1 tablet (75 mg total) by mouth daily., Disp: 90 tablet, Rfl: 2 ??? hydroCHLOROthiazide 25 MG tablet, Take 25 mg by mouth daily., Disp: , Rfl: ??? nicotine 14 MG/24HR, Place 1 patch (14 mg total) onto the skin daily for 30 days., Disp: 28 patch, Rfl: 0 No Known Allergies Past Medical History: Diagnosis Date ??? HTN (hypertension) Past Surgical History: Procedure Laterality Date ??? SECTION Social History Tobacco Use ??? Smoking status: Former Smoker Packs/day: 1.00 Years: 21.00 Pack years: 21.00 Quit date: 03/31/2020 Years since quittin.0 ??? Smokeless tobacco: Never Used Substance Use [...] new or significant bruising/bleeding and polydipsia. Psychiatric/Behavioral: Positive for nervous/anxious. Negative for depression and new or significant memory loss. All other systems reviewed and are negative. Vitals: 04/30/20 1322 BP: 136/76 Pulse: 98 Weight: 81.9 kg (180 lb 9.6 oz) Height: 5' 3 (1.6 m) Body mass index is 31.99 kg/m??. Cardiac Exam Rate/Rhythm: Normal rate and regular rhythm. PMI: PMI is not displaced. Pulses: Normal pulses. Femoral pulses are 2+ on the right side and 2+ on the left side. Heart Sounds: Normal heart sounds. Normal S1 sounds. Normal S2 sounds. No gallop present. No S3. NoS4. Murmurs: Comments: Physical Exam Constitutional: No distress. Healthy Appearance. [...] provider to reflect his/her findings. Diagnoses/Impression: 1. TIA (transient ischemic attack) ELECTROCARDIOGRAM 2. PFO (patent foramen ovale) ELECTROCARDIOGRAM 3. Essential hypertension ELECTROCARDIOGRAM Referring Provider: Mary Bahena MD PCP: JOEL COLVIN MD documented in this encounter Plan of Treatment Upcoming Encounters Date Type Department Care Team (Late st Contact Info) Description 09/23/2024 9:00 AM CDT Appointment [facility] Non Invasive Cardiology - [facility] [address] [place] [address] Sara Ly MD [address] [place] [address] 09/23/2024 10:00 AM CDT Office Visit [facility] [address] [place] [address] Sara Ly MD [address] [place], [place] [address] documented as of this encounter Procedures Procedure Name Priority Date/Time Associated Diagnosis Comments ELECTROCARDIOGRAM (NON MIDMARK ACQUIRED) Routine 04/30/2020 1:51 PM CDT TIA (transient ischemic attack) PFO (patent foramen ovale) ([facility]) Essential hypertension documented in this encounter Results * ELECTROCARDIOGRAM (04/30/2020 1:51 PM CDT) 04/30/2020 1:51 PM CDT Narrative STANDARD CARDIOVASCULAR - 05/08/2020 12:46 PM HEART SURGEON ? [facility] ?[address] [place], [place] ??[address] ? Test Date: ?2020-04-30 Pat Name: ? MATEUSZ HEARN ?Department: ? Room: ? Gender: ? Female ? Automatic Nailing Machine Feeder: ?? pbac : ?1985 ? Requested By: SARA LY Order Number: [id number] ?Reading MD: ?? Sara Ly ? Measurements Intervals ?[place] ? Rate: ? 72 ? P: ?44 [place]: ? 148 ?QRS: ?50 QRSD: ? 94 ? T: ?60 QT: ? 396 ? QTc: ?434 ? Interpretive Statements SINUS RHYTHM ST DEVIATION AND MODERATE T-WAVE ABNORMALITY, CONSIDER ANTEROLATERAL ISCHEMIA ST DEVIATION AND MODERATE T-WAVE ABNORMALITY, CONSIDER INFERIOR ISCHEMIA T SURGEON Procedure Note Sara Ly MD - 05/08/2020 [facility] [address] [place] [address] Test Date: 2020-04-30 Pat Name: MATEUSZ HEARN Department: Room: Gender: Female Automatic Nailing Machine Feeder: pbac : 1985 Requested By: SARA LY Order Number: [id number] Reading MD: Sara Ly Measurements Intervals [place] Rate: 72 P: 44 [place]: 148 QRS: 50 QRSD: 94 T: 60 QT: 396 QTc: 434 Interpretive Statements SINUS RHYTHM ST DEVIATION AND MODERATE T-WAVE ABNORMALITY, CONSIDER ANTEROLATERALISCHEMIA ST DEVIATION AND MODERATE T-WAVE ABNORMALITY, CONSIDER INFERIOR ISCHEMIA T SURGEON Sara Ly MD PROCEDURES-ORDERABLE NO C HARGE Final Result [facility] documented in this encounter Visit Diagnoses Diagnosis TIA (transient ischemic attack)- Primary Unspecified transient cerebral ischemia PFO (patent foramen ovale) ([facility]) Ostium secundum type atrial septal defect Essential hypertension Unspecified essential hypertension documented in this encounter Care Teams Supervisor Sign Shop Relationship Specialty Start Date End Date Joel Colvin MD [address] [place] [address] PCP - General FAMILY PRACTICE 03/30/20 Mary Bahena MD [address] [place] [address] Vascular Neurology 04/18/20 09/09/22 Sara Ly MD [address] [place] [address] Consulting Physician INTERVENTIONAL CARDIOLOGY 04/18/20 documented as of this encounter
--- OUTSIDE RECORDS SUMMARY | 2024-07-01 02:51 | XMS_ITS | Encounter Summary ---
Author Organization [facility] Address [address] [place] [address]. [place] [address] [place] [address] Care Team Providers [employer] Speech Therapist Name Role Phone Joel Durán MD Primary Care Provider [phone] Mary Bahena MD Unavailable Jaguar Castaneda MD Unavailable [phone] Reason for Visit * Reason Comments Consult Encounter Details Date Type Department Care Team (Late st Contact Info) Description 04/30/2020 10:40 AM CDT Initial Consult [facility] [address] [place] [address] Haven Coburn MD [address] [place] [address] Consult Social History Tobacco Use Types Packs/Day Years [...] Sign Reading Time Taken Comments Blood Pressure 130/58 04/30/2020 11:19 AM CDT Pulse 101 04/30/2020 11:19 AM CDT Temperature 37.5 ??C (99.5 ??F) 04/30/2020 11:19 AM C DT Respiratory Rate 16 04/30/2020 11:19 AM CDT Oxygen Saturation - - Inhaled Oxygen Concentration - - Weight 81.8 kg (180 lb 4.8 oz) 04/30/2020 11:19 AM CDT Height 160 cm (5' 3 ) 04/30/2020 11:19 AM CDT Body Mass Index 31.94 04/30/2020 11:19 AM CDT documented in this encounter Functional Status [...] Progress Notes * Haven Coburn MD - 04/30/2020 10:40 AM CDT Hematology/Oncology Note Identifying Data Yanely Helm is a 35-year-old female Reason for Consult: Consult Referring Physician: Dr Mary Bahena MD History of Present Illness: Ms Helm is a 35-year-old female with history of HTN [on HCTZ for 7 years], recently presented with complaints of sudden onset of slurring of speech, left-sided facial palsy, numbness and was diagnosed with TIA. MRI brain, CT head showed no evidence of acute ischemic stroke, diagnosed with pituitary microadenoma. CTA head and neck showed no evidence of stenosis. Echo showed moderate PFO. Neurology evaluated and she was started on dual antiplatelet therapy, Plavix for lifetime given her young age and TIA. Hypercoagulable work- up was ordered and she is here to follow-up on the same. Today she is accompanied by her mother to the clinic. She reports to be in her normal state of health until she noticed this at work. She has no focal defects, headaches, vision changes. Denies any fever, unintentional weight loss. She has no had any personal history or family history of blood clots. Maternal aunt with essential thrombocytosis, diagnosed at age 30. She had an uneventful with twins. No miscarriages or autoimmune disease in the family as well. She has [id number] history of smoking and quit smoking since this episode. Menstrual cycles regular, heavy during the first few days. Review of Systems Constitutional: Negative for malaise/fatigue and weight loss. HENT: Negative for congestion. Eyes: Negative. Respiratory: Negative for shortness of breath. Cardiovascular: Negative for chest pain and leg swelling. Gastrointestinal: Negative for blood in stool, constipation, heartburn and melena. Genitourinary: Negative. Musculoskeletal: Negative for falls. Skin: Negative. Neurological: Negative for dizziness and seizures. Endo/Heme/Allergies: Does not bruise/bleed easily. Psychiatric/Behavioral: The patient is not nervous/anxious. Pertinent History: Past Medical History: Diagnosis Date [...] quittin.0 ??? Smokeless tobacco: Never Used Substance and [...] file Gets together: Not on file Attends sikh service: Not on file Active member of [...] ??? aspirin 81 MG chewable tablet Chew 1 tablet (81 mg total) by mouth daily for 30 days. 30 tablet0 ??? atorvastatin 40 MG tablet Take 1 tablet (40 mg total) by mouth nightly at bedtime. 90 tablet 2 ??? clopidogrel 75 MG tablet Take 1 tablet (75 mg total) by mouth daily. 90 tablet 2 ??? hydroCHLOROthiazide 25 MG tablet Take 25 mg by mouth daily. ??? nicotine 14 MG/24HR Place 1 patch (14 mg total) onto the skin daily for 30 days. 28 patch 0 No current facility-administered medications for this visit. No Known Allergies Patient Active Problem List Diagnosis ??? TIA (transient ischemic attack) ??? HTN (hypertension) ??? PFO (patent foramen ovale) ??? Pituitary adenoma (CMS/HCC) Vitals and ECOG Performance Status Height: 5' 3 (1.6 m) , Weight: 81.9 kg (180 lb 9.6 oz) , BSA (Calculated - sq m): 1.91 sq meters , BP: 136/76 , Temp: 99.5 ??F (37.5 ??C) , Pulse: 98 , Resp: 16 Physical Exam Constitutional: General: She is not in acute distress. Appearance: Normal appearance. She is normal weight. HENT: Head: Normocephalic and atraumatic. Mouth/Throat: Pharynx: No oropharyngeal exudate. Eyes: General: No scleral icterus. Neck: Musculoskeletal: Normal range of motion and neck supple. No muscular tenderness. Cardiovascular: Rate and Rhythm: Normal rate and regular rhythm. Heart sounds: No murmur. Pulmonary: Effort: Pulmonary effort is normal. Breath sounds: Normal breath sounds. No wheezing. Abdominal: General: There is no distension. Palpations: Abdomen is soft. Tenderness: There is no abdominal tenderness. Musculoskeletal: Normal range of motion. General: No swelling. Skin: General: Skin is warm and dry. Coloration: Skin is not pale. Neurological: General: No focal deficit present. Mental Status: She is alert and oriented to person, place, and time. Psychiatric: Mood and Affect: Mood normal. Behavior: Behavior normal. Laboratory CBC: WBC Date Value Ref Range [...] 1.0 MG/DL Final Assessment and Plan 1. TIA in a young patient with no personal or family history of blood disorders. Echo with moderatePFO. [id number] history of smoking, quit now. -Hypercoagulable work-up is negative including factor V Leiden, prothrombin gene mutation. Normal levels of protein C activity, protein S activity, AT III activity. Lupus anticoagulant, ACLA antibodyIgG/IgM, beta-2 glycoprotein IgG/IgM negative. Normal platelet counts. Thrombin time, PT/PTT normal. -Mildly elevated homocystine levels at 35. We discussed about homocystinemia related cardiovasculardisease and no evidence of any VTE. Also interventions regarding lowering homocysteine levels did not show benefit in reducing the risk of cardiovascular disease but had very small benefit in stroke patients according to a small trial. -She is yet to follow-up with cardiology today for PFO management. -Continue with secondary prophylaxis from recommendations with neurology. On ASA, Plavix, Lipitor. -Commended on efforts with quitting smoking. She will make lifestyle modifications, including healthy exercise, activity, less saturated fat diet. - She was advised to take additional folic acid, B12 supplements. RTC in 3 months with CBC Time Spent: Approximately 45 minutes was spent in direct patient consultation and the majority of that time (>50%) was spent on counseling and coordination of care. Haven Coburn MD CC: PCP: Joel Durán MD documented in this encounter Plan of Treatment Upcoming Encounters Date Type Department Care Team (Late st Contact Info) Description 09/23/2024 9:00 AM CDT Appointment [facility] [address] [place] [address] Jaguar Castaneda MD [address] [place] [address] 09/23/2024 10:00 AM CDT Office Visit [facility] [address] [place] [address] Jaguar Castaneda MD [address] [place] [address] documented as of this encounter Visit Diagnoses Diagnosis TIA (transient ischemic attack)- Primary Unspecified transient cerebral ischemia documented in this encounter Care Teams School Speech Therapist Relationship Specialty Start Date End Date Joel Durán MD [address] [place] [address] PCP - General FAMILY PRACTICE 03/30/20 Mary Bahena MD [address] [place] [address] Vascular Neurology 04/18/20 09/09/22 Jaguar Castaneda MD [address] [place] [address] Consulting Physician INTERVENTIONAL CARDIOLOGY 04/18/20 documented as of this encounter
--- OUTSIDE RECORDS SUMMARY | 2024-07-01 02:51 | XMS_ITS | Encounter Summary ---
Author Organization [facility] Address [address] [place] [address]. [place] [id number] [place] [id number] Care Team Providers Care Radiation Protection Technician Name Role Phone Joel Colvin MD Primary Care Provider [phone] Reason for Referral * (Routine) - Closed Specialty Diagnoses / Procedures Referred By Contac t Referred To Contact Procedures SEQUENCING MACHINE OPERATOR eval and treat Sujit Ward MD [address] [place], [place] [id number] Phone: tel: fax: Referral ID Status Reason Start Date Expiration Date Visits Re quested Visits Authorized [id number] Closed 03/31/2020 04/30/2021 1 1 * Imaging (Routine) - Closed Specialty Diagnoses / Procedures Referred By Contac t Referred To Contact RADIOLOGY Procedures USE ECHOCARDIOGRAM Lilia Hunter MD Phone: tel: fax: Referral ID Status Reason Start Date Expiration Date Visits Re quested Visits Authorized [id number] Closed 03/31/2020 04/30/2021 1 1 * (Routine) - Closed Specialty Diagnoses / Procedures Referred By Contac t Referred To Contact Procedures EVENT MONITOR 30 DAYS Lilia Hunter MD Phone: tel: fax: Referral ID Status Reason Start Date Expiration Date Visits Re quested Visits Authorized [id number] Closed 03/31/2020 04/30/2021 1 1 * (Routine) - Closed Specialty Diagnoses / Procedures Referred By Contac t Referred To Contact Procedures OT eval and treat Amie Aviles, STUDENT DRIVING INSTRUCTOR [address] [address] Phone: tel: fax: Referral ID Status Reason Start Date Expiration Date Visits Re quested Visits Authorized [id number] Closed 03/31/2020 04/30/2021 1 1 * (Routine) - Closed Specialty Diagnoses / Procedures Referred By Contac t Referred To Contact Procedures PT eval and treat Amie Aviles, STUDENT DRIVING INSTRUCTOR [address] [address] Phone: tel: fax: Referral ID Status Reason Start Date Expiration Date Visits Re quested Visits Authorized [id number] Closed 03/31/2020 04/30/2021 1 1 * Imaging (Urgent) - Closed Specialty Diagnoses / Procedures Referred By Contac t Referred To Contact RADIOLOGY Procedures CTA HEAD+NECK [facility] [address] [place] [address] Phone: tel: Referral ID Status Reason Start Date Expiration Date Visits Re quested Visits Authorized [id number] Closed 03/31/2020 04/30/2021 1 1 * Imaging (Urgent) - Closed Specialty Diagnoses / Procedures Referred By Contac t Referred To Contact RADIOLOGY Procedures MRI BRAIN WO CON [facility] [address] [place] [address] Phone: tel: Referral ID Status Reason Start Date Expiration Date Visits Re quested Visits Authorized [id number] Closed 03/31/2020 04/30/2021 1 1 Reason for Visit * Auth/Cert Specialty Diagnoses / Procedures Referred By Contac t Referred To Contact Diagnoses TIA Stroke-like symptoms TIA (transient ischemic attack) TIA (transient ischemic attack) Procedures GENERAL Referral ID Status Reason Start Date Expiration Date Visits Re quested Visits Authorized [id number] 1 1 Encounter Details Date Type Department Care Team (Latest Contact Info) Description 03/31/2020 3:54 AM CDT - 04/01/2020 3:40 PM CDT Hospital Encounter [place] [address] [place] [address] Russell Grissom Jr., MD [address] [place] [address] Discharge Disposition: Home or Self Care (Routine [...] have Coronavirus / COVID-19? No / Unsure 03/31/2020 4:03 AM CDT documented as of this encounter Last Filed Vital Signs Vital Sign Reading Time Taken Comments Blood Pressure 128/80 04/01/2020 11:48 AM CDT Pulse 65 04/01/2020 11:48 AM CDT Temperature 36.5 ??C (97.7 ??F) 03/31/2020 11:59 PM C DT Respiratory Rate 16 03/31/2020 11:59 PM CDT Oxygen Saturation 97% 04/01/2020 11:48 AM CDT Inhaled Oxygen Concentration - - Weight 83.5 kg (184 lb 1.4 oz) 04/01/2020 5:00 A M CDT Height 157.5 cm (5' 2 ) 03/31/2020 3:59 AM CDT Body Mass Index 33.67 03/31/2020 3:59 AM CDT documented in this encounter Functional Status * Question Answer Date of Assessment Author Status Do you have serious difficulty walking or climbing stairs? No 03/31/2020 3:54 AM VALENCIAT Marizol Waters RN A ctive * Question Answer Date of Assessment Author Status Do you have difficulty dressing or bathing? No 03/31/2020 3:54 AM Marizol Winslow RN Active Because of a physical, mental, or emotional condition, do you have difficulty doing errands alone such as visiting a doctor's office or shopping? No 03/31/2020 3:54 AM Marizol Winslow RN Ac tive * RETIRED Are you deaf or do [...] difficulty concentrating, remembering, or making decisions? No 03/31/2020 3:54 AM Marizol Winslow RN Active * Because of a physical, mental, or emotional condition, do you have serious difficulty concentrating, remembering, or making decisions? Answer Entry Date Author Status No 03/31/2020 3:54 AM VALENCIAT Marizol Waters RN Active documented in this encounter Discharge Summaries * Sujit Ward MD - 04/01/2020 1:29 PM CDT Physician Discharge Summary Patient ID: Mateusz Hearn [id number] 34-year-old 1985 Primary Care Physician: JOEL COLVIN MD Admit date: 03/31/2020 Expected Discharge Date: 04/01/2020 Admitting Physician: Russell Grissom Jr., MD Discharge Physician: Sujit Ward Admission Diagnoses: TIA Stroke-like symptoms TIA (transient ischemic attack) TIA (transient ischemic attack) Discharge Diagnoses: Transient Ischemic Attack, Dyslipidemia, Active smoker, Moderate sized patent foramen ovale Admission Condition: fair Discharged Condition: good Indication for Admission: stroke Hospital Course: Patient is a 34 year old female with a past medical history of hypertension and current everyday smoking. She present to [facility] ED in [place], [place] stating she experienced numbness in her left arm, slurred speech, and facial droop on the left side of her face. Symptoms lasted for approximatelyone minute. She denied any chest pain, shortness of breath, lightheadedness, headache, nausea, or vomiting at time of symptoms and currently. She also denies any recent confusion, difficulty word finding, or dizziness. She is alert and oriented x 4 or presentation to [facility] with equal strength x4 and no focal deficients, she is in no distress and has no complaints on assessment. Patient states she has been compliant on taking her hydrochlorothiazide daily. She states she has never been diagnosed with anxiety nor is she prescribed anything to treat is, but she does experience anxiety frequently. She states she is not experiencing any more stress than normal. She denies any recent fevers,vision changes, cough, dysuria, hematuria, melena, diarrhea, abdominal pain. She denies any illicitdrug use, but does she does drink occasionally. Neurology service was consulted over the phone. Patient was given aspirin and Plavix loading doses.Patient was transferred to [facility] for further management. Patient underwent CT head and neck and MRI of the brain that showed: No evidence of obstruction in the proximal portion of the moapa of [place] but did show diminutive P1/P2 segment of the right posterior cerebral artery. 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 Neurology service evaluated the patient and recommended stroke work-up. LDL was 124. A1c was 5.3. Echocardiogram showed moderate sized patent drew ovale.PT/OT and speech therapy evaluated the patient and recommended the patient a general diet and activity. I discussed the case with Dr. Xiong and the he recommended outpatient follow-up for moderate-sizedPFO and would like to see the patient in the clinic. I discussed the plan of care with the patient in detail. She voiced understanding. I did smoking cessation counseling. Patient requested for nicotine patches and I ordered nicotine patches. Patient will go home on aspirin for 30 days, Plavix for lifelong, atorvastatin at bedtime. Patient will follow-up with the neurology service for follow-up for stroke and microadenoma. Patient will need follow-up with primary care physician and I advised her to call her primary care physician office. She voiced understanding. Time spent discharge planning, management, coordination of care is 45 minutes. Consults: neurology Code Status: Full Code Procedures: Procedures (From admission, onward) MRI BRAIN WO CON Today CTA HEAD+NECK Today EVENT MONITOR 30 DAYS Routine USE ECHOCARDIOGRAM Routine LIPOPROTEIN, LDL CHOL, DIRECT Routine HEMOGLOBIN GLYCOSYLATED Routine COMPREHENSIVE METABOLIC PANEL Routine CBC W/DIFF AUTOMATED Routine MAGNESIUM Routine Referrals: No orders of the defined types were placed in this encounter. Significant Diagnostic Studies: labs: Treatments: IV hydration Discharge Exam: Constitutional: She is oriented to person, place, and time and well-developed, well-nourished, and in no distress. HENT: Head: Normocephalic and atraumatic. Eyes: Pupils are equal, round, and reactive to light. Neck: Neck supple. Cardiovascular: Normal rate, regular rhythm and normal heart sounds. Pulmonary/Chest: Effort normal and breath sounds normal. No respiratory distress. She has no wheezes. Abdominal: Soft. Bowel sounds are normal. She exhibits no distension. Musculoskeletal: Normal range of motion. She exhibits no edema. Neurological: She is alert and oriented to person, place, and time. She displays normal reflexes. No cranial nerve deficit. She exhibits normal muscle tone. Coordination normal. Skin: Skin is warm and dry. Psychiatric: Affect and judgment normal. Disposition: Other Short Term or Acute Care Hospital Patient Instructions: Current Discharge Medication List START taking these medications Details aspirin 81 MG chewable tablet Chew 1 tablet (81 mg total) by mouth daily for 30 days. Qty: 30 tablet, Refills: 0 atorvastatin 40 MG tablet Take 1 tablet (40 mg total) by mouth nightly at bedtime. Qty: 90 tablet, Refills: 2 clopidogrel 75 MG tablet Take 1 tablet (75 mg total) by mouth daily. Qty: 90 tablet, Refills: 2 nicotine 14 MG/24HR Place 1 patch (14 mg total) onto the skin daily for 30 days. Qty: 28 patch, Refills: 0 CONTINUE these medications which have NOT CHANGED Details hydroCHLOROthiazide 25 MG tablet Take 25 mg by mouth daily. Activity: activity as tolerated Diet: low fat, low cholesterol diet Signed: SUJIT WARD MD 04/01/2020 1:29 PM documented in this encounter Discharge Instructions * Discharge Instructions* Sujit Ward MD - 04/01/2020 1:36 PM CDT Take aspirin 1 tablet daily for 1 month Please take Plavix 1 tablet daily for lifelong Please take atorvastatin 40 mg p.o. bedtime daily at nighttime. The medication can cause muscle aches and body pain. Please stop taking medication if you develop any adverse reaction to cholesterol pill. Please monitor your stools for any potential blood in stools or bleeding gums as you are on 2 bloodthinning medications for 1 month Your echocardiogram showed moderate sized patent foramen ovale. I discussed with the neurologist Dr. Xiong and he will follow-up with you for echocardiogram results. Please follow-up with Dr. puga April 17, 2020 at 2:20 PM. Please follow-up with your primary care physician Please stop smoking. I ordered nicotine patch. Please use 1 nicotine patch daily to prevent nicotine craving Please come back to the ER if you develop any new symptoms concerning for stroke. MRI brain showed microadenoma 8 mm in size. Please follow-up with neurology service for microadenoma. documented in this encounter Medications at Time of Discharge atorvastatin 40 MG tablet Take 1 tablet (40 mg total) by mouth nightly at bedtime. 90 tablet 2 04/01/2020 hydroCHLOROthiazi de 25 MG tablet Take 25 mg by mouth daily. 03/07/2020 aspirin 81 MG chewable tablet Chew 1 tablet (81 mg total) by mouth daily for 30 days. 30 tablet 04/02/2020 05/02/2020 clopidogrel 75 MG tablet Take 1 tablet (75 mg total) by mouth daily. 90 tablet 2 04/02/2020 03/07/2021 nicotine 14 MG/24HR Place 1 patch (14 mg total) onto the skin daily for 30 days. 28 patch 04/01/2020 05/01/2020 documented as of this encounter Progress Notes * Kentrell Santoro RP - 04/01/2020 1:36 PM CDT Pharmacy Clinical Services: Stroke Discharge Note Mateusz Hearn will be discharged on 04/01/2020. Pharmacy had been consulted to review the patient's chart for medication appropriateness upon discharge for meeting stroke core measures. 1. Antithrombotic therapy: aspirin 81 mg and clopidogrel. 2. Statin therapy: atorvastatin 40 mg daily DIRECT LDL Date Value Ref Range Status 03/31/2020 124 MG/DL Final Comment: 100-129 NEAR OR ABOVE OPTIMAL 3. Documented A.Fib/flutter?: No; Anticoagulation therapy: none indicated Stroke measures have been met and medications are appropriate upon discharge. Thank you for the consult. NICO YANG [facility] Phone number: [phone] 04/01/2020 1:36 PM * Hodan Henry RN - 04/01/2020 7:48 AM CDT Problem: Reduced risk for falls/injury Goal: Reduced Risk for Falls/Injury Outcome: Met This Shift Goal: Reduced Risk of Altered Elimination Outcome: Met This Shift Goal: Reduced Risk of Dizziness/Vertigo/Balance Outcome: Met This Shift * Jigar Quiñonez RRT - 03/31/2020 11:49 PM CDT Patient does not wear HCPAP. Order taken out. * Ban Kat, MODESTA - 03/31/2020 3:37 PM CDT SEQUENCING MACHINE OPERATOR Initial Stroke Evaluation Diet Recommendation: General Diet Brief Note: Patient presents with functional and baseline oral-motor, swallowing, speech and cognitive-linguistic skills. Past Functional History: This patient resides at her home with her and 15 year old twins. 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 Time In: 1455 Time Out: 1510 Total Time: 15 minutes Objective: This patient was seen at bedside for initial swallowing evaluation. Patient accepted trials of thin and solid consistencies. Oral mechanism--Tongue protruded to midline and retracted and lateralized with adequate strength and range. Lips protruded and retracted with adequate strength and range. Adequate range of motion of jaw. There was no appreciable facial droop. Oral phase--Adequate lip seal around spoon and straw. Timely and complete anterior-posterior transit. No leakage, spillage or pocketing. Pharyngeal phase--Timely trigger of the pharyngeal swallow. Clinically adequate hyolaryngeal elevation. No clinical signs/symptoms of aspiration including choking, coughing or wet respiration. This patient was seen at bedside for cognitive evaluation. The UMS Examination ([facility] Mental Status Examination) was administered. This examination ranks patient???s performance on a scale of normal (range of scores 25-30) to mild neurocognitive disorder ( 20-24) and dementia (1-19) Patient scored 29 out of 30 on this test, which is suggestive of normal cognitive-linguistic functioning. Education completed with patient and her . They indicated understanding. Assessment: Patient presents with functional swallowing, speech and cognitive- linguistic skills. 03/31/20 1500 Therapy Visit SEQUENCING MACHINE OPERATOR Received on 03/31/20 Subjective Patient was alert upon this science writer's arrival. Her was at bedside. Patient indicated that her symptoms have resolved. Reason for Admission TIA Comorbidities Relevant for SEQUENCING MACHINE OPERATOR Per EMR, patient presented to [facility] via EMS due to sudden onset of left arm numbness, slurred speech, left side facial droop. All symptoms resolved before EMS arrived. Patient was found to have TIA, hyopkalemia and HTN. Prior Level of Function Patient is independent. She lives with her and 15 year old twins. 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 Verified Two Patient Identifiers Yes Patient consents to Therapy Yes Acute Inpatient SEQUENCING MACHINE OPERATOR Time Calculation SEQUENCING MACHINE OPERATOR Start Time 1455 SEQUENCING MACHINE OPERATOR Stop Time 1510 SEQUENCING MACHINE OPERATOR Time Calculation (min) 15 min Pain Pain No Pain score 0 SEQUENCING MACHINE OPERATOR Recommendations Recommendations No skilled SEQUENCING MACHINE OPERATOR Recommended Diet Change No Previous Diet general diet Recommended Solid Diet Regular Recommended Liquid Consistency Thin Recommended Medication Form Whole Plan Progress Discontinue SEQUENCING MACHINE OPERATOR SEQUENCING MACHINE OPERATOR Frequency One time visit SEQUENCING MACHINE OPERATOR Plan for Next Session This is an evaluation only. Please re-consult if patient's status changes. SEQUENCING MACHINE OPERATOR Next Appointment 03/31/20 If this is the last treatment note, it will serve as the discharge summary Yes End of Session Safety End of Session Safety Nursing aware of session;Family/friend present with patient * Lawrence España, PT - 03/31/2020 11:12 AM CDT PT Initial Evaluation Discharge Recommendation: Home independent DME equipment recommendation: none Activity Recommendation for practice assistant: Up Ad Salma 03/31/20 1103 Therapy Visit Ordering Provider Amie Aviles NP PT Received On 03/31/20 Subjective RN ok'd session, pt sitting upright with legs crossed in bed upon arrival and agreeable. Reason for admission Pt is a 34 yo female who presents with numbness in her left arm, slurred speech, and facial droop on the left side of her face. Upon arrival symptoms had resolved-awaiting imaging...PMH: HTN, csection...Eval and tx, up with assistance, amb pt, activity as tolerated Verified Two Patient Identifiers Yes Patient consents to therapy Yes Acute Inpatient PT Time Calculation PT Start Time 1103 PT Stop Time 1112 PT Time Calculation (min) 9 min Precautions Instructed on Precautions Yes;Verbalizes understanding Home Living Type of Home House Home Layout One level;Performs ADL's on one level;Able to live on main level with bedroom/bathroom Home Accessibility 2-4 Steps to enter (no HR) Bathroom Shower/Tub Tub/shower unit Bathroom Toilet Standard Toilet;Sink/counter next to toilet Bathroom Equipment (no AD ) Home Equipment (no AD ) Additional Comments Siblings closeby if needed Prior Function Level of [place] Independent with ADLs;Independent with ambulation;Independent with functionaltransfers;Independent with homemaking with ambulation Device used at baseline None Fall History No Lives With Significant other Receives Help From Family ADL Assistance Independent Homemaking Assistance 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 Pt has 15 yo twins boy and girl Pain Pain Patient does not offer or c/o pain Activity Tolerance Endurance Endurance does not limit participation in activity Vision - Basic Assessment Current Vision No visual deficits Cognition Overall Cognitive Status WFL Arousal/Alertness Appropriate responses to stimuli Attention Span Appears intact Memory Appears intact Orientation Level Oriented X4 Following Commands Follows all commands and directions without difficulty Safety Judgment Good awareness of safety precautions Awareness of Errors Good awareness of errors made Deficits Fully aware of deficits Problem Solving Able to problem solve independently Motor Planning Appears intact Perseveration Not present Initiation Appears intact Sensation Light Touch No apparent deficits (in B LEs) RLE Assessment RLE Assessment WFL LLE Assessment LLE Assessment WFL Bed Mobility Rolling Independent TRANSFERS Stand Pivot Transfers Independent Sit to Stand Independent Bed to Chair Independent Gait Gait Assistance Independent Assistive Device None Ambulation Distance (Feet) 600 feet Pattern WFL Stairs Stair Management Assistance Independent Stair Management Technique No rails Number of Stairs 10 Balance Sitting - Static Independent Sitting - Dynamic Independent Standing - Static Independent Standing - Dynamic Independent Assessment Personal Factors/Comorbidities Impacting Care No personal factors/comorbidities Examination of Body Systems Low (1-2 Elements) Objectives of Body Systems (no impairments) Clinical Presentation of Patient Stable uncomplicated Complexity Level of Evaluation Low Prognosis Good Modified [place] Score Interval Daily Score 0-6 0 No symptoms at all Recommendation PT Recommendation Home independently;No skilled PT No Skilled PT At baseline function Plan Progress Discontinue PT PT Frequency One time visit PT - Next Appointment 03/31/20 If this is the last treatment note,it will serve as the discharge summary Yes End of Session Safety End of Session Safety Call light within reach;Nursing aware of session;Transfer status education * Miley Thibodeaux, OT - 03/31/2020 11:11 AM CDT OT Initial Evaluation Discharge Recommendation: home with assistance Activity Recommendation for practice assistant: independent 03/31/20 0700 Therapy Visit OT Received On 03/31/20 Reason for admission Pt is a 34 yo female who presents with numbness in her left arm, slurred speech, and facial droop on the left side of her face. Upon arrival symptoms had resolved-awaiting imaging...PMH: HTN, csection...Eval and tx, up with assistance, amb pt, activity as tolerated Ordering Provider Amie Aviles STUDENT DRIVING INSTRUCTOR Verified Two Patient Identifiers Yes Patient consents to therapy Yes Acute Inpatient OT Time Calculation OT Start Time 1057 OT Stop Time 1111 OT Time Calculation (min) 14 min Precautions Instructed on Precautions Yes;Verbalizes understanding Subjective Subjective RN ok'd session, pt sitting upright with legs crossed in bed upon arrival and agreeable. Home Living Type of Home House Home Layout One level;Performs ADL's on one level;Able to live on main level with bedroom/bathroom Home Accessibility 2-4 Steps to enter (no HR) Bathroom Shower/Tub Tub/shower unit Bathroom Toilet Standard Toilet;Sink/counter next to toilet Bathroom Equipment (no AD ) Home Equipment (no AD ) Additional Comments Siblings closeby if needed Prior Function Level of [place] Independent with ADLs;Independent with ambulation;Independent with functionaltransfers;Independent with homemaking with ambulation Device used at baseline None Fall History No Lives With Significant other Receives Help From Family ADL Assistance Independent Homemaking Assistance 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 Pt has 15 yo twins boy and girl Pain Pain No Activity Tolerance Activity Tolerance Comments not limited Vision - Basic Assessment Current Vision No visual deficits Vision - Complex Assessment Additional Comments no acute visual changes Cognition Overall Cognitive Status WFL Arousal/Alertness Appropriate responses to stimuli Attention Span Appears intact Memory Appears intact Orientation Level Oriented X4 Following Commands Follows all commands and directions without difficulty Safety Judgment Good awareness of safety precautions Awareness of Errors Good awareness of errors made Deficits Fully aware of deficits Problem Solving Able to problem solve independently Motor Planning Appears intact Perseveration Not present Initiation Appears intact Overall Extremity Assessment Upper Extremity BUE WFL AROM, and strength Hand Function Hand Dominance Right Gross Grasp Right;Left;Functional Coordination Functional ADL Additional Comments Pt donned shoes and socks seated EOB with independence Bed Mobility Rolling Independent Functional Transfers Sit to Stand Independent Bed to Chair Independent Other (Comment) amb 600 ft no AD Balance Sitting - Static Independent Sitting - Dynamic Independent Standing - Static Independent Standing - Dynamic Independent Assessment Occupational Profile and History Complexity Low (Brief) Performance Deficit Level Low (1-3 deficits) Clinical Decision Making Low (no modifications) Complexity Level of Evaluation Low Prognosis Good Recommendation OT Recommendation Home with assistance;No skilled OT;Ambulate with nurse No Skilled OT Independent with ADLs Plan Progress Discontinue OT OT - Next Appointment 03/31/20 If this is the last treatment note, it will serve as the discharge summary Yes End of Session Safety End of Session Safety Nursing aware of session;Transfer status education OT will sign off on Pt at this time due to Pt appearing to be at prior level of independence; Pt inagreement. Please send new orders if a change in medical status occurs. documented in this encounter H&P Notes * Sujit Ward MD - 03/31/2020 1:18 AM CDT . [place] Hospitalist History & Physical Attending Provider: Russell Grissom Jr., MD PCP: JOEL COLVIN MD IMPRESSION: TIA Hypokalemia-- 3.1 on presentation to [facility] in [place], [place] Hx of HTN- prescribed 25mg hydrochlorothiazide daily and compliant, controlled blood pressure 120-110s sytolicHTN- prescribed 25mg hydrochlorothiazide daily and compliant, controlled blood pressure 120-110s sytolic Current Everyday Smoker-- around 18 cigarettes a day PLAN: Admit to inpatient. Monitor oxygenation and vital signs. Fall Precautions. Monitor electrolytes and replace as appropriate. AM Labs: CBC, CMP, Mag Will redraw potassium with AM labs Patient received ASA 324mg and Plavix 300mg in [place] [facility] @0059 03/31 Dr. Hunter of [facility] Neurology consulted prior to transfer from from [facility] CTA Head and Neck ordered for AM MRI ordered for AM IVF Ns @ 75ml/hr if patient cannot tolerate fluids PRN Tylenol and Zofran A1c LDL echocardiogram and event monitor ordered for stroke work-up by neurology service Labs reviewed CT head and neck reviewed MRI brain reviewed EKG reviewed independently; showed sinus rhythm, no acute ST-T wave changes DVT Prophylaxis: Aspirin for 30 days and Plavix lifelong Diet: NPO until bedside swallow study performed Code Status: Full Code Consult PT/OT for evaluation and treatment Home medications reconciled Smoking cessation counseling done for 5 minutes. Plan of care discussed with the patient, she voiced understanding I have independently reviewed the chart, taken history, perform physical examination and discussed in detail assessment and plan. I agree with the nurse practitioner's assessment and plan. Tentative discharge today if stroke work-up is completed Chief Complaint: Slurred speech, facial droop, left leg numbess HPI: Patient is a 34 year old female with a past medical history of hypertension and current everyday smoking. She present to [facility] ED in [place], [place] stating she experienced numbness in her left arm, slurred speech, and facial droop on the left side of her face. Symptoms lasted for approximatelyone minute. She denied any chest pain, shortness of breath, lightheadedness, headache, nausea, or vomiting at time of symptoms and currently. She also denies any recent confusion, difficulty word finding, or dizziness. She is alert and oriented x 4 or presentation to [facility] with equal strength x4 and no focal deficients, she is in no distress and has no complaints on assessment. Patient states she has been compliant on taking her hydrochlorothiazide daily. She states she has never been diagnosed with anxiety nor is she prescribed anything to treat is, but she does experience anxiety frequently. She states she is not experiencing any more stress than normal. She denies any recent fevers,vision changes, cough, dysuria, hematuria, melena, diarrhea, abdominal pain. She denies any illicitdrug use, but does she does drink occasionally. No Known Allergies Review of Systems Review of Systems Constitutional: Negative for chills, fever, malaise/fatigue and weight loss. HENT: Negative for congestion, ear discharge, ear pain, hearing loss and nosebleeds. Eyes: Negative for blurred vision and double vision. Respiratory: Negative for cough, sputum production, shortness of breath and stridor. Cardiovascular: Negative for chest pain, palpitations, claudication and leg swelling. Gastrointestinal: Negative for diarrhea, heartburn, nausea and vomiting. Genitourinary: Negative for dysuria and urgency. Musculoskeletal: Negative for back pain, falls, joint pain, myalgias and neck pain. Neurological: Negative for dizziness, speech change, loss of consciousness, weakness and headaches. Patient did experience numbness down her left arm, drooping of her left face, and speech slurring at home. Called EMT immediately. She does not have any of these complaints on arrival to [facility] Psychiatric/Behavioral: Negative for depression and suicidal ideas. The patient is not nervous/anxious. Last menstrual period 03/26/2020. Physical exam Physical Exam Constitutional: She is oriented to person, place, and time and well-developed, well-nourished, and in no distress. HENT: Head: Normocephalic and atraumatic. Eyes: Pupils are equal, round, and reactive to light. Neck: Neck supple. Cardiovascular: Normal rate, regular rhythm and normal heart sounds. Pulmonary/Chest: Effort normal and breath sounds normal. No respiratory distress. She has no wheezes. Abdominal: Soft. Bowel sounds are normal. She exhibits no distension. Musculoskeletal: Normal range of motion. She exhibits no edema. Neurological: She is alert and oriented to person, place, and time. She displays normal reflexes. No cranial nerve deficit. She exhibits normal muscle tone. Coordination normal. Skin: Skin is warm and dry. Psychiatric: Affect and judgment normal. Past Medical History: Diagnosis Date ??? HTN (hypertension) Past Surgical History: Procedure Laterality Date ??? SECTION Social History Tobacco Use ??? Smoking status: Current Every Day Smoker Packs/day: 1.00 ??? Smokeless tobacco: Never Used Substance Use Topics ??? Alcohol use: Not Currently Family History Problem Relation Name Age of Onset ??? Hyperlipidemia Mother ??? Thyroid Disease Father ??? Hyperlipidemia Father ??? Diabetes Maternal Grandmother ??? Heart Disease Maternal Grandmother ??? Cancer Maternal Grandmother ??? Diabetes Paternal Grandmother ??? Heart Disease Paternal Grandmother Prior to Admission medications Medication Sig Start Date End Date Taking? Authorizing Provider hydroCHLOROthiazide 25 MG tablet Take 25 mg by mouth daily. 03/07/20 Doc Abstract Recent Labs Lab 03/30/20 2214 NA 140 K 3.1* CL 103 CO2 26.4 AGAP 10.6 BUN 15 CR 0.88 BUNCREATININ 17.0 GFRNON 85* GFR >90 GLU 109* CA 8.5 Recent Labs Lab 03/30/20 2214 WBC 6.6 RBC 4.69 HGB 13.3 HCT 39.5 MCV 84.2 MCH 28.4 MCHC 33.7 PLT 340 RDW 13.9 MPV 10.9 PERNEU 53.4 PERLYM 35.2 PERMON 10.1 LYMC 2.34 Recent Labs Lab 03/30/20 2214 INR 1.0 No results found. AMIE AVILES NP 03/31/2020 documented in this encounter Consult Notes * Lilia Hunter MD - 03/31/2020 10:46 AM CDTAssociated Order(s): Inpatient Consult to Neurology Images from the original note were not included. [facility] Interventional Neurology Office Inpatient Consultation Note Mateusz Hearn 1985 [id number] Inpatient Consult to Neurology Consult performed by: Lilia Hunter MD Consult ordered by: Amie Aviles NP Reason for consult: TIA Assessment/Recommendations: Subcortical lacunar syndrome localizing to the right subcortical hemisphere, internal capsule. Known hypertension and 1 pack a day smoker. We will resume those are the leading risk factors for her TIA, I do not suspect embolism at this time and her MRI was reviewed, there are no previous silent embolic cortical hips. Nevertheless, the minimal embolic work-up is warranted at this time. Plan: 1. Aspirin 81 mg daily for 1 month. 2. Plavix 75 mg daily for lifetime. 3. Obtain a cardiac echo, she does not need to stay for the echo results to be available, I will follow-up on this. She may be discharged after her cardiac echo (I ordered it). 4. EKG shows sinus rhythm, we will obtain only 30 days of prolonged outpatient cardiac monitoring, if this returns negative for paroxysmal atrial fibrillation, I will not pursue invasive monitoring. ACT ordered. 5. I will obtain an outpatient basis inflammatory markers and laboratory testing for stroke at the early age without genetic testing. 6. Her LDL goal is less than 70, please start her on atorvastatin 40 mg at bedtime. I have ordered an LDL as well as a hemoglobin A1c testing. I will target an outpatient basis an LDL goal less than 70. 7. Her discharge disposition should be home today in my opinion, but she should nevertheless receive physical, occupational, speech therapy evaluation to determine disposition. 8. Her blood pressure goal is less than 130/70 for the long-term, it has been well controlled thereis no need to change her regimen. 9. Must receive smoking cessation counseling, and offer her nicotine patches. 10. Her follow-up appointment with me is on April 17 at 2:20 PM, I have added that information toher follow-up section in the discharge tab. This is a 34-year-old female whom I was asked to see for TIA. HPI: She had acute onset yesterday of left hand numbness that progressed to include the distal leftupper extremity and concomitantly the left side of the lips, the corner of the mouth and the left lip was feeling heavy. She was speaking in her boyfriend attest to a left facial droop as well as to slurred speech. She felt she was having trouble speaking clearly but the words that she was trying to say were correct. She had no trouble with word finding, no double vision, no trouble walking. There was no nausea no vomiting and no headache. She has suffered headaches in the past, they are alwaysbehind her right eye with some blurred vision but no full-blown migraines. She thinks she had only 1 migraine during her lifetime. Neither yesterday nor today is the patient suffering from any headache. She has mild anxiety, that she controls behaviorally and she refused to take medicine for it. She does not know if she has a small depression or not. This is never happened to her before. The durat ion of the event was very short less than 10 minutes. She does not have a family history of stroke. She smokes 1 pack a day, does not use drugs, does not use alcohol, and she does not use oral contraceptives. She was seen at an outside hospital where I was called for neuro consultation, I recommended transfer here and I ordered a CTA of the head and neck and an MRI of the brain. Both were unremarkable. I looked at the images personally. I asked them to have her loaded with aspirin and Plavix, and those need to be continued today. Allergies: No Known Allergies PMH: Past Medical History: Diagnosis Date ??? HTN (hypertension) PSH: Past Surgical History: Procedure Laterality Date ??? SECTION Home Meds: Prior to Admission Medications Prescriptions Last Dose Informant Patient Reported? Taking? hydroCHLOROthiazide 25 MG tablet 03/30/2020 at Unknown time Yes Yes Sig: Take 25 mg by mouth daily. Facility-Administered Medications: None Social Hx: Social History Socioeconomic History ??? Marital status: Single Spouse name: Not on file ??? Number of children: Not on file ??? Years of education: Not on file ??? Highest education level: Not on file Occupational History ??? Not on file Social Needs ??? Financial resource strain: Not on file ??? Food insecurity: Worry: Not on file Inability: Not on file ??? Transportation needs: Medical: Not on file Non-medical: Not on file Tobacco Use ??? Smoking status: Current Every Day Smoker Packs/day: 1.00 ??? Smokeless tobacco: Never Used Substance and Sexual Activity ??? Alcohol use: Not Currently ??? Drug use: Never ??? Sexual activity: Not on file Lifestyle ??? Physical activity: Days per week: Not on file Minutes per session: Not on file ??? Stress: Not on file Relationships ??? Social connections: Talks on phone: Not on file Gets together: Not on file Attends confucianism service: Not on file Active member of club or organization: Not on file Attends meetings of clubs or organizations: Not on file Relationship status: Not on file ??? Intimate partner violence: Fear of current or ex partner: Not on file Emotionally abused: Not on file Physically abused: Not on file Forced sexual activity: Not on file Other Topics Concern ??? Not on file Social History Narrative ??? Not on file Family Hx: Family History Problem Relation Name Age of Onset ??? Hyperlipidemia Mother ??? Thyroid Disease Father ??? Hyperlipidemia Father ??? Diabetes Maternal Grandmother ??? Heart Disease Maternal Grandmother ??? Cancer Maternal Grandmother ??? Diabetes Paternal Grandmother ??? Heart Disease Paternal Grandmother Review of Systems: Review of Systems Constitutional: Negative for fever. HENT: Negative for sore throat. Eyes: Negative for double vision. Respiratory: Negative for cough and hemoptysis. Cardiovascular: Negative for chest pain and palpitations. Gastrointestinal: Negative for blood in stool and vomiting. Genitourinary: Negative for hematuria. Musculoskeletal: Negative for myalgias. Skin: Negative for rash. Endo/Heme/Allergies: Does not bruise/bleed easily. Psychiatric/Behavioral: Positive for depression. The patient is nervous/anxious. Filed Vitals: 03/31/20 0359 03/31/20 0738 BP: 119/72 127/80 Pulse: 67 67 Resp: 20 Temp: 97.5 ??F (36.4 ??C) TempSrc: Oral SpO2: 96% 98% Weight: 83.8 kg (184 lb 11.9 oz) Height: 5' 2 (1.575 m) Physical Exam: General appearance alert, no distress. She has normal pulses in the bilateral radial arteries (2+) with regular rate and rhythm, there is no edema in the bilateral lower extremities to visual inspection. Neurologic Exam Mental Status Oriented to person, place, and time. Registration: recalls 3 of 3 objects. Recall at 5 minutes: recalls 3 of 3 objects. Follows 2 step commands. Attention: normal. Concentration: normal. Speech: speech is normal Level of consciousness: alert Knowledge: good. Able to perform simple calculations. Able to name object. Able to read. Able to repeat. Normal comprehension. Cranial Nerves CN II Right visual field deficit: none Left visual field deficit: none CN III, IV, Pupils are equal, round, and reactive to light. Extraocular motions are normal. CN III: no CN III palsy CN : no CN palsy Nystagmus: none Diplopia: none CN V Facial sensation intact. CN VII Facial expression full, symmetric. CN VIII CN VIII normal. CN IX, X CN IX normal. CN XI CN XI normal. CN XII CN XII normal. Motor Exam Muscle bulk: normal Overall muscle tone: normal Strength Strength 5/5 throughout. Sensory Exam Light touch normal. Gait, Coordination, and Reflexes Gait Gait: normal Coordination Romberg: negative Finger to nose coordination: normal Tremor Resting tremor: absent Intention tremor: absent Action tremor: absent Reflexes Right biceps: 2+ Left biceps: 2+ Right patellar: 2+ Left patellar: 2+ Physical Exam Constitutional: She is oriented to person, place, and time. Eyes: Pupils are equal, round, and reactive to light. EOM are normal. Fundoscopic exam: The right eye shows no hemorrhage and no papilledema. The left eye shows no hemorrhage and no papilledema. Neurological: She is oriented to person, place, and time. She has normal strength. She has a hlqrdfNrusjh-Pjdg-Myhrer Test and a normal Romberg Test. Gait normal. Reflex Scores: Bicep reflexes are 2+ on the right side and 2+ on the left side. Patellar reflexes are 2+ on the right side and 2+ on the left side. Psychiatric: Her speech is normal. Labs: Recent Labs Lab 03/30/20221303/31/20857 WBC 6.6 4.7 RBC 4.69 4.29 HGB 13.3 12.2 HCT 39.5 37.7 MCV 84.2 87.9 MCH 28.4 28.4 MCHC 33.7 32.4* PLT 340 293 RDW 13.9 14.1 MPV 10.9 10.5* PERNEU 53.4 -- PERLYM 35.2 -- PERMON 10.1 -- LYMC 2.34 1.40 MONOC -- 0.48 EOSC -- 0.03 BASOC -- 0.02 , Recent Labs Lab 03/30/20221303/31/20 0858 NA 140 140 K 3.1* 3.7 CL 103 112* CO2 26.4 24.1 AGAP 10.6 3.9* BUN 15 10 CR 0.88 0.58 BUNCREATININ 17.0 -- GFRNON 85* >90 GFR >90 >90 GLU 109* 103 CA 8.5 8.2* TP 6.9 6.1* ALB 3.6 3.3* TBIL 0.2 0.3 ALKP 72 74 AST 24 14* ALT 36 32 , Recent Labs Lab 03/30/202213 INR 1.0 , Recent Labs Lab 03/30/202213 TROP 0.017 , No results for input(s): PH, PCO2, PO2, [id number], BICARBWB, BASEDEFICIT, BASEEXCESS in the last 168 hours. and No results for input(s): CHOL, TRI, HDL, LDLD, LDLC, LDL, HGBA1C, TSH in the last 168 hours. Current Facility-Administered Medications: ??? [START ON 04/01/2020] aspirin chewable tablet 81 mg, 81 mg, Oral, Daily, Lilia Hunter MD ??? clopidogrel (PLAVIX) tablet 75 mg, 75 mg, Oral, Daily, Amie Aviles NP, 75 mg at 03/31/20 0918 ??? ondansetron (ZOFRAN) injection 4 mg, 4 mg, Intravenous, Q8H PRN, Amie Aviles NP ??? sodium chloride 0.9% infusion, , Intravenous, Continuous, Amie Aviles NP Radiology: Cta Head+neck Result Date: 03/31/2020 EXAMINATION: CTA head and neck with contrast DATE: 03/31/2020 INDICATION: left sided facial numbnessand tingling, left arm numbness starting last night. Symptoms have now resolved. COMPARISON: None. TECHNIQUE: CT angiography of the head and neck were performed after uneventful intravenous administration of 80 Isovue 370 according to stroke protocol. Maximum intensity projection images were obtained. NASCET criteria was used during evaluation of carotid arteries. A dose lowering technique was used for this procedure, which may include, but is not limited to, dose reduction technique, automatedexposure control, the use of iterative reconstruction, and ALARA (As Low As Reasonably Achievable) / Image Gently techniques. FINDINGS: CTA HEAD: There is no evidence of focal hemodynamically significant stenosis along the petrous, cavernous, or supraclinoid ICA segments bilaterally. The visualizedportions of the anterior and middle cerebral arteries and proximal portions of their main ramifications are without focal narrowing. The anterior communicating artery is unremarkable. The posterior circulation is codominant. There is no evidence of focal hemodynamically significant stenosis throughthe basilar tip. Diminutive P1 and P2 segments of right posterior cerebral artery. The left posterior cerebral artery appears unremarkable. Small right posterior communicating artery is present. CTA NECK: There is left-sided 4 vessel aortic arch origin anatomy. Left vertebral artery arises directlyoff the aortic arch between left common carotid and left subclavian artery. The great vessel origins are patent. The right common carotid artery, bulb, and cervical ICA segment reveal no focal hemodyn amically significant stenosis. The right vertebral artery reveals no focal stenosis along its visualized segments. The left common carotid artery, bulb, and cervical ICA segment reveal no focal hemodynamically significant stenosis. The left vertebral artery reveals no focal stenosis along its visualized segments. SOFT TISSUES: No destructive bone lesions. No suspicious mass or consolidation in the visualized lungs. No lymphadenopathy. IMPRESSION: 1. No evidence of obstruction of the proximal portions of moapa of Kar[place]. 2. No evidence of hemodynamically significant stenosis in the neck. 3. Diminutive P1 and P2 segments of right posterior cerebral artery, with patent small right posterior communicating artery. Interpreted By: Bebo Sol MD, 03/31/2020 7:47 AM Mri Brain Wo Con Result Date: 03/31/2020 EXAMINATION: MRI brain without contrast. DATE: 03/31/2020 INDICATION: left sided facial numbness andtingling, left arm numbness starting last night. Symptoms have now resolved. TIA, INITIAL SCREENINGCOMPARISON: None TECHNIQUE: MRI of the brain was obtained without administration of intravenous contrast according to routine protocol without immediate complications. FINDINGS: There is no evidence of acute infarct or restricted diffusion. There is no evidence of intracranial mass, mass effect or midline shift. The ventricles and subarachnoid spaces are symmetric and unremarkable. The alonso whitematter differentiation is preserved. Gradient images reveal no foci of susceptibility artifact to suggest intraparenchymal brain hemorrhage. The major intracranial arterial flow voids are grossly patent. Craniocervical junction, sella region, pineal region, and cerebellopontine angle appear normal.Mucoperiosteal thickening in the left maxillary sinus. Prominent pituitary gland measuring up to 8 mm. IMPRESSION: 1. No diffusion restriction to suggest acute ischemic infarct. 2. 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 However, cannot definitively exclude underlying pituitary microadenoma. RECOMMENDATION: Dynamic MRI pituitary protocol with and without contrast may be obtained on a routine nonemergent basis. 3. Left maxillary sinus disease. Interpreted By: Bebo Sol MD, 03/31/2020 7:57 AM ECG: No results found for this visit on 03/31/20. NIH Stroke Scale Documentation Impression: Patient Active Problem List Diagnosis ??? TIA (transient ischemic attack) @DIAG@ Orders Placed This Encounter ??? COMPREHENSIVE METABOLIC PANEL ??? CBC W/DIFF AUTOMATED ??? MAGNESIUM ??? LIPOPROTEIN, LDL CHOL, DIRECT ??? HEMOGLOBIN, GLYCOSYLATED ??? Ambulate Patient ??? Activity as Tolerated ??? Vital Signs - Per Unit Routine ??? Daily weights ??? Measure intake and output ??? Up With Assistance ??? Inpatient Consult to Neurology ??? EVENT MONITOR 30 DAYS ??? CTA HEAD+NECK ??? MRI BRAIN WO CON ??? USE ECHOCARDIOGRAM ??? sodium chloride 0.9% infusion ??? ondansetron (ZOFRAN) injection 4 mg ??? DISCONTD: aspirin chewable tablet 81 mg ??? DISCONTD: clopidogrel (PLAVIX) tablet 75 mg ??? DISCONTD: clopidogrel (PLAVIX) tablet 300 mg ??? DISCONTD: aspirin chewable tablet 324 mg ??? clopidogrel (PLAVIX) tablet 75 mg ??? iopamidol (ISOVUE-370) 76 % injection 80 mL ??? aspirin chewable tablet 81 mg ??? OT eval and treat ??? PT eval and treat ??? Continue Sleep Apnea Device as at home Plan: See above. LILIA HUNTER MD 03/31/2020 11:00 AM documented in this encounter Nursing Notes * Cmaryn Ramirez RN - 04/01/2020 3:14 PM CDT Discharge teaching done, stroke book sent home with patient. Cardiovascular here and placed event monitor on patient, explained use and charging the monitor. Discharged to family. documented in this encounter Plan of Treatment Upcoming Encounters Date Type Department Care Team (Late st Contact Info) Description 09/23/2024 9:00 AM CDT Appointment [facility] Non Invasive Cardiology - [facility] [address] [place] [address] Jaguar Castaneda MD [address] [place] [address] 09/23/2024 10:00 AM CDT Office Visit [facility] [address] [place] [id number] Jaguar Castaneda MD [address] [place] [address] documented as of this encounter Procedures Procedure Name Priority Date/Time Associated Diagnosis Comments EVENT MONITOR 30 DAYS Routine 05/05/2020 9:26 AM CDT USE ECHOCARDIOGRAM Routine 03/31/2020 2: 03 PM CDT HEMOGLOBIN, GLYCOSYLATED Routine 03/31/2020 8:58 AM CDT COMPREHENSIVE METABOLIC PANEL Routine 03/31/2020 8:58 AM CDT LIPOPROTEIN, LDL CHOL, DIRECT Routine 03/31/2020 8:58 AM CDT CBC W/DIFF AUTOMATED Routine 03/31/2020 8:58 AM CDT MAGNESIUM Routine 03/31/2020 8:58 AM CDT CTA HEAD+NECK Today 03/31/2020 7:42 AM CDT MRI BRAIN WO CON Today 03/31/2020 7:26 AM CDT documented in this encounter Results * EVENT MONITOR 30 DAYS (05/05/2020 9:26 AM CDT) 05/05/2020 9:26 AM CDT Narrative ESCRIPTION - 05/10/2020 12:38 PM REAL ESTATE RECRUITER DATE OF TESTING: ??04/01/2020 ORDERING PHYSICIAN: ??Dr. Dotson. INDICATION: ??Atrial fibrillation. FINDINGS: ??Ms. Hearn underwent MCT continuous cardiac monitoring for a total of 30 days starting on 04/01/2020 through 04/30/2020. 1. ??Baseline rhythm: ??Baseline rhythm was normal sinus with heart rates ranging between 46 and 120 beats per minute, with average rate of 68 beats per minute. 2. ??Sinus node function: ??Sinus node function was normal with no evidence of significant bradycardia or pauses longer than 3 seconds. 3. ??AV conduction: ??AV conduction was normal with no evidence of significant AV block. 4. ??Atrial arrhythmias: ??No atrial tachycardia or atrial fibrillation was observed. ??The patient had rare PACs with a burden of less than 1%. 5. ??Ventricular arrhythmias: ??No ventricular tachycardia was observed. ?? Patient had rare PVCs with a burden of less than 1%. 6. ??Symptoms: ??Patient did not report symptoms throughout the monitoring period. SUMMARY: 1. ??Normal sinus rhythm with no evidence of significant sinus node dysfunction or AV block. 2. ??Rare PACs and PVCs. ??No significant arrhythmias were observed. 3. ??No symptoms were reported. D: ??05/05/2020 09:26 AM #[id number] T: ??05/05/2020 11:52 AM /NTS Lilia Hunter MD HOLTER Final Result ESCRIPTION * USE ECHOCARDIOGRAM (03/31/2020 2:03 PM CDT) Anatomical Region Laterality Modality Cardiac Echocardiogram 03/31/2020 1:02 PM CDT Narrative 03/31/2020 9:24 PM CDT ?Echocardiography Report Pat.Name: ??MATEUSZ HEARN ?Pat.ID: ?[id number] ? St.Date: ?? 03/31/2020 ? Refer.: ??LILIA HUNTER ? Exam Time: 1:02:00 PM ? Study Type:ECHO WITH CARDIAC DOPPLER COMP Height: ?62.2in ?Weight: ?182.78lb ? BSA: ? 1.85 m2 ?Age: ??1985,34Y ? Sex: ? FEMALE ?BP: ?133/78 ? HR: ?64 bpm ? Sonogrphr: Basilio Pablo RDCS, JOSE LUIS Pat. Stat.:Inpatient ? Room: ?846 ? CPT - 4: ?94864 ? Reason for Study: Stroke/TIA ? Procedures: ??2D, M-mode, Doppler, Color Flow, Intraveneous saline contrast was used to help determine presence of intracardiac shunting., Portable, The study quality is technically adequate. ++++++++++++++++++++++++++++++++++++ SUMMARY: ++++++++++++++++++++++++++++++++++++ Estimated left ventricular ejection fraction is 55-60%. The right ventricular size is mildly enlarged. Right ventricular systolic function is normal. Right atrial size is mild to moderately enlarged. The agitated saline injection showed evidence of shunting into the left atrium, consistent with a moderate-size patent foramen ovale. Cannot exclude atrial septal defect. The peak pulmonary artery systolic pressure is estimated to be approximately 34 mmHg. Mild thickening of mitral valve leaflets. A trace of tricuspid regurgitation. No pericardial effusion seen. ++++++++++++++++++++++++++++++++++++ FINDINGS: ++++++++++++++++++++++++++++++++++++ 2D: ? Normal left ventricular size and function. Normal wall ?motion ??throughout. Normal right ventricular size and ?function. ??All valve structures are normal. No pericardial ?effusion ??seen. LV: ? The left ventricular size is normal. The left ventricular ?systolic ??function is normal. Estimated left ventricular ?ejection ??fraction is 55-60%. The septal E/e' is ?indeterminate ??at 8-15. The lateral E/e' is normal at <8. ?Left ??ventricular diastolic function is normal. RV: ? The right ventricular size is mildly enlarged. Right ?ventricular ??systolic function is normal. LA: ? The left atrial size is mildly enlarged. The left atrial ?volume ??is mildly increased (34- 41ml/M2). RA: ? Right atrial size is mild to moderately enlarged. IAS: ?The agitated saline injection showed evidence of shunting ?into ??the left atrium, consistent with a moderate-size ?patent ??foramen ovale. Cannot exclude atrial septal defect. JUDIT: ? No evidence of pericardial effusion. AO: ? Normal aortic root. The proximal ascending aorta measures ?3.0cm. PA: ? The peak pulmonary artery systolic pressure is estimated to ?be ??approximately 34 mmHg. Estimated right atrial pressure ?of ??8 mmHg. PVn: ?The pulmonary vein doppler wave form is blunted suggestive ?of ??elevated left atrial pressures. SVn: ?Inferior vena cava is normal. Inferior vena cava shows <50% ?collapse ??with respiration consistent with elevated right ?atrial ??pressure. AV: ? The aortic valve is trileaflet. No evidence of aortic valve ?stenosis. ??No evidence of aortic valve regurgitation. MV: ? No evidence of mitral regurgitation. Mild thickening of ?mitral ??valve leaflets. PV: ? Structurally normal pulmonic valve. Trace pulmonic ?regurgitation. TV: ? Structurally normal tricuspid valve. A trace of tricuspid ?regurgitation. ++++++++++++++++++++++++++++++++++++ MEASUREMENTS: ++++++++++++++++++++++++++++++++++++ ?DOPPLER LVOT ?? LVOTpkPG ? 3 mmHg ?LVOTmnPG ? 2 mmHg LVOTpkVel ? 82 cm/s (70-110) LVOT SV ? 81 ml ?? LVOT TVI ?21.3 cm ? AV Forward Flow AV TVI ?32.3 cm ?AV pkPG ?5 mmHg AV pkVel ? 113 cm/s (100-170) Area (TVI) ?2.51 cm2 ??(3-5)* AV mnVel ?84.9 cm/s ?Area (Roderick) ?2.76 cm2 ??(3-5)* AV mnPG ?3 mmHg ? MV Forward Flow MV DeTm ?268 ms ?MV pkE ? 104 cm/s (60-130) MV E/A ? 1.4 ? MV pkA ?72.8 cm/s PV Forward Flow PV pkVel ? 103 cm/s (60-90)* PV pkPG ?4 mmHg TV Regurg Flow TV pkPG ? 26 mmHg ?TV pkVel ? 254 cm/s (30- 70)* Lat E' ?? Lat e ? 14.3 cm/s ? Lat E/E' ?? Lat E/e ?7.3 ? Med E' ?? Med e ? 10.1 cm/s ? Med E/E' ?? Med E/e ? 10.3 ? Aortic Valve ?? Aortic Valve Ar ??1.36 ?Aortic Valve Ve ??0.73 ? AV DI ?? Value ?0.7 ? SANTIAGO (VTI) Index ?? Value ? 1.35 ? LV Mass 2D ?? Value ?146 g ? LV Mass Doiko6R ?? Value ? 78.9 g/m2 ? Right Ventricle ?? Right Ventricle ??14.3 cm/s ? SV (LVOT) Index ?? Value ? 44 ml ?2D Left Ventricle ?? LVIDd ? 5.04 cm ?? (3.6-5.2) LV CI ?1.2 l/min/m2 LVIDs ?3.2 cm ?? (2.3-3.9) LV CI ?2 l/min/m2 LV EF(Bi-Plane) ??52.1 % ?(55-75)* LV CO ? 36.7 ml/s LV CO (Bi-plane ??51.7 ml/s ? LV CO ? 61.7 ml/s LV CI ? 2.95 l/min/m2 ? LVPW ?? LVPWd ?0.809 cm ?LVPWth ?32.3 % ?? LVPWs ? 1.07 cm ? Ventricular Septum ?? IVSd ? 0.864 cm ?IVSs ?1.21 cm ?? Left Atrium ?? LA a-p ? 3 cm ?? (2.8-3.4) Aorta ?? Ao Asc ? 3 cm ?? (zsc 2.1)* LVOT ?? LVOT ? 2.2 cm ? Ratios ?? IVS LA Biplane LAVol I BP ?35.3 ml/m2 ?MMODE Left Atrium ?? LAID ? 4.2 cm ?? (1.9-4)* Ratios ?? LA/Ao ? 1.11 ?(0.87-1.1)* Aorta ?? Ao Rt ?3.8 cm ?? (2-3.7)* TA ?? Tricuspid Annul ?? 3.5 cm ? Signed 03/31/2020 09:24 PM Delon Escoto M.D. Procedure Note Elizabeth Escoto MD - 03/31/2020 Echocardiography Report Pat.Name: MATEUSZ HEARN Pat.ID: [id number] .Date: 03/31/2020 Refer.MD: LILIA HUNTER Exam Time: 1:02:00 PM Study Type:ECHO WITH CARDIAC DOPPLER COMP Height: 62.2in Weight: 182.78lb BSA: 1.85 m2 Age: 10 1985,34Y Sex: FEMALE BP: 133/78 HR: 64 bpm Sonogrphr: Basilio Pablo RDCS, FASE Pat. Stat.:Inpatient Room: 846 CPT - 4: 10185 Reason for Study: Stroke/TIA Procedures: 2D, M-mode, Doppler, Color Flow, Intraveneous saline contrast was used to help determine presence of intracardiac shunting., Portable, The study quality is technically adequate. ++++++++++++++++++++++++++++++++++++ SUMMARY: ++++++++++++++++++++++++++++++++++++ Estimated left ventricular ejection fraction is 55-60%. The right ventricular size is mildly enlarged. Right ventricular systolic function is normal. Right atrial size is mild to moderately enlarged. The agitated saline injection showed evidence of shunting into the left atrium, consistent with a moderate-size patent foramen ovale. Cannot exclude atrial septal defect. The peak pulmonary artery systolic pressure is estimated to be approximately 34 mmHg. Mild thickening of mitral valve leaflets. A trace of tricuspid regurgitation. No pericardial effusion seen. ++++++++++++++++++++++++++++++++++++ FINDINGS: ++++++++++++++++++++++++++++++++++++ 2D: Normal left ventricular size and function. Normal wall motion throughout. Normal right ventricular size and function. All valve structures are normal. No pericardial effusion seen. LV: The left ventricular size is normal. The left ventricular systolic function is normal. Estimated left ventricular ejection fraction is 55-60%. The septal E/e' is indeterminate at 8-15. The lateral E/e' is normal at <8. Left ventricular diastolic function is normal. RV: The right ventricular size is mildly enlarged. Right ventricular systolic function is normal. LA: The left atrial size is mildly enlarged. The left atrial volume is mildly increased (34- 41ml/M2). RA: Right atrial size is mild to moderately enlarged. IAS: The agitated saline injection showed evidence of shunting into the left atrium, consistent with a moderate-size patent foramen ovale. Cannot exclude atrial septal defect. JUDIT: No evidence of pericardial effusion. AO: Normal aortic root. The proximal ascending aorta measures 3.0cm. PA: The peak pulmonary artery systolic pressure is estimated to be approximately 34 mmHg. Estimated right atrial pressure of 8 mmHg. PVn: The pulmonary vein doppler wave form is blunted suggestive of elevated left atrial pressures. SVn: Inferior vena cava is normal. Inferior vena cava shows <50% collapse with respiration consistent with elevated right atrial pressure. AV: The aortic valve is trileaflet. No evidence of aortic valve stenosis. No evidence of aortic valve regurgitation. MV: No evidence of mitral regurgitation. Mild thickening of mitral valve leaflets. PV: Structurally normal pulmonic valve. Trace pulmonic regurgitation. TV: Structurally normal tricuspid valve. A trace of tricuspid regurgitation. ++++++++++++++++++++++++++++++++++++ MEASUREMENTS: ++++++++++++++++++++++++++++++++++++ DOPPLER LVOT LVOTpkPG 3 mmHg LVOTmnPG 2 mmHg LVOTpkVel 82 cm/s (70-110) LVOT SV 81 ml LVOT TVI 21.3 cm AV Forward Flow AV TVI 32.3 cm AV pkPG 5 mmHg AV pkVel 113 cm/s (100-170) Area (TVI) 2.51 cm2 (3-5)* AV mnVel 84.9 cm/s Area (Roderick) 2.76 cm2 (3-5)* AV mnPG 3 mmHg MV Forward Flow MV DeTm 268 ms MV pkE 104 cm/s (60-130) MV E/A 1.4 MV pkA 72.8 cm/s PV Forward Flow PV pkVel 103 cm/s (60-90)* PV pkPG 4 mmHg TV Regurg Flow TV pkPG 26 mmHg TV pkVel 254 cm/s (30-70)* Lat E' Lat e 14.3 cm/s Lat E/E' Lat E/e 7.3 Med E' Med e 10.1 cm/s Med E/E' Med E/e 10.3 Aortic Valve Aortic Valve Ar 1.36 Aortic Valve Ve 0.73 AV DI Value 0.7 SANTIAGO (VTI) Index Value 1.35 LV Mass 2D Value 146 g LV Mass [id number] Value 78.9 g/m2 Right Ventricle Right Ventricle 14.3 cm/s SV (LVOT) Index Value 44 ml 2D Left Ventricle LVIDd 5.04 cm (3.6-5.2) LV CI 1.2 l/min/m2 LVIDs 3.2 cm (2.3-3.9) LV CI 2 l/min/m2 LV EF(Bi-Plane) 52.1 % (55-75)* LV CO 36.7 ml/s LV CO (Bi-plane 51.7 ml/s LV CO 61.7 ml/s LV CI 2.95 l/min/m2 LVPW LVPWd 0.809 cm LVPWth 32.3 % LVPWs 1.07 cm Ventricular Septum IVSd 0.864 cm IVSs 1.21 cm Left Atrium LA a-p 3 cm (2.8-3.4) Aorta Ao Asc 3 cm (zsc 2.1)* LVOT LVOT 2.2 cm Ratios IVS LA Biplane LAVol I BP 35.3 ml/m2 MMODE Left Atrium LAID 4.2 cm (1.9-4)* Ratios LA/Ao 1.11 (0.87-1.1)* Aorta Ao Rt 3.8 cm (2-3.7)* TA Tricuspid Annul 3.5 cm Signed 03/31/2020 09:24 PM Delon Escoto M.D. Lilia Hunter MD ECHO Final Result * HEMOGLOBIN, GLYCOSYLATED (03/31/2020 8:58 AM CDT) HGB A1C 5.3 <5.7 % 03/31/2020 2:29 PM CDT [facility] ESTIMATED AVG GLUCOSE 105 74 - 114 MG/DL 03/31/2020 2:29 PM CDT [facility] 03/31/2020 8:58 AM CDT Lilia Hunter MD LABORATORY Final Result Performing Organization Address [facility]/ZIP Co de Phone Number [facility] [address] [place] [address], [phone] * LIPOPROTEIN, LDL CHOL, DIRECT (03/31/2020 8:58 AM CDT) DIRECT LDL 124 MG/DL 03/31/2020 1:41 PM CDT [facility] Comment:100-129 NEAR OR ABOV E OPTIMAL 03/31/2020 8:58 AM CDT Lilia Hunter MD LABORATORY Final Result Performing Organization Address [facility] Co de Phone Number [facility] [address] [place] [address], [place] [phone] * MAGNESIUM (03/31/2020 8:58 AM CDT) MAGNESIUM 2.3 1.6 - 2.6 MG/DL 03/31/2020 9:39 AM CDT [facility] 03/31/2020 8:58 AM CDT Amie Aviles NP LABORATORY Final Result Performing Organization Address [facility]/ZIP Co de Phone Number [facility] [address] [place] [address], [phone] * (ABNORMAL) CBC W/DIFF AUTOMATED (03/31/2020 8:58 AM CDT) WBC 4.7 4.0 - 10.8 x10'3/uL 03/31/2020 9:09 AM CDT [facility] RBC 4.29 4.10 - 5.40 x10'6/uL 03/31/2020 9:09 AM CDT [facility] HGB 12.2 12.0 - 16.0 G/DL 03/31/2020 9:09 AM CDT [facility] HCT 37.7 36.0 - 47.0 % 03/31/2020 9:09 AM CDT [facility] MCV 87.9 78.0 - 100.0 FL 03/31/2020 9:09 AM CDT [facility] MCH 28.4 27.0 - 31.0 PG 03/31/2020 9:09 AM CDT [facility] MCHC 32.4(L) 33.0 - 36.0 G/DL 03/31/2020 9:09 AM CDT [facility] RDW 14.1 11.5 - 14.5 % 03/31/2020 9:09 AM CDT [facility] PLT 293 150 - 350 x10'3/uL 03/31/2020 9:09 AM CDT [facility] MPV 10.5(H) 7.4 - 10.4 FL 03/31/2020 9:09 AM CDT [facility] ABS. NEUTROPHILS TOTAL 2.80 1.60 - 8.30 x10'3/uL 03/31/2020 9:09 AM CDT [facility] ABS. LYMPHOCYTES 1.40 0.80 - 4.70 x10'3/uL 03/31/2020 9:09 AM CDT [facility] ABS. MONOCYTES 0.48 0.00 - 1.50 x10'3/uL 03/31/2020 9:09 AM CDT [facility] ABS. EOSINOPHILS 0.03 0.00 - 0.40 x10'3/uL 03/31/2020 9:09 AM CDT [facility] ABS. BASOPHILS 0.02 0.00 - 0.20 x10'3/uL 03/31/2020 9:09 AM CDT [facility] ABS. IMMATURE GRANULOCYTES 0.01 0.00 - 0.03 x10'3/uL 03/31/2020 9:09 AM CDT [facility] ABS. NUCLEATED RBC'S 0.00 0.0 x10'3/uL 03/31/2020 9:09 AM CDT [facility] 03/31/2020 8:58 AM CDT Amie Aviles NP LABORATORY Final Result [facility] [address] [place] [address], [phone] * (ABNORMAL) COMPREHENSIVE METABOLIC PANEL (03/31/2020 8:58 AM CDT) SODIUM S/P/B 140 136 - 145 MMOL/L 03/31/2020 9:39 AM CDT [facility] POTASSIUM S/P/B 3.7 3.5 - 5.1 MMOL/L 03/31/2020 9:39 AM CDT [facility] CHLORIDE S/P/B 112(H) 98 - 107 MMOL/L 03/31/2020 9:39 AM CDT [facility] CO2 24.1 21.0 - 32.0 MMOL/L 03/31/2020 9:39 AM CDT [facility] GLUCOSE 103 74 - 106 MG/DL 03/31/2020 9:39 AM CDT [facility] BUN 10 7 - 18 MG/DL 03/31/2020 9:39 AM CDT [facility] CREATININE S/P/B 0.58 0.55 - 1.02 MG/DL 03/31/2020 9:39 AM CDT [facility] CALCIUM S/P/B 8.2(L) 8.5 - 10.1 MG/DL 03/31/2020 9:39 AM CDT [facility] BILIRUBIN TOTAL S/P/B 0.3 0.2 - 1.0 MG/DL 03/31/2020 9:39 AM T [facility] ALKALINE PHOSPHATASE S/P/B 74 37 - 98 U/L 03/31/2020 9:39 AM [facility] AST 14(L) 15 - 37 U/L 03/31/2020 9:39 AM [facility] ALT 32 13 - 56 U/L 03/31/2020 9:39 AM [facility] TOTAL PROTEIN S/P/B 6.1(L) 6.4 - 8.2 G/DL 03/31/2020 9:39 AM [facility] ALBUMIN S/P/B 3.3(L) 3.4 - 5.0 G/DL 03/31/2020 9:39 AM [facility] ANION GAP 3.9(L) 5.0 - 15.0 MMOL/L 03/31/2020 9:39 AM [facility] Comment:REFERENCE RANGE NOT ESTABLISHED OSMOLALITY (CALC) 289 MOSM/KG 020 9:39 AM [facility] Comment:REFERENCE RANGE NOT ESTABLISHED EGFR NON-AFR. AMER. >90 >90 ML/MIN/1. 73 M2 03/31/2020 9:39 AM [facility] EGFR AFR. AMER. >90 >90 ML/MIN/1. 73 M2 03/31/2020 9:39 AM [facility] GFR NOTES GFR REFERENCE S: 03/31/2020 9:39 AM [facility] Comment: THE ESTIMATED GFR IS [...] ml/min/1.73 m2 G5,KIDNEY FAILURE: <15 ml/min/1.73 m2 03/31/2020 8:58 AM CDT us Amie Aviles NP LABORATORY Final Result Performing Organization Address City/State/[facility] Co de Phone Number [facility] [address] [place] [address], [phone] * CTA HEAD+NECK (03/31/2020 7:42 AM CDT) Anatomical Region Laterality Modality Head, Neck Computed Tomogra phy 03/31/2020 7:47 AM CDT Impressions 03/31/2020 7:57 AM CDT IMPRESSION: ?? 1. No evidence of obstruction of the proximal portions of moapa of Kar[place]. 2. No evidence of hemodynamically significant stenosis in the neck. 3. Diminutive P1 and P2 segments of right posterior cerebral artery, with patent small right posterior communicating artery. Interpreted By: Bebo Sol MD, 03/31/2020 7:47 AM Narrative 03/31/2020 7:57 AM CDT EXAMINATION: CTA head and neck with contrast DATE: 03/31/2020 INDICATION: left sided facial numbness and tingling, left arm numbness starting last night. Symptoms have now resolved. COMPARISON: None. TECHNIQUE: CT angiography of the head and neck were performed after uneventful intravenous administration of 80 Isovue 370 according to stroke protocol. Maximum intensity projection images were obtained. NASCET criteria was used during evaluation of carotid arteries. A dose lowering technique was used for this procedure, which may include, but is not limited to, dose reduction technique, automated exposure control, the use of iterative reconstruction, and ALARA (As Low As Reasonably Achievable) / Image Gently techniques. FINDINGS: CTA HEAD: There is no evidence of focal hemodynamically significant stenosis along the petrous, cavernous, or supraclinoid ICA segments bilaterally. The visualized portions of the anterior and middle cerebral arteries and proximal portions of their main ramifications are without focal narrowing. The anterior communicating artery is unremarkable. The posterior circulation is codominant. There is no evidence of focal hemodynamically significant stenosis through the basilar tip. Diminutive P1 and P2 segments of right posterior cerebral artery. The left posterior cerebral artery appears unremarkable. Small right posterior communicating artery is present. CTA NECK: There is left-sided 4 vessel aortic arch origin anatomy. Left vertebral artery arises directly off the aortic arch between left common carotid and left subclavian artery. The great vessel origins are patent. The right common carotid artery, bulb, and cervical ICA segment reveal no focal hemodynamically significant stenosis. The right vertebral artery reveals no focal stenosis along its visualized segments. ?? The left common carotid artery, bulb, and cervical ICA segment reveal no focal hemodynamically significant stenosis. The left vertebral artery reveals no focal stenosis along its visualized segments. SOFT TISSUES: No destructive bone lesions. No suspicious mass or consolidation in the visualized lungs. No lymphadenopathy. Procedure Note Bebo Sol MD - 03/31/2020 EXAMINATION: CTA head and neck with contrast DATE: 03/31/2020 INDICATION: left sided facial numbness and tingling, left arm numbness starting last night. Symptoms have now resolved. COMPARISON: None. TECHNIQUE: CT angiography of the head and neck were performed after uneventful intravenous administration of 80 Isovue 370 according tostroke protocol. Maximum intensity projection images were obtained. NASCET criteria was used during evaluation of carotid arteries. A dose lowering technique was used for this procedure, which may include, but is not limited to, dose reduction technique, automated exposure control, theuse of iterative reconstruction, and ALARA (As Low As Reasonably Achievable)/ Image Gently techniques. FINDINGS: CTA HEAD: There is no evidence of focal hemodynamically significant stenosis along the petrous, cavernous, or supraclinoid ICA segments bilaterally. The visualized portions of the anterior and middle cerebral arteries and proximal portions of their main ramifications are without focalnarrowing. The anterior communicating artery is unremarkable. The posterior circulation is codominant. There is no evidence of focal hemodynamically significant stenosis through the basilar tip. Diminutive P1 and S3uvmzsyva of right posterior cerebral artery. The left posterior cerebral artery appears unremarkable. Small right posterior communicating artery is present. CTA NECK: There is left-sided 4 vessel aortic arch origin anatomy. Left vertebral artery arises directly off the aortic arch between left common carotidand left subclavian artery. The great vessel origins are patent. The right common carotid artery, bulb, and cervical ICA segment revealno focal hemodynamically significant stenosis. The right vertebral artery reveals no focal stenosis along its visualized segments. The left common carotid artery, bulb, and cervical ICA segment reveal no focal hemodynamically significant stenosis. The left vertebral artery reveals no focal stenosis along its visualized segments. SOFT TISSUES: No destructive bone lesions. No suspicious mass or consolidation in the visualized lungs. No lymphadenopathy. IMPRESSION: 1. No evidence of obstruction of the proximal portions of moapa ofWillis. 2. No evidence of hemodynamically significant stenosis in the neck. 3. Diminutive P1 and P2 segments of right posterior cerebral artery,with patent small right posterior communicating artery. Interpreted By: Bebo Sol MD, 03/31/2020 7:47 AM us Russell Grissom Jr., MD CT Final Res ult * MRI BRAIN WO CON (03/31/2020 7:26 AM CDT) Anatomical Region Laterality Modality Head Magnetic Resonan ce 03/31/2020 7:57 AM CDT Impressions 03/31/2020 8:08 AM CDT IMPRESSION: 1. No diffusion restriction to suggest acute ischemic infarct. 2. 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 However, cannot definitively exclude underlying pituitary microadenoma. RECOMMENDATION: Dynamic MRI pituitary protocol with and without contrast may be obtained on a routine nonemergent basis. 3. Left maxillary sinus disease. Interpreted By: Bebo Sol MD, 03/31/2020 7:57 AM Narrative 03/31/2020 8:08 AM CDT EXAMINATION: MRI brain without contrast. DATE: 03/31/2020 INDICATION: left sided facial numbness and tingling, left arm numbness starting last night. Symptoms have now resolved. TIA, INITIAL SCREENING COMPARISON: None TECHNIQUE: MRI of the brain was obtained without administration of intravenous contrast according to routine protocol without immediate complications. FINDINGS: There is no evidence of acute infarct or restricted diffusion. There is no evidence of intracranial mass, mass effect or midline shift. The ventricles and subarachnoid spaces are symmetric and unremarkable. The laonso white matter differentiation is preserved. ??Gradient images reveal no foci of susceptibility artifact to suggest intraparenchymal brain hemorrhage. The major intracranial arterial flow voids are grossly patent. Craniocervical junction, sella region, pineal region, and cerebellopontine angle appear normal. Mucoperiosteal thickening in the left maxillary sinus. Prominent pituitary gland measuring up to 8 mm. Procedure Note Bebo Sol MD - 03/31/2020 EXAMINATION: MRI brain without contrast. DATE: 03/31/2020 INDICATION: left sided facial numbness and tingling, left arm numbness starting last night. Symptoms have now resolved. TIA, INITIAL SCREENING COMPARISON: None TECHNIQUE: MRI of the brain was obtained without administration of intravenous contrast according to routine protocol without immediate complications. FINDINGS: There is no evidence of acute infarct or restricted diffusion. There isno evidence of intracranial mass, mass effect or midline shift. Theventricles and subarachnoid spaces are symmetric and unremarkable. The alonso white matter differentiation is preserved. Gradient images reveal no foci of susceptibility artifact to suggest intraparenchymal brain hemorrhage.The major intracranial arterial flow voids are grossly patent.Craniocervical junction, sella region, pineal region, and cerebellopontine angle appear normal. Mucoperiosteal thickening in the left maxillary sinus. Prominent pituitary gland measuring up to 8 mm. IMPRESSION: 1. No diffusion restriction to suggest acute ischemic infarct. 2. 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 However, cannotdefinitively exclude underlying pituitary microadenoma. RECOMMENDATION: Dynamic MRI pituitary protocol with and without contrast may be obtained on a routine nonemergent basis. 3. Left maxillary sinus disease. Interpreted By: Bebo Sol MD, 03/31/2020 7:57 AM us Russell Grissom Jr., MD MRI Final Res ult documented in this encounter Visit Diagnoses Diagnosis TIA (transient ischemic attack)- Primary Unspecified transient cerebral ischemia documented in this encounter Administered Medications Inactive Administered Medications - up to 3 most recent administrations Medication Order MAR Action Action Date Dose Rate Site aspirin chewable tablet 324 mg 324 mg, Oral, Daily, First dose (after last modification) on 03/31/20 at 0900, Until Discontinued Given 03/31/2020 9:18 AM CDT 324 mg aspirin chewable tablet 81 mg 81 mg, Oral, Daily, First dose (after last modification) on 04/01/20 at 0900, Until Discontinued Given 04/01/2020 8:42 AM CDT 81 mg atorvastatin (LIPITOR) tablet 40 mg 40 mg, Oral, Nightly at bedtime, First dose on 04/01/20 at 2100, Until Discontinued atorvastatin (LIPITOR) tablet 40 mg 40 mg, Oral, Once, 1 dose, On 04/01/20 at 1345, One tablet just before discharge. Pt is concerned that she will not it to the pharmacy [facility] for home meds [facility] Given 04/01/2020 2:23 PM CDT 40 mg clopidogrel (PLAVIX) tablet 75 mg 75 mg, Oral, Daily, First dose (after last modification) on 03/31/20 at 0900, Until Discontinued Given 04/01/2020 8:42 AM CDT 75 mg Given 03/31/2020 9:18 AM CDT 75 mg hydroCHLOROthiazide (HYDRODIURIL) tablet 25 mg 25 mg, Oral, Daily, First dose on 03/31/20 at 1130, Until Discontinued Given 04/01/2020 8:42 AM CDT 25 mg Given 03/31/2020 12:46 PM CDT 25 mg iopamidol (ISOVUE-370) 76 % injection 80 mL 80 mL, Intravenous, IMG once as needed, Contrast, 1 dose, Starting on 03/31/20 at 0742, Until 03/31/20 at 0742 Given 03/31/2020 7:42 AM CDT 80 mLs ondansetron (ZOFRAN) injection 4 mg 4 mg, Intravenous, Every 8 hours PRN, Nausea, Vomiting, Starting on 03/31/20 at 0358, Until 04/01/20 at 1745, IV push over 2-5 minutes. documented in this encounter Active and Recently Administered Medications Times are shown in CDT. Scheduled Medication Order 03/30/2020 03/31/2020 04/01/2020 aspirin chewable tablet 324 mg (CANCELED) 324 mg, Oral, Daily, First dose (after last modification) on 03/31/20 at 0900, Until Discontinued 09 (Given - Provider: Camryn Ramirez RN) aspirin chewable tablet 81 mg 81 mg, Oral, Daily, First dose (after last modification) on 04/01/20 at 0900, Until Discontinued 0842 (Given - Provid er: Camryn Ramirez, CHANTELL) atorvastatin (LIPITOR) tablet 40 mg 40 mg, Oral, Nightly at bedtime, First dose on 04/01/20 at 2100, Until Discontinued atorvastatin (LIPITOR) tablet 40 mg (COMPLETED) 40 mg, Oral, Once, 1 dose, On 04/01/20 at 1345, One tablet just before discharge. Pt is concerned that she will not it to the pharmacy [facility] for home meds excelsior picker 142 (Given - Provid er: Camryn Ramirez RN) clopidogrel (PLAVIX) tablet 75 mg 75 mg, Oral, Daily, First dose (after last modification) on 03/31/20 at 0900, Until Discontinued 0918 (Given - Provider: Camryn Ramirez RN) 0842 (Given - Provider: Camryn Ramirez, RN) hydroCHLOROthiazide (HYDRODIURIL) tablet 25 mg 25 mg, Oral, Daily, First dose on 03/31/20 at 1130, Until Discontinued 1246 (Given - Provider: Camryn Ramirez, RN) 0842 (Given - Provider: Camryn Ramirez, RN) PRN Medication Order 03/30/2020 03/31/2020 04/01/2020 iopamidol (ISOVUE-370) 76 % injection 80 mL (COMPLETED) 80 mL, Intravenous, IMG once as needed, Contrast, 1 dose, Starting on 03/31/20 at 0742, Until 03/31/20 at 0742 0742 (Given - Provider: Severo Chiang, RTR) ondansetron (ZOFRAN) injection 4 mg 4 mg, Intravenous, Every 8 hours PRN, Nausea, Vomiting, Starting on 03/31/20 at 0358, Until 04/01/20 at 1745, IV push over 2-5 minutes. documented in this encounter Care Teams Radiation Protection Technician Relationship Specialty Start Date End Date Joel Colvin MD [address] [place] [address] PCP - General FAMILY PRACTICE 03/30/20 documented as of this encounter
--- OUTSIDE RECORDS SUMMARY | 2024-07-01 02:51 | XMS_ITS | Encounter Summary ---
Author Organization [facility] Address [address] [place] [address]. [place] [address] [place] [address] Care Team Providers Care Motel Keeper Name Role Phone Joel Durán MD Primary Care Provider [phone] Mary Bahena MD Unavailable Jaguar Castaneda MD Unavailable [phone] Billy Fernandez APRN Unavailable [phone] Encounter Details Date Type Department Care Team (Late st Contact Info) Description 08/02/2020 [employer] Message Enc [facility] eld [address] [place] [address] Jaguar Castaneda MD [address] [place] [address] Question Social History Tobacco Use Types Packs/Day [...] COVID-19? No / Unsure 07/31/2020 10:19 AM COMPENSATOR WORKER documented as of this encounter Functional [...] [facility] Non Invasive Cardiology - [facility] [address] [place], [place] [address] Jaguar Castaneda MD [address] [place] [address] 09/23/2024 10:00 AM CDT Office Visit [facility] eld [address] [place] [address] Jaguar Castaneda MD [address] [place] [address] documented as of this encounter Visit Diagnoses Not on filedocumented in this encounter Additional Health Concerns Infection Onset Date Last Indicated Resolved Time COVID-19 Rule Out 08/07/2020 08/07/2020 08/07/2020 9:24 PM COMPENSATOR WORKER COVID-19 Rule Out 09/03/2020 09/03/2020 09/04/2020 8:15 PM COMPENSATOR WORKER documented as of this encounter Care Teams Motel Keeper Relationship Specialty Start Date End Date Joel Durán MD [address] [place] [address] PCP - General FAMILY PRACTICE 03/30/20 Mary Bahena MD [address] [place] [address] Vascular Neurology 04/18/20 09/09/22 Jaguar Castaneda MD [address] [place] [address] Consulting Physician INTERVENTIONAL CARDIOLOGY 04/18/20 Billy Fernandez APRN [address] [facility] [address] [address] Nurse Practitioner NURSE PRACTITIONER 09/10/22 documented as of this encounter
--- OUTSIDE RECORDS SUMMARY | 2024-07-01 02:51 | XMS_ITS | Encounter Summary ---
Author Organization [facility] Address [address] [place] [address]. [place] [address] [place] [address] Care Team Providers Care Corner Bead Operator Name Role Phone Joel Durán MD Primary Care Provider [phone] Mary Bahena MD Unavailable Jaguar Castaneda MD Unavailable [phone] Reason for Visit * Reason Onset Date Comments Schedule Procedure 08/02/2020 Encounter Details Date Type Department Care Team (Late st Contact Info) Description 08/02/2020 Telephone [facility] ld [address] [place] [address] Jaguar Castaneda MD [address] [place] [address] Schedule Procedure Social History Tobacco Use Types Packs/Day Years [...] COVID-19? No / Unsure 07/31/2020 10:19 AM NATURE PHOTOGRAPHER documented as of this encounter Functional Status [...] Progress Notes * Tete Landis RN - 08/02/2020 11:49 AM CST Patient instruction letter sent RE PHOTOGRAPHER * Nory Luo - 08/02/2020 10:41 AM CST Pt returned call - read rescheduled MIKA date/time in My chart. Confirmed Date/time for MIKA is good.COVID date is also good - she will go to [place] for the COVID test. Please mailed letter out. RE PHOTOGRAPHER * Tete Landis RN - 08/02/2020 9:14 AM CST LM for patient that I have MIKA rescheduled to [facility] 08/09/20 10:00, check in 8:30. COVID test to be done [facility] 08/06/20 [facility] or [place]. Will send letter when patient returns call. RE PHOTOGRAPHER documented in this encounter Plan of Treatment Upcoming Encounters Date Type Department Care Team (Late st Contact Info) Description 09/23/2024 9:00 AM CDT Appointment [facility] Non Invasive Cardiology - [facility] [address] [place] [address] Jaguar Castaneda MD [address] [place] [address] 09/23/2024 10:00 AM CDT Office Visit [facility] [address] [place] [id number] Jaguar Castaneda MD [address] [place] [address] documented as of this encounter Visit Diagnoses Not on filedocumented in this encounter Care Teams Corner Bead Operator Relationship Specialty Start Date End Date Joel Durán MD [address] [place] [address] PCP - General FAMILY PRACTICE 03/30/20 Mary Bahena MD [address] [place] [address] Vascular Neurology 04/18/20 09/09/22 Jaguar Castaneda MD [address] [place] [address] Consulting Physician INTERVENTIONAL CARDIOLOGY 04/18/20 documented as of this encounter
--- OUTSIDE RECORDS SUMMARY | 2024-07-01 02:51 | XMS_ITS | Encounter Summary ---
Author Organization [facility] Address [address] [place] [address]. [place] [address] [place] [address] Care Team Providers Care Gravity Meter Operator Name Role Phone Joel Durán MD Primary Care Provider [phone] Mary Bahena MD Unavailable Jaguar Castaneda MD Unavailable [phone] Reason for Visit * Reason Onset Date Comments Appointment Request 04/17/2020 Encounter Details Date Type Department Care Team (Late st Contact Info) Description 04/17/2020 Telephone [place] [facility] [facility] ld [address] [place] [address] Marianela Franz, RN Appointment Request Social History Tobacco Use Types [...] documented in this encounter Progress Notes * Marianela Franz RN - 2020 10:54 AM CDT Patient returned office call Referral Source: [employer] referral from Dr. Bahena Insurance: [facility] Caller: [employer] Caller Phone Number: Symptoms/Consult for: TIA PFO Request Records-fax to [phone]: in [facility] Current PCC Patient: no Recent hospitalizations: Ever seen a radiopharmacist in the past: no Requested appt timeframe: [place] Recent testing/labs: Appt Date/time: 04/30/2020 at 1:30 Provider:Dr. Castaneda Covid+Test or Exposure in last 14 days: no MyChart offered: yes Letter/WS mailed/NA: no Care Team: yes * Marianela Franz RN - 04/17/2020 5:32 PM CDT Received a work Q referral from Dr. Bahena requesting a consult with Dr. Castaneda for TIA. Attempted to call pt non answer message left to call Access nurse back to schedule. documented in this encounter Plan of Treatment Upcoming Encounters Date Type Department Care Team (Late st Contact Info) Description 09/23/2024 9:00 AM CDT Appointment [facility] Non Invasive Cardiology - [facility] [address] [place] [address] Jaguar Castaneda MD [address] [place] [address] 09/23/2024 10:00 AM CDT Office [facility] [place] [address] [place] [address] Jaguar Castaneda MD [address] [place] [address] documented as of this encounter Visit Diagnoses Not on filedocumented in this encounter Care Teams Gravity Meter Operator Relationship Specialty Start Date End Date Joel Durán MD [address] [place] [address] PCP - General FAMILY PRACTICE 03/30/20 Mary Bahena MD [address] [place] [address] Vascular Neurology 04/18/20 09/09/22 Jaguar Castaneda MD [address] [place] [address] Consulting Physician INTERVENTIONAL CARDIOLOGY 04/18/20 documented as of this encounter
--- OUTSIDE RECORDS SUMMARY | 2024-07-01 02:51 | XMS_ITS | Encounter Summary ---
Author Organization [facility] Address [address] [place] [address]. [place] [address] [place] [address] Care Team Providers Care Chute Tender Name Role Phone Joel Durán MD Primary Care Provider [phone] Mary Bahena MD Unavailable Sara Ly MD Unavailable [phone] Reason for Referral * Imaging (Routine) - Closed Specialty Diagnoses / Procedures Referred By Contac t Referred To Contact RADIOLOGY Diagnoses PFO (patent foramen ovale) ([facility]) Procedures USE TRANSESOPHAGEAL ECHO Sara Ly MD [address] [place] [address] Phone: tel: fax: Referral ID Status Reason Start Date Expiration Date Visits Re quested Visits Authorized [id number] Closed 05/02/2020 06/02/2021 1 1 Reason for Visit * Reason Onset Date Comments Schedule Procedure 05/02/2020 MIKA Encounter Details Date Type Department Care Team ([facility] st Contact Info) Description 05/02/2020 Telephone [place] [facility] ield [address] [place] [address] Sara Ly MD [address] [place] [address] Schedule Procedure (MIKA) Social History Tobacco Use Types Packs/Day Years [...] documented in this encounter Progress Notes * Daysi Cannon RN - 05/02/2020 2:32 PM CDT MIKA scheduled for 05/16/2020 at 12:00pm with a 10:30am arrival time on the 5th floor of [facility]. Patient will need to be NPO 6 hours prior to her procedure, but can take all morning medicine with a sip of water. Patient will receive sedation, therefore, a flag car driver is required. Patient will need a Covid-19 test done 72 hours prior to MIKA date. Patient needs to get covid test done on 05/13/2020 either in [place] [facility] or [facility]. Left vm to call back and inform her of message. Letter sent to patient through [employer] and also mailed. * Daysi Cannon RN - 05/02/2020 2:26 PM CDT ----- Message from Tete Landis RN sent at 04/30/2020 2:09 PM CDT ----- Regarding: Needs MIKA w/ Zuck documented in this encounter Plan of Treatment Upcoming Encounters Date Type Department Care Team (Late st Contact Info) Description 09/23/2024 9:00 AM CDT Appointment [facility] Non Invasive Cardiology - [place] [facility] [address] [place], [place] [address] Sara Ly MD [address] [place] [address] 09/23/2024 10:00 AM CDT Office Visit [facility] eld [address] [place] [address] Sara Ly MD [address] [place] [address] documented as of this encounter Results * USE TRANSESOPHAGEAL ECHO (08/09/2020 10:39 AM EDGING MACHINE SETTER) Anatomical Region Laterality Modality Cardiac Echocardiogram, Cardiac Electrophysiology, Cardiac Electrophysiology 08/09/2020 9:25 AM EDGING MACHINE SETTER Narrative 08/09/2020 2:40 PM EDGING MACHINE SETTER ?Transesophageal Echocardiography Report Pat.Name: ??MATEUSZ HEARN ?Pat.ID: ?[id number] ? St.Date: ?? 08/09/2020 ?Refer.: ??SARA LY ? Exam Time: 9:25:00 AM ? Study Type:TRANSESOPHAGEAL ECHO (MIKA) Height: ?63in ?Weight: ?171.64lb ? BSA: ? 1.81 m2 ?Age: ??1985,35Y ? Sex: ? FEMALE ?HR: ?139 bpm ? Sonogrphr: Nita Fung RDCS, RVT Pat. Stat.:Outpatient ? CPT - 4: ?15114 [id number] ? Reason for Study: PFO, TIA ? [...] - 08/09/2020 Transesophageal Echocardiography Report Pat.Name: MATEUSZ HEARN Pat.ID: [id number] St.Date: 08/09/2020 Refer.MD: SARA LY Exam Time: 9:25:00 AM Study Type:TRANSESOPHAGEAL ECHO (MIKA) Height: 63in Weight: 171.64lb BSA: 1.81 m2 Age: 9 1985,35Y Sex: FEMALE HR: 139 bpm Sonogrphr: Nita Fung RDCS, RVT Pat. Stat.:Outpatient CPT - 4: [id number] Reason for Study: PFO, TIA Procedures: 2D, [...] type atrial septal defect TIA (transient ischemic attack)- Primary Unspecified transient cerebral ischemia PFO (patent foramen ovale) (HHS/HCC) Ostium secundum type atrial septal defect documented in this encounter Care Teams Chute Tender Relationship Specialty Start Date End Date Joel Durán MD [address] [place] [address] PCP - General FAMILY PRACTICE 03/30/20 Mary Bahena MD [address] [place] [address] Vascular Neurology 04/18/20 09/09/22 Sara Ly MD [address] [place] [address] Consulting Physician INTERVENTIONAL CARDIOLOGY 04/18/20 documented as of this encounter
--- OUTSIDE RECORDS SUMMARY | 2024-07-01 02:51 | XMS_ITS | Encounter Summary ---
Author Organization [facility] Address [address] [place] [address]. [place] [address] [place] [address] Care Team Providers Care Repacker Name Role Phone Joel Durán MD Primary Care Provider [phone] Reason for Referral * Imaging (Emergency) - Closed Specialty Diagnoses / Procedures Referred By Alexi kendall Referred To Contact RADIOLOGY Procedures CT STROKE(HEAD WO) [facility] Emergency Room [address] [place] [address] Phone: tel: fax: Referral ID Status Reason Start Date Expiration Date Visits Re quested Visits Authorized [id number] Closed 03/30/2020 04/29/2021 1 1 Reason for Visit * Reason Comments Neurologic Problem Encounter Details Date Type Department Care Team (Late st Contact Info) Description 03/30/2020 9:31 PM CDT - 03/31/2020 2:27 AM CDT Emergency [facility] Emergency Room [address] [place] [address] Donaldo Grimaldo MD [address] [place] [address] Neurologic Problem Discharge Disposition: Transfer to Acute Care Hospital Social History Tobacco Use Types Packs/Day Years [...] Sign Reading Time Taken Comments Blood Pressure 110/62 03/31/2020 1:00 AM CDT Pulse 73 03/31/2020 1:00 AM CDT Temperature 36.8 ??C (98.2 ??F) 03/30/2020 9:40 PM CD T Respiratory Rate 18 03/30/2020 9:40 PM CDT Oxygen Saturation 98% 03/31/2020 1:00 AM CDT Inhaled Oxygen Concentration - - Weight 84.6 kg (186 lb 9.6 oz) 03/30/2020 9:40 P M CDT Height 157.5 cm (5' 2 ) 03/31/2020 1:00 AM CDT Body Mass Index 34.13 03/30/2020 9:40 PM CDT documented in this encounter Medications at Time [...] 04/01/2020 05/01/2020 documented as of this encounter ED Notes * Pauly Faulkner RN - 03/30/2020 11:54 PM CDT [facility] called and notified of request for admission. Cheryl said she will call back . * Donaldo Grimaldo MD - 03/30/2020 10:12 PM CDT Chief Complaint Chief Complaint Patient presents with ??? Neurologic Problem History of Present Illness Patient was laying down in the left lower extremity and started having numbness and heaviness in the left upper extremity left side of the face and left-sided facial droop. This happened at 830 this evening. was there and was tested and he will stated that she had slurred speech. They called EMS when EMS arrived all symptoms were resolved. Patient has history of high blood pressure deniesany drug abuse but she has occasional alcohol intake. She also denies any similar episodes in the past. Now she is pain-free and no symptoms. Medical History ALLERGIES: No Known Allergies MEDICATIONS: Prior to Admission medications Medication Sig Start Date End Date Taking? Authorizing Provider hydroCHLOROthiazide 25 MG tablet Take 25 mg by mouth daily. 03/07/20 Doc Abstract PAST MEDICAL HISTORY: Past Medical History: Diagnosis Date ??? HTN (hypertension) PAST SURGICAL HISTORY: Past Surgical History: Procedure Laterality Date ??? SECTION FAMILY HISTORY: Family History Problem Relation Name Age of Onset ??? Hyperlipidemia Mother ??? Thyroid Disease Father ??? Hyperlipidemia Father ??? Diabetes Maternal Grandmother ??? Heart Disease Maternal Grandmother ??? Cancer Maternal Grandmother ??? Diabetes Paternal Grandmother ??? Heart Disease Paternal Grandmother SOCIAL HISTORY: Social History Tobacco Use ??? Smoking status: Current Every Day Smoker Packs/day: 1.00 ??? Smokeless tobacco: Never Used Substance Use Topics ??? Alcohol use: Not Currently ??? Drug use: Never Review of Systems Review of Systems Constitutional: Negative. Negative for activity change and chills. HENT: Negative. Negative for congestion, dental problem, drooling and ear discharge. Eyes: Negative. Negative for discharge and itching. Respiratory: Negative. Negative for apnea, choking and chest tightness. Cardiovascular: Negative. Negative for chest pain, palpitations and leg swelling. Gastrointestinal: Negative. Negative for abdominal distention, abdominal pain, anal bleeding and blood in stool. Genitourinary: Negative. Negative for difficulty urinating, dyspareunia, dysuria, enuresis and flank pain. Musculoskeletal: Negative for arthralgias, back pain and joint swelling. Neurological: Negative. Negative for dizziness, facial asymmetry and headaches. Psychiatric/Behavioral: Negative for agitation, behavioral problems and confusion. All other systems reviewed and are negative. Physical Exam Filed Vitals: 03/30/20 2200 03/30/20 2230 03/30/20 2300 03/30/20 2330 BP: 129/66 122/72 116/69 127/67 Pulse: 98 98 90 86 Resp: Temp: SpO2: 99% 99% 97% 98% Weight: Height: Physical Exam Constitutional: She is oriented to person, place, and time. She appears well- developed and well-nourished. No distress. HENT: Head: Normocephalic and atraumatic. Right Ear: External ear normal. Left Ear: External ear normal. Mouth/Throat: Oropharynx is clear and moist. Eyes: Pupils are equal, round, and reactive to light. EOM are normal. Neck: Normal range of motion. Cardiovascular: Normal rate, regular rhythm and normal heart sounds. Pulmonary/Chest: Effort normal and breath sounds normal. No stridor. No respiratory distress. She has no wheezes. Abdominal: Soft. Bowel sounds are normal. She exhibits no distension. There is no tenderness. Thereis no guarding. Musculoskeletal: Normal range of motion. She exhibits no edema or deformity. Neurological: She is alert and oriented to person, place, and time. She has normal strength. She displays no atrophy and no tremor. No cranial nerve deficit or sensory deficit. Coordination and gait normal. GCS eye subscore is 4. GCS verbal subscore is 5. GCS motor subscore is 6. NIH score 0 Skin: Skin is warm and dry. She is not diaphoretic. Psychiatric: She has a normal mood and affect. Her behavior is normal. Diagnostic Studies / Procedures ELECTROCARDIOGRAMS: Results for orders placed or performed during the hospital encounter of 03/30/20 ECG 12 lead Narrative [facility] Test Date: 2020-03-30 Pat Name: MATEUSZ HEARN Department: Room: [place] [address] Gender: Female [place]: : 1985 Requested By: DONALDO GRIMALDO Order Number: [id number] Ruth MD: Measurements Intervals [place] Rate: 94 P: 29 MI: 176 QRS: 7 QRSD: 92 T: 16 QT: 360 QTc: 451 Interpretive Statements SINUS RHYTHM NONSPECIFIC ST & T-WAVE ABNORMALITY No previous ECG available for comparison EKG with sinus rhythm at 94 with normal MI QRS QT and QTc intervals LABORATORY STUDIES: Results for orders placed or performed during the hospital encounter of 03/30/20 CBC W/DIFF AUTOMATED Result Value Ref Range WBC 6.6 4.4 - 11.0 x10'3/uL RBC 4.69 4.50 - 5.10 x10'6/uL HGB 13.3 12.3 - 15.3 G/DL HCT 39.5 35.9 - 44.6 % MCV 84.2 80.0 - 96.0 FL MCH 28.4 25.3 - 30.9 PG MCHC 33.7 31.0 - 34.1 G/DL RDW 13.9 12.4 - 15.1 % PLT 340 151 - 353 x10'3/uL MPV 10.9 9.6 - 12.0 FL RBC MORPHOLOGY NORMAL PLT MORPH. NORMAL WBC MORPHOLOGY NORMAL LYMPHOCYTES 35.2 15.8 - 45.0 % NEUTROPHILS 53.4 42.1 - 71.9 % MONOCYTES 10.1 5.7 - 12.5 % EOSINOPHILS 0.9 0.0 - 5.6 % BASOPHILS 0.2 0.0 - 1.3 % ABS. NEUTROPHILS TOTAL 3.55 1.40 - 6.00 x10'3/uL IMMATURE GRANS 0.2 0.0 - 0.5 % ABS. LYMPHOCYTES 2.34 0.80 - 4.70 x10'3/uL PROTIME/INR, VENOUS Result Value Ref Range Protime 12.5 (H) 9.1 - 12.4 SEC INR 1.0 COMPREHENSIVE METABOLIC PANEL Result Value Ref Range GLUCOSE 109 (H) 70 - 99 MG/DL BUN 15 7 - 18 MG/DL CREATININE S/P/B 0.88 0.55 - 1.02 MG/DL SODIUM 140 136 - 145 MMOL/L POTASSIUM 3.1 (L) 3.5 - 5.1 MMOL/L CHLORIDE S/P/B 103 100 - 108 MMOL/L CO2 26.4 21 - 32 MMOL/L CALCIUM 8.5 8.5 - 10.1 MG/DL BILIRUBIN TOTAL S/P/B 0.2 0.2 - 1.2 MG/DL TOTAL PROTEIN S/P/B 6.9 6.4 - 8.2 G/DL ALBUMIN S/P/B 3.6 3.4 - 5.0 G/DL AST 24 15 - 37 U/L ALT 36 14 - 55 U/L ALKALINE PHOSPHATASE S/P/B 72 50 - 136 U/L ANION GAP 10.6 5 - 15 MMOL/L BUN CREATININE RATIO 17.0 6 - 26 A/G RATIO 1.1 1.0 - 2.0 RATIO eGFR Non-Afr. Amer. 85 (L) >90 ML/MIN/1.73 M2 eGFR Afr. Amer. >90 >90 ML/MIN/1.73 M2 TROPONIN, QUANT Result Value Ref Range TROPONIN I 0.017 0.000 - 0.056 ng/mL. URINALYSIS WI REFLEX TO CULTURE Result Value Ref Range COLOR (U) YELLOW TRANSPARENCY CLEAR Specific [place] (U) 1.010 1.000 - 1.030 U PH 8.0 5.0 - 9.0 LEUKOCYTE ESTERASE NEGATIVE NEGATIVE NITRITES NEGATIVE NEGATIVE PROTEIN (U) NEGATIVE NEGATIVE URINE GLUCOSE NEGATIVE NEGATIVE U KETONES NEGATIVE NEGATIVE BILIRUBIN (U) NEGATIVE NEGATIVE BLOOD NEGATIVE NEGATIVE WBC/HPF 0-5 0 - 5 /HPF RBC/HPF 5-10 0 - 5 /HPF EPI/HPF MODERATE /HPF URINE LOCKE: MODERATE DRUG SCREEN RAPID Result Value Ref Range AMPHETAMINE (U) NONE DETECTED NONE DETECTED BARBITURATES SCREEN (U) NONE DETECTED NONE DETECTED BENZODIAZEPINES SCREEN (U) NONE DETECTED NONE DETECTED BUPRENORPHINE SCREEN (U) NONE DETECTED NONE DETECTED COCAINE METABOLITES (U) NONE DETECTED NONE DETECTED METHAMPHETAMINE (U) NONE DETECTED NONE DETECTED METHADONE (U) NONE DETECTED NONE DETECTED OPIATE SCREEN (U) NONE DETECTED NONE DETECTED OXYCODONE SCREEN (U) NONE DETECTED NONE DETECTED PHENCYCLIDINE PCP (U) NONE DETECTED NONE DETECTED PROPOXYPHENE SCREEN (U) NONE DETECTED NONE DETECTED CANNABINOIDS SCREEN (U) NONE DETECTED NONE DETECTED TRICYCLIC ANTIDEPRESSANT SCREEN (U) NONE DETECTED NONE DETECTED ETHANOL Result Value Ref Range Alcohol 0.003 (H) <0.003 G/DL IMAGING STUDIES CT STROKE(HEAD WO) (Results Pending) no acute findings ED Course / Medical Decision Making Symptoms resolved . [facility] denied, asked to transfer to [facility], [facility] has [facility] beds, we called [facility] , No beds. [facility] accepted .dr arriaga Clinical Impression TIA (transient ischemic attack) (Primary) Disposition: Transfer to Another Facility Fulton Re, MD 03/31/20 0110 * Pauly Faulkner RN - 03/30/2020 9:39 PM CDT Patient presents today with complaints of left facial numbness and drooping along with left 2nd and3 digit numbness to left arm that started about 2029 documented in this encounter Plan of Treatment Upcoming Encounters Date Type Department Care Team (Late st Contact Info) Description 09/23/2024 9:[address] [facility] Non Invasive Cardiology - [facility] [address] [place] [address] Jaguar Castaneda MD [address] [place] [address] 09/23/2024 10:00 AM CDT Office Visit [facility] [address] [place] [address] Jaguar Castaneda MD [address], [place] [address] documented as of this encounter Procedures Procedure Name Priority Date/Time Associated Diagnosis Comments URINALYSIS WI REFLEX TO CULTURE STAT 03/30/2020 11:56 PM CDT DRUG SCREEN RAPID STAT 03/30/2020 11: 56 PM CDT ETHANOL STAT 03/30/2020 11:24 PM CDT ECG 12-LEAD Routine 03/30/2020 10:29 PM CDT PROTHROMBIN TIME, VENOUS STAT 03/30/2020 10:14 PM CDT COMPREHENSIVE METABOLIC PANEL STAT 03/30/2020 10:14 PM CDT CBC W/DIFF AUTOMATED STAT 03/30/2020 10:14 PM CDT TROPONIN, QUANT STAT 03/30/2020 10:[address] STROKE(HEAD WO) STAT 03/30/2020 9: 39 PM CDT documented in this encounter Results * DRUG SCREEN RAPID (03/30/2020 11:56 PM CDT) [facility] AMPHETAMINE (U) NONE DETECTED NONE DETECTED 03/31/2020 12:08 AM CDT [facility] BARBITURATES SCREEN (U) NONE DETECTED NONE DETECTED 03/31/2020 12:08 AM T [facility] BENZODIAZEPINES SCREEN (U) NONE DETECTED NONE DETECTED 03/31/2020 12:08 AM T [facility] BUPRENORPHINE SCREEN (U) NONE DETECTED NONE DETECTED 03/31/2020 12:08 AM T [facility] COCAINE METABOLITES (U) NONE DETECTED NONE DETECTED 03/31/2020 12:08 AM T [facility] METHAMPHETAMINE (U) NONE DETECTED NONE DETECTED 03/31/2020 12:08 AM [facility] METHADONE (U) NONE DETECTED NONE DETECTED 03/31/2020 12:08 AM T [facility] OPIATE SCREEN (U) NONE DETECTED NONE DETECTED 03/31/2020 12:08 AM T [facility] OXYCODONE SCREEN (U) NONE DETECTED NONE DETECTED 03/31/2020 12:08 AM T [facility] PHENCYCLIDINE PCP (U) NONE DETECTED NONE DETECTED 03/31/2020 12:08 AM T [facility] PROPOXYPHENE SCREEN (U) NONE DETECTED NONE DETECTED 03/31/2020 12:08 AM CDT [facility] CANNABINOIDS SCREEN (U) NONE DETECTED NONE DETECTED 03/31/2020 12:08 AM CDT [facility] TRICYCLIC ANTIDEPRESSANT SCREEN (U) NONE DETECTED NONE DETECTED 03/31/2020 12:08 AM CDT [facility] Comment: NOTE: RESULTS OF THIS DRUG SCREEN SHOULD BE USED FOR MEDICAL PURPOSES ONLY AND NOT FOR LEGAL OR EMPLOYMENT PURPOSES. POSITIVE RESULTS ARE CONFIRMED BY [facility]. ??MEDICATIONS CONTAINING EPHEDRINE MAY CAUSE FALSE POSITIVE AMPHETAMINE. AMPHETAMINE- ?500 NG/ML BARBITURATE- ?200 NG/ML BENZODIAZEPINE- ?? 150 NG/ML BUPRENORPHINE- ? 10 NG/ML COCAINE- ?150 NG/ML METHAMPHETAMINES- 500 NG/ML METHADONE- ?200 NG/ML OPIATE- ? 100 NG/ML OXYCODONE- ?100 NG/ML PCP- ? 25 NG/ML PROPOXYPHENE- ? 300 NG/ML THC- ? 50 NG/ML TCA- ?300 NG/ML Urine specimen (specimen) URINE SPECIMEN / Unknown 03/30/2020 11:56 PM CDT Donaldo Grimaldo MD URINE ORDERABLES Final Result [facility] [address] [place] [address], * URINALYSIS WI REFLEX TO CULTURE (03/30/2020 11:56 PM CDT) COLOR (U) YELLOW 03/31/2020 12:05 AM CDT [facility] TRANSPARENCY CLEAR 03/31/2020 12:05 AM CDT [facility] SPECIFIC GRAVITY (U) 1.010 1.000 - 1.030 03/31/2020 12:05 AM CDT [facility] U PH 8.0 5.0 - 9.0 03/31/2020 12:05 AM CDT [facility] LEUKOCYTES (U) NEGATIVE NEGATIVE 03/31/2020 12:05 AM T [facility] NITRITES NEGATIVE NEGATIVE 03/31/2020 12:05 AM T [facility] PROTEIN (U) NEGATIVE NEGATIVE 03/31/2020 12:05 AM T [facility] URINE GLUCOSE NEGATIVE NEGATIVE 03/31/2020 12:05 AM T [facility] KETONES MG/DL (U) NEGATIVE NEGATIVE 03/31/2020 12:05 AM T [facility] BILIRUBIN (U) NEGATIVE NEGATIVE 03/31/2020 12:05 AM T [facility] BLOOD (U) NEGATIVE NEGATIVE 03/31/2020 12:05 AM T [facility] WBC/HPF 0-5 0 - 5 /HPF 03/31/2020 12:05 AM T [facility] RBC/HPF 5-10 0 - 5 /HPF 03/31/2020 12:05 AM [facility] EPI/HPF MODERATE /HPF 03/31/2020 12:05 AM T [facility] URINE LOCKE MODERATE 03/31/2020 12:05 AM T [facility] Comment:MUCOUS URINE SPECIMEN OBTAINED BY CLEAN CATCH PROCEDURE / Unknown 03/30/2020 11:56 PM CDT Donaldo Grimaldo MD URINE ORDERABLES Final Result [facility] [address] [place] [address], [place] [phone] * (ABNORMAL) ETHANOL (03/30/2020 11:24 PM CDT) ALCOHOL S/P/B 0.003(H) <0.003 G/DL 03/30/2020 11:34 PM CDT [facility] 03/30/2020 11:2 4 PM CDT Donaldo Grimaldo MD LABORATORY Final Result [facility] [address] [place] [address], * ECG 12 lead (03/30/2020 10:29 PM CDT) 03/30/2020 10:2 9 PM CDT Narrative [facility] RAD - 03/31/2020 6:30 PM CDT [facility] Test Date: ?2020-03-30 Pat Name: ? MATEUSZ HEARN ?Department: ? Room: ? TRA2 TR2 Gender: ? Female ? [place]: ?? : ?1985 ? Requested By: DONALDO GRIMALDO Order Number: [id number] ? Reading : ?? Russell Cespedes ? Measurements Intervals ?[place] ? Rate: ? 94 ? P: ?29 MI: ? 176 ?QRS: ?7 QRSD: ? 92 ? T: ?16 QT: ? 360 ? QTc: ?451 ? Interpretive Statements SINUS RHYTHM NONSPECIFIC ST & T-WAVE ABNORMALITY No previous ECG available for comparison Procedure Note Russell Cespedes MD - 03/31/2020 [facility] [place] Test Date: 2020-03-30 Pat Name: MATEUSZ HEARN Department: Room: [place] [address] Gender: Female [place]: : 1985 Requested By: DONALDO GRIMALDO Order Number: [id number] Ruth MD: Russell Cespedes Measurements Intervals [place] Rate: 94 P: 29 MI: 176 QRS: 7 QRSD: 92 T: 16 QT: 360 QTc: 451 Interpretive Statements SINUS RHYTHM NONSPECIFIC ST & T-WAVE ABNORMALITY No previous ECG available for comparison us Donaldo Grimaldo MD ECG ORDERABLES Final Result Performing Organization Address [facility]/ZIP Co de Phone Number [facility]) RAD * TROPONIN, QUANT (03/30/2020 10:14 PM CDT) TROPONIN I 0.017 0.000 - 0.056 ng/mL. 03/30/2020 10:40 PM CDT [facility] Comment: NORMAL: LESS THAN OR EQUAL TO 0.056 NG/ML INDETERMINATE ZONE: 0.056 TO 0.599 NG/ML CONDITIONS RESULTING IN MYOCARDIAL CELL DAMAGE CAN POTENTIALLY INCREASE LEVELS ABOVE THE EXPECTED RANGE. HIGH DOSES OF BIOTIN MAY INTERFERE WITH THIS TEST RESULT. CORRELATION TO CLINICAL HISTORY AND PRESENTATION RECOMMENDED. 03/30/2020 10:1 4 PM CDT Donaldo Grimaldo MD LABORATORY Final Result Performing Organization Address [facility] Co de Phone Number [facility] [address] [place] [address], [place] [phone] * (ABNORMAL) COMPREHENSIVE METABOLIC PANEL (03/30/2020 10:14 PM CDT) GLUCOSE 109(H) 70 - 99 MG/DL 03/30/2020 10:32 PM CDT [facility] BUN 15 7 - 18 MG/DL 03/30/2020 10:32 PM CDT [facility] CREATININE S/P/B 0.88 0.55 - 1.02 MG/DL 03/30/2020 10:32 PM CDT [facility] SODIUM S/P/B 140 136 - 145 MMOL/L 03/30/2020 10:32 PM CDT [facility] POTASSIUM S/P/B 3.1(L) 3.5 - 5.1 MMOL/L 03/30/2020 10:32 PM [facility] CHLORIDE S/P/B 103 100 - 108 MMOL/L 03/30/2020 10:32 PM [facility] CO2 26.4 21 - 32 MMOL/L 03/30/2020 10:32 PM [facility] CALCIUM S/P/B 8.5 8.5 - 10.1 MG/DL 03/30/2020 10:32 PM [facility] BILIRUBIN TOTAL S/P/B 0.2 0.2 - 1.2 MG/DL 03/30/2020 10:32 PM [facility] TOTAL PROTEIN S/P/B 6.9 6.4 - 8.2 G/DL 03/30/2020 10:32 PM [facility] ALBUMIN S/P/B 3.6 3.4 - 5.0 G/DL 03/30/2020 10:32 PM [facility] AST 24 15 - 37 U/L 03/30/2020 10:32 PM [facility] ALT 36 14 - 55 U/L 03/30/2020 10:32 PM [facility] ALKALINE PHOSPHATASE S/P/B 72 50 - 136 U/L 03/30/2020 10:32 PM [facility] ANION GAP 10.6 5 - 15 MMOL/L 03/30/2020 10:32 PM [facility] BUN CREATININE RATIO 17.0 6 - 26 03/30/2020 10:32 PM [facility] A/G RATIO 1.1 1.0 - 2.0 RATIO 03/30/2020 10:32 PM [facility] EGFR NON-AFR. AMER. 85(L) >90 ML/MIN/1.7 3 M2 03/30/2020 10:32 PM CDT [facility] EGFR AFR. AMER. >90 >90 ML/MIN/1.7 3 M2 03/30/2020 10:32 PM CDT [facility] Comment: NOTE: eGFR is not calculated for patients <18 years of age. This is an estimated GFR (CKD EPI) and should not be used for calculating drug doses. 03/30/2020 10:1 4 PM CDT us Donaldo Grimaldo MD LABORATORY Final Result Performing Organization Address [facility] Co de Phone Number [facility] [address] [place] [address], [place] [phone] * (ABNORMAL) PROTIME/INR, VENOUS (03/30/2020 10:14 PM CDT) PROTIME 12.5(H) 9.1 - 12.4 SEC 03/30/2020 10:32 PM CDT [facility] INR 1.0 03/30/2020 10:32 PM CDT [facility] Comment: Recommend INR ranges for Oral Anticoagulant Therapy: Mechanical Cardiac Values 2.5-3.5 All others indication 2.0-3.0 03/30/2020 10:1 4 PM CDT us Donaldo Grimaldo MD LABORATORY Final Result Performing Organization Address [facility]/ZIP Co de Phone Number [facility] [address] [place] [address], [place] [phone] * CBC W/DIFF AUTOMATED (03/30/2020 10:14 PM CDT) WBC 6.6 4.4 - 11.0 x10'3/uL 03/30/2020 10:21 PM CDT [facility] RBC 4.69 4.50 - 5.10 x10'6/uL 03/30/2020 10:21 PM CDT [facility] HGB 13.3 12.3 - 15.3 G/DL 03/30/2020 10:21 PM CDT [facility] HCT 39.5 35.9 - 44.6 % 03/30/2020 10:21 PM CDT [facility] MCV 84.2 80.0 - 96.0 FL 03/30/2020 10:21 PM CDT [facility] MCH 28.4 25.3 - 30.9 PG 03/30/2020 10:21 PM CDT [facility] MCHC 33.7 31.0 - 34.1 G/DL 03/30/2020 10:21 PM CDT [facility] RDW 13.9 12.4 - 15.1 % 03/30/2020 10:21 PM T [facility] PLT 340 151 - 353 x10'3/uL 03/30/2020 10:21 PM CDT [facility] MPV 10.9 9.6 - 12.0 FL 03/30/2020 10:21 PM T [facility] RBC MORPHOLOGY NORMAL 03/30/2020 10:21 PM CDT [facility] PLT MORPH. NORMAL 03/30/2020 10:21 PM T [facility] WBC MORPHOLOGY NORMAL 03/30/2020 10:21 PM CDT [facility] LYMPHOCYTES % 35.2 15.8 - 45.0 % 03/30/2020 10:21 PM CDT [facility] NEUTROPHILS % 53.4 42.1 - 71.9 % 03/30/2020 10:21 PM CDT [facility] MONOCYTES % 10.1 5.7 - 12.5 % 03/30/2020 10:21 PM CDT [facility] EOSINOPHILS 0.9 0.0 - 5.6 % 03/30/2020 10:21 PM CDT [facility] BASOPHILS 0.2 0.0 - 1.3 % 03/30/2020 10:21 PM CDT [facility] ABS. NEUTROPHILS TOTAL 3.55 1.40 - 6.00 x10'3/uL 03/30/2020 10:21 PM CDT [facility] IMMATURE GRANS % 0.2 0.0 - 0.5 % 03/30/2020 10:21 PM CDT [facility] ABS. LYMPHOCYTES 2.34 0.80 - 4.70 x10'3/uL 03/30/2020 10:21 PM CDT [facility] 03/30/2020 10:1 4 PM CDT Donaldo Grimaldo MD LABORATORY Final Result [facility] [address] [place] [address], * CT STROKE(HEAD WO) (03/30/2020 9:39 PM CDT) Anatomical Region Laterality Modality Head Computed Tomogra phy 04/01/2020 1:23 AM CDT Impressions 04/01/2020 1:29 AM CDT IMPRESSION: No acute intracranial hemorrhage. No apparent mass, mass effect, or major territory infarction. If further imaging evaluation clinically desired, MRI of brain for provide greater sensitivity and specificity for detection of early stroke. Ventricles and sulci are within normal limits. Normal alonso-white matter differentiation maintained. Approximately 1.6 x 1.7 cm polyp or mucous retention cyst posteriorly in left maxillary antrum. Mastoid air cells and remainder of visualized paranasal sinuses appear clear. Preliminary teleradiology report by Dr. Ilya Roberson. Interpreted By: Tom Karimi, 04/01/2020 1:23 AM Narrative 04/01/2020 1:[address] HEAD SCAN WITHOUT IV CONTRAST 03/30/2020 HISTORY: Stroke like symptoms. Facial drooping, slurred speech, and upper extremity paresthesias. COMPARISON: None. Automated exposure control with radiation dose reduction technique utilized. Procedure Note Tom Karimi MD - 04/01/2020 CT HEAD SCAN WITHOUT IV CONTRAST 03/30/2020 HISTORY: Stroke like symptoms. Facial drooping, slurred speech, andupper extremity paresthesias. COMPARISON: None. Automated exposure control with radiation dose reduction technique utilized. IMPRESSION: No acute intracranial hemorrhage. No apparent mass, mass effect, or major territory infarction. If further imaging evaluation clinically desired, MRI of brain for provide greater sensitivity and specificity for detection of early stroke. Ventricles and sulci are within normal limits. Normal alonso-white matter differentiation maintained. Approximately 1.6 x 1.7 cm polyp or mucous retention cyst posteriorly in left maxillary antrum. Mastoid air cells and remainder of visualized paranasal sinuses appear clear. Preliminary teleradiology report by Dr.Y. Roberson. Interpreted By: Tom Karimi, 04/01/2020 1:23 AM Donaldo Grimaldo MD CT Final Result documented in this encounter Visit Diagnoses Diagnosis TIA (transient ischemic attack)- Primary Unspecified transient cerebral ischemia documented in this encounter Administered Medications Inactive Administered Medications - up to 3 most recent administrations Medication Order MAR Action Action Date Dose Rate Site aspirin chewable tablet 324 mg 324 mg, Oral, Once, 1 dose, On 03/31/20 at 0100 Given 03/31/2020 1:12 AM CDT 324 mg clopidogrel (PLAVIX) tablet 300 mg 300 mg, Oral, Once, 1 dose, On 03/31/20 at 0100 Given 03/31/2020 1:12 AM CDT 300 mg documented in this encounter Active and Recently Administered Medications Times are shown in CDT. Scheduled Medication Order 03/29/2020 03/30/2020 03/31/2020 aspirin chewable tablet 324 mg (COMPLETED) 324 mg, Oral, Once, 1 dose, On 03/31/20 at 0100 0112 (Given - Provid er: Vangie Beavers RN) clopidogrel (PLAVIX) tablet 300 mg (COMPLETED) 300 mg, Oral, Once, 1 dose, On 03/31/20 at 0100 0112 (Given - Provid er: Vangie Beavers RN) documented in this encounter Care Teams Repacker Relationship Specialty Start Date End Date Joel Durán MD [address] [place] [address] PCP - General FAMILY PRACTICE 03/30/20 documented as of this encounter
--- OUTSIDE RECORDS SUMMARY | 2024-07-01 02:51 | XMS_ITS | Encounter Summary ---
Author Organization [facility] Address [address] [place] [address]. [place], [place] [address] [place] [address] Care Team Providers Care Application Counselor Name Role Phone Joel Durán MD Primary Care Provider [phone] Mary Bahena MD Unavailable Jaguar Castaneda MD Unavailable [phone] Encounter Details Date Type Department Care Team (Late st Contact Info) Description 08/06/2020 Abstract [facility] [address] [place] [address] Jaguar Castaneda MD [address] [place] [address] Social History Tobacco Use Types Packs/Day Years [...] COVID-19? No / Unsure 09/06/2020 8:12 AM EDUCATIONAL AIDE documented as of this encounter Functional Status * Question Answer [...] Appointment [facility] - [facility] [address] [place] [address] Jaguar Castaneda MD [address] [place] [address] 09/23/2024 10:00 AM CDT [facility] [address] [place] [id number] Jaguar Castaneda MD [address] [place], [place] [address] documented as of this encounter Goals Goal Patient Goal Type Associated Problems Recent Progress Patient-Stated? Author Safety - demonstrates understanding of home safety measures General No Cassandra Montemayor RN documented as of this encounter Visit Diagnoses Not on filedocumented in this encounter Additional Health Concerns Infection Onset Date Last Indicated Resolved Time COVID-19 Rule Out 08/07/2020 08/07/2020 08/07/2020 9:24 PM EDUCATIONAL AIDE COVID-19 Rule Out 09/03/2020 09/03/2020 09/04/2020 8:15 PM EDUCATIONAL AIDE documented as of this encounter Care Teams Application Counselor Relationship Specialty Start Date End Date Joel Durán MD [address] [place] [address] PCP - General FAMILY PRACTICE 03/30/20 Mary Bahena MD [address] [place] [address] Vascular Neurology 04/18/20 09/09/22 Jaguar Castaneda MD [address] [place] [address] Consulting Physician INTERVENTIONAL CARDIOLOGY 04/18/20 documented as of this encounter
--- OUTSIDE RECORDS SUMMARY | 2024-07-01 02:51 | XMS_ITS | Encounter Summary ---
Author Organization [facility] Address [address] [place] [address]. [place], [place] [address] [place] [address] Care Team Providers Care Urology Nurse Name Role Phone Joel Durán MD Primary Care Provider [phone] Encounter Details Date Type Department Care Team (Latest Contact Info) Description 03/31/2020 Travel Social History Tobacco Use Types Packs/Day [...] dressing or bathing? No 03/31/2020 3:54 AM CDT Marizol Waters RN Active Because of a physical, mental, or emotional condition, do you have difficulty doing errands alone such as visiting a doctor's office or shopping? No 03/31/2020 3:54 AM VALENCIAT Marizol Waters RN Ac tive * RETIRED Are you [...] Assessment Author Status No 03/31/2020 3:54 AM Mraizol Winslow RN Active * Because of a [...] Winslow RN Active documented in this encounter Plan of Treatment Upcoming Encounters Date Type Department Care Team (Late st Contact Info) Description 09/23/2024 9:00 AM CDT Appointment [facility] Non Invasive Cardiology - [facility] [address] [place], [place] [address] Jaguar Castaneda MD [address] [place], [place] [address] 09/23/2024 10:00 AM CDT Office Visit [facility] [address] [place] [address] Jaguar Castaneda MD [address] [place] [address] documented as of this encounter Visit Diagnoses Not on filedocumented in this encounter Care Teams Urology Nurse Relationship Specialty Start Date End Date Joel Durán MD [address] [place] [address] PCP - General FAMILY PRACTICE 03/30/20 documented as of this encounter
--- OUTSIDE RECORDS SUMMARY | 2024-07-01 02:51 | XMS_ITS | Encounter Summary ---
Author Organization [facility] Address [address] [place] [address]. [place], [place] [address] [place] [address] Care Team Providers Care Graphic Design Intern Name Role Phone Joel Durán MD Primary Care Provider [phone] Encounter Details Date Type Department Care Team (Late st Contact Info) Description 04/02/2020 Hospital Follow-up Call [facility] Neurology [address] [place] [address] Tiesha Morgan, RN Social History Tobacco Use Types Packs/Day [...] [facility] - [facility] [address] [place] [address] Jaguar aCstaneda MD [address] [place] [address] 09/23/2024 10:00 AM CDT [facility] [address] [place] [address] Jaguar Castaneda MD [address] [place] [address] documented as of this encounter Visit Diagnoses Not on filedocumented in this encounter Care Teams Graphic Design Intern Relationship Specialty Start Date End Date Joel Durán MD [address] [place] [address] PCP - General FAMILY PRACTICE 03/30/20 documented as of this encounter
--- OUTSIDE RECORDS SUMMARY | 2024-07-01 02:51 | XMS_ITS | Encounter Summary ---
Author Organization [facility] Address [address] [place] [address]. [place] [address] [place] [address] Care Team Providers Care Senior Asp Net Developer Name Role Phone Joel Durán MD Primary Care Provider [phone] Mary Bahena MD Unavailable Jaguar Castaneda MD Unavailable [phone] Reason for Visit * Reason Onset Date Comments Reschedule 05/11/2020 Encounter Details Date Type Department Care Team ([facility] st Contact Info) Description 05/11/2020 Telephone [facility] [address] [place] [address] Jaguar Castaneda MD [address] [place] [address] Reschedule Social History Tobacco Use Types Packs/Day Years [...] Progress Notes * Tete Landis RN - 05/14/2020 10:50 AM CST Patient called back. Aware she needs to be retested for COVID before scheduling [facility]. [facility] Patient verbalized understanding and has no further questions. SION FIELD INSPECTOR * Lubna Leary RN - 05/11/2020 2:17 PM CST Activity Director attempted to reach pt to let her know that we will wait at least 2 weeks from now and have her go get another COVID test. If it is negative we will get her MIKA rescheduled. If it is positive we will wait another 2 weeks to retest. Unable to reach pt. SION FIELD INSPECTOR * Chi Wilson LPN - 05/11/2020 11:32 AM CST Patient is scheduled with Dr. Nguyen. SION FIELD INSPECTOR * Yolanda Chapman - 05/11/2020 11:18 AM CST Received call from patient needing to reschedule her MIKA - she tested positive for COVID via rapid test today - Patient would like to have this rescheduled, so I did not cancel Please call her with new date and time SION FIELD INSPECTOR documented in this encounter Plan of Treatment Upcoming Encounters Date Type Department Care Team (Late st Contact Info) Description 09/23/2024 9:00 AM CDT Appointment [facility] Non Invasive Cardiology - [facility] [address] [place] [address] Jaguar Castaneda MD [address] [place], [place] [address] 09/23/2024 10:00 AM CDT [facility] [address] [place] [address] Jaguar Castaneda MD [address] [place], [place] [address] documented as of this encounter Visit Diagnoses Not on filedocumented in this encounter Care Teams Senior Asp Net Developer Relationship Specialty Start Date End Date Joel Durán MD [address] [place] [address] PCP - General FAMILY PRACTICE 03/30/20 Mary Bahena MD [address] [place] [address] Vascular Neurology 04/18/20 09/09/22 Jaguar Castaneda MD [address] [place] [address] Consulting Physician INTERVENTIONAL CARDIOLOGY 04/18/20 documented as of this encounter
--- OUTSIDE RECORDS SUMMARY | 2024-07-01 02:51 | XMS_ITS | Encounter Summary ---
Author Organization [facility] Address [address] [place] [address]. [place] [address] [place] [address] Care Team Providers Care Diving Judge Name Role Phone Unavailable Primary Care Provider Unavailabl e Encounter Details Date Type Department Care Team (Late Contact Info) Description 10/25/2008 Abstract [facility] Emergency Room [address] [place] [address] Social History Tobacco Use Types Packs/Day Years [...] Info) Description 09/23/2024 9:00 AM CDT Appointment [facility] Non Invasive Cardiology - [facility] [address] [place] [address] Jaguar Castaneda MD [address] [place] [address] 09/23/2024 10:00 AM CDT [facility] [address] [place] [address] Jaguar Castaneda MD [address] [place] [address] documented as of this encounter Visit Diagnoses Not on filedocumented in this encounter
--- OUTSIDE RECORDS SUMMARY | 2024-07-01 02:51 | XMS_ITS | Encounter Summary ---
Author Organization [facility] Address [address] [place] [address]. [place] [address] [place] [address] Care Team Providers Care Filtering Machine Tender Name Role Phone Joel Durán MD Primary Care Provider [phone] Mary Bahena MD Unavailable Jaguar Castaneda MD Unavailable [phone] Encounter Details Date Type Department Care Team (Late st Contact Info) Description 08/03/2020 Orders Only [address] [place] [address] Phi Blanco, [facility] Social History Tobacco Use Types Packs/Day Years [...] COVID-19? No / Unsure 07/31/2020 10:19 AM PIER RUNNER documented as of this encounter Functional Status [...] [facility] [address] [place] [address] Jaguar Castaneda MD [address] [place], [place] [address] 09/23/2024 10:00 AM CDT Office Visit [facility] [address] [place] [address] Jaguar Castaneda MD [address] [place], [place] [address] documented as of this encounter Visit Diagnoses Diagnosis Pituitary adenoma (CMS/HCC HHS/HCC)- Primary Benign neoplasm of pituitary gland and craniopharyngeal duct (pouch) documented in this encounter Care Teams Filtering Machine Tender Relationship Specialty Start Date End Date Joel Durán MD [address] [place] [address] PCP - General FAMILY PRACTICE 03/30/20 Mary Bahena MD [address] [place] [address] Vascular Neurology 04/18/20 09/09/22 Jaguar Castaneda MD [address] [place] [address] Consulting Physician INTERVENTIONAL CARDIOLOGY 04/18/20 documented as of this encounter
--- OUTSIDE RECORDS SUMMARY | 2024-07-01 02:51 | XMS_ITS | Encounter Summary ---
Author Organization [facility] Address [address] [place] [address]. [place], [place] [address] [place] [address] Care Team Providers Care Pharmacy Ancillary Name Role Phone Joel Durán MD Primary Care Provider [phone] Mary Bahena MD Unavailable Jaguar Castaneda MD Unavailable [phone] Encounter Details Date Type Department Care Team (Latest Contact Info) Description 07/31/2020 Travel Social History Tobacco Use Types Packs/Day [...] COVID-19? No / Unsure 07/31/2020 10:19 AM FIRER PORTABLE BOILER documented as of this encounter Functional Status [...] Info) Description 09/23/2024 9:00 AM CDT Appointment [facility] Non Invasive Cardiology - [facility] [address] [place] [address] Jaguar Castaneda MD [address] [place] [address] 09/23/2024 10:00 AM CDT [facility] [address] [place] [address] Jaguar Castaneda MD [address] [place] [address] documented as of this encounter Visit Diagnoses Not on filedocumented in this encounter Care Teams Pharmacy Ancillary Relationship Specialty Start Date End Date Joel Durán MD [address] [place] [address] PCP - General FAMILY PRACTICE 03/30/20 Mary Bahena MD [address] [place] [address] Vascular Neurology 04/18/20 09/09/22 Jaguar Castaneda MD [address] [place] [address] Consulting Physician INTERVENTIONAL CARDIOLOGY 04/18/20 documented as of this encounter
--- OUTSIDE RECORDS SUMMARY | 2024-07-01 02:51 | XMS_ITS | Encounter Summary ---
Author Organization [facility] Address [address] [place] [address]. [place], [place] [address] [place] [address] Care Team Providers Care Supervisor Fiber Locking Name Role Phone Joel Durán MD Primary Care Provider Encounter Details Date Type Department Care Team (Latest Contact Info) Description 04/17/2020 Travel Social History Tobacco Use Types Packs/Day [...] [facility] Non Invasive Cardiology - [facility] [address] [place] [address] Jaguar Castaneda MD [address] [place] [address] 09/23/2024 10:00 AM CDT Office Visit [facility] [address] [place] [address] Jaguar Castaneda MD [address] [place] [address] documented as of this encounter Visit Diagnoses Not on filedocumented in this encounter Care Teams Supervisor Fiber Locking Relationship Specialty Start Date End Date Joel Durán MD [address] [place] [address] PCP - General FAMILY PRACTICE 03/30/20 documented as of this encounter
--- OUTSIDE RECORDS SUMMARY | 2024-07-01 02:51 | XMS_ITS | Encounter Summary ---
Author Organization [facility] Address [address] [place] [address]. [place] [address] [place] [address] Care Team Providers Care Motor Carrier Inspector Name Role Phone Unavailable Primary Care Provider Unavailabl e Encounter Details Date Type Department Care Team (Late st Contact Info) Description 01/21/2000 Abstract [facility] CONVERSION [address] [place] [address] , Generic Conversion, Social History Tobacco Use Types Packs/Day Years [...] Info) Description 09/23/2024 9:00 AM CDT Appointment [facility] Non Invasive Cardiology - [facility] [address] [place] [address] Jaguar Castaneda MD [address] [place] [address] 09/23/2024 10:00 AM CDT Office Visit [facility] [address] [place] [address] Jaguar Castaneda MD [address] [place] [address] documented as of this encounter Visit Diagnoses Not on filedocumented in this encounter
--- OUTSIDE RECORDS SUMMARY | 2024-07-01 02:51 | XMS_ITS | Encounter Summary ---
Author Organization [facility] Address [address] [place] [address]. [place], [place] [address] [place] [id number] Care Team Providers Care Wader Boot Top Assembler Name Role Phone Joel Durán MD Primary Care Provider [phone] Lilia Hunter MD Unavailable Jaguar Castaneda MD Unavailable [phone] Reason for Referral * Consultation (Routine) - Closed Specialty Diagnoses / Procedures Referred By Contact Referred To Contact CARDIOLOGY / Cardiology Diagnoses TIA (transient ischemic attack) PFO (patent foramen ovale) ([facility]) Lilia Hunter MD [address] [place] [address] Phone: tel: fax: Jaguar Castaneda MD [address] [place] [address] Phone: tel: fax: Referral ID Status Reason Start Date Expiration Date V isits Requested Visits Authorized [id number] Closed Specialty Services 04/17/2020 05/19/2021 99 99 Reason for Visit * Reason Comments Follow Up stroke Encounter Details Date Type Department Care Team (Late st Contact Info) Description 04/17/2020 2:20 PM CDT Office Visit [facility] [address] [address] Lilia Hunter MD [address] [place] [address] Follow Up (stroke) Social History Tobacco Use Types Packs/Day Years [...] PM CDT documented as of this encounter Last Filed Vital Signs Vital Sign Reading Time Taken Comments Blood Pressure 142/78 04/17/2020 3:25 PM CDT Pulse 78 04/17/2020 3:25 PM CDT Temperature 36.3 ??C (97.4 ??F) 04/17/2020 3:25 PM CD T Respiratory Rate - - Oxygen Saturation 100% 04/17/2020 3:25 PM CDT Inhaled Oxygen Concentration - - Weight 81.5 kg (179 lb 9.6 oz) 04/17/2020 3:25 P M CDT Height 160 cm (5' 3 ) 04/17/2020 3:25 PM CDT Body Mass Index 31.81 04/17/2020 3:25 PM CDT documented in this encounter Functional [...] documented in this encounter Progress Notes * Lilia Hunter MD - 04/17/2020 2:20 PM CDTSummary: TIA, PFO will explore closure options. Clotting pannel sent, and 30-day monitor is active.Plavix for lifetime. Images from the original note were not included. Vascular and Interventional Neurology Office Outpatient Follow-up Visit Mateusz Hearn 1985 [id number] Patient: Mateusz Hearn is being seen in follow-up for TIA. Since Her hospital discharge, she's beendoing OK, slightly anxious about all the testing, no new TIA or stroke symptoms. She quit smoking ROS Review of Systems Constitutional: Negative for fever. HENT: Negative for sore throat. Eyes: Negative for double vision. Respiratory: Negative for cough and hemoptysis. Cardiovascular: Negative for chest pain and palpitations. Gastrointestinal: Negative for blood in stool and vomiting. Genitourinary: Negative for hematuria. Musculoskeletal: Negative for myalgias. Skin: Negative for rash. Endo/Heme/Allergies: Does not bruise/bleed easily. Allergies: No Known Allergies PMH: Past Medical History: Diagnosis Date ??? HTN (hypertension) PSH: Past Surgical History: Procedure Laterality Date ??? SECTION Social Hx: Social History Socioeconomic History ??? [...] file Gets together: Not on file Attends buddhism service: Not on file Active member of [...] Grandfather ??? No Known Problems Paternal Grandfather Vital Signs: Filed Vitals: 04/17/20 1525 BP: (!) 142/78 Pulse: 78 Temp: 97.4 ??F (36.3 ??C) TempSrc: Temporal SpO2: 100% Weight: 81.5 kg (179 lb 9.6 oz) Height: 5' 3 (1.6 m) Physical Exam: General appearance alert, no distress, the patient is not in acute distress. She has normal pulses in the bilateral radial arteries (2+) with regular rate and rhythm, there is no edema in the bilateral lower extremities to visual inspection. Physical Exam Constitutional: She is oriented to person, place, and time. Eyes: Pupils are equal, round, and reactive to light. EOM are normal. Fundoscopic exam: The right eye shows no hemorrhage and no papilledema. The left eye shows no hemorrhage and no papilledema. Neurological: She is oriented to person, place, and time. She has normal strength. She has a cyaqvrOpnmrj-Ucdd-Edmfth Test and a normal Romberg Test. Gait normal. Reflex Scores: Bicep reflexes are 2+ on the right side and 2+ on the left side. Patellar reflexes are 2+ on the right side and 2+ on the left side. Psychiatric: Her speech is normal. Neurologic Exam Mental Status Oriented to person, [...] 2+ Right patellar: 2+ Left patellar: 2+ Most recent labs: Blood Count: Lab Results Component Value Date WBC 4.7 03/31/2020 HGB 12.2 03/31/2020 HCT 37.7 03/31/2020 PLT 293 03/31/2020 Metabolic Panel: Lab Results Component Value Date NA 140 03/31/2020 K 3.7 03/31/2020 CL 112 (H) 03/31/2020 CO2 24.1 03/31/2020 AGAP 3.9 (L) 03/31/2020 BUN 10 03/31/2020 CR 0.58 03/31/2020 GFRNON >90 03/31/2020 GFR >90 03/31/2020 GLU 103 03/31/2020 CA 8.2 (L) 03/31/2020 TP 6.1 (L) 03/31/2020 ALB 3.3 (L) 03/31/2020 TBIL 0.3 03/31/2020 ALKP 74 03/31/2020 AST 14 (L) 03/31/2020 ALT 32 03/31/2020 Coags: Lab Results Component Value Date INR 1.0 03/30/2020 Cardiac Markers: Lab Results Component Value Date TROP 0.017 03/30/2020 Lipids/A1C/TSH: Lab Results Component Value Date LDLD 124 03/31/2020 HGBA1C 5.3 03/31/2020 Hospital EKG EKG: not completed. 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 aspirin 81 [...] 28 patch 0 No current facility-administered medications on file prior to visit. Radiology: I looked at her MRI and CTA. Cta Head+neck Result Date: 03/31/2020 EXAMINATION: CTA [...] of obstruction of the proximal portions of round [place]. 2. No evidence of hemodynamically significant stenosis in the neck. 3. Diminutive P1 and P2 segments of right posterior cerebral artery, with patent small right posterior communicating artery. Interpreted By: Bebo Sol MD, 03/31/2020 7:47 AM Use Echocardiogram Result Date: 03/31/2020 Echocardiography Report Pat.Name: MATEUSZ HEARN Pat.ID: [id number] St.Date: 03/31/2020 Refer.MD: LILIA HUNTER Exam Time: 1:02:00 PM Study Type:ECHO WITH CARDIAC DOPPLER COMP Height: 62.2in Weight: 182.78lb BSA: 1.85 m2 Age: 10 1985,34Y Sex: FEMALE BP: 133/78 HR: 64 bpm Sonogrphr: Basilio Pablo RDCS, FASE Pat. Stat.:Inpatient Room: 846 CPT - 4: 52102 Reason for Study: Stroke/TIA Procedures: 2D, M-mode, Doppler, Color Flow, Intraveneous saline contrast was used to help determine presence of intracardiac shunting., Portable, The study quality is technically adequate. +++++++++++++++++ +++++++++++++++++++ SUMMARY: ++++++++++++++++++++++++++++++++++++ Estimated left ventricular ejection fraction is 55-60%. The right ventricular size is mildly enlarged. Right ventricular systolic function is normal. Right atrial size is mild to moderately enlarged. The agitated saline injection showed evidence of shunting into the left atrium, consistent with a moderate-size patent foramen ovale.Cannot exclude atrial septal defect. The peak pulmonary artery systolic pressure is estimated to beapproximately 34 mmHg. Mild thickening of mitral valve leaflets. A trace of tricuspid regurgitation. No pericardial effusion seen. ++++++++++++++++++++++++++++++++++++ FINDINGS: ++++++++++++++++++++++ ++++++++++++++ 2D: Normal left ventricular size and function. Normal wall motion throughout. Normal right ventricular size and function. All valve structures are normal. No pericardial effusion seen. LV: The left ventricular size is normal. The left ventricular systolic function is normal. Estimated left ventricular ejection fraction is 55-60%. The septal E/e' is indeterminate at 8- 15. The lateral E/e' is normal at <8. Left ventricular diastolic function is normal. RV: The right ventricularsize is mildly enlarged. Right ventricular systolic function [...] consistent with elevated right atrial pressure. AV: Theaortic valve is trileaflet. No evidence of aortic valve stenosis. No evidence of aortic valve regurgitation. MV: No evidence of mitral regurgitation. Mild thickening of mitral valve leaflets. PV: Structurally normal pulmonic valve. Trace pulmonic regurgitation. TV: Structurally normal tricuspid valve. A trace of tricuspid regurgitation. ++++++++++++++++++++++++++++++++++++ MEASUREMENTS: ++++++++++ ++++++++++++++++++++++++++ DOPPLER LVOT LVOTpkPG 3 mmHg LVOTmnPG 2 [...] (VTI) Index Value 1.35 LV Mass 2D Tycfc164 g LV Mass Kspvn8Z Value 78.9 g/m2 Right Ventricle Right Ventricle 14.3 cm/s SV (LVOT) Index Value 44 ml 2D Left Ventricle LVIDd 5.04 cm (3.6-5.2) LV CI 1.2 l/min/m2 LVIDs 3.2 cm (2.3-3.9) LV CI 2 l/min/m2 LV EF(Bi-Plane) 52.1 % (55-75)* LV CO 36.7 ml/s LV CO (Bi-plane 51.7 ml/s LV CO 61.7 ml/sLV CI 2.95 l/min/m2 LVPW LVPWd 0.809 cm LVPWth 32.3 % LVPWs 1.07 cm Ventricular Septum IVSd 0.864 c m IVSs 1.21 cm Left Atrium LA a-p 3 cm (2.8-3.4) Aorta Ao Asc 3 cm (zsc 2.1)* LVOT LVOT 2.2 cm Ratios IVS LA Biplane LAVol I BP 35.3 ml/m2 MMODE Left Atrium LAID 4.2 cm (1.9-4)* Ratios LA/Ao 1.11 (0.87-1.1)* Aorta Ao Rt 3.8 cm (2-3.7)* TA Tricuspid Annul 3.5 cm Signed 03/31/2020 09:24 PM Delon Escoto M.D. Mri Brain Wo Con Result Date: 03/31/2020 [...] By: Bebo Sol MD, 03/31/2020 7:57 AM Patient's Active Problems: Patient Active Problem List Diagnosis ??? TIA (transient ischemic attack) ??? HTN (hypertension) ??? PFO (patent foramen ovale) Problems addressed during this visit: Encounter Diagnose(s) ICD-10-CM ICD-9-CM SNOMED CT(R) 1. TIA (transient ischemic attack) G45.9 435.9 TRANSIENT CEREBRAL ISCHEMIA ANTINUCLEAR ANTIBODY WI RFX ANTITHROMBIN III ACTIVITY BETA 2 GLYCOPROTEIN I ANTIBODY,EA LUPUS ANTICOAGULANT HOMOCYSTEINE FACTOR VIII C-REACTIVE PROTEIN ENA2 (SSA & SSB) SCL 70 SHERMAN-1 ANTIBODY MARTINEZ/INVESTIGATOR CLAIMS AB FACTOR V LEIDEN MUTATION PROTHROMBIN GENE MUTATION PROTEIN C, ACTIVITY PROTEIN S ACTIVITY FUNCTIONAL SED RATE, ERYTHROCYTE (ESR) VARICELLA ZOSTER IGG AMB REFERRAL TO CARDIOLOGY, ADULT 2. Essential hypertension I10 401.9 ESSENTIAL HYPERTENSION 3. PFO (patent foramen ovale) Q21.1 745.5 PATENT FORAMEN OVALE ANTINUCLEAR ANTIBODY WI RFX ANTITHROMBIN III ACTIVITY BETA 2 GLYCOPROTEIN I ANTIBODY,EA LUPUS ANTICOAGULANT HOMOCYSTEINE FACTOR VIII C-REACTIVE PROTEIN ENA2 (SSA & SSB) SCL 70 SHERMAN-1 ANTIBODY MARTINEZ/INVESTIGATOR CLAIMS AB FACTOR V LEIDEN MUTATION PROTHROMBIN GENE MUTATION PROTEIN C, ACTIVITY PROTEIN S ACTIVITY FUNCTIONAL SED RATE, ERYTHROCYTE (ESR) VARICELLA ZOSTER IGG AMB REFERRAL TO CARDIOLOGY, ADULT No problem-specific Assessment & Plan notes found for this encounter. There are no discontinued medications. Plan: TIA in a young adult with untreated HTN, smoker and LDL 124. She quit smoking, she's on Lipitor and her HTN is now treated. The description of her TIA was localizing to the subcortical hemisphere, typical of ischemic syndromes caused by small vessel disease caused by the above risk factors. However, due to her age and the fact that we did not get to capture her TIA DWI signal by MRI, I initiated the minimal non-invasive workup for embolism. She is presently wearing a 30-day monitor and her echo showed a moderate size PFO. I ordered today a panel for venous and arterial clotting disorders. I will refer her to Dr. Castaneda for PFO management. I explained to her that it would not be unreasonable to close the PFO especially if they order a MIKA and they find that it's of a moderate to large size and it requires closure irrespective of the TIA diagnosis (ie for physiologic/hemodynamic indications). As for closing the PFO only due to the TIA diagnosis, this would not be based on strong medical evidence, but would not be unreasonable either. She will return to see me as needed; cardiology and I could further discuss her case, after a MIKA. I prepared her for the fact that they will likely request a MIKA. I offered to order it now, but she preferred to wait and discuss it with Dr. Castaneda. Secondary stroke prevention plan: Aspirin will be continued for only one month from the date of her PFO. Plavix 75mg daily for lifetime Lipitor 40mg for now, PCP to increase if her LDL does not get to goal <70 BP goal <130/70, PCP to ensure goal is reached. I will refer her to hematology for any clotting abnormality that results from the clotting panel ordered above. I referred her to cardiology to explore PFO closure indications/get an additional opinion for PFO closure in the absence of strong evidence that her TIA was caused by embolism and in the absence of any previous silent cortical embolic stroke on MRI. If her Heart monitor shows any abnormality, I will refer her to EP. LILIA HUNTER MD 04/17/2020 3:32 PM documented in this encounter Plan of Treatment Upcoming Encounters Date Type Department Care Team (Late st Contact Info) Description 09/23/2024 9:00 AM CDT Appointment [facility] [address] [place], [place] [address] Jaguar Castaneda MD [address], [place] [address] 09/23/2024 10:00 AM CDT Office Visit [facility] [address] [place] [address] Jaguar Castaneda MD [address] [place] [address] Scheduled Orders Name Type Priority Associated Diagnoses Orde r Schedule MARTINEZ AND INVESTIGATOR CLAIMS AB Lab Routine TIA (transient ischemic attack) PFO (patent foramen ovale) (HHS/HCC) Expected: 04/17/2020, Expires: 04/17/2021 Scheduled Referrals Name Type Priority Associated Diagnoses Orde r Schedule Ambulatory referral to Cardiology, Adult ([facility]) Referral Routine TIA (transient ischemic attack) PFO (patent foramen ovale) ([facility]) Ordered: 04/17/2020 documented as of this encounter Results * VARICELLA ZOSTER IGG (04/17/2020 3:16 PM CDT) [facility] VARICELLA ZOSTER IGG EIA POSITIVE 2020 12:07 PM CDT [facility] Comment:IN THE ABSENCE OF AC [place] SYMPTOMS, A POSITIVE RESULT SUGGESTS PAST IMMUNITY. 04/17/2020 3:16 PM CDT us Lilia Hunter MD LABORATORY Final Result Performing Organization Address City/[facility]/ZIP Co de Phone Number [facility] [address] [place] [address], [place] [phone] * SED RATE, ERYTHROCYTE (ESR) (04/17/2020 3:16 PM CDT) [facility] ESR 18 0 - 20 MM/HR 04/17/2020 5:43 PM CDT [facility] 04/17/2020 3:16 PM CDT us Lilia Hunter MD LABORATORY Final Result Performing Organization Address [facility]/ZIP Co de Phone Number [facility] [address] [place] [address], [place] [phone] * PROTEIN S ACTIVITY FUNCTIONAL (04/17/2020 3:16 PM CDT) [facility] PROTEIN S FUNCTIONAL 103 60 - 140 % 04/19/2020 7:00 PM CDT [employer] [facility] LY Comment: Test Performed by [employer], [employer], [address] [place] [address] Aaron Ortiz M.D., Ph.D., Director of Laboratories , CLIA [id number] 04/17/2020 3:16 PM CDT us Lilia Hunter MD LABORATORY Final Result [employer] [address] [place], [place] , [place] [phone] * PROTEIN C, ACTIVITY (04/17/2020 3:16 PM CDT) [facility] PROTEIN C FUNCTIONAL 77 70 - 180 % 04/19/2020 2:47 AM CDT [employer] LUISKaiaCALVIN LY Comment: Units: % of normal Test Performed by [employer], [employer], [address] [place] [address] Aaron Ortiz M.D., Ph.D., Director of Laboratories , CLIA [id number] 04/17/2020 3:16 PM CDT us Lilia Hunter MD LABORATORY Final Result [facility] [address] [place], [place] , [place] [phone] * PROTHROMBIN GENE MUTATION (04/17/2020 3:16 PM CDT) [facility] PROTHROMBIN GENE MUTATION REPORT 04/22/2020 1:12 PM CDT [employer] NATE VALDEZ Comment:RESULT: [id number] vari ant not detected INTERPRETATION REPORT 04/22/2020 1:12 PM CDT [employer] LILLIADDIS VALDEZ Comment: INTERPRETATION: This individual is negative (normal) for the C47010N variant in the Prothrombin/Factor II gene. Increased risk of thrombophilia can be caused by a variety of genetic and non-genetic factors not screened for by this assay. Laboratory testing supervised and results monitored by Vania Whitfield, Ph.D., [facility], [facility]. The V54369J mutation [OV159528.1: g.54670R>A (c.*97G>A)] in the Prothrombin/Factor II gene is the second most common inherited risk factor for thrombosis occurring in approximately 2% of Caucasians. Presence of the mutation is associated with an elevation of prothrombin levels to about 30% above normal in heterozygotes and to 70% above normal in homozygotes. Prothrombin (W88403C) mutations are detected by amplification of their selected gene regions by polymerase chain reaction (PCR) and fluorescent probe hybridization to the targeted region, followed by melting curve analysis with a real time PCR system. Although rare, false positive or false negative results may occur. All results should be interpreted in context of clinical findings, relevant history, and other laboratory data. Health care providers, please contact your local [employer] genetic counselor or call [phone] ([phone]) for assistance with interpretation of these results. This test was developed and its analytical performance characteristics have been determined by [employer] [facility]. It has not been cleared or approved by FDA. This assay has been validated pursuant to the CLIA regulations and is used for clinical purposes. Test performed by [employer] [facility] ? [address] [facility], ? [place] [address] ? Environmental Science Instructor: Mary Jo Edwards MD,PHD,REINA Test Reported by [facility], [employer] [facility], [address] [place] [address] Aaron Ortiz M.D., Ph.D., Director of Laboratories , CLIA [id number] 04/17/2020 3:16 PM CDT Lilia Hunter MD LABORATORY Final Result [employer] [facility] [address] [address] [place] [address], [place] [phone] * FACTOR V LEIDEN MUTATION (04/17/2020 3:16 PM CDT) FACTOR V LEIDEN REPORT 0 7:12 PM CDT [employer] NATE VALDEZ Comment: RESULT: FACTOR V LEIDEN (R506Q) VARIANT NOT DETECTED INTERPRETATION REPORT 04/21/2020 7:12 PM CDT [employer] NATE [facility]DEZ Comment: INTERPRETATION: This individual is negative (normal) for the Factor V Leiden (R506Q) variant in the Factor V gene. Increased risk of thrombophilia can be caused by a variety of genetic and non-genetic factors not screened for by this assay. Laboratory testing supervised and results monitored by Ericka Sanchez MD, PhD, [facility], [facility]. MUTATION ANALYSIS: The Factor V Leiden (R506Q) mutation [NM 421879.2: c.1601G>A (p.R534Q)] in the Factor V gene is one of the most common causes of inherited thrombophilia. This mutation causes resistance to degradation of activated Factor V protein by activated protein C (APC). The Factor V Leiden (R506Q) mutation is detected by amplification of the selected region of Factor V gene by polymerase chain reaction (PCR) and fluorescent probe hybridization to the targeted region, followed by melting curve analysis with a real time PCR system. Although rare, false positive or false negative results may occur. All results should be interpreted in context of clinical findings, relevant history, and other laboratory data. This test was developed and its analytical performance characteristics have been determined by [employer] [facility]. It has not been cleared or approved by FDA. This assay has been validated pursuant to the CLIA regulations and is used for clinical purposes. Health care providers, please contact your local [employer]' genetic counselor or call [phone] ([phone]) for assistance with interpretation of these results. Test performed by [employer] ? [address], ? [place] [address] ? Environmental Science Instructor: Mary Jo Edwards MD,PHD,REINA Test Reported by [facility], [employer] [facility], [address] [place] [address] Aaron Ortiz M.D., Ph.D., Director of Laboratories , [facility] [id number] 04/17/2020 3:16 PM CDT Lilia Hunter MD LABORATORY Final Result Performing Organization Address [facility] Co de Phone Number [employer] [address] [address], [place] [phone] * SHERMAN-1 ANTIBODY (04/17/2020 3:16 PM CDT) Pathologist [facility] SHERMAN-1 ANTIBODY <0.3 U/mL 2020 1:11 PM CDT [facility] Comment: NEGATIVE: <7 U/mL EQUIVOCAL: 7 to 10 u/mL POSITIVE: >10 U/mL ?? AUTOANTIBODIES TO Jo1 ARE FOUND IN 10% TO 50% OF PATIENTS WITH DERMATOMYOSITIS OR POLYMYOSITIS AND IN 20% OF PATIENTS WITH SCLERODERMA SYNDROME. Jo1 AUTOANTIBODIES ARE GENERALLY NOT SEEN OUTSIDE OF THESE DISEASE STATES. 04/17/2020 3:16 PM CDT Lilia Hunter MD LABORATORY Final Result Performing Organization Address City/[facility]/ZIP Co de Phone Number [facility] [place] [address], [place] [phone] * SCL 70 (04/17/2020 3:16 PM CDT) SCL 70 S/P/B 0.7 U 2020 1:11 PM CDT [facility] Comment: NEGATIVE: <7 U/mL EQUIVOCAL: 7 to 10 u/mL POSITIVE: >10 U/mL AUTOANTIBODIES TO Scl-70 ARE FOUND IN UP TO 60% OF PATIENTS WITH SCLERODERMA (SYSTEMIC SCLEROSIS) AND ARE CONSIDERED TO BE SPECIFIC FOR THIS DISEASE. 04/17/2020 3:16 PM CDT us Lilia Hunter MD LABORATORY Final Result Performing Organization Address [facility] Co de Phone Number [facility] [address] [place] [address], [phone] * ENA2 (SSA & SSB) (04/17/2020 3:16 PM CDT) SSA ANTIBODY 0.3 U 2020 1:11 PM CDT [facility] Comment: NEGATIVE: <7 U/mL EQUIVOCAL: 7 to 10 u/mL POSITIVE: >10 U/mL ?? SSA AND/OR SSB AUTOANTIBODIES ARE DETECTED IN 60% TO 90% OF PATIENTS WITH SJOGREN'S SYNDROME AND IN 20% TO 40% OF PATIENTS WITH SYSTEMIC LUPUS ERYTHEMATOSUS. SSB ANTIBODY <0.3 U 2020 1:11 PM CDT [facility] Comment: NEGATIVE: <7 U/mL EQUIVOCAL: 7 to 10 u/mL POSITIVE: >10 U/mL ?? SSA AND/OR SSB AUTOANTIBODIES ARE DETECTED IN 60% TO 90% OF PATIENTS WITH SJOGREN'S SYNDROME AND IN 20% TO 40% OF PATIENTS WITH SYSTEMIC LUPUS ERYTHEMATOSUS. 04/17/2020 3:16 PM CDT us Lilia Hunter MD LABORATORY Final Result Performing Organization Address [facility] Co de Phone Number [facility] [address] [place] [address], [phone] * C-REACTIVE PROTEIN (04/17/2020 3:16 PM CDT) Pathologist [facility] C-REACTIVE PROTEIN <0.29 <0.80 mg/dL 04/17/2020 4:20 PM CDT [facility] 04/17/2020 3:16 PM CDT Lilia Hunter MD LABORATORY Final Result Performing Organization Address [facility] Co de Phone Number [facility] [address] [place] [address], [phone] * FACTOR VIII (04/17/2020 3:16 PM CDT) Pathologist [facility] FACTOR VIII 102 50 - 180 % normal 04/19/2020 4:44 PM CDT [employer] JAVON COX Comment: For additional information please refer to: http://education.Twilio/faq/VPY227 (This link is being provided for informational/ educational purposes only.) Test Performed by [employer], [employer] [facility], [address] [place] [address] Aaron Ortiz M.D., Ph.D., Director of Laboratories , [facility] [id number] 04/17/2020 3:16 PM CDT us Lilia Hunter MD LABORATORY Final Result Performing Organization Address City/[facility] Co de Phone Number [employer] [address] [place], [place] [id number], * (ABNORMAL) HOMOCYSTEINE (04/17/2020 3:16 PM CDT) Pathologist [facility] HOMOCYSTEINE S/P/B 34(H) 3 - 11 MCMOL/L 04/17/2020 4:20 PM CDT [facility] HOMOCYSTINE NORMALS NORMAL LEVEL IS LESS THAN OR EQUAL TO 9 04/17/2020 3:04 PM CDT [facility] Comment: MILD IS 10 TO 15 UMOL/L MODERATE IS 16 TO 30 UMOL/L MODERATE TO SEVERE IS 31 TO 100 UMOL/L SEVERE IS GREATER THAN 100 UMOL/L 04/17/2020 3:16 PM CDT Lilia Hunter MD LABORATORY Final Result [facility] [address] [place] [address], [id number] * LUPUS ANTICOAGULANT (04/17/2020 3:16 PM CDT) CARDIOLIPIN AB IGG <14 <=14 GPL 2019 6:46 PM CDT [employer] NATE VALDEZ Comment: Cardiolipin Ab (IgG) Reference Range: Value ? Interpretation ? < or = 14 ? Negative 15 - 20 ? Indeterminate 21 - 80 ? Low to Medium Positive > 80 ?High Positive CARDIOLIPIN AB IGM <12 <=12 MPL 2019 6:46 PM CDT [employer] NATE [facility]DEZ Comment: Cardiolipin Ab (IgM) Reference Range: Value ? Interpretation ? < or = 12 ? Negative 13 - 20 ? Indeterminate 21 - 80 ? Low to Medium Positive > 80 ?High Positive The antiphospholipid antibody syndrome (APS) is a clinical-pathologic correlation that includes a clinical event (e.g. thrombosis, loss, thrombocytopenia) and persistent positive antiphospho- lipid antibodies (IgM or IgG ANGELA >40 MPL/GPL, IgM or IgG anti-b2GPI antibodies or a lupus anticoagulant). International consensus guidelines for APS suggest waiting at least 12 weeks before retesting to confirm antibody persistence. The Systemic Lupus International [facility] immunological classification criteria for systemic lupus erythematosus (SLE) include testing for isotype IgA, which has yet to be incorporated into APS criteria. Low level antiphospholipid antibodies may sometimes be detected in the setting of infection, drug therapy or aging. Test Performed by [employer], [address] [place], [place] Aaron Ortiz M.D., Ph.D., Director of Laboratories , CLIA [id number] CARDIOLIPIN AB IGA <11 <=11 APL 2019 6:46 PM CDT [facility] Comment: Cardiolipin Ab (IgA) Reference Range: Value ? Interpretation ? < or = 11 ? Negative 12 - 20 ? Indeterminate 21 - 80 ? Low to Medium Positive > 80 ?High Positive LUPUS ANTICOAGULANT REPORT 04/20 3:07 AM CDT [facility] Comment: A Lupus Anticoagulant is not detected. Reference Range: ??Not Detected For additional information, please refer to http://education.Twilio/faq/DEN87j7 (This link is being provided for informational/ educational purposes only.) This interpretation is based on the following test results. Test Performed by [employer], [address] [place], [place] Aaron Ortiz M.D., Ph.D., Director of Laboratories , CLIA [id number] 04/17/2020 3:16 PM CDT Lilia Hunter MD LABORATORY Final Result Performing Organization Address [facility]/ZIP Co de Phone Number [facility] [address] [place], [place] , [place] [phone] * BETA 2 GLYCOPROTEIN I ANTIBODY,EA (04/17/2020 3:16 PM CDT) [facility] Signature BETA-2 GLYCOPROTEIN I IGG <9 <=20 SGU 04/20/2020 3:23 AM CDT [facility] BETA-2 GLYCOPROTEIN I IGM <9 <=20 SMU 04/20/2020 3:23 AM CDT [facility] BETA-2 GLYCOPROTEIN I IGA <9 <=20 JAMEE 04/20/2020 3:23 AM CDT [employer] [facility]ENA [facility]DEZ Comment: The antiphospholipid antibody syndrome (APS) is a clinical-pathologic correlation that includes a clinical event (e.g. thrombosis, loss, thrombocytopenia) and persistent positive antiphospho- lipid antibodies (IgM or IgG ANGELA >40 MPL/GPL, IgM or IgG anti-b2GPI antibodies or a lupus anticoagulant). International consensus guidelines for APS suggest waiting at least 12 weeks before retesting to confirm antibody persistence. The Systemic Lupus International [facility] immunological classification criteria for systemic lupus erythematosus (SLE) include testing for isotype IgA, which has yet to be incorporated into APS criteria. Low level antiphospholipid antibodies may sometimes be detected in the setting of infection, drug therapy or aging. Test Performed by [employer], [facility], [address] [place], [place] Aaron Ortiz M.D., Ph.D., Director of Laboratories , [place] [id number] 04/17/2020 3:16 PM CDT us Lilia Hunter MD LABORATORY Final Result Performing Organization Address [facility]/ZIP Co de Phone Number [employer] [facility] [address] [place], [place] , [place] [phone] * ANTITHROMBIN III ACTIVITY (04/17/2020 3:16 PM CDT) ANTITHROMBIN III ACTIVITY 130 80 - 135 % normal 04/19/2020 2:49 AM CDT [employer] JAVON COX Comment: Test Performed by [facility], [employer] [facility], [address] [place] [address] Aaron Ortiz M.D., Ph.D., Director of Laboratories , [place] [id number] 04/17/2020 3:16 PM CDT us Lilia Hunter MD LABORATORY Final Result [facility] [facility] , [place] [phone] * ANTINUCLEAR ANTIBODY WI RFX (04/17/2020 3:16 PM CDT) Pathologist [facility] SHEBA 0.6 2020 1:11 PM CDT [facility] Comment: NEGATIVE: <0.7 RATIO SHEBA PROFILE AND TITER NOT PERFORMED THE SHEBA SCREEN TEST FOR THE FOLLOWING ANTIBODIES: SSA1 (RO), SSB1 (LA), MARTINEZ, SCL70, JO1, CENTROMERE, INVESTIGATOR CLAIMS HISTONE MUST BE ORDERED SEPARATELY DNA (DS) ANTIBODY <0.8 IU/ML 020 2:55 PM CDT [facility] Comment: NEGATIVE: <10 IU/mL EQUIVOCAL: 10 to 15 IU/mL POSITIVE: >15 IU/mL THIS QUANTITATIVE ASSAY IS CALIBRATED TO THE [employer]'S WO/80 STANDARD. THE LEVEL OF dsDNA AUTOANTIBODY GERERALLY CORRELATES WITH THE LEVEL OF DISEASE ACTIVITY IN SYSTEMIC LUPUS ERYTHMATOSUS 04/17/2020 3:16 PM CDT us Lilia Hunter MD LABORATORY Final Result [facility] [address] [place] [id number], [place] [phone] [id number] documented in this encounter Visit Diagnoses Diagnosis TIA (transient ischemic attack)- Primary Unspecified transient cerebral ischemia Essential hypertension Unspecified essential hypertension PFO (patent foramen ovale) ([facility]) Ostium secundum type atrial septal defect documented in this encounter 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
--- OUTSIDE RECORDS SUMMARY | 2024-07-01 02:51 | XMS_ITS | Encounter Summary ---
Author Organization [facility] Address [address] [place] [address]. [place] [address] [place] [address] Care Team Providers Care Medical Front Desk Specialist Name Role Phone Joel Durán MD Primary Care Provider [phone] Encounter Details Date Type Department Care Team (Latest Contact Info) Description 04/17/2020 2:52 PM CDT - 04/17/2020 11:59 PM CDT Hospital Encounter [facility] [address] [place] [address] Mary Bahena MD [address] 5th [place] [address] Discharge Disposition: Home or Self Care (Routine [...] Assessment Author Status No 03/31/2020 3:54 AM VALNECIAT Marizol Waters RN Active documented as of [...] as of this encounter Progress Notes * Mary Bahena MD - 04/17/2020 2:55 PM CDT Please refer the patient to hematology. 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 documented in this encounter Plan of Treatment Upcoming Encounters Date Type Department Care Team (Late st Contact Info) Description 09/23/2024 9:00 AM CDT Appointment [facility] Non Invasive Cardiology - [facility] [address] [place] [address] Jaguar Castaneda MD [address], [place] [id number] 09/23/2024 10:00 AM CDT [facility] [address] [place] [phone] Jaguar Castaneda MD [address], [place] [id number] Scheduled Orders Name Type Priority Associated Diagnoses Orde r Schedule HOLDER AND ENVELOPE ADDRESSER AB Lab Routine TIA (transient ischemic attack) PFO (patent foramen ovale) (HHS/HCC) Once for 1 Occurrences starting 04/17/2020 until 04/17/2020 documented as of this encounter Procedures Procedure Name Priority Date/Time Associated Diagnosis Comments MIXING INTERPRETATION Routine 04/17/2020 3:16 PM CDT COAGULATION MIXING STUDY Routine 04/17/2020 3:16 PM CDT PTT-LA W/RFX HEXAGONAL CONF Routine 04/17/2020 3:16 PM CDT ENVELOPE ADDRESSER ANTIBODY Routine 04/17/2020 3:16 PM CDT HTN (hypertension) HOLDER (SM) ANTIBODY Routine 04/17/2020 3 :16 PM CDT HTN (hypertension) HC SHEBA SCREEN Routine 04/17/2020 3:16 PM CDT TIA (transient ischemic attack) PFO (patent foramen ovale) (HHS/HCC) PROTEIN S ACTIVITY FUNCTIONAL Routine 04/17/2020 3:16 PM CDT TIA (transient ischemic attack) PFO (patent foramen ovale) (HHS/HCC) VARICELLA ZOSTER IGG Routine 04/17/2020 3:16 PM CDT TIA (transient ischemic attack) PFO (patent foramen ovale) (HHS/HCC) PROTHROMBIN GENE MUTATION Routine 04/17/2020 3:16 PM CDT TIA (transient ischemic attack) PFO (patent foramen ovale) (HHS/HCC) SCL 70 Routine 04/17/2020 3:16 PM CDT TIA (transient ischemic attack) PFO (patent foramen ovale) (HHS/HCC) SHERMAN-1 ANTIBODY Routine 04/17/2020 3:16 PM CDT TIA (transient ischemic attack) PFO (patent foramen ovale) (HHS/HCC) DRVVT JUICE VIPER VENOM, DILUTED Routine 04/17/2020 3:16 PM CDT ENA2 (SSA & SSB) Routine 04/17/2020 3:16 PM CDT TIA (transient ischemic attack) PFO (patent foramen ovale) (HHS/HCC) FACTOR V LEIDEN MUTATION Routine 04/17/2020 3:16 PM CDT TIA (transient ischemic attack) PFO (patent foramen ovale) (HHS/HCC) PTT SUBSTITUTION PLASMA FRACT Routine 04/17/2020 3:16 PM CDT THROMBIN TIME, PLASMA Routine 04/17/2020 3:16 PM CDT SED RATE, ERYTHROCYTE (ESR) Routine 04/17/2020 3:16 PM CDT TIA (transient ischemic attack) PFO (patent foramen ovale) (HHS/HCC) PROTIME / PROTHROMBIN TIME Routine 04/17/2020 3:16 PM CDT HC PROTHROMBIN TIME (PT)-90 Routine 04/17/2020 3:16 PM CDT TIA (transient ischemic attack) PFO (patent foramen ovale) (HHS/HCC) PROTEIN C, ACTIVITY Routine 04/17/2020 3 :16 PM CDT TIA (transient ischemic attack) PFO (patent foramen ovale) (HHS/HCC) C-REACTIVE PROTEIN Routine 04/17/2020 3: 16 PM CDT TIA (transient ischemic attack) PFO (patent foramen ovale) (HHS/HCC) FACTOR VIII Routine 04/17/2020 3:16 PM CDT TIA (transient ischemic attack) PFO (patent foramen ovale) (HHS/HCC) BETA 2 GLYCOPROTEIN I ANTIBODY,EA Routine 04/17/2020 3:16 PM CDT TIA (transient ischemic attack) PFO (patent foramen ovale) (HHS/HCC) HOMOCYSTEINE Routine 04/17/2020 3:16 PM CDT TIA (transient ischemic attack) PFO (patent foramen ovale) (HHS/HCC) ANTITHROMBIN III ACTIVITY Routine 04/17/2020 3:16 PM CDT TIA (transient ischemic attack) PFO (patent foramen ovale) (HHS/HCC) documented in this encounter Results * Thrombin Time (04/17/2020 3:16 PM CDT) THROMBIN CLOTTING TIME 15 13 - 19 sec 04/20/2020 3:07 AM CDT [facility] JAVON COX Comment: Test Performed by Jovany Kearney Yopima Venancio [place], [address] [place], [place] Aaron Ortiz M.D., Ph.D., Director of Laboratories , CLIA [id number] 04/17/2020 3:16 PM CDT Mary Bahena MD LABORATORY Final Result [email or web address] [address] [place], [place] , [place] [phone] * DRVVT JUICE VIPER VENOM, DILUTED (04/17/2020 3:16 PM CDT) DRVVT MIX INTERPRETATION REPORT 04/20/2020 3:07 AM CDT [facility] CALABRESE-CHANTIL LY Comment: Not Indicated Test Performed by YopimaJovany [employer], [address] [place] [address] Aaron Ortiz M.D., Ph.D., Director of Laboratories , CLIA [id number] DRVVT SCREEN 26 <=45 sec 04/20/2020 3:07 AM CDT [facility] [place] L[facility] DRVVT REPORT 04/20/2020 3:07 AM CDT [facility] [place] LY Comment:Additional testing i s not indicated. 04/17/2020 3:16 PM CDT Mary Bahena MD LABORATORY Final Result [email or web address] [address] [place], [place] , [place] [phone] * PTT-LA W/RFX HEXAGONAL CONF (04/17/2020 3:16 PM CDT) PTT (LUPUS ANTICOAGULANT) 34 <=40 sec 04/20/2020 3:07 AM CDT [facility] [place] LY HEXAGONAL PHASE CONF REPORT 04/20/2020 3:07 AM CDT [facility] [place]-CHANT[place] LY Comment: Not indicated Test Performed by YopimaJovany, [employer], [address] [place], [place] Aaron Ortiz M.D., Ph.D., Director of Laboratories , CLIA [id number] 04/17/2020 3:16 PM CDT Mary Bahena MD LABORATORY Final Result [email or web address] [address] [place], [place] , [place] [phone] * MIXING INTERPRETATION (04/17/2020 3:16 PM CDT) PT MIXING STUDY REPORT 0 3:07 AM CDT [facility] JAVON LY Comment: Mixing studies are performed only on samples with prolonged PT or PTT-LA values. ??This patient's PT and/or PTT-LA value is within the reference range. Test Performed by [facility]opimaJovanyBuxfer, [address] [place], [place] Aaron Ortiz M.D., Ph.D., Director of Laboratories , CLIA [id number] 04/17/2020 3:16 PM CDT Mary Bahena MD LABORATORY Final Result Performing Organization Address City/[facility]/ZIP Co de Phone Number [facility] [address] [place], [place] , [place] [phone] * PTT SUBSTITUTION PLASMA FRACT (04/17/2020 3:16 PM CDT) PTT (LUPUS ANTICOAGULANT) 34 <=40 sec 04/20/2020 3:07 AM CDT [facility] JAVON COX Additional Test Information REPORT 04/20/2020 3:07 AM CDT [facility] JAVON LY Comment: Not indicated Test Performed by YopimaJovany [employer], [address] [place], [place] Aaron Ortiz M.D., Ph.D., Director of Laboratories , CLIA [id number] 04/17/2020 3:16 PM CDT us Mary Bahena MD LABORATORY Final Result Performing Organization Address City/[facility]/ZIP Co de Phone Number [facility] [address] [place], [place] , * PROTIME / PROTHROMBIN TIME (04/17/2020 3:16 PM CDT) INR 1.1 04/20/2020 1:31 AM CDT [facility] VENANCIO ALEJANDRO LY PROTIME 10.8 9.0 - 11.5 sec 04/20/2020 1:31 AM CDT [facility] JAVON LY Comment: ? Reference Ranges: ? (INR) ? Reference Range: ??0.9 - 1.1 Moderate Intensity Warfarin Therapy: ??2.0 - 3.0 Higher Intensity Warfarin Therapy: ??3.0 - 4.0 For more information on this test, go to: http://education.Keegy/faq/YXA505 Test Performed by Jovany Kearney, [facility], [address] [place] [address] Aaron Ortiz M.D., Ph.D., Director of Laboratories , [facility] [id number] 04/17/2020 3:16 PM CDT Mary Bahena MD LABORATORY Final Result Performing Organization Address [facility] Co de Phone Number [facility] [address] [place], [place] , [place] [phone] * COAGULATION MIXING STUDY (04/17/2020 3:16 PM CDT) PROTIME 10.8 <=11.5 sec 04/20/2020 1:31 AM CDT [facility] JAVON LY MIXING STUDY INTERPRETATION REPORT 04/20/2020 1:31 AM CDT [facility] JAVON LY Comment: PT Mix: ??Not indicated. Test Performed by Jovany Kearney, [facility] [place], [address] [place] [address] Aaron Ortiz M.D., Ph.D., Director of Laboratories , [facility] [id number] 04/17/2020 3:16 PM CDT us Mary Bahena MD LABORATORY Final Result [facility] [address] , [place] [phone] * ENVELOPE ADDRESSER ANTIBODY (04/17/2020 3:16 PM CDT) ENVELOPE ADDRESSER (U1) AB S/P/B 3.3 U 2020 1:11 PM CDT [facility] Comment: NEGATIVE: <5 U/mL EQUIVOCAL: 5 to 10 U/mL POSITIVE: >10 U/mL ?AUTOANTIBODIES TO ENVELOPE ADDRESSER ARE FOUND IN GREATER THAN 95% OF PATIENTS WITH MIXED CONNECTIVE TISSUE DISEASE (MCTD), BUT ARE ALSO SEEN IN SYSTEMIC LUPUS ERYTHEMATOUS (40%), RHEUMATOID ARTHRITIS (10%), SCLERODERMA SYNDROME (10%), AND RARELY IN DRUG INDUCED LUPUS AND SJOGREN'S SYNDROME. ABSENCE OF ENVELOPE ADDRESSER ANTIBODIES USUALLY RULES OUT MCTD. 04/17/2020 3:16 PM CDT us Mary Bahena MD LABORATORY Final Result [facility] [address] [place] [address], [place] [phone] * HOLDER (SM) ANTIBODY (04/17/2020 3:16 PM CDT) SM ANTIBODY 1.7 U/mL 2020 1:11 PM CDT [facility] Comment: NEGATIVE: <7 U/mL EQUIVOCAL: 7 to 10 u/mL POSITIVE: >10 U/mL Autoantibodies to Holder (Sm) antigen are found in 30% of patients with systemic lupus erythematosus and are highly specific for this disease. 04/17/2020 3:16 PM CDT Mary Bahena MD LABORATORY Final Result Performing Organization Address [facility] Co de Phone Number [facility] [address] [place] [address], [place] [phone] * ANTINUCLEAR ANTIBODY WI RFX (04/17/2020 3:16 PM CDT) SHEBA 0.6 2020 1:11 PM CDT [facility] Comment: NEGATIVE: <0.7 RATIO SHEBA PROFILE AND TITER NOT PERFORMED THE SHEBA SCREEN TEST FOR THE FOLLOWING ANTIBODIES: SSA1 (RO), SSB1 (LA), HOLDER, SCL70, JO1, CENTROMERE, ENVELOPE ADDRESSER HISTONE MUST BE ORDERED SEPARATELY DNA (DS) ANTIBODY <0.8 IU/ML 020 2:55 PM CDT [facility] Comment: NEGATIVE: <10 IU/mL EQUIVOCAL: 10 to 15 IU/mL POSITIVE: >15 IU/mL THIS QUANTITATIVE ASSAY IS CALIBRATED TO THE [employer]'S WO/80 STANDARD. THE LEVEL OF dsDNA AUTOANTIBODY GERERALLY CORRELATES WITH THE LEVEL OF DISEASE ACTIVITY IN SYSTEMIC LUPUS ERYTHMATOSUS 04/17/2020 3:16 PM CDT us Mary Bahena MD LABORATORY Final Result Performing Organization Address [facility] Co de Phone Number [facility] [address] [place] [address], [place] [phone] * ANTITHROMBIN III ACTIVITY (04/17/2020 3:16 PM CDT) ANTITHROMBIN III ACTIVITY 130 80 - 135 % normal 04/19/2020 2:49 AM CDT [facility] JAVON LY Comment: Test Performed by [employer]plazza [employer], [address] [place], [place] Aaron Ortiz M.D., Ph.D., Director of Laboratories , CLIA [id number] 04/17/2020 3:16 PM CDT Mary Bahena MD LABORATORY Final Result [facility] [address], * BETA 2 GLYCOPROTEIN I ANTIBODY,EA (04/17/2020 3:16 PM CDT) BETA-2 GLYCOPROTEIN I IGG <9 <=20 SGU 04/20/2020 3:23 AM CDT [facility]ANCIS[facility] BETA-2 GLYCOPROTEIN I IGM <9 <=20 SMU 04/20/2020 3:23 AM CDT 3sunWILMER LLY BETA-2 GLYCOPROTEIN I IGA <9 <=20 JAMEE 04/20/2020 3:23 AM CDT [facility]JACLYNPicPrizesWILMER LLY Comment: The antiphospholipid antibody syndrome (APS) is [...] drug therapy or aging. Test Performed by YopimaJovany [employer], [address] [place], [place] Aaron Ortiz M.D., Ph.D., Director of Laboratories , [facility] [id number] 04/17/2020 3:16 PM CDT Mary Bahena MD LABORATORY Final Result [facility] [address] [place] [address], * LUPUS ANTICOAGULANT (04/17/2020 3:16 PM CDT) CARDIOLIPIN AB IGG <14 <=14 GPL 2019 6:46 PM CDT [facility] NATE VALDEZ Comment: Cardiolipin Ab (IgG) Reference Range: Value ? Interpretation ? < or = 14 ? Negative 15 - 20 ? Indeterminate 21 - 80 ? Low to Medium Positive > 80 ?High Positive CARDIOLIPIN AB IGM <12 <=12 MPL 2019 6:46 PM CDT [facility] NATE VALDEZ Comment: Cardiolipin Ab (IgM) Reference [...] drug therapy or aging. Test Performed by YopimaJovany [employer], [address] [place], [place] Aaron Ortiz M.D., Ph.D., Director of Laboratories , CLIA [id number] CARDIOLIPIN AB IGA <11 <=11 APL 2019 6:46 PM CDT [facility] COURTNEY Comment: Cardiolipin Ab (IgA) Reference Range: Value ? Interpretation ? < or = 11 ? Negative 12 - 20 ? Indeterminate 21 - 80 ? Low to Medium Positive > 80 ?High Positive LUPUS ANTICOAGULANT REPORT 04/20 3:07 AM CDT [facility] Comment: A Lupus Anticoagulant is not detected. Reference Range: ??Not Detected For additional information, please refer to http://education.Keegy/faq/VNJ25k2 (This link is being provided for informational/ educational purposes only.) This interpretation is based on the following test results. Test Performed by timeplazza Jovany [employer], [address] [place], [place] Aaron Ortiz M.D., Ph.D., Director of Laboratories , CLIA [id number] 04/17/2020 3:16 PM CDT Mary Bahena MD LABORATORY Final Result [facility] [address] [place], [place] , [place] [phone] * (ABNORMAL) HOMOCYSTEINE (04/17/2020 3:16 PM CDT) HOMOCYSTEINE S/P/B 34(H) 3 - 11 MCMOL/L 04/17/2020 4:20 PM CDT [facility] HOMOCYSTINE NORMALS NORMAL LEVEL IS LESS THAN OR EQUAL TO 9 04/17/2020 3:04 PM CDT [facility] Comment: MILD IS 10 TO 15 UMOL/L MODERATE IS 16 TO 30 UMOL/L MODERATE TO SEVERE IS 31 TO 100 UMOL/L SEVERE IS GREATER THAN 100 UMOL/L 04/17/2020 3:16 PM CDT us Mary Bahena MD LABORATORY Final Result Performing Organization Address [facility] Co de Phone Number [facility] [address] [place] [address], [phone] * FACTOR VIII (04/17/2020 3:16 PM CDT) FACTOR VIII 102 50 - 180 % normal 04/19/2020 4:44 PM CDT [facility] JAVON CXO Comment: For additional information please refer to: http://education.Keegy/faq/BBG604 (This link is being provided for informational/ educational purposes only.) Test Performed by Jovany Kearney, [facility] Venancio [facility] [place], [address] [place] [address] Aaron Ortiz M.D., Ph.D., Director of Laboratories , CLIA [id number] 04/17/2020 3:16 PM CDT us Mary Bahena MD LABORATORY Final Result Performing Organization Address City/[facility]/ZIP Co de Phone Number [facility] LUISJOVANY [address] [place], [place] , [place] [phone] * C-REACTIVE PROTEIN (04/17/2020 3:16 PM CDT) C-REACTIVE PROTEIN <0.29 <0.80 mg/dL 04/17/2020 4:20 PM CDT [facility] 04/17/2020 3:16 PM CDT Mary Bahena MD LABORATORY Final Result Performing Organization Address City/[facility] Co de Phone Number [facility] [address] [place] [address], [place] [phone] * ENA2 (SSA & SSB) (04/17/2020 3:16 PM CDT) SSA ANTIBODY 0.3 U 2020 1:11 PM CDT [facility] Comment: NEGATIVE: <7 U/mL EQUIVOCAL: 7 to 10 u/mL POSITIVE: >10 U/mL ?? SSA AND/OR SSB AUTOANTIBODIES ARE DETECTED IN 60% TO 90% OF PATIENTS WITH SJOGREN'S SYNDROME AND IN 20% TO 40% OF PATIENTS WITH SYSTEMIC LUPUS ERYTHEMATOSUS. SSB ANTIBODY <0.3 U 2020 1:11 PM CDT [facility] Comment: NEGATIVE: <7 U/mL EQUIVOCAL: 7 to 10 u/mL POSITIVE: >10 U/mL ?? SSA AND/OR SSB AUTOANTIBODIES ARE DETECTED IN 60% TO 90% OF PATIENTS WITH SJOGREN'S SYNDROME AND IN 20% TO 40% OF PATIENTS WITH SYSTEMIC LUPUS ERYTHEMATOSUS. 04/17/2020 3:16 PM CDT us Mary Bahena MD LABORATORY Final Result Performing Organization Address City/[facility]/ZIP Co de Phone Number [facility] [address] [place] [address], [place] [phone] * SCL 70 (04/17/2020 3:16 PM CDT) SCL 70 S/P/B 0.7 U 2020 1:11 PM CDT [facility] Comment: NEGATIVE: <7 U/mL EQUIVOCAL: 7 to 10 u/mL POSITIVE: >10 U/mL AUTOANTIBODIES TO Scl-70 ARE FOUND IN UP TO 60% OF PATIENTS WITH SCLERODERMA (SYSTEMIC SCLEROSIS) AND ARE CONSIDERED TO BE SPECIFIC FOR THIS DISEASE. 04/17/2020 3:16 PM CDT Mary Bahena MD LABORATORY Final Result Performing Organization Address [facility] de Phone Number [facility] [address] [place] [address], [phone] * SHERMAN-1 ANTIBODY (04/17/2020 3:16 PM CDT) SHERMAN-1 ANTIBODY <0.3 U/mL 2020 1:11 PM CDT [facility] Comment: NEGATIVE: <7 U/mL EQUIVOCAL: 7 to 10 u/mL POSITIVE: >10 U/mL ?? AUTOANTIBODIES TO Jo1 ARE FOUND IN 10% TO 50% OF PATIENTS WITH DERMATOMYOSITIS OR POLYMYOSITIS AND IN 20% OF PATIENTS WITH SCLERODERMA SYNDROME. Jo1 AUTOANTIBODIES ARE GENERALLY NOT SEEN OUTSIDE OF THESE DISEASE STATES. 04/17/2020 3:16 PM CDT Mary Bahena MD LABORATORY Final Result Performing Organization Address [facility] de Phone Number [facility] [address] [place] [address], [phone] * FACTOR V LEIDEN MUTATION (04/17/2020 3:16 PM CDT) FACTOR V LEIDEN REPORT 0 7:12 PM CDT [facility] NATE VALDEZ Comment: RESULT: FACTOR V LEIDEN ([id number]) VARIANT NOT DETECTED INTERPRETATION REPORT 04/21/2020 7:12 PM CDT [facility] NATE VALDEZ Comment: INTERPRETATION: This individual is negative (normal) for the Factor V Leiden (R506Q) variant in the Factor V gene. Increased risk of thrombophilia can be caused by a variety of genetic and non-genetic factors not screened for by this assay. Laboratory testing supervised and results monitored by Ericka Sanchez MD, PhD, [facility], [facility]. MUTATION ANALYSIS: The Factor V Leiden (R506Q) mutation [NM 114287.2: c.1601G>A (p.R534Q)] in the Factor V gene [...] analytical performance characteristics have been determined by [facility]. It has not been cleared or approved by FDA. This assay has been validated pursuant to the CLIA regulations and is used for clinical purposes. Health care providers, please contact your local [facility] genetic counselor or call [phone] ([phone]) for assistance with interpretation of these results. Test performed by [facility] ? [address], ? [place] [address] ? Process Automation Engineer: Mary Jo Edwards MD,PHD,REINA Test Reported by Jovany Kearney, [facility], [address] [place] [address] Aaron Ortiz M.D., Ph.D., Director of Laboratories , CLIA [id number] 04/17/2020 3:16 PM CDT Mary Bahena MD LABORATORY Final Result [facility] VENANCIO MORENO [address] [place] [address], * PROTHROMBIN GENE MUTATION (04/17/2020 3:16 PM CDT) PROTHROMBIN GENE MUTATION REPORT 04/22/2020 1:12 PM CDT [facility] NATE VALDEZ Comment:RESULT: [id number] vari ant not detected INTERPRETATION REPORT 04/22/2020 1:12 PM CDT [facility] NATE VALDEZ Comment: INTERPRETATION: This individual is negative (normal) for the N32839I variant in the Prothrombin/Factor II gene. Increased risk of thrombophilia can be caused by a variety of genetic and non-genetic factors not screened for by this assay. Laboratory testing supervised and results monitored by Vania Whitfield, Ph.D., [facility], [facility]. The C62344M mutation [NP823525.1: g.35129K>A (c.*97G>A)] in the Prothrombin/Factor II gene is the second most common inherited risk factor for thrombosis occurring in approximately 2% of Caucasians. Presence of the mutation is associated with an elevation of prothrombin levels to about 30% above normal in heterozygotes and to 70% above normal in homozygotes. Prothrombin (G02494R) mutations are detected by amplification of their [...] Health care providers, please contact your local [facility]' genetic counselor or call [phone] ([phone]) for assistance with interpretation of these results. This test was developed and its analytical performance characteristics have been determined by [facility] [place] [facility]. It has not been cleared or approved by FDA. This assay has been validated pursuant to the CLIA regulations and is used for clinical purposes. Test performed by [facility] ? [id number], ? [place] [address] ? Process Automation Engineer: Mary Jo Edwards MD,PHD,REINA Test Reported by Yopima Jovany, [facility] [place], [address] [place] [address] Aaron Ortiz M.D., Ph.D., Director of Laboratories , CLIA [id number] 04/17/2020 3:16 PM CDT us Mary Bahena MD LABORATORY Final Result Performing Organization Address [facility] Co de Phone Number [facility] [address] , [place] [phone] * PROTEIN C, ACTIVITY (04/17/2020 3:16 PM CDT) Pathologist [facility] PROTEIN C FUNCTIONAL 77 70 - 180 % 04/19/2020 2:47 AM CDT [facility] CALABRESEMARY KAY COX Comment: Units: % of normal Test Performed by YopimaJovany, [facility] [place], [address] [place] [address] Aaron Ortiz M.D., Ph.D., Director of Laboratories , CLIA [id number] 04/17/2020 3:16 PM CDT us Mary Bahena MD LABORATORY Final Result Performing Organization Address [facility]/ZIP Co de Phone Number [facility] [place] [id number] [place], [place] , [place] [phone] * PROTEIN S ACTIVITY FUNCTIONAL (04/17/2020 3:16 PM CDT) Pathologist [facility] PROTEIN S FUNCTIONAL 103 60 - 140 % 04/19/2020 7:00 PM CDT [facility] JAVON LY Comment: Test Performed by Jovany Kearney, [facility], [address] [place] [address] Aaron Ortiz M.D., Ph.D., Director of Laboratories , [facility] [id number] 04/17/2020 3:16 PM CDT us Mary Bahena MD LABORATORY Final Result [facility] [place] [id number] [place] [address], [place] [phone] * SED RATE, ERYTHROCYTE (ESR) (04/17/2020 3:16 PM CDT) [facility] ESR 18 0 - 20 MM/HR 04/17/2020 5:43 PM CDT [facility] 04/17/2020 3:16 PM CDT us Mary Bahena MD LABORATORY Final Result Performing Organization Address [facility] Co de Phone Number [facility] [address] [place] [address], [place] [phone] * VARICELLA ZOSTER IGG (04/17/2020 3:16 PM CDT) [facility] VARICELLA ZOSTER IGG EIA POSITIVE 2020 12:07 PM CDT [facility] Comment:IN THE ABSENCE OF AC NUIQSUT SYMPTOMS, A POSITIVE RESULT SUGGESTS PAST IMMUNITY. 04/17/2020 3:16 PM CDT us Mary Bahena MD LABORATORY Final Result Performing Organization Address City/[facility]/ZIP Co de Phone Number [facility] [address] [place] [address], [place] [phone] documented in this encounter Visit Diagnoses Diagnosis PFO (patent foramen ovale) ([facility])- Primary Ostium secundum type atrial septal defect TIA (transient ischemic attack) Unspecified transient cerebral ischemia HTN (hypertension) Unspecified essential hypertension documented in this encounter Care Teams Medical Front Desk Specialist Relationship Specialty Start Date End Date Joel Durán MD [address] [place] [id number] PCP - General FAMILY PRACTICE 03/30/20 documented as of this encounter
--- OUTSIDE RECORDS SUMMARY | 2024-07-01 02:51 | XMS_ITS | Encounter Summary ---
Author Organization [facility] Address [address] [place] [address]. [place] [address] [place] [address] Care Team Providers Care Windows Support Engineer Name Role Phone Joel Durán MD Primary Care Provider [phone] Reason for Visit * Reason Onset Date Comments Neurologic Problem 04/13/2020 Encounter Details Date Type Department Care Team (Late st Contact Info) Description 04/13/2020 Chart Prep [facility] [address] [place] [address] Deborah Balderas, SHRADDHA [address] [place] [address] Neurologic Problem Social History Tobacco Use Types Packs/Day Years [...] documented in this encounter Progress Notes * Deborah Balderas NP - 04/13/2020 2:32 PM CDT While doing chart prep, she had an ACT order placed on 12/30/[address] Bahena that was not placed on the patient prior to discharge. Just wanted to know if you would like this to be arranged on the same day as her outpatient follow up on 04/17/2020 at 2:20PM Just an FY on testing results. TTE on 03/31/2020 showed a moderate-size PFO. There was no MIKA or lower extremity dopplers during the admission. No hypercoagulable panels sent. Thanks * Mary Bahena MD - 04/13/2020 2:32 PM CDT Yes please arrange for same day to curing pickling packer the ACT. documented in this encounter Plan of Treatment Upcoming Encounters Date Type Department Care Team (Late st Contact Info) Description 09/23/2024 9:00 AM CDT Appointment [facility] Non Invasive Cardiology - [facility] [address] [place] [address] Jaguar Castaneda MD [address] [place] [address] 09/23/2024 10:00 AM CDT Office Visit [facility] [address] [place] [id number] Jaguar Castaneda MD [address] [place] [address] documented as of this encounter Visit Diagnoses Not on filedocumented in this encounter Care Teams Windows Support Engineer Relationship Specialty Start Date End Date Joel Durán MD [address] [place] [address] PCP - General FAMILY PRACTICE 03/30/20 documented as of this encounter
--- OUTSIDE RECORDS SUMMARY | 2024-07-01 02:51 | XMS_ITS | Encounter Summary ---
Author Organization [facility] Address [address] [place] [address]. [place], [place] [id number] [place] [address] Care Team Providers Care City Letter Carrier Name Role Phone Joel Durán MD Primary Care Provider [phone] Mary Bahena MD Unavailable Jaguar Castaneda MD Unavailable [phone] Encounter Details Date Type Department Care Team (Latest Contact Info) Description 04/30/2020 Travel Social History Tobacco Use Types Packs/Day [...] Appointment [facility] Non Invasive Cardiology - [facility] [address] [place] [address] Jaguar Castaneda MD [address] [place] [address] 09/23/2024 10:00 AM CDT Office Visit [facility] [address] [place] [id number] Jaguar Castaneda MD [address] [place] [address] documented as of this encounter Visit Diagnoses Not on filedocumented in this encounter Care Teams City Letter Carrier Relationship Specialty Start Date End Date Joel Durán MD [address] [place] [address] PCP - General FAMILY PRACTICE 03/30/20 Mary Bahena MD [address] [place] [address] Vascular Neurology 04/18/20 09/09/22 Jaugar Castaneda MD [address] [place] [address] Consulting Physician INTERVENTIONAL CARDIOLOGY 04/18/20 documented as of this encounter
--- OUTSIDE RECORDS SUMMARY | 2024-07-01 02:56 | XMS_ITS | CONTINUITY OF CARE DOCUMENT ---
Author Name brigido fofana Address Unknown Organization [facility] Address [id number] [place] [address] [address] [place] [address] Phone [phone] Care Team Providers Care Forging Press Operator Name Role Phone [place], [place] Unavailable NATHEN COLVIN MD Unavailable NATHEN COLVIN MD Unavailable INSURANCE PROVIDERS Payer name Policy type / Coverage type [place] red democrat [employer] Medicaid 1 [id number]
== END 2024-06-22 09:14 | disposition home or self-care (01) ==
PROVIDERS: PCP Family Medicine; Visit Provider Family Medicine
DX: R05.2 Subacute cough (principal); Z87.891 Personal history of nicotine dependence
CPT/HCPCS: 71046